=== PATIENT | female | born 1935 | race Caucasian/White ===

== ENCOUNTER 2019-09-06 09:13 | Emergency (ER) | payer MEDICARE, OTHER, SELFPAY ==
[2019-09-06 09:48] VITALS: BP 151/69; PULSE 95; RESP 18; TEMP 36.7; O2SAT 97; BMI 17.3
[2019-09-06 10:37] LABS: Bilirubin Urine Neg (NEGATIVE); Blood Urine 2+ (Negative); Glucose Urine UA Norm (Normal); Ketones Urine Negative (Negative); Leukocyte Esterase Urine 2+ (Negative); Nitrate Urine Negative (Negative); Protein Urine 1+ (Negative); Specific Gravity, Urine 1.005 (1.005-1.030); Urine Appearance Cloudy (CLEAR); Urine Color Yellow (Yellow); Urobilinogen Urine Norm (Negative)
[2019-09-06 10:46] LABS: Basophils % 0.3 %; Eosinophils # 0.1 10^3/uL (0.0-0.8); Eosinophils % 0.9 %; Hematocrit 27.4 % (37.0-47.0); Hemoglobin 8.4 g/dL (11.5-15.3); Lymphocytes % 16.1 %; Mean Corpuscular HGB Conc 30.7 g/dL (30.0-36.0); Mean Corpuscular Hemoglobin 29.7 pg (28.0-34.0); Mean Corpuscular Volume 96.8 fL (81-99); Monocytes # 0.7 10^3/uL (0.2-0.9); Monocytes % 10.2 %; Neutrophils # 4.6 10^3/uL (1.8-7.7); Neutrophils % 71.7 %; Nucleated Red Blood Cells % 0 %; Platelet Count 327 10^3/cmm (130-400); Red Blood Count 2.83 10^6/uL (4.1-5.3); Red Cell Distribution Width 15.9 % (12.1-15.1); White Blood Count 6.4 10^3/uL (4.0-10.0)
--- NOTE | 2019-09-06 10:48 | W.ED.ABDPA2 ---
HPI - Abdominal Pain General: Chief Complaint: Abdominal Pain Stated Complaint: coffee ground vomit Time Seen by Provider: 09/06/19 10:47 PFSH ED PFSH: Statuses (acute, chronic, etc) shown below reflect problem list status as previously entered and may not be historically accurate Social History Smoking and tobacco status: former smoker Course Vital Signs: Vital signs: Vital Signs Temperature 98.0 F 09/06/19 09:48 Pulse Rate 95 09/06/19 09:48 Respiratory Rate 18 09/06/19 09:48 Blood Pressure 151/69 09/06/19 09:48 Pulse Oximetry 97 09/06/19 09:48 MDM - Abdominal Pain Lab Data: Labs: Lab Results 09/06/19 Range/Units 10:19 Urine Color Yellow (Yellow) Urine Appearance Cloudy (CLEAR) Urine pH 5.0 (5-7) Ur Specific Gravit y 1.005 (1.005-1.030) Urine Protein 1+ H (Negative) Urine Glucose (UA) Norm (Normal) Urine Ketones Negative (Negative) Urine Occult Blood 2+ H (Negative) Urine Nitrate Negative (Negative) Urine Bilirubin Neg (NEGATIVE) Urine Urobilinogen Norm (Negative) mg/dL Ur Leukocyte Carmen ase 2+ H (Negative) Discharge Plan Discharge Prescriptions: No Action sertraline 100 mg Tablet 100 mg PO BID RF: 0 amitriptyline 25 mg Tablet 25 mg PO QPM RF: 0 clonazepam 0.5 mg Tablet 0.5 mg PO BID RF: 0 diphenoxylate-atropine 2.5-0.025 mg Tablet 2 tab PO QID RF: 0 levothyroxine 88 mcg Capsule 88 mcg PO DAILY RF: 0 Coding Level of Care Code ED Sports Physiologist for Chg Fwswati
[2019-09-06 10:52] VITALS: BP 154/57; RESP 16; O2SAT 100
[2019-09-06 11:06] LABS: Add Urine Culture? Yes; Bacteria Urine 1+; Squamous Epithelial Cell Urine 0-4 (0-5); WBC Urine >100 /hpf (0-5)
[2019-09-06 11:09] LABS: INR 1.05 (0.8-1.2)
[2019-09-06 11:10] LABS: Alanine Aminotransferase 17 U/L (0-33); Albumin Level 4.5 g/dL (3.5-5.2); Alkaline Phosphatase 124 IU/L (35-105); Anion Gap 19.2 (5-19); Aspartate Amino Transferase 21 U/L (0-32); Blood Urea Nitrogen 33 mg/dL (8-23); Carbon Dioxide 27 mmol/L (22-29); Chloride 91 mmol/L (98-107); Globulin 3.1 g/dL (1.3-4.6); Glucose 97 mg/dL (74-106); Potassium 4.2 mmol/L (3.5-5.1); Sodium 133 mmol/L (136-145); Thyroid Stimulating Hormone 14.07 uIU/mL (0.27-4.20); Total Bilirubin 0.2 mg/dL (0.15-1.2); Total Protein 7.6 g/dL (6.6-8.7)
[2019-09-06 11:11] LABS: Partial Thromboplastin Time 32.2 SECONDS (23.9-36.7)
--- NOTE | 2019-09-06 11:16 | ED_ITS ---
Entered by Lisa Shultz, acting as scribe for Sep 06, 2019 09:13 HPI - Abdominal Pain General: Chief Complaint: Abdominal Pain Stated Complaint: coffee ground vomit Time Seen by Provider: 09/06/19 10:47 Source: patient and family Mode of arrival: ambulatory Limitations: no limitations History of Present Illness: HPI narrative: 83 yo Female presents to ED with c omplaint of abdominal pain and constipation. Pt's family states that they went to the [facility] walk in clinic and patient was sent here to get an enema. Pt started antibiotics on Friday by Dr. Lau for a UTI. The patient has mild dysuria only. She states her abdomen feels bloated and that is how she describes her abdominal pain. MD elicited complaint: abdominal pain Pertinent past history: constipation Quality: aching Associated Symptoms: Reports bloating and constipation; Denies chills, dysuria, fever(s), hematuria and syncope Review of Systems General: Reports: other (negative unless marked) Const: Denies: fever, chills, body aches, fatigue, malaise or diaphoresis Eyes: Denies: change in vision or blurry vision ENMT: Denies: throat pain, painful swallowing, hoarseness, ear pain, ear discharge, Change in hearing or nasal discharge Card: Denies: chest pain, palpitations, irregular heart rhythm, syncope, pre- syncope, shortness of breath on exertion or shortness of breath when lying down Resp: Denies: shortness of breath, productive cough, non-productive cough, wheezing, coughing up blood or chest congestion GI: Reports: abdominal pain, constipation and bloating : Denies: flank pain, painful urination, urinary frequency, urinary urgency, decreased urine ouput, urinary incontinence or blood in urine Musc: Denies: neck pain, back pain, extremity pain, extremity swelling, joint pain, joint swelling, joint warmth or joint stiffness Skin/Breast: Denies: rash, skin tenderness or yellow skin Neuro: Denies: headache, numbness in extremities, weakness in extremities, changes in sensation, lack of coordination, difficulty walking, dizziness, vertigo or confusion Endo: Denies: excessive thirst, tired all the time, cold intolerance, excessive sweating, flushing or hot flashes Jaswinder/Lymph: Denies: easy bruising, easy bleeding, petechiae or enlarged lymph nodes All/Imm: Denies: hives, throat swelling, tongue swelling, facial swelling or acute wheezing PFSH ED PFSH: Statuses (acute, chronic, etc) shown below reflect problem list status as previously entered and may not be historically accurate Medical History (Updated 09/06/19 @ 13:33 by Jessica Jones) Bowel obstruction (Acute) Cancer (Acute) PVD (peripheral vascular disease) (Acute) Surgical History (Updated 09/06/19 @ 11:45 by Lisa Shultz) History of colon resection (Acute) Social History Smoking and tobacco status: former smoker Physical Exam Const: COMMON NORMALS: no apparent distress, oriented x3, no limitations, healthy appearing and well nourished EXAM LIMITATIONS: no altered mental status GENERAL APPEARANCE: cooperative, well kempt and well developed ORIENTATION/CONSCIOUSNESS: Yes awake HENMT: COMMON NORMALS: normocephalic, head/scalp atraumatic, hearing grossly normal bilaterally, external ears normal, EAC's normal, external nose normal and moist oral mucous membranes HEAD & SCALP: normal to inspection, normocephalic and atraumatic FACE & SINUS: normal facial exam and face symmetric NOSE: external nose normal and nares normal EXTERNAL EAR: Yes external ears normal EXTERNAL AUDITORY CANAL: EAC's normal MOUTH: oral and palatal mucosa normal and tongue normal Eye: COMMON NORMALS: PERRL, EOMs intact bilaterally, conjunctivae normal and no scleral icterus GENERAL EYE: normal appearance of both eyes and normal light reflex CONJUNCTIVA: Yes conjunctivae normal SCLERA: sclerae normal CORNEA: Yes corneas normal PUPIL: Yes PERRL DIRECT OPHTHALMOSCOPY: Yes normal light reflex Neck/C-Spine: COMMON NORMALS: full ROM, no lymphadenopathy, supple, no meningeal signs and no JVD GENERAL: Yes normal visual inspection and Yes trachea midline CERVICAL SPINE: Yes cervical ROM normal Chest: COMMONS NORMALS: inspection of chest normal and palpation of chest normal Resp: COMMON NORMALS: normal respiratory effort, no retractions, no use of accessory muscles and clear to auscultation bilaterally EFFORT & INSPECTION: Yes able to speak in complete sentences AUSCULTATION: clear to auscultation bilaterally Cardio: COMMON NORMALS: no JVD, regular rate, regular rhythm, S1 normal heart sound, S2 normal heart sound, no gallops, no clicks, no murmurs and no rub JUGULAR VENOUS DISTENTION: no JVD RATE: regular rate RHYTHM: regular rhythm HEART SOUNDS: S1 normal and S2 normal GI: COMMON NORMALS: soft to palpation, non-tender, no hepatosplenomegaly and no masses INSPECTION: Yes normal to inspection PALPATION: Yes soft, Yes no hepatosplenomegaly and Yes other (Mild distention but no true tenderness to palpation. No signs of peritonit) : COMMON NORMALS: Yes no CVA tenderness BLADDER/KIDNEY EXAM: Yes no CVA tenderness Back/Pelvis: COMMON NORMALS: no CVA tenderness, thoracic and lumbar spine normal to inspection, no thoracic nor lumbar tenderness and thoraco-lumbar ROM normal Extremity: COMMON NORMALS: normal to inspection, full ROM, normal capillary refill, no joint enlargement, no clubbing, cyanosis or edema and no calf tenderness Neuro: COMMON NORMALS: oriented x3, CN's II-XII intact bilaterally, moves all extremities, no focal motor deficits and no sensory deficits noted MENINGEAL SIGNS: Yes no meningeal signs Psych: COMMON NORMALS: mental status grossly normal, thought process normal, cooperative, affect normal, speech normal and activity/motor behavior normal APPEARANCE: Yes well kempt SPEECH: Yes normal speech THOUGHT PROCESS: normal thought process Skin: COMMON NORMALS: no rashes or lesions noted, skin turgor normal, no jaundice, no petechiae and no mottling GENERAL SKIN EXAM: no rashes or lesions noted and turgor normal Procedures Intubation Mg Given: 20 Mg Given: 200 Course Vital Signs: Vital signs: Vital Signs Temperature 98.0 F 09/06/19 09:48 Pulse Rate 64 09/06/19 14:03 Respiratory Rate 18 09/06/19 14:03 Blood Pressure 112/64 09/06/19 14:03 Pulse Oximetry 64 L 09/06/19 14:03 MDM - Abdominal Pain MDM Narrative: Medical decision making narrative: The patient is not vomiting and her abdomen is soft to palpation. She states she feels bloated but otherwise has no true abdominal pain. She is afebrile and does not describe any dysuria. I am going to place her on Omnicef for her UTI and discharge her home with Zofran which she will take prior to her lactulose which she has not been taking because it makes her nauseated. She wants to try this but does agree to return here if her symptoms worsen or change at all. I did discuss with the patient her anemia. She has had higher blood counts in the past but also lower. She denies any blood in her stools. She states this is a chronic ongoing problem but is uncertain of the definite cause. She is not passed any blood in her stools so at this time I do not believe any transfusion or further work-up but this would be necessary. Lab Data: Labs: Lab Results 09/06/19 09/06/19 09/06/19 Range/Units 10:19 10:35 10:35 WBC 6.4 (4.0-10.0) 10^3/ uL RBC 2.83 L (4.1-5.3) 10^6/u L Hgb 8.4 L (11.5-15.3) g/dL Hct 27.4 L (37.0-47.0) % MCV 96.8 (81-99) fL MCH 29.7 (28.0-34.0) pg MCHC 30.7 (30.0-36.0) g/dL RDW 15.9 H (12.1-15.1) % Plt Count 327 (130-400) 10^3/c mm MPV 9.0 (7.4-10.4) fL Neut % (Auto) 71.7 % Lymph % (Auto) 16.1 % [place] % (Auto) 10.2 % Eos % (Auto) 0.9 % Baso % (Auto) 0.3 % Neut # (Auto) 4.6 (1.8-7.7) 10^3/u L Lymph # (Auto) 1.0 (0.8-4.8) 10^3/u L [place] # (Auto) 0.7 (0.2-0.9) 10^3/u L Eos # (Auto) 0.1 (0.0-0.8) 10^3/u L Baso # (Auto) 0.0 (0.0-0.1) 10^3/u L Nucleated RBC % (a uto) 0 % Nucleated RBCs # 0.0 /100WBC PT (10.5-13.3) SECO NDS INR (0.8-1.2) APTT (23.9-36.7) SECO NDS Sodium 133 L (136-145) mmol/L Potassium 4.2 (3.5-5.1) mmol/L Chloride 91 L (98-107) mmol/L Carbon Dioxide 27 (22-29) mmol/L Anion Gap 19.2 H (5-19) BUN 33 H (8-23) mg/dL Creatinine 1.5 H (0.5-0.9) mg/dL Glucose 97 (74-106) mg/dL Lactate (0.5-2.2) mmol/L Calcium 10.0 (8.8-10.2) mg/Dl Total Bilirubin 0.2 (0.15-1.2) mg/dL AST 21 (0-32) U/L ALT 17 (0-33) U/L Alkaline Phosphata se 124 H (35-105) IU/L Total Protein 7.6 (6.6-8.7) g/dL Albumin 4.5 (3.5-5.2) g/dL Globulin 3.1 (1.3-4.6) g/dL Lipase (13-60) U/L TSH 14.07 H (0.27-4.20) uIU/ mL Urine Color Yellow (Yellow) Urine Appearance Cloudy (CLEAR) Urine pH 5.0 (5-7) Ur Specific Gravit y 1.005 (1.005-1.030) Urine Protein 1+ H (Negative) Urine Glucose (UA) Norm (Normal) Urine Ketones Negative (Negative) Urine Occult Blood 2+ H (Negative) Urine Nitrate Negative (Negative) Urine Bilirubin Neg (NEGATIVE) Urine Urobilinogen Norm (Negative) mg/dL Ur Leukocyte Carmen ase 2+ H (Negative) Urine RBC 10-15 H (0-2) /hpf Urine WBC >100 H (0-5) /hpf Ur Squamous Epith Cells 0-4 H (0-5) Urine Bacteria 1+ H (NONE) 09/06/19 09/06/19 09/06/19 Range/Units 10:35 10:35 10:40 WBC (4.0-10.0) 10^3/ uL RBC (4.1-5.3) 10^6/u L Hgb (11.5-15.3) g/dL Hct (37.0-47.0) % MCV (81-99) fL MCH (28.0-34.0) pg MCHC (30.0-36.0) g/dL RDW (12.1-15.1) % Plt Count (130-400) 10^3/c mm MPV (7.4-10.4) fL Neut % (Auto) % Lymph % (Auto) % [place] % (Auto) % Eos % (Auto) % Baso % (Auto) % Neut # (Auto) (1.8-7.7) 10^3/u L Lymph # (Auto) (0.8-4.8) 10^3/u L [place] # (Auto) (0.2-0.9) 10^3/u L Eos # (Auto) (0.0-0.8) 10^3/u L Baso # (Auto) (0.0-0.1) 10^3/u L Nucleated RBC % (a uto) % Nucleated RBCs # /100WBC PT 14.00 H (10.5-13.3) SECO NDS INR 1.05 (0.8-1.2) APTT 32.2 (23.9-36.7) SECO NDS Sodium (136-145) mmol/L Potassium (3.5-5.1) mmol/L Chloride (98-107) mmol/L Carbon Dioxide (22-29) mmol/L Anion Gap (5-19) BUN (8-23) mg/dL Creatinine (0.5-0.9) mg/dL Glucose (74-106) mg/dL Lactate 2.4 H (0.5-2.2) mmol/L Calcium (8.8-10.2) mg/Dl Total Bilirubin (0.15-1.2) mg/dL AST (0-32) U/L ALT (0-33) U/L Alkaline Phosphata se (35-105) IU/L Total Protein (6.6-8.7) g/dL Albumin (3.5-5.2) g/dL Globulin (1.3-4.6) g/dL Lipase 33 (13-60) U/L TSH (0.27-4.20) uIU/ mL Urine Color (Yellow) Urine Appearance (CLEAR) Urine pH (5-7) Ur Specific Gravit y (1.005-1.030) Urine Protein (Negative) Urine Glucose (UA) (Normal) Urine Ketones (Negative) Urine Occult Blood (Negative) Urine Nitrate (Negative) Urine Bilirubin (NEGATIVE) Urine Urobilinogen (Negative) mg/dL Ur Leukocyte Carmen ase (Negative) Urine RBC (0-2) /hpf Urine WBC (0-5) /hpf Ur Squamous Epith Cells (0-5) Urine Bacteria (NONE) Imaging Data ^: CT Abd/Pel: Radiologist's impression: [facility] [address] [place] [address] CT Scan Report Signed Patient: Iraida Bay GMR#: [id number] : 5Acct:[id number] Age/Sex: 83 / FADM Date: 09/06/19 Loc: ER Attending Dr: Ordering Physician: Jessica Jones DO Date of Service: 09/06/19 Procedure(s): CT abdomen pelvis w con* [id number] Accession Number(s): [id number] Report Number: [id number] WS: [id number] CT scan of the abdomen and pelvis without Oral and with IV contrast. Additional two-dimensional coronal and sagittal reconstruction was performed. 09/06/2019 Clinical Data: Abdominal Pain Comparison: CT abdomen and pelvis, 08/09/2019 DLP: 464.[address] scans at [facility] use at least one of these dose optimization techniques: automated exposure control; mA and/or kV adjustment per patient size (includes targeted exams where dose is matched to clinical indication); or iterative reconstruction. Findings: The lower lungs show no nodules, masses or effusions. There is a right augmentation mammoplasty implant in position. The liver, spleen, adrenal glands and pancreas are normal. The gallbladder is distended and the common bile duct is prominent but no intraductal abnormalities are seen. No gallstones are evident. The kidneys show equal bilateral contrast excretion with with right renal pelvic dilatation. No renal masses or obstructing calculi are seen. The right kidney shows small cortical cysts. There is minimal bilateral hydroureter with no intraureteral calculi. The abdominal aorta is normal in size with calcification in the wall. No abscess, adenopathy, ascites, mass, obstruction or free air is seen.. No appendicitis or diverticulitis is seen. There is a huge amount of fecal material throughout the colon. The uterus is absent. The bladder is unremarkable. No inguinal hernia is seen. The fracture of the right sacrum and fracture of the right ischiopubic ramus again are seen. These probably represent pathologic fractures but they are unchanged. CT/CT abdomen pelvis w con* [id number] Impression: 1. Negative for new intra-abdominal or pelvic abnormalities. 2. Distended gallbladder but no calculi or obstructing common duct stones are seen. 3. Dilatation of the right renal pelvis and both ureters unchanged. 4. Large amount of fecal material throughout the colon. 5. Mixed lytic and blastic changes throughout the sacrum and pelvis with probable pathologic fractures of the right sacrum and the right ischio pubic ramus unchanged. Dictated By:Clair Emanuel MD Signed By:Clair Emanuel MDSigned Date/Time:09/06/19 1312 DD/ 1300 Other Xray: Radiologist's impression: [address] [address] XRay Report Signed Patient: Iraida Bay GMR#: [id number] : 5Acct:[id number] Age/Sex: 83 / FADM Date: 09/06/19 Loc: ER Attending Dr: Ordering Physician: Jessica Jones DO Date of Service: 09/06/19 Procedure(s): XR acute abdomen series 38919 Accession Number(s): [id number] cc: Jessica Jones DO~ PROCEDURE INFORMATION: Exam: XR Abdomen, 2 Views Exam date and time: 09/06/2019 11:29 AM Age: 83 years old Clinical indication: Bloating and constipation; Prior surgery; Surgery date: 6+ months; Surgery type: Colon, date not given; Patient HX: HX of cervical and colon cancer; Additional info: Bloating/constipation, no bm for 7 days TECHNIQUE: Imaging protocol: XR of the abdomen. Frontal supine and upright views of the abdomen. Views: 2 Views. COMPARISON: CR XR KUB [id number] 07/06/2019 2:45 PM FINDINGS: Lower thorax: Minimal scarring left retrocardiac region. Lungs are otherwise well aerated. Gastrointestinal tract: bowel gas pattern is nonspecific. Air filled large bowel including distal rectal gas. Large amount of stool throughout the large bowel. Intraperitoneal space: See Bones/joints Finding. Bones/joints: Severe degenerative changes right hip. Prior trauma right hemipelvis. XR/XR acute abdomen series 11959 IMPRESSION: 1. Large amount of stool throughout the large bowel. 2. Minimal scarring left retrocardiac region. Lungs are otherwise well aerated. Dictated By: Ozzie Rogers MD 09/06/19 1304 Signed By: Ozzie Rogers MD 09/06/19 1305 Discharge Plan Discharge Patient Disposition: Home, Self-Care Clinical Impression: Constipation Qualifiers: Constipation type: unspecified constipation type Qualified Code(s): K59.00 - Constipation, unspecified UTI (urinary tract infection) Qualifiers: Urinary tract infection type: acute cystitis Hematuria presence: without hematuria Qualified Code(s): N30.00 - Acute cystitis without hematuria Abdominal pain Qualifiers: Abdominal location: generalized Qualified Code(s): R10.84 - Generalized abdominal pain Condition: Stable Prescriptions: New Zofran 4 mg tablet 4 mg PO DAILY PRN (Reason: nausea and vomiting) 5 Days Qty: 20 RF: 0 cefdinir 300 mg capsule 300 mg PO Q12H 10 Days Qty: 20 RF: 0 No Action sertraline 100 mg Tablet 100 mg PO DAILY RF: 0 amitriptyline 25 mg Tablet 25 mg PO BEDTIME RF: 0 clonazepam 0.5 mg Tablet 0.5 mg PO BID PRN (Reason: Anxiety) RF: 0 diphenoxylate-atropine 2.5-0.025 mg Tablet 2 tab PO QID PRN (Reason: Diarrhea) RF: 0 levothyroxine 88 mcg Capsule 88 mcg PO DAILY RF: 0 latanoprost 0.005 % Drops 1 drp OPHTHALMIC (EYE) BEDTIME RF: 0 primidone 50 mg Tablet 50 mg PO TID PRN (Reason: Tremor(S)) RF: 0 Plavix 75 mg Tablet 75 mg PO DAILY RF: 0 Bactrim DS 800-160 mg Tablet 1 tab PO BID RF: 0 lactulose 10 gram/15 mL (15 mL) Solution 15 ml PO DAILY PRN (Reason: Constipation) RF: 0 Discharge Orders: Discharge Order (Routine); Ordered 09/06/19 Ordered By: Jessica Jones Referrals: Scott Lau MD [Family Provider] - Discharge Diet: Advance as tolerated Discharge Activity: Increase activity as tolerated Patient Instructions: Constipation (ED), Urinary Tract Infection in Men (ED), Abdominal Pain (ED) Activity Restrictions/Additional Instructions: Please return to the ER immediately for any of the signs or symptoms listed on your discharge instruction sheets, worsening/changing of your symptoms, you are not getting better as quickly as expected, or for ANY other cause or concerns. Stop the Bactrim as prescribed by Dr. Lau and take the antibiotic I have given you. Resume your lactulose as previously prescribed and take Zofran 30 minutes prior to taking this. Return to the ER for abdominal pain, fever, vomiting, or for any other cause for concern. Discharge Date/Time: 09/06/19 13:57 Coding Level of Care Code ED Pickle Cutter for Chg Fwd Exam Problem Focused The documentation recorded by the Carrington lopez Carmen, accurately reflects the service I personally performed and the decisions made by Robert garcia Eli N Sep 06, 2019 09:13
[2019-09-06 11:20] LABS: Lipase 33 U/L (13-60)
--- NOTE | 2019-09-06 11:27 | XRR_ITS ---
PROCEDURE INFORMATION: Exam: XR Abdomen, 2 Views Exam date and time: 09/06/2019 11:29 AM Age: 83 years old Clinical indication: Bloating and constipation; Prior surgery; Surgery date: 6+ months; Surgery type: Colon, date not given; Patient HX: HX of cervical and colon cancer; Additional info: Bloating/constipation, no bm for 7 days TECHNIQUE: Imaging protocol: XR of the abdomen. Frontal supine and upright views of the abdomen. Views: 2 Views. COMPARISON: CR XR KUB [id number] 07/06/2019 2:45 PM FINDINGS: Lower thorax: Minimal scarring left retrocardiac region. Lungs are otherwise well aerated. Gastrointestinal tract: bowel gas pattern is nonspecific. Air filled large bowel including distal rectal gas. Large amount of stool throughout the large bowel. Intraperitoneal space: See Bones/joints Finding. Bones/joints: Severe degenerative changes right hip. Prior trauma right hemipelvis. XR/XR acute abdomen series [id number] IMPRESSION: 1. Large amount of stool throughout the large bowel. 2. Minimal scarring left retrocardiac region. Lungs are otherwise well aerated.
[2019-09-06 11:29] LABS: Lactate (Lactic Acid level) 2.4 mmol/L (0.5-2.2)
[2019-09-06] MEDS: cefTRIAXone 1,000 MG in sodium chloride 0.9% (plus) 50 ML 100 MG IV (11:57)
--- NOTE | 2019-09-06 12:01 | CT_ITS ---
WS: [id number] CT scan of the abdomen and pelvis without Oral and with IV contrast. Additional two-dimensional hussain nal and sagittal reconstruction was performed. 09/06/2019 Clinical Data: Abdominal Pain Comparison: CT abdomen and pelvis, 08/09/2019 DLP: 464.[address] scans at [facility] use at least one of these dose optimization techniques: automat ed exposure control; mA and/or kV adjustment per patient size (includes targeted exams where dose is matched to clinical indication); or iterative reconstruction. Findings: The lower lungs show no nodules, masses or effusions. There is a right augmentation mammoplasty impla nt in position. The liver, spleen, adrenal glands and pancreas are normal. The gallbladder is distended and the commo n bile duct is prominent but no intraductal abnormalities are seen. No gallstones are evident. The kidneys show equal bilateral contrast excretion with with right renal pelvic dilatation. No renal masses or obstructing calculi are seen. The right kidney shows small cortical cysts. There is minima l bilateral hydroureter with no intraureteral calculi. The abdominal aorta is normal in size with calcification in the wall. No abscess, adenopathy, ascites , mass, obstruction or free air is seen.. No appendicitis or diverticulitis is seen. There is a huge amount of fecal material throughout the co felix. The uterus is absent. The bladder is unremarkable. No inguinal hernia is seen. The fracture of the right sacrum and fracture of the right ischiopubic ramus again are seen. These pr obably represent pathologic fractures but they are unchanged. CT/CT abdomen pelvis w con* [id number] Impression: 1. Negative for new intra-abdominal or pelvic abnormalities. 2. Distended gallbladder but no calculi or obstructing common duct stones are s een. 3. Dilatation of the right renal pelvis and both ureters unchanged. 4. Large amount of fecal material throughout the colon. 5. Mixed lytic and blastic changes throughout the sacrum and pelvis with probab le pathologic fractures of the right sacrum and the right ischio pubic ramus un changed.
[2019-09-06] MEDS: iodixanol 320 mg/mL 100mL Btl IV (12:17)
[2019-09-06] MEDS: sodium chloride 0.9% 1,000 ML 999 ML IV (12:56)
[2019-09-06 14:03] VITALS: BP 112/64; PULSE 64; RESP 18; O2SAT 64
== END 2019-09-06 13:57 | disposition home or self-care (01) ==
PROVIDERS: Family Medicine; Physician Assistant; Emergency Provider Emergency Medicine; Family Provider Family Medicine
DX: K59.00 Constipation, unspecified (principal); N30.00 Acute cystitis without hematuria; Z87.891 Personal history of nicotine dependence
CPT/HCPCS: 36415; 74022; 74177; 80053; 81001; 83605; 83690; 84443; 85025; 85610; 85730; 87040; 87077; 87086; 87186; 96360; 96365; 99283; 99284; A9270; J0696; J7030; Q9967

== ENCOUNTER 2020-02-06 14:10 | Inpatient (IN) | payer MEDICARE, OTHER, SELFPAY ==
[2020-02-06] VITALS (17 sets, daily range): BP systolic 81–109; BP diastolic 32–87; PULSE 65–179; RESP 13–32; TEMP 36.9–38.3; O2SAT 91–100; BMI 16.8
[2020-02-06] MEDS: sodium chloride 0.9% 500 ML 999 ML IV (14:20)
--- NOTE | 2020-02-06 14:20 | XRR_ITS ---
PROCEDURE INFORMATION: Exam: XR Chest, 1 View Exam date and time: 02/06/2020 2:24 PM Age: 84 years old Clinical indication: Other: A fib; Additional info: New onset a-fib TECHNIQUE: Imaging protocol: XR of the chest Views: 1 view. COMPARISON: CR Chest 1 [place] [id number] 06/25/2019 1:34 PM FINDINGS: Lungs: There is unchanged hyperinflation with probable mild fibrosis. Calcified granulomas are noted. No consolidation. A peripherally calcified right breast implant creates increased density over the right hemithorax. Pleural space: Unremarkable. No pleural effusion. No pneumothorax. Heart/Mediastinum: Unremarkable. No cardiomegaly. Bones/joints: No acute abnormality. XR/XR chest 1V portable [id number] IMPRESSION: No acute findings.
--- NOTE | 2020-02-06 14:20 | ECG_ITS ---
Measurements Intervals Stanley Rate: 159 P: OR: 0 QRS: -25 QRSD: 105 T: 74 QT: 256 QTc: 416 ATRIAL FLUTTER WITH RAPID VENTRICULAR RESPONSE INCOMPLETE RIGHT BUNDLE BRANCH BLOCK [90+ ms QRS DURATION, TERMINAL R IN V1/V2, 40+ ms S IN I/aVL/V4/V5/V6] SEPTAL MYOCARDIAL INFARCTION , OF INDETERMINATE AGE [40+ ms Q WAVE IN V1/V2] CRITICAL TEST RESULT Compared to ECG 06/25/2019 16:30:32 Incomplete right bundle-branch block now present Sinus rhythm no longer present Indeterminate axis no longer present Left anterior fascicular block no longer present Myocardial infarct finding still present Electronically Signed On 02-06-2020 19:06:20 CDT by Grant Lee M.D. [email or web address]
[2020-02-06 14:57] LABS: Basophils % 0.3 %; Eosinophils % 0.2 %; Hematocrit 28.8 % (37.0-47.0); Hemoglobin 9.1 g/dL (11.5-15.3); Lymphocytes # 0.8 10^3/uL (0.8-4.8); Lymphocytes % 8.1 %; Mean Corpuscular HGB Conc 31.6 g/dL (30.0-36.0); Mean Corpuscular Hemoglobin 31.3 pg (28.0-34.0); Mean Platelet Volume 9.5 fL (7.4-10.4); Monocytes % 10.5 %; Neutrophils # 7.7 10^3/uL (1.8-7.7); Neutrophils % 80.1 %; Nucleated Red Blood Cells % 0 %; Platelet Count 208 10^3/cmm (130-400); Red Blood Count 2.91 10^6/uL (4.1-5.3); Red Cell Distribution Width 12.3 % (12.1-15.1); White Blood Count 9.6 10^3/uL (4.0-10.0)
[2020-02-06 15:12] LABS: INR 1.22 (0.8-1.2)
[2020-02-06 15:26] LABS: Albumin Level 3.9 g/dL (3.5-5.2); Chloride 90 mmol/L (98-107); Potassium 3.6 mmol/L (3.5-5.1); Sodium 130 mmol/L (136-145)
[2020-02-06 15:39] LABS: Alanine Aminotransferase 12 U/L (0-33); Alkaline Phosphatase 85 IU/L (35-105); Anion Gap 18.6 (5-19); Aspartate Amino Transferase 19 U/L (0-32); Blood Urea Nitrogen 51 mg/dL (8-23); Calcium 8.5 mg/dL (8.5-10.5); Carbon Dioxide 23 mmol/L (22-29); Globulin 3.6 g/dL (1.3-4.6); Glucose 120 mg/dL (65-115); NT Pro B Type Natriuretic Pept 10455 pg/mL (0-450); Osmolality Calculated 271 mOsm/kg (285-295); Total Bilirubin 0.4 mg/dL (0.15-1.2); Total Protein 6.9 g/dL (6.6-8.7)
--- NOTE | 2020-02-06 15:41 | ED_ITS ---
HPI - Arrhythmia/Palpitations General: Chief Complaint: Arrhythmia/Palpitations Stated Complaint: high hr Time Seen by Provider: 02/06/20 14:18 History of Present Illness: HPI narrative: Patient states that she has not felt well for approximately 1 week. Whe was being seen at her PCPs office who directed her here for suspicion of new onset atrial fibrillation. MD complaint: rapid heart beat, palpitations, irregular heart beat and atrial fibrillation Onset (ago): day(s) Duration: constant Severity: severe Context: occurred during rest Review of Systems General: Reports: 10 or more systems reviewed and unremarkable except in HPI and below Card: Reports: chest pain, palpitations and irregular heart rhythm Resp: Reports: dyspnea PFSH ED PFSH: Medical History Acute non-ST segment elevation myocardial infarction Anemia Atrial fibrillation Bowel obstruction Cancer Chronic constipation Colon cancer Hypertension Irritable bowel syndrome Peripheral arterial disease Status post bilateral iliac stents and angioplasty of the left common femoral artery and superficial femoral artery. PVD (peripheral vascular disease) Septic shock Surgical History History of colon resection History of hemicolectomy S/P angioplasty with stent S/P bladder repair S/P hernia repair S/P tonsillectomy Family History Mother CAD (coronary artery disease) Son CAD (coronary artery disease) Myocardial infarct, old Father CAD (coronary artery disease) Myocardial infarct, old Social History Smoking and tobacco status: never smoked Alcohol intake: never Household members: spouse Marital status: Current occupational status: retired Current gender identity: Female Adele/Gnosticist: Sabianist Physical Exam Const: COMMON NORMALS: patient oriented x3 and alert HENMT: COMMON NORMALS: normocephalic and atraumatic HEAD & SCALP: normocephalic and atraumatic Neck/C-Spine: COMMON NORMALS: no meningeal signs Resp: EFFORT & INSPECTION: Yes respiratory distress Cardio: RATE: tachycardic RHYTHM: abnormal rhythm GI: COMMON NORMALS: Normal to inspection, nondistended, normoactive bowel sounds present Extremity: COMMON NORMALS: normal to inspection and full ROM Neuro: COMMON NORMALS: patient oriented x3 SENSORIUM/ORIENTATION: Yes alert MENINGEAL SIGNS: Yes no meningeal signs Skin: COMMON NORMALS: no rashes or lesions noted, no jaundice and no mottling GENERAL SKIN EXAM: no rashes or lesions noted Course Vital Signs: Vital signs: Vital Signs Temperature 101.0 F H 02/06/20 14:12 Pulse Rate 179 H 02/06/20 14:12 Respiratory Rate 22 H 02/06/20 14:12 Blood Pressure 109/87 02/06/20 14:12 Pulse Oximetry 92 02/06/20 14:12 MDM - Arrhythmia/Palpitations Lab Data: Labs: Lab Results 02/06/20 02/06/20 02/06/20 Range/Units 14:50 14:50 14:50 WBC 9.6 (4.0-10.0) 10^3/ uL RBC 2.91 L (4.1-5.3) 10^6/u L Hgb 9.1 L (11.5-15.3) g/dL Hct 28.8 L (37.0-47.0) % MCV 99.0 (81-99) fL MCH 31.3 (28.0-34.0) pg MCHC 31.6 (30.0-36.0) g/dL RDW 12.3 (12.1-15.1) % Plt Count 208 (130-400) 10^3/c mm MPV 9.5 (7.4-10.4) fL Neut % (Auto) 80.1 % Lymph % (Auto) 8.1 % Beauregard % (Auto) 10.5 % Eos % (Auto) 0.2 % Baso % (Auto) 0.3 % Neut # (Auto) 7.7 (1.8-7.7) 10^3/u L Lymph # (Auto) 0.8 (0.8-4.8) 10^3/u L Beauregard # (Auto) 1.0 H (0.2-0.9) 10^3/u L Eos # (Auto) 0.0 (0.0-0.8) 10^3/u L Baso # (Auto) 0.0 (0.0-0.1) 10^3/u L Nucleated RBC % (a uto) 0 % Nucleated RBCs # 0.0 /100WBC PT 15.90 H (10.5-13.3) SECO NDS INR 1.22 H (0.8-1.2) Sodium 130 L (136-145) mmol/L Potassium 3.6 (3.5-5.1) mmol/L Chloride 90 L (98-107) mmol/L Carbon Dioxide 23 (22-29) mmol/L Anion Gap 18.6 (5-19) BUN 51 H (8-23) mg/dL Creatinine 1.8 H (0.5-0.9) mg/dL Glucose 120 H (65-115) mg/dL Calculated Osmolal ity 271 L (285-295) mOsm/k g Calcium 8.5 (8.5-10.5) mg/dL Total Bilirubin 0.4 (0.15-1.2) mg/dL AST 19 (0-32) U/L ALT 12 (0-33) U/L Alkaline Phosphata se 85 (35-105) IU/L Troponin T Baselin e (0-10) ng/L Troponin T 120 Min tulalip (0-10) ng/L Delta Troponin T (0-10) ABS# NT-Pro-B Natriuret Pep 85174 H (0-450) pg/mL Total Protein 6.9 (6.6-8.7) g/dL Albumin 3.9 (3.5-5.2) g/dL Globulin 3.6 (1.3-4.6) g/dL 02/06/20 02/06/20 Range/Units 14:50 16:43 WBC (4.0-10.0) 10^3/ uL RBC (4.1-5.3) 10^6/u L Hgb (11.5-15.3) g/dL Hct (37.0-47.0) % MCV (81-99) fL MCH (28.0-34.0) pg MCHC (30.0-36.0) g/dL RDW (12.1-15.1) % Plt Count (130-400) 10^3/c mm MPV (7.4-10.4) fL Neut % (Auto) % Lymph % (Auto) % Beauregard % (Auto) % Eos % (Auto) % Baso % (Auto) % Neut # (Auto) (1.8-7.7) 10^3/u L Lymph # (Auto) (0.8-4.8) 10^3/u L Beauregard # (Auto) (0.2-0.9) 10^3/u L Eos # (Auto) (0.0-0.8) 10^3/u L Baso # (Auto) (0.0-0.1) 10^3/u L Nucleated RBC % (a uto) % Nucleated RBCs # /100WBC PT (10.5-13.3) SECO NDS INR (0.8-1.2) Sodium (136-145) mmol/L Potassium (3.5-5.1) mmol/L Chloride (98-107) mmol/L Carbon Dioxide (22-29) mmol/L Anion Gap (5-19) BUN (8-23) mg/dL Creatinine (0.5-0.9) mg/dL Glucose (65-115) mg/dL Calculated Osmolal ity (285-295) mOsm/k g Calcium (8.5-10.5) mg/dL Total Bilirubin (0.15-1.2) mg/dL AST (0-32) U/L ALT (0-33) U/L Alkaline Phosphata se (35-105) IU/L Troponin T Baselin e 42 H (0-10) ng/L Troponin T 120 Min tulalip 41.80 H (0-10) ng/L Delta Troponin T -0.20 L (0-10) ABS# NT-Pro-B Natriuret Pep (0-450) pg/mL Total Protein (6.6-8.7) g/dL Albumin (3.5-5.2) g/dL Globulin (1.3-4.6) g/dL Discharge Plan Discharge Patient Disposition: Admitted As Inpatient Clinical Impression: Atrial fibrillation Qualifiers: Atrial fibrillation type: unspecified Qualified Code(s): I48.91 - Unspecified atrial fibrillation Atrial flutter Qualifiers: Atrial flutter type: unspecified Qualified Code(s): I48.92 - Unspecified atrial flutter Anemia Qualifiers: Anemia type: unspecified type Qualified Code(s): D64.9 - Anemia, unspecified Acute renal failure Qualifiers: Acute renal failure type: unspecified Qualified Code(s): N17.9 - Acute kidney failure, unspecified CHF (congestive heart failure) Qualifiers: Heart failure type: unspecified Heart failure chronicity: unspecified Qualified Code(s): I50.9 - Heart failure, unspecified Condition: Fair Referrals: Scott Lau MD [Primary Care Provider] - Coding Level of Care Code ED Silk Screener for Chg Fwd Exam Comprehensive
[2020-02-06 15:53] LABS: Troponin(5th) Baseline 42 ng/L (0-10)
--- NOTE | 2020-02-06 16:20 | ECG_ITS ---
Measurements Intervals [place] Rate: 106 P: [place]: 0 QRS: -35 QRSD: 123 T: 46 QT: 353 QTc: 471 ATRIAL FIBRILLATION WITH RAPID VENTRICULAR RESPONSE LEFT AXIS DEVIATION [QRS AXIS < -30] SEPTAL MYOCARDIAL INFARCTION , OF INDETERMINATE AGE [40+ ms Q WAVE IN V1/V2] Compared to ECG 06/25/2019 16:30:32 Left-axis deviation now present Sinus rhythm no longer present Indeterminate axis no longer present Left anterior fascicular block no longer present Myocardial infarct finding still present Electronically Signed On 02-06-2020 19:07:48 CDT by Grant Lee M.D. [id number] f
--- NOTE | 2020-02-06 18:52 | PC.NURSE ---
UA ordered by hospitalist. He requests it be collected before patient goes to ICU.
--- NOTE | 2020-02-06 18:56 | CTR_ITS ---
PROCEDURE INFORMATION: Exam: CT Abdomen And Pelvis Without Contrast Exam date and time: 02/06/2020 7:02 PM Age: 84 years old Clinical indication: Prior surgery; Surgery date: 6+ months; Surgery type: Colon, bladder, hernia; Patient HX: Acute renal failure, a-fib, nausea; Additional info: Pain TECHNIQUE: Imaging protocol: Computed tomography of the abdomen and pelvis without contrast. Radiation optimization: All CT scans at this facility use at least one of these dose optimization techniques: automated exposure control; mA and/or kV adjustment per patient size (includes targeted exams where dose is matched to clinical indication); or iterative reconstruction. COMPARISON: CT abdomen pelvis w con* [id number] 09/06/2019 12:23 PM RADIATION DOSE METRICS: Total DLP: 466.67 mGy-cm FINDINGS: Lungs: Mild bibasilar opacity is present, consistent with atelectasis, edema, or pneumonia. Pleural space: There are bilateral small pleural effusions. Liver: Unremarkable.No mass. Gallbladder and bile ducts: Multiple calcified gallstones are present. There is no wall thickening or pericholecystic fluid to suggest cholecystitis. Pancreas: Normal. No ductal dilation. Spleen: Normal. No splenomegaly. Adrenals: Normal. No mass. Kidneys and ureters: There is no evidence of renal calcifications. There is progressive severe bilateral hydronephrosis compared to the prior exam. Stomach and bowel: There is no evidence of intestinal perforation or obstruction. There is severe constipation with a large amount of stool throughout the entire colon and rectum concerning for early impaction. There is unchanged mild circumferential wall thickening of the rectum and greater soft tissue density surrounding the distal sigmoid colon just distal to the anastomotic suture line. No discrete mass or narrowing of the colon. Appendix: No evidence of appendicitis. Intraperitoneal space: Unremarkable. No free air. No significant fluid collection. Vasculature: Unremarkable.No abdominal aortic aneurysm. Lymph nodes: Unremarkable.No enlarged lymph nodes. Bladder: There is nonspecific bladder wall thickening. No bladder calculi. Urinary bladder is very distended concerning the patient may have difficulty voiding. Reproductive: There is also haziness of the presacral fat and fat along the pelvic sidewalls. This may reflect postoperative and post therapeutic changes. Bones/joints: Unchanged chronic pelvic fracture deformities including right pubic bone, right sacrum, right acetabulum and right pubic rami are noted. Bilateral severe degenerative changes in the hips and sacroiliac joints are noted. No acute fracture. Unchanged lucencies and Mach the appearance in the pelvis. This may reflect metastatic disease with superimposed post radiation changes. Soft tissues: Unremarkable. Other findings: There are moderate emphysematous changes. Calcification along the pelvic sidewalls is unchanged compatible with post therapeutic change or myositis ossificans. CT/CT abdomen pelvis wo con [id number] IMPRESSION: 1. Mild bibasilar opacity is present, consistent with atelectasis, edema, or pneumonia. 2. Progressive severe hydronephrosis and marked distention of the urinary bladder concerning for difficulty voiding. No bladder calculus or bladder mass. There is mild bladder wall thickening that may reflect cystitis. 3. There is severe constipation with a large amount of stool throughout the entire colon and rectum concerning for early impaction. There are postoperative changes in the distal colon with soft tissue density in the pelvis suspected to be postoperative or post therapeutic changes. No fluid collection or abscess. 4. Cholelithiasis. No cholecystitis. Radiation Dose CTDIVOL = (mGy): DLP = 466.67 (mGy-cm)
--- NOTE | 2020-02-06 19:47 | P.HP_ITS ---
Providers/Chief Complaint Admitting Physician: Lazaro Gamboa Primary Care Provider: Scott Lau MD Chief Complaint: high hr History of Present Illness Iraida Bay is a 84 year old female with history of recurrent urinary tract infections, previously with colon cancer, status post surgical excision, radiation, with noted bilateral hydroureter, and right-sided hydronephrosis in September, came to the ER due to about a weeks worth of recurrent fevers, today up to 101. She states her and her have been suspecting that this is due to urinary tract infection. They state that back in October her primary care doctor had treated her with nitrofurantoin and everything had gone away. She has been generally weak. With poor appetite, unable to tolerate much food or drink. She has become constipated and has not had a bowel movement in 5 days. She complains of pain in lower back. She states she has been having difficulty urinating. She denies any blood in urine. She does not have headache, sore throat, ear nose, shortness of breath or cough. In ER she was noted with Anjelica lozada with RVR for which she was started on Cardizem drip. Review of Systems Const: Reports: fever(s), change in appetite, fatigue and malaise; Denies: chills or body aches Eyes: Denies: change in vision or eye redness ENMT: Denies: throat pain, oral sores or ear or mastoid pain Card: Denies: chest pain, edema, pre-syncope or dyspnea on exertion Resp: Denies: dyspnea, productive cough, change in phlegm color or hemoptysis GI: Reports: constipation; Denies: abdominal pain, nausea, vomiting, diarrhea, hematochezia or melena : Reports: difficulty voiding; Denies: flank pain, urinary frequency or hematuria Musc: Denies: back pain, joint swelling or joint redness Skin/Breast: Denies: rash, sores or new lesions Neuro: Denies: headache(s), numbness in extremities, weakness in extremities, dizziness, confusion or seizure-like activity Endo: Denies: polyuria or polydipsia Jaswinder/Lymph: Denies: easy bleeding or purpura All/Imm: Denies: urticaria, throat swelling or tongue swelling Medications/Allergies Home Medications Medication Instructions Recorded Confirmed Last Taken Type amitriptyline 25 mg PO BEDTIME 01/06/20 06/07/20 01/05/20 History clonazepam 0.5 mg PO BID PRN 09/06/19 02/06/20 02/05/20 History lactulose 15 ml PO DAILY PRN 09/06/19 02/06/20 09/03/19 History latanoprost 1 drp OPHTHALMIC (EYE) BEDTIME 09/06/19 02/06/20 09/05/19 History primidone 50 mg PO TID PRN 09/06/19 02/06/20 Unknown History aspirin 81 mg tablet,delayed 81 mg PO DAILY tab 09/13/19 02/06/20 02/05/20 History release cyclosporine 0.05 % eye drops 1 drop OPHTHALMIC (EYE) Q12H 09/13/19 02/06/20 Unknown History diphenoxylate-atropine 2.5 2 tab PO QID 09/13/19 02/06/20 02/05/20 History mg-0.025 mg tablet flaxseed oil 1,000 mg capsule 1,000 mg PO DAILY cap 09/13/19 02/06/20 Unknown History hydrochlorothiazide 12.5 mg tablet 12.5 mg PO QAM 09/13/19 02/06/20 Unknown History mirabegron 50 mg tablet,extended 50 mg PO Q24H 09/13/19 02/06/20 Unknown History release 24 hr omega-3 fatty acids 1,000 mg 1,000 mg PO DAILY 09/13/19 02/06/20 Unknown History capsule sertraline 100 mg tablet 100 mg PO Q24H 09/13/19 02/06/20 Unknown History tramadol 50 mg tablet 50 - 100 mg PO QID PRN tab 09/13/19 02/06/20 Unknown History vitamin B complex 1 tab PO QAM 09/13/19 02/06/20 Unknown History Vitamin D3 1 tab PO DAILY 02/06/20 02/06/20 Unknown History hydrocortisone [Proctozone-HC] 1 applic [place] BID PRN 02/06/20 02/06/20 Unknown History levothyroxine 137 mcg PO DAILY 02/06/20 02/06/20 Unknown History multivitamin [Multiple Vitamins] 1 tab PO DAILY 02/06/20 02/06/20 Unknown History phenyleph-min oil-petrolatum 1 applic [place] DAILY PRN 02/06/20 02/06/20 Unknown History [Preparation H] Allergies Allergy/AdvReac Type Severity Reaction Status Date / Time No Known Allergies Allergy Verified 02/06/20 15:15 PFSH Acute PFSH: Medical History (Updated 02/06/20 @ 20:39 by Lazaro Gamboa MD) Acute non-ST segment elevation myocardial infarction Anemia Atrial fibrillation Bowel obstruction Cancer Chronic constipation Colon cancer Hydroureter Hypertension Irritable bowel syndrome Peripheral arterial disease Status post bilateral iliac stents and angioplasty of the left common femoral artery and superficial femoral artery. PVD (peripheral vascular disease) Rectosigmoid cancer Recurrent UTI Septic shock Surgical History History of colon resection History of hemicolectomy S/P angioplasty with stent S/P bladder repair S/P hernia repair S/P tonsillectomy Family History Mother CAD (coronary artery disease) Son CAD (coronary artery disease) Myocardial infarct, old Father CAD (coronary artery disease) Myocardial infarct, old Social History Smoking and tobacco status: never smoked Alcohol intake: never Household members: spouse Marital status: Current occupational status: retired Current gender identity: Female Adele/Pentecostalism: Worship Vitals/I&O/Wt Last Vital Signs Temp 101.0 F H 02/06/20 14:12 Pulse 92 02/06/20 18:02 Resp 16 02/06/20 18:02 BP 87/55 02/06/20 18:02 Pulse Ox 96 02/06/20 18:02 02/06/20 02/06/20 02/06/20 06:59 14:59 22:59 Intake Total 58.367 / 58.367 Balance 58.367 / 58.367 Weight last 48 hrs Weight 43.091 kg Physical Exam Const: COMMON NORMALS: no acute distress and patient oriented x3 GENERAL APPEARANCE: anxious and frail appearing NUTRITIONAL APPEARANCE: cachectic and underweight ORIENTATION/CONSCIOUSNESS: Yes awake HENMT: COMMON NORMALS: oropharynx normal Neck/C-Spine: COMMON NORMALS: no JVD Resp: COMMON NORMALS: normal respiratory effort and clear to auscultation bilaterally AUSCULTATION: clear to auscultation bilaterally Cardio: COMMON NORMALS: no JVD, regular rhythm, S1 normal heart sound present, S2 normal heart sound present and No murmurs present (Cardio) RHYTHM: regular rhythm HEART SOUNDS: S1 normal heart sound present and S2 normal heart sound present GI: COMMON NORMALS: Normal to inspection, nondistended, normoactive bowel sounds present, Soft to palpation and non-tender PALPATION: Yes Soft to palpation Extremity: COMMON NORMALS: no joint enlargement and no pedal edema Neuro: COMMON NORMALS: patient oriented x3 and moves all extremities Skin: COMMON NORMALS: no rashes or lesions noted GENERAL SKIN EXAM: no rashes or lesions noted Data : 02/06/20 14:50 02/06/20 14:50 A&P Assessment and plan (1) Sepsis: Sepsis with recurrent fever 101 Fahrenheit. Tachypnea, 22. Mild lactic acidosis. Severe sepsis due to endorgan injury with JULIA. Unclear source, but suspected urinary. She is being checked for rapid flu, COVID-19 given fever, malaise, fatigue. UA not collected. ER will need to straight cath most likely as she states has b een having difficulty urinating. Subsequently if suggestion of UTI should have renal CT to exclude progressive obstruction/obstructive pyelonephritis. In that case may need urological assessment and intervention. We will start Rocephin as previously appears to have had E. coli resistant to ampicillin and Bactrim, otherwise sensitive. Check blood cultures. LA. CT done - severe bladder distention and severe progressive hydronephrosis. Appreciate urology assessment. Rocephin for cystitis, complicated uti Status: Acute (2) Pneumonia: Bibasilar atelectasis vs pneumonia. With fatigue, fever, pneumonia is possible, alhtough suspect somewhat less likely. Check Covid19, rapid flu. Ceftriaxone, azithromycin. Blood cultures. Status: Acute (3) Constipation: Severe constipation. No BM 5 days. Poor appetite. Denies nausea or vomiting. Start bowel regimen. Gentle IV hydration. Status: Acute (4) Hyponatremia: Hypovolemic. Gentle IV hydration. Reassess. Status: Acute (5) Acute kidney injury: Cr up to 1.8. Suspect may be combination of pre-renal and post-renal with obstruction. Place staton. Appreciate urology recs. Gentle fluid challenge. Monitor cr, I&O Status: Acute (6) Atrial fibrillation with RVR: Reverted to SR with cardizem drip. DC drip. Start metoprolol. Treat sepsis. Check Mg. TSH. Status: Acute (7) Severe protein-calorie malnutrition: Severe protein calorie malnutrition. BMI 16.8. Cachectic. Poor oral intake. Lack of appetite. Severe constipation. Add bowel regimen, work on relieving constipation. Regular diet. Add protein supplementation with shakes. IV fluid rehydration. Check magnesium. Status: Acute (8) Hypothyroidism: Continue levothyroxine. Check TSH. 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 Continue follow-up with oncology, Dr. Hogan. Family states that last time they had seen him there was no suspicion for any recurrence. I do not see any recent visits. Status: Acute Additional A&P Information Troponin abnormality: no chest pain. Mild elevation without rise. Suspected demand ischemia due to sepsis. Treat underlying condition. Complete trop, ekg series. Tremor: continue primidone at reduced dosing Anxiety: clonazepam Chronic anemia HTN PAD Other chronic problems would like to be updated regarding her condition. Attestations Medical Necessity Statement*: Admission of over 2 midnights is going to be needed for assessment management of severe sepsis, complicated UTI, pneumonia, acute kidney injury, other problems as above. Critical Care Time: 120 minutes critical care time spent on assessment and management of severe sepsis, assessment of source, with complicated UTI, urinary retention, severe progressive hydronephrosis, assessment volume status, hemodynamic support, antibiotics, assessment of endorgan injury including kidney injury. Review of images. Discussion with urology specialist, nursing staff, discussion with patient and family. Coding Level of Care Code Acute Gastroenterology Nurse Practitioner for g Fwd Diagnoses Sepsis A41.9 Pneumonia J18.9 Constipation K59.00 Hyponatremia E87.1 Acute kidney injury N17.9 Atrial fibrillation with RVR I48.91 Severe protein-calorie malnutrition E43 Hypothyroidism E03.9 Rectosigmoid cancer C19
--- NOTE | 2020-02-06 20:20 | ECG_ITS ---
Measurements Intervals [place] Rate: 76 P: 26 [place]: 138 QRS: -40 QRSD: 124 T: 46 QT: 416 QTc: 470 SINUS RHYTHM MARKED LEFT AXIS DEVIATION [QRS AXIS < -30] SEPTAL MYOCARDIAL INFARCTION [40+ ms Q WAVE IN V1/V2], OF INDETERMINATE AGE Compared to ECG 02/06/2020 16:45:07 Atrial fibrillation no longer present Myocardial infarct finding still present Electronically Signed On 02-07-2020 19:30:40 CDT by Grant Lee M.D. [id number]
[2020-02-06 20:46] LABS: Urine Appearance Cloudy (CLEAR); Urine Color Yellow (Yellow); pH Urine 5 (5-7)
[2020-02-06 20:47] LABS: Bilirubin Urine Neg (NEGATIVE); Blood Urine 3+ (Negative); Glucose Urine UA Norm (Normal); Ketones Urine Negative (Negative); Leukocyte Esterase Urine 2+ (Negative); Nitrate Urine Positive (Negative); Protein Urine Trace (Negative); Specific Gravity, Urine 1.005 (1.005-1.030); Urobilinogen Urine Norm (Negative)
[2020-02-06 20:49] LABS: Add Urine Culture? Yes; Bacteria Urine 2+; RBC Urine 0-4 /hpf (0-2); Squamous Epithelial Cell Urine 0-4 (0-5); WBC Urine TOO NUMEROUS TO CNT /hpf (0-5)
[2020-02-06 20:54] LABS: Thyroid Stimulating Hormone 0.01 uIU/mL (0.27-4.20)
[2020-02-06] MEDS: sodium chloride 0.9% 1,000 ML 75 ML IV (21:28)
[2020-02-06] MEDS: cefTRIAXone 1,000 MG in sodium chloride 0.9% (plus) 50 ML 100 MG IV (21:29)
[2020-02-06 21:40] LABS: Magnesium 2.1 mg/dL (1.7-2.3)
[2020-02-06 21:41] LABS: Troponin 5 6HR 43.55 ng/L (0-10); Troponin 5 6HR Delta 1.55 ng/L (0-12)
[2020-02-06] MEDS: sertraline 100 mg Tablet PO (21:46)
[2020-02-06] MEDS: enoxaparin 40 mg/0.4 mL Syringe SUBCUT (21:46)
[2020-02-06] MEDS: amitriptyline 25 mg Tablet PO (21:46)
[2020-02-06] MEDS: azithromycin 500 MG in sodium chloride 0.9% 250 ML 250 MG IV (22:03)
--- NOTE | 2020-02-06 23:00 | PC.NURSE ---
Admitted to ICU room 2 from ED via stretcher. Awake, Alert, and Oriented x 3 but appears to be having some slight confusion and forgetfulness. V/S stable at present time. No reports of pain or discomfort. Cardizem infusing at 8 but decreased to 5 and will continue to wean as tolerated. CM = SR with rate 60's to 70's. Patient reports last BM was approx 6 days ago. Complete history and physical done. Patient on droplet isolation for pending covid test.
--- NOTE | 2020-02-06 23:18 | PC.NURSE ---
Patient refusing Milk of Molasses enema at present time and states that she will let me give it to her in the morning. Notified Dr. Duvall and he states that is fine.
[2020-02-07] VITALS (15 sets, daily range): BP systolic 106–162; BP diastolic 43–74; PULSE 64–98; RESP 18–36; TEMP 36.2–37; O2SAT 89–97
[2020-02-07] MEDS: CLONazepam 0.5 mg Tablet PO ×2 (00:26→12:25)
--- NOTE | 2020-02-07 01:45 | PC.NURSE ---
Milk of Mol enema given as ordered. Hard impaction noted. No return noted. Assisted to BSC, lactulose given PO. After 45 minutes, large BM noted with hard stool and liquid stool.
[2020-02-07 05:00] LABS: Basophils % 0.4 %; Eosinophils % 0.3 %; Hematocrit 26.2 % (37.0-47.0); Hemoglobin 8.2 g/dL (11.5-15.3); Lymphocytes # 0.3 10^3/uL (0.8-4.8); Lymphocytes % 3.4 %; Mean Corpuscular HGB Conc 31.3 g/dL (30.0-36.0); Mean Corpuscular Hemoglobin 30.5 pg (28.0-34.0); Mean Corpuscular Volume 97.4 fL (81-99); Mean Platelet Volume 10.1 fL (7.4-10.4); Monocytes # 0.2 10^3/uL (0.2-0.9); Monocytes % 2.4 %; Neutrophils # 7.1 10^3/uL (1.8-7.7); Neutrophils % 92.7 %; Nucleated Red Blood Cells % 0 %; Platelet Count 219 10^3/cmm (130-400); Red Blood Count 2.69 10^6/uL (4.1-5.3); Red Cell Distribution Width 12.4 % (12.1-15.1); White Blood Count 7.6 10^3/uL (4.0-10.0)
[2020-02-07 05:18] LABS: Alanine Aminotransferase 13 U/L (0-33); Alkaline Phosphatase 86 IU/L (35-105); Anion Gap 18.3 (5-19); Aspartate Amino Transferase 21 U/L (0-32); Blood Urea Nitrogen 40 mg/dL (8-23); Calcium 9.3 mg/dL (8.5-10.5); Carbon Dioxide 24 mmol/L (22-29); Chloride 99 mmol/L (98-107); Globulin 3.9 g/dL (1.3-4.6); Glucose 120 mg/dL (65-115); Osmolality Calculated 285 mOsm/kg (285-295); Potassium 3.3 mmol/L (3.5-5.1); Sodium 138 mmol/L (136-145); Total Bilirubin 0.4 mg/dL (0.15-1.2); Total Protein 6.9 g/dL (6.6-8.7)
--- NOTE | 2020-02-07 07:44 | P.CONIM_ITS ---
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 I saw her last in my office in follow-up in May 2019. She had been recently treated for urinary tract infection, culture proven Klebsiella. Complaints at that time included gross hematuria and her symptoms improved after treatment with cefuroxime. 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 (History of colon cancer and cervical cancer). On that same CT scan about that time she had had right hydronephrosis considered moderate and extending distally to the thickened pelvic tissue. There is also a symphyseal pubic bone fracture felt to be likely pathologic. 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 More definitive plans for delayed until further work-up with oncology. She has been followed by Dr. Hogan several times since then and despite equivocal PET CT scan, clinical picture was still suspicious for local recurrence and progression. She has been treated several times since then by Dr. Lau for UTIs. In September she was reevaluated with a CT scan for abdominal bloating with bilateral hydroureter and right hydronephrosis, severe constipation, and persistent evidence of what appeared to be blastic and lytic lesions in the pelvis. This hospital stay was initiated for complaints of fever times approximately 1 week and up to 101 on admission. Initial thought was that this was probably a urinary tract infection. She also had severe constipation. Appetite is been poor and she is also had symptoms of retention. Gross hematuria. No overt flank pain. Was also noted to have atrial fibrillation with rapid ventricular response. CT scan done this time showed all of the above findings with significant progression of LEFT hydronephrosis which was not present as late as September of this year. Her bladder was SEVERELY DISTENDED compared to prior evaluations. Creatinine was elevated at 1.8. White count was normal. She was afebrile. Was also question of possible pneumonia. Other findings included tachypnea mild hypotension but no evidence of severe tachycardia. I spoke with Dr. Gamboa last night and recommended Finch catheter and consideration for more invasive procedures pending how she responds. In the past I spoken to Dr. Hogan about options for her ureters including c hronic indwelling ureteral stents if possible or percutaneous nephrostomies if necessary. To this point her choice has been to be more conservative. Since admission she has been treated aggressively for constipation and has had significant results. This morning when I first evaluated her she was heavily sleeping quite lethargic. More to follow. Review of Systems Narrative: At time of consultation patient was very lethargic and difficult to arouse. Unable to obtain review of systems. Information in the chart regarding this though was reviewed. Meds/Allergies Home Medications and Allergies Home Medications Medication Instructions Recorded Confirmed Last Taken Type amitriptyline 25 mg PO BEDTIME 09/06/19 02/06/20 09/05/19 History clonazepam 0.5 mg PO BID PRN 09/06/19 02/06/20 02/05/20 History lactulose 15 ml PO DAILY PRN 09/06/19 02/06/20 09/03/19 History latanoprost 1 drp OPHTHALMIC (EYE) BEDTIME 09/06/19 02/06/20 09/05/19 History primidone 50 mg PO TID PRN 09/06/19 02/06/20 Unknown History aspirin 81 mg tablet,delayed 81 mg PO DAILY tab 09/13/19 02/06/20 02/05/20 History release cyclosporine 0.05 % eye drops 1 drop OPHTHALMIC (EYE) Q12H 09/13/19 02/06/20 Unknown History flaxseed oil 1,000 mg capsule 1,000 mg PO DAILY cap 09/13/19 02/06/20 Unknown History mirabegron 50 mg tablet,extended 50 mg PO Q24H 09/13/19 02/06/20 Unknown History release 24 hr omega-3 fatty acids 1,000 mg 1,000 mg PO DAILY 09/13/19 02/06/20 Unknown History capsule sertraline 100 mg tablet 100 mg PO Q24H 09/13/19 02/06/20 Unknown History tramadol 50 mg tablet 50 - 100 mg PO QID PRN tab 09/13/19 02/06/20 Unknown History vitamin B complex 1 tab PO QAM 09/13/19 02/06/20 Unknown History Multiple Vitamins 1 tab PO DAILY 02/06/20 02/06/20 Unknown History Preparation H 1 applic [place] DAILY PRN 02/06/20 02/06/20 Unknown History Proctozone-HC 1 applic [place] BID PRN 02/06/20 02/06/20 Unknown History Vitamin D3 1 tab PO DAILY 02/06/20 02/06/20 Unknown History levothyroxine 137 mcg PO DAILY 02/06/20 02/06/20 Unknown History Lactobacillus acidophilus 10,000 mmu cells PO BID #60 cap 02/10/20 Unknown Rx bisacodyl 5 mg PO DAILY #30 tab 02/10/20 Unknown Rx cefuroxime axetil 500 mg PO BID 7 Days #14 tab 02/10/20 Unknown Rx metoprolol tartrate 25 mg PO BID #60 tab 02/10/20 Unknown Rx olanzapine 2.5 mg PO DAILY@20 #15 tab 02/10/20 Unknown Rx polyethylene glycol 3350 17 gm PO BID #60 each 02/10/20 Unknown Rx Allergies Allergy/AdvReac Type Severity Reaction Status Date / Time No Known Allergies Allergy Verified 02/06/20 15:15 Current Medications Current Medications Generic Name Dose Route Start Last Admin Trade Name Freq PRN Reason Stop Dose Admin Amitriptyline HCl 25 mg 02/06/20 21:00 02/06/20 21:46 Elavil PO 25 mg BEDTIME LILIYA Administration Bisacodyl 10 mg 02/07/20 09:00 02/07/20 07:28 Bisac-Evac [place] Not Given DAILY LILIYA Clonazepam 0.5 mg 02/06/20 20:33 02/07/20 00:26 Klonopin PO 0.5 mg BID PRN Administration Anxiety Enoxaparin Sodium 40 mg 02/06/20 21:00 02/06/20 21:46 Lovenox SUBCUT 40 mg Q24H LILIYA Administration Sodium Chloride 1,000 mls @ 75 mls/hr 02/06/20 21:00 02/06/20 21:28 Sodium Chloride 0.9% IV 75 mls/hr .[id number] LILIYA Administration Ceftriaxone Sodium 1,000 mg/ 50 mls @ 100 mls/hr 02/06/20 21:00 02/06/20 22:00 Sodium Chloride IV Infused Q12H LILIYA Infusion Protocol Azithromycin 500 mg/ Sodium 250 mls @ 250 mls/hr 02/06/20 22:00 02/06/20 22:03 Chloride IV 250 mls/hr Q24H LILIYA Administration Protocol Sertraline HCl 100 mg 02/06/20 20:33 02/06/20 21:46 Zoloft PO 100 mg Q24H LILIYA Administration PFSH Acute PFSH: Medical History Anemia Atrial fibrillation Chronic constipation Dementia History of cervical cancer Hydroureter Hypertension Intrinsic sphincter deficiency Irritable bowel syndrome Peripheral arterial disease Status post bilateral iliac stents and angioplasty of the left common femoral artery and superficial femoral artery. PVD (peripheral vascular disease) Rectosigmoid cancer Recurrent UTI Surgical History History of colon resection History of hemicolectomy S/P angioplasty with stent S/P bladder repair S/P hernia repair S/P tonsillectomy Family History Mother CAD (coronary artery disease) Son CAD (coronary artery disease) Myocardial infarct, old Father CAD (coronary artery disease) Myocardial infarct, old Social History Smoking and tobacco status: never smoked Alcohol intake: never Household members: spouse Marital status: Current occupational status: retired Current gender identity: Female Adele/Judaism: Confucianism Vitals/I&O/Wt Last Vital Signs Temp 98.6 F 02/07/20 04:00 Pulse 83 02/07/20 06:00 Resp 34 H 02/07/20 06:00 BP 117/48 02/07/20 06:00 Pulse Ox 90 02/07/20 06:00 02/06/20 02/07/20 02/07/20 22:59 06:59 14:59 Intake Total 192.500 / 192.500 658.083 / 850.583 Output Total 1300 / 1300 Balance 192.500 / 192.500 -641.917 / -449.417 Weight last 48 hrs Weight 97 lb 14.4 oz Weight 95 lb Physical Exam Narrative: EXAM NARRATIVE: Lethargic. Poorly responsive. Could not assess orientation. No labored respirations. No audible wheezing. Somewhat tachypneic. Abdomen was soft without palpable masses. Somewhat distended. No clear tenderness due to her mental status. No severe edema. Urinary Catheter Management^: Finhc: Cath Placed During This Visit: yes Urinary Catheter Date of Insertion: 02/06/20 Urinary Catheter Time of Insertion: 22:00 Data Micro: Micro: Microbiology 02/06/20 21:10 Blood Culture - Pr eliminary Blood SPECIMEN [facility]ONARD[facility] 02/06/20 21:04 Blood Culture - Pr eliminary Blood SPECIMEN [facility] A&P Assessment and plan (1) UTI (urinary tract infection): Status: Acute Qualifiers: Hematuria presence: without hematuria Urinary tract infection type: acute cystitis Qualified Code(s): N30.00 - Acute cystitis without hematuria (2) Intrinsic sphincter deficiency: Status: Acute (3) Urinary retention: New onset of urinary retention of unclear etiology. She appears to have an inflammatory invasive process on the posterior aspect of her bladder suspicious per Dr. Hogan's assessment with local recurrence of her prior disease. Recommend Finch catheter in place and reassess bilateral hydronephrosis and voiding trial later. Status: Resolved (4) Bilateral ureteral obstruction: Status: Acute Coding Level of Care Code Acute Psychological Assistant for [facility] Fwd Diagnoses UTI (urinary tract infection) N30.00 Hematuria presence: without hematuria Urinary tract infection type: acute cystitis Intrinsic sphincter deficiency N36.42 Urinary retention R33.9 Bilateral ureteral obstruction N13.5
[2020-02-07] MEDS: cefTRIAXone 1,000 MG in sodium chloride 0.9% (plus) 50 ML 100 MG IV ×2 (08:23→21:49)
[2020-02-07] MEDS: polyethylene glycol 3350 Pkt 17 gm PO (08:24)
[2020-02-07] MEDS: aspirin 81 mg EC Tablet PO (08:24)
[2020-02-07] MEDS: metoprolol tartrate 25 mg Tablet PO ×2 (08:24→20:51)
[2020-02-07] MEDS: levothyroxine 25 mcg Tablet PO (08:24)
[2020-02-07] MEDS: levothyroxine 112 mcg Tablet PO (08:24)
[2020-02-07] MEDS: primidone 50 mg Tablet 25 MG PO (12:25)
[2020-02-07] MEDS: ondansetron 2 mg/ML SDV 2 mL 4 MG IVP (12:25)
[2020-02-07] MEDS: sodium chloride 0.9% 1,000 ML 75 ML IV (12:28)
--- NOTE | 2020-02-07 18:34 | PM.PN ---
Subjective Subjective: Interval history: Patient a bit confused. She states that she could feel better but she is better than she was when she came in. At some point in the middle of my conversation, I do not think she realized that she was in the hospital. Other times she answers questions appropriately. No new complaints. Finch catheter is still in place. Denies any current pain. No active vomiting. She has had stool output today. Medications: Reviewed: Yes Vitals/I&O/Wt Last Vital Signs Temp 98.2 F 02/07/20 15:43 Pulse 66 02/07/20 14:00 Resp 26 H 02/07/20 14:00 BP 137/68 02/07/20 14:00 Pulse Ox 93 02/07/20 14:00 02/07/20 02/07/20 02/07/20 06:59 14:59 22:59 Intake Total 658.083 / 371.837 7178 / 1600 400 / 2000 Output Total 1300 / 1300 151 / 151 850 / 1001 Balance -641.917 / -586.319 4287 / 1449 -450 / 999 Weight last 48 hrs Weight 44.407 kg Weight 43.091 kg Physical Exam Const: OTHER: Alert, cooperative, to person and place initially but then does not seem to be able to recall that she is in the hospital. HENMT: OTHER: Normocephalic atraumatic, dry mucus membranes Eye: OTHER: Pupils equally reactive to light Neck/C-Spine: OTHER: Supple Resp: OTHER: Clear to auscultation bilaterally, no rhonchi or rales noted. Cardio: OTHER: Regular rate and rhythm, no murmurs, 2 + pulses GI: OTHER: Abdomen soft, nontender, nondistended with positive bowel sounds : OTHER: Finch with cloudy urine Extremity: NARRATIVE EXTREMITY EXAM: No cyanosis, clubbing or edema, no acute synovitis Neuro: OTHER: Face symmetric, speech clear, moves all extremities Psych: OTHER: Normal affect, hides her confusion well Skin: OTHER: Dry, scattered bruises Urinary Catheter Management^: Finch: Cath Placed During This Visit: yes Reason for Continuing Indwelling Catheter: Other Urinary Catheter Date of Insertion: 02/06/20 Urinary Catheter Time of Insertion: 22:00 Data : 02/07/20 04:20 02/07/20 04:20 Other Labs: COVID-19 not detected Micro: Microbiology 02/06/20 21:10 Blood Culture - Preliminary Blood SPECIMEN COLLECTED 02/06/20 21:04 Blood Culture - Preliminary Blood SPECIMEN COLLECTED A&P Assessment and plan (1) Acute encephalopathy: Improving but I doubt she is back to baseline. Status: Acute (2) Sepsis: Also with acute kidney injury. [place] to be urinary source of infection Status: Acute Qualifiers: Sepsis type: sepsis due to unspecified organism Sepsis acute organ dysfunction status: with acute organ dysfunction Severe sepsis acute organ dysfunction type: encephalopathy Severe sepsis shock status: without septic shock Qualified Code(s): A41.9 - Sepsis, unspecified organism; R65.20 - Severe sepsis without septic shock; G93.40 - Encephalopathy, unspecified (3) UTI (urinary tract infection): Present on admission, organism unknown but had E. coli that was sensitive to cephalosporins earlier this year Status: Acute Qualifiers: Hematuria presence: without hematuria Urinary tract infection type: acute cystitis Qualified Code(s): N30.00 - Acute cystitis without hematuria (4) Bilateral ureteral obstruction: Multifactorial secondary to scar tissue from radiation and prior surgeries as well as chronic constipation and Praneeth syndrome, follows with Dr. Hastings Status: Acute (5) Acute kidney injury: Possibly with some degree of chronic kidney disease progressively worsening with chronic hydro-nephrosis Status: Acute (6) Atrial fibrillation with RVR: Currently in sinus rhythm Status: Acute (7) Urinary retention: Currently with Finch catheter Status: Acute (8) Hyponatremia: Improved Status: Acute (9) Constipation: Chronic, some consideration for [place] syndrome in past, good output today Status: Acute Qualifiers: Constipation type: unspecified constipation type Qualified Code(s): K59.00 - Constipation, unspecified (10) Severe protein-calorie malnutrition: Present on admission Status: Acute (11) Hypothyroidism: On levothyroxine chronically; currently with almost undetectable TSH Status: Chronic Qualifiers: Hypothyroidism type: unspecified Qualified Code(s): E03.9 - Hypothyroidism, unspecified (12) Anemia: With slow decline, no gross bleeding. 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 Hastings's input, continue Finch catheter for close monitoring of urine output Chronically on Myrbetriq Continue laxative therapy On beta-blockade Hold levothyroxine and check free T3 and free T4 Monitor response to treatment in terms of the hydronephrosis present Monitor electrolytes Protein supplementation with meals Monitor neuro status Continue IV fluids at current rate For now we will continue home primidone as needed, Klonopin as needed Zoloft and eyedrops Lovenox for DVT prophylaxis, monitoring for any signs of bleeding Discussed with and gave him an opportunity to ask questions Told him that she could not have visitors but he is okay calling her. PT evaluation Supportive care otherwise Updated patient's with plan of care and current condition Full code Attestations Medical Necessity Statement*: Requires ongoing inpatient stay for continued IV antibiotics and follow-up of renal function and other issues as noted above. Still not back at baseline and at risk of significant clinical decline Coding Level of Care Code Acute Tree Specialist for [facility] Fwd Diagnoses Acute encephalopathy G93.40 Sepsis A41.9; R65.20; G93.40 Sepsis type: sepsis due to unspecified organism Sepsis acute organ dysfunction status: with acute organ dysfunction Severe sepsis acute organ dysfunction type: encephalopathy Severe sepsis shock status: without septic shock UTI (urinary tract infection) N30.00 Hematuria presence: without hematuria Urinary tract infection type: acute cystitis Bilateral ureteral obstruction N13.5 Acute kidney injury N17.9 Atrial fibrillation with RVR I48.91 Urinary retention R33.9 Hyponatremia E87.1 Constipation K59.00 Constipation type: unspecified constipation type Severe protein-calorie malnutrition E43 Hypothyroidism E03.9 Hypothyroidism type: unspecified Anemia D64.9 Anemia type: unspecified type Rectosigmoid cancer C19 History of cervical cancer Z85.41 Pneumonia J18.9 Pneumonia type: due to unspecified organism Laterality: bilateral Lung location: lower lobe of lung
[2020-02-07] MEDS: sertraline 100 mg Tablet PO (20:51)
[2020-02-07] MEDS: amitriptyline 25 mg Tablet PO (21:48)
[2020-02-07] MEDS: enoxaparin 40 mg/0.4 mL Syringe SUBCUT (21:49)
[2020-02-07] MEDS: latanoprost 0.005% Op Soln 2.5 mL Btl 1 DROP EYE-BOTH (21:50)
[2020-02-07] MEDS: TRAMadol 50 mg Tablet PO (23:31)
[2020-02-08] VITALS (7 sets, daily range): BP systolic 110–131; BP diastolic 51–65; PULSE 60–87; RESP 18–19; TEMP 36.5–36.8; O2SAT 91–99
[2020-02-08] MEDS: CLONazepam 0.5 mg Tablet PO ×2 (02:42→16:40)
[2020-02-08] MEDS: sodium chloride 0.9% 1,000 ML 75 ML IV (03:15)
[2020-02-08] MEDS: OLANZapine 10 mg VIAL IM (04:48)
[2020-02-08 05:51] LABS: Basophils % 0.3 %; Eosinophils # 0.2 10^3/uL (0.0-0.8); Eosinophils % 2.3 %; Hematocrit 27.6 % (37.0-47.0); Hemoglobin 8.4 g/dL (11.5-15.3); Lymphocytes # 1.1 10^3/uL (0.8-4.8); Lymphocytes % 15.9 %; Mean Corpuscular HGB Conc 30.4 g/dL (30.0-36.0); Mean Corpuscular Hemoglobin 30.3 pg (28.0-34.0); Mean Corpuscular Volume 99.6 fL (81-99); Mean Platelet Volume 9.6 fL (7.4-10.4); Monocytes # 0.7 10^3/uL (0.2-0.9); Monocytes % 9.7 %; Neutrophils # 4.8 10^3/uL (1.8-7.7); Neutrophils % 69.6 %; Nucleated Red Blood Cells % 0 %; Platelet Count 264 10^3/cmm (130-400); Red Blood Count 2.77 10^6/uL (4.1-5.3); Red Cell Distribution Width 12.5 % (12.1-15.1); White Blood Count 6.9 10^3/uL (4.0-10.0)
[2020-02-08 06:18] LABS: Alanine Aminotransferase 29 U/L (0-33); Albumin Level 2.9 g/dL (3.5-5.2); Alkaline Phosphatase 95 IU/L (35-105); Anion Gap 17.4 (5-19); Aspartate Amino Transferase 45 U/L (0-32); Blood Urea Nitrogen 30 mg/dL (8-23); Calcium 9.1 mg/dL (8.5-10.5); Carbon Dioxide 23 mmol/L (22-29); Chloride 99 mmol/L (98-107); Globulin 3.8 g/dL (1.3-4.6); Glucose 111 mg/dL (65-115); Osmolality Calculated 282 mOsm/kg (285-295); Sodium 137 mmol/L (136-145); Total Bilirubin 0.2 mg/dL (0.15-1.2); Total Protein 6.7 g/dL (6.6-8.7)
[2020-02-08 06:19] LABS: Phosphorus 3.1 mg/dL (2.5-4.5)
[2020-02-08 06:45] LABS: Potassium 2.4 mmol/L (3.5-5.1)
[2020-02-08 07:11] LABS: Free T4 Free Thyroxine 1.13 ng/dL (0.82-1.77); T3 Free 1.3 PG/ML (2.0-4.4)
--- NOTE | 2020-02-08 07:39 | PC.NURSE ---
PT RECEIVING IV POTASSIUM, PER DR SUMNER, THIS NURSE ASKED IF 5ML LIDOCAINE COULD BE ORDERED, DR SUMNER VIA TELEPHONE ORDERED 5 ML LIDOCAINE TO BE MIXED IN [place].
[2020-02-08] MEDS: aspirin 81 mg EC Tablet PO (08:47)
[2020-02-08] MEDS: bisacodyl 10 mg Supp PR (08:47)
[2020-02-08] MEDS: metoprolol tartrate 25 mg Tablet PO ×2 (08:48→16:40)
[2020-02-08] MEDS: lidocaine 1% INJ 20 mL 5 ML IV (08:49)
[2020-02-08] MEDS: potassium chloride premix 40 MEQ/100 ML PREMIX 25 MEQ IV (08:50)
--- NOTE | 2020-02-08 08:51 | P.PN_ITS ---
Subjective Subjective: Interval history: Feels better today. Sleepy but making more sense. Has had significant stool output. Potassium is low this morning but is being replaced. No new complaints. Vitals/I&O/Wt Last Vital Signs Temp 97.7 F 02/08/20 08:00 Pulse 60 02/08/20 08:00 Resp 18 02/08/20 08:00 BP 131/56 02/08/20 08:00 Pulse Ox 99 02/08/20 08:00 02/07/20 02/08/20 02/08/20 22:59 06:59 14:59 Intake Total 500 / 2100 1000 / 3100 Output Total 850 / 1001 700 / 1701 Balance -350 / 1099 300 / 1399 Weight last 48 hrs Weight 44.407 kg Weight 43.091 kg Physical Exam Const: OTHER: Sleepy but oriented x3, cooperative HENMT: OTHER: Moist mucus membranes Eye: OTHER: EOMI Neck/C-Spine: OTHER: Supple Resp: OTHER: Clear to auscultation bilaterally, no rales, rhonchi or wheezes noted, no accessory muscle use noted Cardio: OTHER: Regular rate and rhythm, no murmurs gallops or rubs. Pulses equal throughout. GI: OTHER: Abdomen soft, decreased tenderness. No CVA tenderness today, nondistended with positive bowel sounds : OTHER: Finch with clearer urine today Extremity: NARRATIVE EXTREMITY EXAM: No edema, no acute synovitis Neuro: OTHER: Face symmetric, speech clear, moves all extremities Psych: OTHER: Normal affect though sleepy Skin: OTHER: Skin dry, no rashes Urinary Catheter Management^: Finch: Cath Placed During This Visit: yes Reason for Continuing Indwelling Catheter: Other Urinary Catheter Date of Insertion: 02/06/20 Urinary Catheter Time of Insertion: 22:00 Data : 02/08/20 04:59 02/08/20 04:59 Other Labs: Laboratory Tests 02/08/20 04:59 Free T4 1.13 Free T3 1.3 L Micro: Microbiology 02/06/20 21:10 Blood Culture - Preliminary Blood NEGATIVE TO DATE 02/06/20 21:04 Blood Culture - Preliminary Blood NEGATIVE TO DATE A&P Assessment and plan (1) Acute encephalopathy: Improving but I doubt she is back to baseline. Had a chance to talk to Dr. Lau, her PCP, and he does relate that she has had some baseline dementia more notable over the past year.. Was definitely exacerbated at admission. Status: Acute (2) Sepsis: Also with acute kidney injury. [place] to be urinary source of infection. Status: Acute Qualifiers: Sepsis type: sepsis due to unspecified organism Sepsis acute organ dysfunction status: with acute organ dysfunction Severe sepsis acute organ dysfunction type: encephalopathy Severe sepsis shock status: without septic kaela ck Qualified Code(s): A41.9 - Sepsis, unspecified organism; R65.20 - Severe sepsis without septic shock; G93.40 - Encephalopathy, unspecified (3) UTI (urinary tract infection): Present on admission, organism unknown but had E. 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 Hastings who has seen here for consultation. Currently pursuing conservative management. Status: Acute (5) Acute kidney injury: Possibly with some degree of chronic kidney disease progressively worsening with chronic hydro-nephrosis. BUN and creatinine are improved today. Status: Acute (6) Atrial fibrillation with RVR: Currently in sinus rhythm. Does not have a history of this. Suspect related to sepsis and acute issues at presentation to initiate. Reviewed with Dr. Lau and and less clear indication anticoagulation, will hold off for now. Status: Acute (7) Urinary retention: Currently with Finch catheter Status: Acute (8) Hyponatremia: Resolved. 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 Consistent with sick euthyroid in the setting of other acute events. Status: Chronic Qualifiers: Hypothyroidism type: unspecified Qualified Code(s): E03.9 - Hypothyroidism, unspecified (12) Anemia: With slow decline, no gross bleeding. 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 (14) History of cervical cancer: Status: Acute (15) Pneumonia: Presumptive diagnosis at time of admission but suspect atelectasis rather than acute infection Status: Ruled-out Qualifiers: Pneumonia type: due to unspecified organism Laterality: bilateral Lung location: lower lobe of lung Qualified Code(s): J18.9 - Pneumonia, unspecified organism (16) Dementia: Status: Acute Qualifiers: Dementia type: unspecified type Dementia behavioral disturbance: without behavioral disturbance Qualified Code(s): F03.90 - Unspecified dementia without behavioral disturbance Additional A&P Information Keep bed near nurses station with bed alarm Continue Rocephin Greatly appreciate Dr. Hastings's input, continue Finch catheter for close monitoring of urine output Chronically on Myrbetriq Continue laxative therapy scheduled today, then decrease On beta-blockade Resume levothyroxine Monitor response to treatment in terms of the hydronephrosis present Monitor electrolytes Protein supplementation with meals Monitor neuro status q shift Continue IV fluids at current rate for now, but add potassium Continue home primidone as needed, Klonopin as needed Zoloft and eyedrops Lovenox for DVT prophylaxis, monitoring for any signs of bleeding Discussed with nursing We will call later today. He has an android smart phone but is not sure he knows how to do video calls. Nurse will see if she can talk him through it versus simply making sure he is able to talk to her on the phone. PT evaluation Supportive care otherwise Full code Attestations Medical Necessity Statement*: Requires ongoing inpatient stay for continued IV antibiotics, IV fluids and management as noted above. Coding Level of Care Code Acute Commissioning Engineer for [facility] [place] Fwd Diagnoses Acute encephalopathy G93.40 Sepsis A41.9; R65.20; G93.40 Sepsis type: sepsis due to unspecified organism Sepsis acute organ dysfunction status: with acute organ dysfunction Severe sepsis acute organ dysfunction type: encephalopathy Severe sepsis shock status: without septic shock UTI (urinary tract infection) N30.00 Hematuria presence: without hematuria Urinary tract infection type: acute cystitis Bilateral ureteral obstruction N13.5 Acute kidney injury N17.9 Atrial fibrillation with RVR I48.91 Urinary retention R33.9 Hyponatremia E87.1 Constipation K59.00 Constipation type: unspecified constipation type Severe protein-calorie malnutrition E43 Hypothyroidism E03.9 Hypothyroidism type: unspecified Anemia D64.9 Anemia type: unspecified type Rectosigmoid cancer C19 History of cervical cancer Z85.41 Pneumonia J18.9 Pneumonia type: due to unspecified organism Laterality: bilateral Lung location: lower lobe of lung Dementia F03.90 Dementia type: unspecified type Dementia behavioral disturbance: without behavioral disturbance
[2020-02-08] MEDS: polyethylene glycol 3350 Pkt 17 gm PO ×2 (08:53→16:40)
[2020-02-08] MEDS: sodium chlor 0.45% +KCl 20 mEq 20 MEQ/1,000 ML BAG 75 MEQ IV (13:15)
[2020-02-08] MEDS: cefTRIAXone 1,000 MG in sodium chloride 0.9% (plus) 50 ML 100 MG IV (14:47)
--- NOTE | 2020-02-08 17:58 | PC.NURSE ---
PRINCESS Lopez came to this nurse due to pt taking a piece of nicorette gum from [facility], Dr Choi informed, physician ordered PRN nicorette 4mg Q2H.
[2020-02-08] MEDS: sertraline 100 mg Tablet PO (20:17)
[2020-02-08] MEDS: amitriptyline 25 mg Tablet PO (20:17)
[2020-02-08] MEDS: enoxaparin 40 mg/0.4 mL Syringe SUBCUT (20:17)
[2020-02-08] MEDS: latanoprost 0.005% Op Soln 2.5 mL Btl 1 DROP EYE-BOTH (20:17)
[2020-02-08] MEDS: TRAMadol 50 mg Tablet PO (21:37)
--- NOTE | 2020-02-08 21:59 | PC.NURSE ---
Patient is very confused, she believes that the male nurse saw her private areas while being changed. Cnc Mill Set Up Operator was the only one in patient's room while being changed, male nurse was not in the room during changing pt. Pt believes that male nurse is a family member and she doesn't want him to see that kind of thing. Cnc Mill Set Up Operator told patient that I would be the only one in the room for changing her the rest of the night and that the female PSA could get me supplies if needed.
[2020-02-09] VITALS (7 sets, daily range): BP systolic 107–126; BP diastolic 42–63; PULSE 60–74; RESP 16–20; TEMP 36.4–36.9; O2SAT 93–98
[2020-02-09] MEDS: sodium chlor 0.45% +KCl 20 mEq 20 MEQ/1,000 ML BAG 75 MEQ IV ×2 (00:48→14:28)
[2020-02-09] MEDS: cefTRIAXone 1,000 MG in sodium chloride 0.9% (plus) 50 ML 100 MG IV ×2 (01:27→14:28)
[2020-02-09 05:04] LABS: Basophils % 0.3 %; Eosinophils # 0.3 10^3/uL (0.0-0.8); Eosinophils % 3.6 %; Hematocrit 29.2 % (37.0-47.0); Hemoglobin 8.6 g/dL (11.5-15.3); Lymphocytes # 1.3 10^3/uL (0.8-4.8); Lymphocytes % 18.2 %; Mean Corpuscular HGB Conc 29.5 g/dL (30.0-36.0); Mean Corpuscular Hemoglobin 30.3 pg (28.0-34.0); Mean Corpuscular Volume 102.8 fL (81-99); Mean Platelet Volume 9.3 fL (7.4-10.4); Monocytes # 0.7 10^3/uL (0.2-0.9); Monocytes % 9.9 %; Neutrophils # 4.7 10^3/uL (1.8-7.7); Neutrophils % 64.3 %; Nucleated Red Blood Cells % 0 %; Platelet Count 263 10^3/cmm (130-400); Red Blood Count 2.84 10^6/uL (4.1-5.3); Red Cell Distribution Width 12.6 % (12.1-15.1); White Blood Count 7.3 10^3/uL (4.0-10.0)
--- NOTE | 2020-02-09 05:06 | PC.NURSE ---
Patient has been stating that she is seeing things in her room such as dogs, and also her . Maintenance Helper Utility Engineer tried to redirect patient back, but she doesn't believe she's in the hospital. Patient believes she is in her house with her family.
[2020-02-09 05:27] LABS: Anion Gap 15.5 (5-19); Blood Urea Nitrogen 22 mg/dL (8-23); Carbon Dioxide 20 mmol/L (22-29); Chloride 104 mmol/L (98-107); Glucose 85 mg/dL (65-115); Magnesium 1.6 mg/dL (1.7-2.3); Osmolality Calculated 278 mOsm/kg (285-295); Phosphorus 2.5 mg/dL (2.5-4.5); Potassium 3.5 mmol/L (3.5-5.1); Sodium 136 mmol/L (136-145)
--- NOTE | 2020-02-09 08:45 | PC.SOCIAL ---
IMM Page 2 of IMM explained to patient. Initialed, dated, and timed and placed in chart. Copy provided to patient.
[2020-02-09] MEDS: aspirin 81 mg EC Tablet PO (09:10)
[2020-02-09] MEDS: levothyroxine 25 mcg Tablet PO (09:10)
[2020-02-09] MEDS: levothyroxine 112 mcg Tablet PO (09:10)
[2020-02-09] MEDS: polyethylene glycol 3350 Pkt 17 gm PO (09:11)
[2020-02-09] MEDS: metoprolol tartrate 25 mg Tablet PO ×2 (09:11→17:58)
--- NOTE | 2020-02-09 18:21 | PM.PN ---
Subjective Subjective: Interval history: She feels a bit better today. More cooperative. Was given another dose of Zyprexa last evening. Nursing notes describe her being confused but not combative that I have been able to find. Urine cultures have come back with E. coli sensitive to Rocephin. Finch catheter remains in place. I discussed with Dr. Hastings. Has had multiple bowel movements. Vitals/I&O/Wt Last Vital Signs Temp 98.1 F 02/09/20 15:30 Pulse 62 02/09/20 15:30 Resp 20 H 02/09/20 15:30 BP 112/57 02/09/20 15:30 Pulse Ox 98 02/09/20 15:30 02/09/20 02/09/20 02/09/20 06:59 14:59 22:59 Intake Total 916.25 / 1626.25 1360 / 1360 480 / 1840 Output Total 1425 / 1425 1500 / 1500 300 / 1800 Balance -508.75 / 201.25 -140 / -140 180 / 40 Physical Exam Const: OTHER: More awake and appropriate. HENMT: OTHER: Moist mucus membranes Eye: OTHER: EOMI Resp: OTHER: Clear to auscultation bilaterally Cardio: OTHER: Regular rhythm GI: OTHER: Abdomen soft, tenderness today : OTHER: Finch continues with clear urine Extremity: NARRATIVE EXTREMITY EXAM: No edema Neuro: OTHER: Face symmetric, speech clear, moves all extremities Skin: OTHER: Skin dry, no rashes Urinary Catheter Management^: Finch: Cath Placed During This Visit: yes Reason for Continuing Indwelling Catheter: Acute Urinary Retention or Obstruction Urinary Catheter Date of Insertion: 02/06/20 Urinary Catheter Time of Insertion: 22:00 Data : 02/09/20 04:32 02/09/20 04:32 Micro: Microbiology 02/06/20 19:35 Urine Culture - Final Urine Catheterized Escherichia coli A&P Assessment and plan (1) Acute encephalopathy: Improving and likely getting close to baseline for being out of her usual environment. Dr. Lau, her PCP, relate that she has had some baseline dementia more notable over the past year.. Was definitely exacerbated at admission. Status: Acute (2) Sepsis: Also with acute kidney injury. [place] to be urinary source of infection. Status: Resolved Qualifiers: Sepsis type: sepsis due to unspecified organism Sepsis acute organ dysfunction status: with acute organ dysfunction Severe sepsis acute organ dysfunction type: encephalopathy Severe sepsis shock status: without septic shock Qualified Code(s): A41.9 - Sepsis, unspecified organism; R65.20 - Severe sepsis without septic shock; G93.40 - Encephalopathy, unspecified (3) UTI (urinary tract infection): Present on admission, with E. 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 Hastings who has seen here for consultation. Currently pursuing conservative management. There has been some concern that this could be due to infiltration from malignancies causing more frequent problems for her Status: Acute (5) Acute kidney injury: Possibly with some degree of chronic kidney progressively worsening with chronic hydro-nephrosis. Continues to improve Status: Acute (6) Atrial fibrillation with RVR: Currently in sinus rhythm. Does not have a history of this. Suspect related to sepsis and acute issues at presentation to initiate. Reviewed with Dr. Lau and and less clear indication anticoagulation, will hold off for now. No recurrence Status: Acute (7) Urinary retention: Currently with Finch catheter with plan to evaluate for trial of voiding Status: Acute (8) Hyponatremia: Resolved. 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 Discussed with patient that diarrhea does not always indicate that you are not constipated. Status: Acute Qualifiers: Constipation type: unspecified constipation type Qualified Code(s): K59.00 - Constipation, unspecified (10) Severe protein-calorie malnutrition: Present on admission, getting supplements with meals Status: Acute (11) Hypothyroidism: On levothyroxine chronically; with almost undetectable TSH but with normal free T4 and actually low free T3. Consistent with sick euthyroid in the setting of other acute events. Status: Chronic Qualifiers: Hypothyroidism type: unspecified Qualified Code(s): E03.9 - Hypothyroidism, unspecified (12) Anemia: Stable, no gross bleeding. 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 Hastings's input Plan for removal of Finch and a trial of voiding Chronically on Myrbetriq which has been continued Decrease laxative therapy On beta-blockade On levothyroxine Recheck renal function in the morning Remains off of home hydrochlorothiazide Protein supplementation with meals Monitor neuro status q shift Will add low-dose Zyprexa scheduled at 8 PM and see if she does any better Continues to have one-to-one sitter for safety Change IV fluids to KVO Continue home primidone as needed, Klonopin as needed Zoloft and eyedrops Lovenox for DVT prophylaxis, monitoring for any signs of bleeding Discussed with nursing Updated last evening and will call again PT evaluation Supportive care otherwise Full code Attestations Medical Necessity Statement*: Requires ongoing inpatient stay for continued treatment as indicated above. Increasing activity, giving her a trial of voiding and beginning arrangements for possible discharge with home health soon. Will need close follow-up with urology upon discharge. Coding Level of Care Code Acute Steel Rule Die Maker for g Fwd Diagnoses Acute encephalopathy G93.40 Sepsis A41.9; R65.20; G93.40 Sepsis type: sepsis due to unspecified organism Sepsis acute organ dysfunction status: with acute organ dysfunction Severe sepsis acute organ dysfunction type: encephalopathy Severe sepsis shock status: without septic shock UTI (urinary tract infection) N30.00 Hematuria presence: without hematuria Urinary tract infection type: acute cystitis Bilateral ureteral obstruction N13.5 Acute kidney injury N17.9 Atrial fibrillation with RVR I48.91 Urinary retention R33.9 Hyponatremia E87.1 Constipation K59.00 Constipation type: unspecified constipation type Severe protein-calorie malnutrition E43 Hypothyroidism E03.9 Hypothyroidism type: unspecified Anemia D64.9 Anemia type: unspecified type Dementia F03.90 Dementia type: unspecified type Dementia behavioral disturbance: without behavioral disturbance Rectosigmoid cancer C19 History of cervical cancer Z85.41 Pneumonia J18.9 Pneumonia type: due to unspecified organism Laterality: bilateral Lung location: lower lobe of lung
[2020-02-09] MEDS: nicotine 14 mg Patch 1 PATCH TRANSDERMA (19:39)
[2020-02-09] MEDS: sertraline 100 mg Tablet PO (19:39)
[2020-02-09] MEDS: OLANZapine 5 mg TABLET 2.5 MG PO (19:39)
[2020-02-09] MEDS: amitriptyline 25 mg Tablet PO (19:39)
[2020-02-09] MEDS: latanoprost 0.005% Op Soln 2.5 mL Btl 1 DROP EYE-BOTH (20:36)
[2020-02-09] MEDS: enoxaparin 40 mg/0.4 mL Syringe SUBCUT (20:36)
[2020-02-10] MEDS: cefTRIAXone 1,000 MG in sodium chloride 0.9% (plus) 50 ML 100 MG IV ×2 (01:40→13:03)
[2020-02-10 04:07] VITALS: BP 144/61; PULSE 72; RESP 20; TEMP 36.9; O2SAT 96
[2020-02-10 04:11] LABS: Anion Gap 14.6 (5-19); Blood Urea Nitrogen 23 mg/dL (8-23); Calcium 8.7 mg/dL (8.5-10.5); Carbon Dioxide 16 mmol/L (22-29); Chloride 113 mmol/L (98-107); Glucose 93 mg/dL (65-115); Osmolality Calculated 286 mOsm/kg (285-295); Potassium 3.6 mmol/L (3.5-5.1); Sodium 140 mmol/L (136-145)
[2020-02-10] MEDS: sodium chlor 0.45% +KCl 20 mEq 20 MEQ/1,000 ML BAG 75 MEQ IV (05:13)
[2020-02-10 06:58] VITALS: BP 144/61; PULSE 72; RESP 20; TEMP 36.9
[2020-02-10 08:00] VITALS: BP 139/61; PULSE 78; RESP 16; TEMP 36.6; O2SAT 97
[2020-02-10] MEDS: nicotine 14 mg Patch 1 PATCH TRANSDERMA (08:32)
[2020-02-10] MEDS: polyethylene glycol 3350 Pkt 17 gm PO (08:32)
[2020-02-10] MEDS: aspirin 81 mg EC Tablet PO (08:32)
[2020-02-10] MEDS: metoprolol tartrate 25 mg Tablet PO (08:32)
[2020-02-10] MEDS: levothyroxine 112 mcg Tablet PO (08:32)
[2020-02-10] MEDS: levothyroxine 25 mcg Tablet PO (08:32)
[2020-02-10] MEDS: bisacodyl 5 mg Tablet PO (08:32)
--- NOTE | 2020-02-10 10:36 | PC.CHAP ---
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 linux server administrator visit [] Patient/Family/Request visit [] Outpatient visit [] Follow-up visit [] Physician referral [] Code/Alert [x] Routine visit [] Staff referral [] Actively dying [] Patient sleeping [] Family support [] [] Out of room [] Palliative care [] [] Receiving care in room [] Pre-surgical visit [] Trauma [] Long length of stay [] ICU visit [] Other: Relational/Emotional Strength [x] Patient feels connected with others/family/visitors/staff [] Distress [] Loneliness/isolation [] Abandonment Spirituality of Patient [x] Person of Adele [x] Attends Shinto of their Adele [x] Believes in Prayer [x] Reads Bible or Lutheran materials [] There are Spiritual issues to be addressed Electrocardiogram Technician Interventions [x] Prayer [x] Active listening [x] Non-anxious presence [x] Spiritual/emotional support [] Crisis/trauma care [] Spiritual counseling [] Bereavement support [] Provided bereavement packet [] Provided Bible/devotional materials [] Provided toy/stuffed animal, coloring book to patient or family member [] Provided Communion [] Anointing/[place] [] Salvation [x] Completed spiritual assessment [] Other: Impact on Illness or Injury [] Angry [] Fearful [] Anxious [] Often cries [] Exhaustion [] Unable to work [] Unable to attend spiritism [] Unable to walk/stand [] Unable to read [] Unable to drive [] Unable to eat/drink [] Unable to sleep [] Unable to be with family [] Patient intubated [x] Other: n/a Summary Time spent with patient 10 minutes
[2020-02-10 11:31] VITALS: BP 132/56; PULSE 80; RESP 16; TEMP 36.5; O2SAT 100
--- NOTE | 2020-02-10 14:59 | PM.DCS ---
Discharge Providers Date of Admission: 02/06/20 17:35 Date of Discharge: February 10, 2020 Attending Provider at Admission: Lazaro Gamboa Attending Provider at Discharge: Magnolia Choi MD Primary Care Provider: Scott Lau MD Diagnoses at Discharge Discharge Diagnosis (1) Acute encephalopathy: Status: Resolved Problem details: metabolic (2) Sepsis: Status: Resolved Qualifiers: Sepsis acute organ dysfunction status: with acute organ dysfunction Sepsis type: sepsis due to unspecified organism Severe sepsis acute organ dysfunction type: encephalopathy Severe sepsis shock status: without septic shock Qualified Code(s): A41.9 - Sepsis, unspecified organism; R65.20 - Severe sepsis without septic shock; G93.40 - Encephalopathy, unspecified (3) UTI (urinary tract infection): Status: Acute Problem details: E coli (not ESBL) on 02/10/20 Qualifiers: Hematuria presence: without hematuria Urinary tract infection type: acute cystitis Qualified Code(s): N30.00 - Acute cystitis without hematuria (4) Bilateral ureteral obstruction: Status: Acute Problem details: Slowly worsening, follows with Hastings (5) Acute kidney injury: Status: Resolved (6) Atrial fibrillation with RVR: Status: Resolved Problem details: Secondary to sepsis, in sinus rhythm at dc (7) Urinary retention: Status: Resolved (8) Hyponatremia: Status: Resolved (9) Constipation: Status: Resolved Qualifiers: Constipation type: unspecified constipation type Qualified Code(s): K59.00 - Constipation, unspecified (10) Severe protein-calorie malnutrition: Status: Acute (11) Hypothyroidism: Status: Chronic Qualifiers: Hypothyroidism type: unspecified Qualified Code(s): E03.9 - Hypothyroidism, unspecified (12) Anemia: Status: Chronic Qualifiers: Anemia type: unspecified type Qualified Code(s): D64.9 - Anemia, unspecified (13) Dementia: Status: Chronic Qualifiers: Dementia behavioral disturbance: without behavioral disturbance Dementia type: unspecified type Qualified Code(s): F03.90 - Unspecified dementia without behavioral disturbance (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 Soria presented with evidence of sepsis felt secondary to likely urinary source. There was some concern about possibility of pneumonia initially but ultimately findings on imaging studies were felt to be due to atelectasis. She had severe bladder distention and hydronephrosis noted on CT imaging. Finch catheter was placed and she was started on antibiotics. She has had worsening issues over time. She follows with Dr. Hastings on outpatient basis. She has a history of both rectal cancer as well as cervical cancer. For some time Dr. Hastings has thought that there might be some issues related to either scar tissue or infiltration contributing to recurrent problems with constipation and subsequently contributing to progressively worsening hydronephrosis. Patient had not had a bowel movement for multiple days prior to admission. She had acute kidney injury with creatinine up to 1.8 in addition to other findings noted. With antibiotic therapy, IV fluids and laxative therapy, she improved slowly. We ended up doing a trial of voiding after discussion with Dr. Hastings. Patient was able to urinate without the same degree of difficulty after significant stool output during the hospital admission. I reviewed with her yet again the need to maintain regular stool softeners and laxative therapy to help prevent these kinds of issues. I also discussed with her . She reports frequent diarrhea. Reiterated that the watery stools are probably related to overflow incontinence rather than actual diarrhea. Urine culture ultimately ended up growing E. coli that was not ESBL. She was treated with Rocephin here and was transitioned to oral medication at discharge. She had had some transient atrial fibrillation that I feel was likely secondary to sepsis. Was in sinus rhythm at the time of discharge. No further treatment in this regards was initiated. I will note that during the hospital stay, patient had some evidence of sundowning and behavioral changes requiring medication. At time she was quite combative with staff. Prior to discharge she was doing better. I started her on 2.5 mg of Zyprexa at 8 PM. A prescription for this was provided at discharge. I spoke with the about it. I also reviewed the case with Dr. Lau, patient's primary care provider during the hospital stay as well as at the time of discharge. Plans were reviewed with patient although I do not know how much of it she will maintain. Again I reviewed with also. On the day of discharge, patient was awake and alert. She was able to answer more questions appropriately. She was tearful at times because she wanted to go home but otherwise no acute behavioral issues noted. Her lungs are clear, she had a regular rhythm. Abdomen was soft without any significant distention. She had no ongoing tenderness and was felt stable for discharge home with close outpatient follow-up. Plans in regards to Finch catheter removal were discussed with Dr. Hastings prior to discharge. Physical Exam Urinary Catheter Management^: Finch: Cath Placed During This Visit: yes, but has since been removed by the nurse Reason for Continuing Indwelling Catheter: Decision to DC Catheter Urinary Catheter Date of Insertion: 02/06/20 Urinary Catheter Time of Insertion: 22:00 Date Urinary Catheter Removed: 02/09/20 Time Urinary Catheter Discontinued: 18:00 Discharge Data Data Completed and Pending: Completed Studies During Hospitalization Category Date Time Status CT abdomen pelvis wo con 33922 Urge nt Cat Scan 02/06/20 18:56 Completed XR chest 1V aysha ble [id number] Stat Exams 02/06/20 14:20 Completed Pending at discharge Category Date Time Status Blood Culture Sta t Lab 02/06/20 21:10 Results Labs from last 24 hours 02/10/20 03:23 Sodium 140 Potassium 3.6 Chloride 113 H Carbon Dioxide 16 L Anion Gap 14.6 BUN 23 Creatinine 1.1 H Glucose 93 Calculated Osmolal ity 286 Calcium 8.7 Vitals: Last Vital Signs Temp 97.7 F 02/10/20 11:31 Pulse 80 02/10/20 11:31 Resp 16 02/10/20 11:31 BP 132/56 02/10/20 11:31 Pulse Ox 100 02/10/20 11:31 Discharge Plan Discharge Patient Disposition: Home, Self-Care Condition: Stable Prescriptions: New olanzapine 5 mg Tablet 2.5 mg PO DAILY@20 Qty: 15 RF: 0 bisacodyl 5 mg Tablet,Delayed Release (Dr/Ec) 5 mg PO DAILY Qty: 30 RF: 0 metoprolol tartrate 25 mg Tablet 25 mg PO BID Qty: 60 RF: 0 cefuroxime axetil 500 mg tablet 500 mg PO BID 7 Days Qty: 14 RF: 0 polyethylene glycol 3350 17 gram powder in packet 17 gm PO BID Qty: 60 RF: 0 Lactobacillus acidophilus Capsule 10,000 mmu cells PO BID Qty: 60 RF: 0 Continued vitamin B complex [B Complex-Vitamin B12] Tablet 1 tab PO QAM RF: 0 flaxseed oil 1,000 mg capsule 1,000 mg PO DAILY RF: 0 omega-3 fatty acids [Fish Oil Concentrate] 1,000 mg capsule 1,000 mg PO DAILY RF: 0 aspirin [Adult Low Dose Aspirin] 81 mg tablet,delayed release (DR/EC) 81 mg PO DAILY RF: 0 tramadol 50 mg tablet 50 - 100 mg PO QID PRN (Reason: Pain) RF: 0 Restasis MultiDose 0.05 % drops 1 drop ophthalmic (eye) Q12H RF: 0 Myrbetriq 50 mg tablet extended release 24 hr 50 mg PO Q24H RF: 0 sertraline 100 mg tablet 100 mg PO Q24H RF: 0 amitriptyline 25 mg Tablet 25 mg PO BEDTIME RF: 0 clonazepam 0.5 mg Tablet 0.5 mg PO BID PRN (Reason: Anxiety) RF: 0 latanoprost 0.005 % Drops 1 drp OPHTHALMIC (EYE) BEDTIME RF: 0 primidone 50 mg Tablet 50 mg PO TID PRN (Reason: Tremor(S)) RF: 0 lactulose 10 gram/15 mL (15 mL) Solution 15 ml PO DAILY PRN (Reason: Constipation) RF: 0 Multiple Vitamins Tablet 1 tab PO DAILY RF: 0 levothyroxine 137 mcg tablet 137 mcg PO DAILY RF: 0 Proctozone-HC 2.5 % cream with perineal applicator 1 applic [place] BID PRN (Reason: UNKNOWN) RF: 0 Preparation H 0.25-14-74.9 % Ointment 1 applic [place] DAILY PRN (Reason: UNKNOWN) RF: 0 Vitamin D3 1 tab PO DAILY RF: 0 Discontinued hydrochlorothiazide 12.5 mg tablet 12.5 mg PO QAM RF: 0 diphenoxylate-atropine 2.5-0.025 mg tablet 2 tab PO QID RF: 0 Discharge Orders: Discharge Order (Routine); Ordered 02/10/20 Ordered By: Magnolia Choi Other Ambulatory Orders: Basic Metabolic Panel (Routine) Timeframe: 1 Week Location: Determined by Patient Ordered By: Magnolia Choi Complete Blood Count w/Auto (Routine) Timeframe: 1 Week Location: Determined by Patient Ordered By: Magnolia Choi Referrals: Anthony Hastings MD [Physician] - 02/18/20 8:30 am (Dr Hastings said to get her in early next week. You have an appointment on February 17 at 8:30am.) Scott Lau MD [Primary Care Provider] - 4-7 days (You have an appointment with Dr. Lau on February 15 at 2:00pm) Discharge Diet: Usual diet Discharge Activity: Increase activity as tolerated Patient Instructions: Constipation - Adult, Cefuroxime (By mouth), Metoprolol (By mouth), Laxative, Stimulant (By mouth), Olanzapine (By mouth), Polyethylene Glycol 3350 (By mouth), Probiotic (By mouth), Urinary Tract Infection in Women (DC), Dementia (GEN) Activity Restrictions/Additional Instructions: You presented with alteration in mental status and other findings consistent with urinary tract infection, acute renal failure and some associated sepsis. You had multiple electrolyte abnormalities, transient abnormal heart rhythm. Was some concern about the possibility of pneumonia initially but ultimately felt that urine was the source of problems. Constipation is a contributing factor to the urinary symptoms. I suspect that some of the liquid stools you been having lately may be related to the fact that you are so constipated only liquid could get around her stools. You received a lot of laxative therapy here with significant stool output. Amount of laxative therapy has been decreased. For now I have stopped antidiarrheal agents. You required a Finch catheter while here. This was removed on February 08. Post void residuals after removal ranged from around 50 mL's to around 150 mL's max. Case was discussed with Dr. Hastings who saw you during the hospital stay and he was okay with discharge home and follow-up with him next week. You are being prescribed cefuroxime to continue to take for E. coli that was found in your urine. Take antibiotic as prescribed. Diuretic therapy is presently held. You had a fast, abnormal heart rate transiently. You were started on metoprolol for your heart rate. Metoprolol also helps blood pressure. Your blood pressures generally range from around 100 systolic to around 130 systolic. Hydrochlorothiazide may be able to be resumed by her primary care provider but this will be determined on follow-up. I have ordered some repeat blood work for a week from now that you can get done at a location of your choice. Lactobacillus was added to help decrease the risk of getting an infection in your stool. The only other new medication is a medication called Zyprexa which I prescribed at low-dose to help with sleep. Dr. Lau is aware of this medication. Other home medications are continued as previously taken. In addition to follow-up with Dr. Hastings, we will have you follow-up with Dr. Lau. Home health was offered but declined at this point in time. You were doing well with physical therapy prior to discharge. Discharge Date/Time: 02/10/20 16:00 Discharge Attestations Time Spent in Discharge Care*: greater than 30 min Quality Metrics Clinical Quality Measures During this hospital stay, did patient experience: None Coding Level of Care Code Acute Photographer'S Model for Chg Fwd Diagnoses Acute encephalopathy G93.40 Sepsis A41.9; R65.20; G93.40 Sepsis acute organ dysfunction status: with acute organ dysfunction Sepsis type: sepsis due to unspecified organism Severe sepsis acute organ dysfunction type: encephalopathy Severe sepsis shock status: without septic shock UTI (urinary tract infection) N30.00 Hematuria presence: without hematuria Urinary tract infection type: acute cystitis Bilateral ureteral obstruction N13.5 Acute kidney injury N17.9 Atrial fibrillation with RVR I48.91 Urinary retention R33.9 Hyponatremia E87.1 Constipation K59.00 Constipation type: unspecified constipation type Severe protein-calorie malnutrition E43 Hypothyroidism E03.9 Hypothyroidism type: unspecified Anemia D64.9 Anemia type: unspecified type Dementia F03.90 Dementia behavioral disturbance: without behavioral disturbance Dementia type: unspecified type Rectosigmoid cancer C19 History of cervical cancer Z85.41 Pneumonia J18.9 Laterality: bilateral Lung location: lower lobe of lung Pneumonia type: due to unspecified organism
[2020-02-10 15:33] VITALS: BP 171/66; PULSE 84; RESP 18; TEMP 36.8; O2SAT 99
[2020-02-10 16:31] VITALS: BP 171/66; PULSE 84; RESP 18; TEMP 36.8; O2SAT 99
== END 2020-02-10 16:00 | disposition home or self-care (01) | DRG 871 ==
LOC: ER 17:40 → ICU 19:39 → MEDSURG 02-07 21:15
PROVIDERS: Emergency Medicine; Family Medicine; Admitting Provider Internal Medicine; PCP Family Medicine; Visit Provider Hospitalist
DX: A41.9 Sepsis, unspecified organism (principal); E43 Unspecified severe protein-calorie malnutrition; N17.9 Acute kidney failure, unspecified; E87.2 Acidosis; E87.1 Hypo-osmolality and hyponatremia; Z68.1 Body mass index [BMI] 19.9 or less, adult; G93.40 Encephalopathy, unspecified; N13.1 Hydronephrosis with ureteral stricture, not elsewhere classified; N30.00 Acute cystitis without hematuria; R65.20 Severe sepsis without septic shock; Z87.440 Personal history of urinary (tract) infections; Z85.038 Personal history of other malignant neoplasm of large intestine; Z85.41 Personal history of malignant neoplasm of cervix uteri; Z90.49 Acquired absence of other specified parts of digestive tract; Z92.3 Personal history of irradiation; K59.09 Other constipation; M54.5 Low back pain; I48.91 Unspecified atrial fibrillation; I25.2 Old myocardial infarction; I10 Essential (primary) hypertension; I73.9 Peripheral vascular disease, unspecified; Z95.820 Peripheral vascular angioplasty status with implants and grafts; Z79.82 Long term (current) use of aspirin; N36.42 Intrinsic sphincter deficiency (ISD); D64.9 Anemia, unspecified; E03.9 Hypothyroidism, unspecified; B96.20 Unspecified Escherichia coli [E. coli] as the cause of diseases classified elsewhere
CPT/HCPCS: 12345; 36415; 51702; 51798; 71045; 74176; 80048; 80053; 81001; 83605; 83735; 83880; 84100; 84439; 84443; 84481; 84484; 85025; 85610; 87040; 87077; 87086; 87186; 87635; 93005; 96372; 96375; 97116; 97161; 97530; 99283; J0456; J0696; J1650; J2001; J2405; J3480; J3490; J7030; J7040; J7050

== ENCOUNTER → 2020-02-18 08:42 | Outpatient (BNVA) | payer MEDICARE, OTHER, SELFPAY | PROVIDERS: PCP Family Medicine; Visit Provider Urology | DX: N30.00 Acute cystitis without hematuria (principal); R33.9 Retention of urine, unspecified; N13.5 Crossing vessel and stricture of ureter without hydronephrosis | CPT/HCPCS: 81001 ==

== ENCOUNTER 2020-03-02 10:21 | Outpatient (CLI) | payer MEDICARE, OTHER, SELFPAY ==
--- NOTE | 2020-03-04 13:58 | ONC FU_ITS ---
Dr. Hogan Patient Follow-Up Note Patient: Iraida Bay Unit #: [id number]: [id number] Dicatated By: Derek Hogan M.D.Date of Visit:Mar 02, 2020 Onc Med Follow-up/Prog Note Chief Complaint: Anemia and suspected pelvic malignancy. History of Present Illness: This is an 84 year-old woman with moderately severe anemia and suspected malignancy in the pelvic soft tissue. 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 Pathology at that time showed invasive moderately differentiated mucinous adenocarcinoma, stage IIA (T3, N0, M0). She had previously undergone cobalt radiation for cervical cancer in 1962. As such, her adjuvant therapy for the colon cancer was limited to 6 cycles of adjuvant 5-FU/leucovorin chemotherapy, which she completed in January 1997. She had developed chronic problems with both bowel and bladder function following the surgery, but as of her office visit in December 1998 there had been no evidence for recurrence of the colon cancer. Thereafter she had failed to return for further follow-up. Her other medical illnesses include hypertension, peripheral arterial disease, hypothyroidism, and anxiety/depression. She has a 40-year pack history of smoking, but she had quit smoking 25 years ago. On 04/25/2019 she was admitted to the hospital after presenting to the emergency room with increasing weakness and falling. At that point she was mildly anemic with hemoglobin 10.7 g, but with normal WBC at 6200 and normal platelet count at 243,000. Chem profile showed borderline renal function with BUN 26 and creatinine 1.1 mg/dL. Liver enzymes were minimally elevated. Her CT abdomen/pelvis showed severe stomach and colonic distention with marked fecal material throughout the entire colon. In comparison to a prior CT from October 2017 there was increasing soft tissue in the pelvis with presacral soft tissue extending to surround the rectum and more anteriorly in the perirectal fat. The findings were felt to be suspicious for recurrent or progressive tumor. There was evidence of moderate right hydronephrosis, and there was evidence for a new destructive process and probable pathologic fracture involving the right para symphyseal pubic bone. Osseous metastatic disease was suspected. During the hospitalization she did have treatment for Escherichia coli urinary tract infection, which was felt to be a significant contributing factor to her illness. Her obstipation was successfully managed with lactulose and Dulcolax. During the hospitalization there was further decline in her hemoglobin to 8.2 g. Her red cell indices were normal, but her serum iron studies did show low transferrin saturation at 11.3%, consistent with iron deficiency. The ferritin was mildly elevated at 297 ng/mL. B12 level was > 2000 pg/mL. She was seen here on 05/06/2019. Her CBC at that time showed adequate hemoglobin at 9.9 g with white blood cell count 7600 and platelet count 385,000. Sed rate was elevated at 76 mm/hour. CRP was elevated at 19.4 mg/dL. She had borderline renal function with BUN 28 and creatinine one-point her renal function was normal with BUN 15 and creatinine 0.8 mg/dL. Her serum iron studies showed low transferrin saturation at 13.7%. There was no monoclonal protein detected on her serum protein electrophoresis. A restaging PET/CT on 05/08/2019 showed extensive postsurgical and radiation therapy changes at the pelvis without clear evidence for recurrent malignancy. There was significant FDG activity at a nonhealed fracture of the right pubic ramus, but inflammatory activity could not be differentiated from malignant uptake in a pathologic fracture. There was also mild activity in the bilateral sacral ala and the pelvic bones were noted to have coarse trabecula consistent with early sacral insufficiency fracture changes versus early osseous metastatic disease. She was recommended to start oral iron supplementation with ferrous sulfate for the iron deficiency. On 06/17/2019 she was seen in the emergency room with acute mental status changes. Her clinical evaluation by clinical evaluation she appeared to have septic shock. She was admitted to [facility] for 5 days. Shortly after discharge she was seen in the emergency room again with lower extremity edema. She was thought to have mild congestive heart failure. Her B-SYS DIR level was elevated at 9764 pg/mL. She was started on a low dose of furosemide. She was seen in the ER again on 07/06/2019 with abdominal pain and constipation. CT abdomen/pelvis showed severe obstipation throughout the entire colon. There was continued high-grade obstruction involving the right ureter at the pelvic brim. She did require multiple enemas to get the constipation relieved. She had to be taken off the oral iron. Repeat CT abdomen/pelvis on 08/09/2019 showed no obvious progression compared to the July study. Her hemoglobin at that point was still low at 9.2 g. She was given parenteral iron replacement with a single infusion of Injectafer. She otherwise opted to just continue with observation/expectant management. On 02/06/2020 she was admitted to the hospital with acute encephalopathy in association with E. coli urinary tract infection and sepsis. With that illness she had some decline in renal function, but that did not improve with treatment. She remained moderately anemic. Hemoglobin was 8.6 g at discharge. Creatinine was back to baseline at 1.1 mg/dL. Her CT abdomen/pelvis showed progressive hydronephrosis and marked distention of the urinary bladder. There was mild bladder wall thickening. There was severe constipation. There was unchanged mild circumferential wall thickening of the rectum and greater soft tissue density surrounding the distal sigmoid colon just distal to the anastomotic suture line. There was no evidence of discrete mass or narrowing of the colon. She is seen for a followup visit. She says her energy is fair. She is able to do light work. Her appetite is pretty good now. She had lost weight, but she is regaining it now. She has had no fever since she has been home from the hospital. She has not had night sweating. She has a little bit of shortness of breath. She does not complain of cough. She has not been having chest pain. She has not been having nausea. She does have some acid reflux. She has both bowel and bladder incontinence, but she says her bowels have been moving more regularly since she has been out of the hospital. Following discharge from the hospital she had developed some swelling in her legs, but that appears to be resolving. She recently has had pain in her right shoulder and right knee. She has had a few headaches. She has numbness in her left hand. Medications: Amitriptyline HCl 1 Tablet (of 25 mg) Oral at bedtime, cycloSPORINE 1 Drop(s) (of 0.05 %) Emulsion Ophthalmic b.i.d., Diphenoxylate-Atropine 2 Tablet (of 2.5-0.025 mg) Oral four times a day, Fish Oil 1 Capsule Oral daily, Flaxseed Oil 1 Capsule Oral daily, hydroCHLOROthiazide 1 Tablet (of 12.5 mg) Oral daily, KlonoPIN 1 Tablet (of 0.5 mg) Oral daily, Levothyroxine Sodium 1 Tablet (of 137 mcg) Oral daily, Metoprolol Tartrate 1 Tablet (of 25 mg) Oral b.i.d., Sertraline HCl 1 Tablet (of 100 mg) Oral daily, traMADol HCl 1 Tablet (of 50 mg) Oral b.i.d. Allergies: No Known Allergies. Review of Systems: Constitutional - Her energy is fair. She is able to do light to moderate housework. Her appetite is good but her weight is down about 4 pounds from last visit. She states that she had lost 10 pounds during hospitalization, but she has gained most of it back. No fever today. No night sweats or hot flashes. ECOG score is 1, ENMT - No sinus congestion/drainage. No mouth sores. No sore throat or difficulty swallowing, Hematologic/Lymphatic - No abnormal bruising or bleeding, Respiratory - No shortness of breath. No cough. No pleuritic pain or hemoptysis, Cardiovascular - No angina pain. No palpitations, Gastrointestinal - No nausea or vomiting. She has occasional heartburn. She has bowel incontinence. No blood in the stool or black stools, Genitourinary (F) - No dysuria or hematuria. She has bladder incontinence, Musculoskeletal - She has arthritic pain in her right leg, especially in her knee. She also had shoulder pain, Integumentary - No skin complications, Neurologic - No headache or dizziness. She has numbness with tingling in her left hand. No other focal neurologic symptoms, Psychiatric - She has some mild anxiety and depression. It is adequately managed with sertraline. She is also taking amitriptyline for sleep. Vital Signs: Performed on Mar 02, 2020 10:36 Height - 63.00 in Weight - 96.2 lbs (LOW) BSA - 1.42 sq.m BMI - 17.04 (LOW) Temperature - 99.7 F (HIGH) Pulse - 94 /min Respiration - 22 /min BP - 131/65 mm(hg) O2 Sat - 97 % Pain - 0 Physical Examination: Constitutional - She appears generally frail, Eyes - Sclerae nonicteric. Conjunctivae clear, ENMT - No lesions noted in the oral cavity, Hematologic/Lymphatic - No cervical, clavicular, or axillary adenopathy, Respiratory - Lungs are clear with good air movement bilaterally, Cardiovascular - Heart rhythm is regular. There is no murmur, gallop, or rub noted, Abdomen - Mildly distended. Liver and spleen are not enlarged. There is no abdominal mass or ascites noted and there is no inguinal adenopathy, Extremities - Slight edema, Neurologic - No focal neurologic deficits noted. Impression: 1. Patient with moderately severe anemia, most likely due to iron deficiency. The underlying cause has not been determined. 2. She has CT evidence of increasing soft tissue in the pelvic area suspicious for recurrent/progressive malignancy. 3. There was also CT evidence of a new destructive process and suspected pathological fracture of the right parasymphyseal pubic bone. 4. 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 She was given adjuvant chemotherapy with 6 cycles of 5-FU/leucovorin, completed in January 1997. 5. She has additional history of having undergone cobalt radiation and hysterectomy for cervical cancer in 1962. Her other medical illnesses include: 6. Hypertension. 7. Peripheral arterial disease. 8. Hypothyroidism. 9. She had developed chronic diarrhea following her radiation and subsequent colon surgery. 10. She has chronic bladder incontinence. 11. Anxiety/depression. She had hospital admissions for sepsis in association with urinary tract infection in June 2019 and again in January 2020. During that time, there has been worsening of her hydronephrosis by CT scan. There is associated distention of the urinary bladder, which appears to be the most likely underlying cause for it. The soft tissue density surrounding the distal sigmoid colon appeared to have increased somewhat, but with unchanged mild circumferential wall thickening of the rectum. At this point she remains moderately anemic. Her renal function, though, had recovered to baseline following treatment for the sepsis. Plan: I think the best option for her management is for her to have palliative urostomy and colostomy, but she is very reluctant to have anything done, as she still feels comfortable managing her bowel and bladder incontinence. There still seems to be no compelling evidence for an underlying malignant process, and as long as her renal function remains adequate, there appears to be no urgency for any intervention. I will discuss this, though, with Dr. Hastings. Signed By: Dreek Hogan M.D. <<Signature on File>>
== END 2020-03-02 10:22 | disposition home or self-care (01) ==
LOC: ONCMED 10:25
PROVIDERS: PCP Family Medicine; Visit Provider Internal Medicine Medical Oncology
DX: D50.9 Iron deficiency anemia, unspecified (principal); I10 Essential (primary) hypertension; I73.9 Peripheral vascular disease, unspecified; E03.9 Hypothyroidism, unspecified; R19.7 Diarrhea, unspecified; R32 Unspecified urinary incontinence; F41.9 Anxiety disorder, unspecified; F32.9 Major depressive disorder, single episode, unspecified; Z85.038 Personal history of other malignant neoplasm of large intestine
CPT/HCPCS: 99214

== ENCOUNTER 2020-05-09 07:54 | Outpatient (CLI) | payer MEDICARE, OTHER, SELFPAY ==
[2020-05-09 08:32] LABS: Basophils % 0.5 %; Eosinophils # 0.7 10^3/uL (0.0-0.8); Eosinophils % 12.6 %; Hematocrit 34.9 % (37.0-47.0); Hemoglobin 10.9 g/dL (11.5-15.3); Lymphocytes # 1.2 10^3/uL (0.8-4.8); Lymphocytes % 20.7 %; Mean Corpuscular HGB Conc 31.2 g/dL (30.0-36.0); Mean Corpuscular Volume 99.1 fL (81-99); Mean Platelet Volume 9.7 fL (7.4-10.4); Monocytes # 0.6 10^3/uL (0.2-0.9); Monocytes % 10.7 %; Neutrophils # 3.26 10^3/uL (1.8-7.7); Neutrophils % 55.3 %; Nucleated Red Blood Cells % 0 %; Platelet Count 206 10^3/cmm (130-400); Red Blood Count 3.52 10^6/uL (4.1-5.3); Red Cell Distribution Width 12.1 % (12.1-15.1); White Blood Count 5.9 10^3/uL (4.0-10.0)
[2020-05-09 08:48] LABS: Alanine Aminotransferase 8 U/L (0-33); Albumin Level 4.3 g/dL (3.5-5.2); Alkaline Phosphatase 71 IU/L (35-105); Anion Gap 12.9 (5-19); Aspartate Amino Transferase 16 U/L (0-32); Blood Urea Nitrogen 29 mg/dL (8-23); Calcium 9.2 mg/dL (8.5-10.5); Carbon Dioxide 31 mmol/L (22-29); Chloride 100 mmol/L (98-107); Globulin 3.4 g/dL (1.3-4.6); Glucose 105 mg/dL (65-115); Iron 70 ug/dL (37-145); Osmolality Calculated 287 mOsm/kg (285-295); Percent Saturation 40.4 % (20-50); Potassium 3.9 mmol/L (3.5-5.1); Sodium 140 mmol/L (136-145); Total Bilirubin 0.2 mg/dL (0.15-1.2); Total Iron Binding Capacity 173 mcg/dl; Total Protein 7.7 g/dL (6.6-8.7); Unsaturated Iron Binding 103 ug/dL (112-347)
[2020-05-09 08:57] LABS: Add Urine Microscopic? YES; Bilirubin Urine Neg (NEGATIVE); Blood Urine Neg (Negative); Glucose Urine UA Norm (Normal); Ketones Urine Negative (Negative); Leukocyte Esterase Urine 2+ (Negative); Nitrate Urine Negative (Negative); Protein Urine Neg (Negative); Urine Appearance Clear (CLEAR); Urine Color Yellow (Yellow); Urobilinogen Urine Norm (Negative); pH Urine 6 (5-7)
[2020-05-09 09:15] LABS: Add Urine Culture? No; Squamous Epithelial Cell Urine RARE (0-5)
[2020-05-09 09:37] LABS: Erythrocyte Sedimentation Rate 45 mm/hr (0-15)
== END 2020-05-09 07:55 | disposition home or self-care (01) ==
LOC: ONCMED 08:00
PROVIDERS: PCP Family Medicine; Visit Provider Internal Medicine Medical Oncology
DX: D50.8 Other iron deficiency anemias (principal); R93.5 Abnormal findings on diagnostic imaging of other abdominal regions, including retroperitoneum; Z85.41 Personal history of malignant neoplasm of cervix uteri; Z85.038 Personal history of other malignant neoplasm of large intestine
CPT/HCPCS: 80053; 81001; 83540; 83550; 85025; 85651

== ENCOUNTER 2020-05-11 15:40 | Outpatient (CLI) | payer MEDICARE, OTHER, SELFPAY ==
--- NOTE | 2020-05-12 08:09 | ONC FU_ITS ---
Dr. Hogan Patient Follow-Up Note Patient: Iraida Bay Unit #: [id number]: [id number] Dicatated By: Derek Hogan M.D.Date of Visit:May 11, 2020 Onc Med Follow-up/Prog Note Chief Complaint: Anemia and suspected pelvic malignancy. History of Present Illness: This is an 84 year-old woman with moderately severe anemia and suspected malignancy in the pelvic soft tissue. 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 Pathology at that time showed invasive moderately differentiated mucinous adenocarcinoma, stage IIA (T3, N0, M0). She had previously undergone cobalt radiation for cervical cancer in 1962. As such, her adjuvant therapy for the colon cancer was limited to 6 cycles of adjuvant 5-FU/leucovorin chemotherapy, which she completed in January 1997. She had developed chronic problems with both bowel and bladder function following the surgery, but as of her office visit in December 1998 there had been no evidence for recurrence of the colon cancer. Thereafter she had failed to return for further follow-up. Her other medical illnesses include hypertension, peripheral arterial disease, hypothyroidism, and anxiety/depression. She has a 40-year pack history of smoking, but she had quit smoking 25 years ago. On 04/25/2019 she was admitted to the hospital after presenting to the emergency room with increasing weakness and falling. At that point she was mildly anemic with hemoglobin 10.7 g, but with normal WBC at 6200 and normal platelet count at 243,000. Chem profile showed borderline renal function with BUN 26 and creatinine 1.1 mg/dL. Liver enzymes were minimally elevated. Her CT abdomen/pelvis showed severe stomach and colonic distention with marked fecal material throughout the entire colon. In comparison to a prior CT from October 2017 there was increasing soft tissue in the pelvis with presacral soft tissue extending to surround the rectum and more anteriorly in the perirectal fat. The findings were felt to be suspicious for recurrent or progressive tumor. There was evidence of moderate right hydronephrosis, and there was evidence for a new destructive process and probable pathologic fracture involving the right para symphyseal pubic bone. Osseous metastatic disease was suspected. During the hospitalization she did have treatment for Escherichia coli urinary tract infection, which was felt to be a significant contributing factor to her illness. Her obstipation was successfully managed with lactulose and Dulcolax. During the hospitalization there was further decline in her hemoglobin to 8.2 g. Her red cell indices were normal, but her serum iron studies did show low transferrin saturation at 11.3%, consistent with iron deficiency. The ferritin was mildly elevated at 297 ng/mL. B12 level was > 2000 pg/mL. She was seen here on 05/06/2019. Her CBC at that time showed adequate hemoglobin at 9.9 g with white blood cell count 7600 and platelet count 385,000. Sed rate was elevated at 76 mm/hour. CRP was elevated at 19.4 mg/dL. She had borderline renal function with BUN 28 and creatinine one-point her renal function was normal with BUN 15 and creatinine 0.8 mg/dL. Her serum iron studies showed low transferrin saturation at 13.7%. There was no monoclonal protein detected on her serum protein electrophoresis. A restaging PET/CT on 05/08/2019 showed extensive postsurgical and radiation therapy changes at the pelvis without clear evidence for recurrent malignancy. There was significant FDG activity at a nonhealed fracture of the right pubic ramus, but inflammatory activity could not be differentiated from malignant uptake in a pathologic fracture. There was also mild activity in the bilateral sacral ala and the pelvic bones were noted to have coarse trabecula consistent with early sacral insufficiency fracture changes versus early osseous metastatic disease. She was recommended to start oral iron supplementation with ferrous sulfate for the iron deficiency. On 06/17/2019 she was seen in the emergency room with acute mental status changes. Her clinical evaluation by clinical evaluation she appeared to have septic shock. She was admitted to [facility] for 5 days. Shortly after discharge she was seen in the emergency room again with lower extremity edema. She was thought to have mild congestive heart failure. Her [employer] level was elevated at 9764 pg/mL. She was started on a low dose of furosemide. She was seen in the ER again on 07/06/2019 with abdominal pain and constipation. CT abdomen/pelvis showed severe obstipation throughout the entire colon. There was continued high-grade obstruction involving the right ureter at the pelvic brim. She did require multiple enemas to get the constipation relieved. She had to be taken off the oral iron. Repeat CT abdomen/pelvis on 08/09/2019 showed no obvious progression compared to the July study. Her hemoglobin at that point was still low at 9.2 g. She was given parenteral iron replacement with a single infusion of Injectafer. She otherwise opted to just continue with observation/expectant management. On 02/06/2020 she was admitted to the hospital with acute encephalopathy in association with E. coli urinary tract infection and sepsis. With that illness she had some decline in renal function, but that did not improve with treatment. She remained moderately anemic. Hemoglobin was 8.6 g at discharge. Creatinine was back to baseline at 1.1 mg/dL. Her CT abdomen/pelvis showed progressive hydronephrosis and marked distention of the urinary bladder. There was mild bladder wall thickening. There was severe constipation. There was unchanged mild circumferential wall thickening of the rectum and greater soft tissue density surrounding the distal sigmoid colon just distal to the anastomotic suture line. There was no evidence of discrete mass or narrowing of the colon. I had seen her for a follow-up visit on 03/02/2020. At that point she was feeling better. I had discussed the possibility of proceeding with palliative urostomy/colostomy, but with her renal function having improved, she opted to continue with observation/symptomatic management. She has an outpatient visit with Dr. Ford on 04/24/2020. At that time she was having some rectal bleeding and she had a suspected rectal prolapse. She was deemed to be a poor surgical candidate. He recommended that she consider getting a second opinion at a tertiary care center. She is seen for a followup visit. She says she has been feeling a little better, at least to the extent that her rectal bleeding seems to have resolved. She continues to have bowel incontinence, but she does have soft stool and lately her bowel movements have not been as frequent. She also has bladder incontinence, but with no dysuria, hematuria, or other associated bladder symptoms. She says her energy is not the best, but she is active. She says she loves to work. Her ECOG score is 1. Her appetite is pretty good, but she does not eat a whole lot at a time. Her weight has gradually declined. She does not have fever. She recently started having hot flashes and sweating. She has no shortness of breath, cough, or chest pain. She does not have nausea or abdominal pain. She does have some pain in the right shoulder. She has no other joint or bone pain. She does have pretty frequent leg cramps, which she manages with an [id number] preparation. She has no focal neurologic symptoms. Medications: Amitriptyline HCl 1 Tablet (of 25 mg) Oral at bedtime, cycloSPORINE 1 Drop(s) (of 0.05 %) Emulsion Ophthalmic b.i.d., Diphenoxylate-Atropine 2 Tablet (of 2.5-0.025 mg) Oral four times a day, Fish Oil 1 Capsule Oral daily, Flaxseed Oil 1 Capsule Oral daily, hydroCHLOROthiazide 1 Tablet (of 12.5 mg) Oral daily, KlonoPIN 1 Tablet (of 0.5 mg) Oral daily, Levothyroxine Sodium 1 Tablet (of 137 mcg) Oral daily, Metoprolol Tartrate 1 Tablet (of 25 mg) Oral b.i.d., Sertraline HCl 1 Tablet (of 100 mg) Oral daily, traMADol HCl 1 Tablet (of 50 mg) Oral b.i.d. Allergies: No Known Allergies. Review of Systems: Constitutional - She feels pretty good generally, though her energy is not the best. She has active. She says she loves to work. Appetite is pretty good, though she does not eat a whole lot at a time. She has continued to gradually lose weight. She has not had fever. She recently started having hot flashes and sweating. ECOG score is 1, ENMT - No sinus congestion/drainage. No mouth sores. No sore throat or difficulty swallowing, Hematologic/Lymphatic - No abnormal bruising, Respiratory - No shortness of breath. No cough. No pleuritic pain or hemoptysis, Cardiovascular - No angina pain. No palpitations, Gastrointestinal - No nausea or vomiting. No heartburn or acid reflux. She continues to have soft stools which lately have not been as frequent. She has bowel incontinence. She had been having blood in her stool, but that seems to have resolved now, Genitourinary (F) - She has bladder incontinence. She has no dysuria, hematuria, or other bladder symptoms, Musculoskeletal - She has been having some pain in her right shoulder. She currently has no other joint or bone pain. She does get leg cramps frequently, which she manages with an [id number] medication, Integumentary - No skin rash, Neurologic - No headache or dizziness. No focal neurologic symptoms, Psychiatric - She has some anxiety and depression. She has been sleeping OK with medication. Vital Signs: Performed on May 11, 2020 15:48 Height - 63.00 in Weight - 94.2 lbs (LOW) BSA - 1.40 sq.m BMI - 16.69 (LOW) Temperature - 97.1 F (LOW) Pulse - 83 /min Respiration - 16 /min BP - 146/53 mm(hg) (HIGH) O2 Sat - 98 % Pain - 0 Physical Examination: Constitutional - She appears generally frail, but not acutely ill, Eyes - Sclerae nonicteric. Conjunctivae clear, ENMT - No lesions noted in the oral cavity, Hematologic/Lymphatic - No cervical, clavicular, or axillary adenopathy, Respiratory - Lungs are clear with good air movement bilaterally, Cardiovascular - Heart rhythm is regular. There is no murmur, gallop, or rub noted, Abdomen - Somewhat firm and nondistended. Liver and spleen are not enlarged. There is no abdominal mass or ascites noted and there is no inguinal adenopathy, Extremities - No edema, Neurologic - No focal neurologic deficits noted. Lab/Imaging: Test performed on May 09, 2020 08:15 Ua Color Yellow Ua Appearance Clear Ua Glucose Norm Ua Bilirubin Neg Ua Ketones Negative Ua Specific Bitely 1.010 Ua Blood Neg Ua pH 6 Ua Protein Neg Ua Nitrites Negative Ua Leukocyte Esterase 2+ Ua Micro: WBC 5-10 /hpf Ua Micro: RBC NONE /hpf Ua Micro: Squam Epith Cells RARE Ua Micro: Bacteria NONE Test performed on May 09, 2020 08:06 Iron 70 mcg/dL Sodium 140 mmol/L Iron Binding Capacity (TIBC) 173 mcg/dl Potassium 3.9 mmol/L % Iron Saturation 40.4 % Chloride 100 mmol/L CO2 31 mmol/L UIBC 103 mcg/dL Anion Gap 12.9 BUN 29 mg/dL Creatinine 0.9 mg/dL Cr Clearance (Est) 31.4800 mL/min Glucose 105 mg/dL Calcium 9.2 mg/dL Protein, Total 7.7 g/dL Albumin 4.3 g/dL Globulin 3.4 g/dL Bilirubin, Total 0.2 mg/dL ALT (SGPT) 8 U/L AST (SGOT) 16 U/L Alkaline Phosphatase 71 IU/L ESR (Sed Rate) 45 mm/hr WBC 5.9 10 3/uL RBC 3.52 10 6/uL HGB 10.9 g/dL HCT 34.9 % MCV 99.1 fL MCH 31.0 pg MCHC 31.2 g/dL RDW 12.1 % Platelet Count 206 10 3/cmm MPV 9.7 fL Neutrophils 3.26 10 3/uL Lymphocytes 1.2 10 3/uL Monocytes 0.6 10 3/uL Eosinophils 0.7 10 3/uL Basophils 0.0 10 3/uL Neutrophil % 55.3 % Lymphocyte % 20.7 % Monocyte % 10.7 % Eosinophil % 12.6 % Basophils % 0.5 % NRBC % 0 % Impression: 1. Patient with moderately severe anemia, most likely due to iron deficiency. The underlying cause has not been determined. 2. She has CT evidence of increasing soft tissue in the pelvic area suspicious for recurrent/progressive malignancy. 3. There was also CT evidence of a new destructive process and suspected pathological fracture of the right parasymphyseal pubic bone. 4. 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 She was given adjuvant chemotherapy with 6 cycles of 5-FU/leucovorin, completed in January 1997. 5. She has additional history of having undergone cobalt radiation and hysterectomy for cervical cancer in 1962. Her other medical illnesses include: 6. Hypertension. 7. Peripheral arterial disease. 8. Hypothyroidism. 9. She had developed chronic diarrhea following her radiation and subsequent colon surgery. 10. She has chronic bladder incontinence. 11. Anxiety/depression. She had hospital admissions for sepsis in association with urinary tract infection in June 2019 and again in January 2020. During that time, there has been worsening of her hydronephrosis by CT scan. There is associated distention of the urinary bladder, which appears to be the most likely underlying cause for it. The soft tissue density surrounding the distal sigmoid colon appeared to have increased somewhat, but with unchanged mild circumferential wall thickening of the rectum. During follow-up she has remained anemic, but with gradual improvement in the hemoglobin/hematocrit levels. Her renal function remains stable, and her overall clinical status has been fairly stable. It is still uncertain to what extent the ongoing process in the pelvis is due to slowly progressive malignancy versus radiation related fibrosis. Plan: As long as her renal function remains adequate there is no urgent need for intervention, which she wishes to avoid if at all possible. I do not think this is unreasonable, as our treatment options for any malignant process would be very limited, and thus far her CT scans have shown just very gradual progression. At least for now she will continue observation/symptomatic management. She will be scheduled for a follow-up visit with repeat labs and CT scans in 3 months. I can see her again sooner, as needed. Signed By: Derek Hogan M.D. <<Signature on File>>
== END 2020-05-11 15:41 | disposition home or self-care (01) ==
LOC: ONCMED 15:45
PROVIDERS: PCP Family Medicine; Visit Provider Internal Medicine Medical Oncology
DX: D64.9 Anemia, unspecified (principal); M89.8X8 Other specified disorders of bone, other site; R93.5 Abnormal findings on diagnostic imaging of other abdominal regions, including retroperitoneum; N13.30 Unspecified hydronephrosis; I10 Essential (primary) hypertension; Z85.41 Personal history of malignant neoplasm of cervix uteri; I73.9 Peripheral vascular disease, unspecified; E03.9 Hypothyroidism, unspecified; K52.0 Gastroenteritis and colitis due to radiation; R32 Unspecified urinary incontinence; F41.8 Other specified anxiety disorders; Z85.038 Personal history of other malignant neoplasm of large intestine; Z92.3 Personal history of irradiation; Z90.49 Acquired absence of other specified parts of digestive tract; Z90.710 Acquired absence of both cervix and uterus
CPT/HCPCS: 99214

== ENCOUNTER 2020-08-08 09:45 | Outpatient (CLI) | payer MEDICARE, OTHER, SELFPAY ==
--- NOTE | 2020-08-08 10:03 | CT_ITS ---
WS: [id number] CT ABDOMEN AND PELVIS WITH CONTRAST HISTORY: COLON AND CERVICAL CANCER TECHNIQUE: Imaging performed of the abdomen and pelvis with IV contrast. Single phase imaging of the abdomen. Coronal and sagittal reformats are submitted. All CT scans at [facility] use at least one of these dose optimization techniques: automated exposure control; mA and/or kV adjustment per patient size (includes targeted exams where dose is matched to clinical indication); or iterativ e reconstruction. IV CONTRAST: Omnipaque 300; 95 mL IV. Oral contrast: Yes. DLP: 144.04 mGy.cm COMPARISON: 02/06/2020 and 09/06/2019. Lower thorax: Chronic emphysematous changes at the lung bases. No pulmonary nodule. Mildly enlarged c ardiac chambers. No hiatal hernia. Liver/biliary system: Normal size with no intrahepatic dilatation. Gallbladder: Well distended gallbladder with stones. No interval change. Pancreas: Normal. Spleen: Normal. Adrenal glands: Normal. Right kidney: Mild atrophy and cortical thinning. Previously described hydronephrosis has resolved. Left kidney: Mild cortical thinning and atrophy. No hydronephrosis. Aorta: Moderate atherosclerosis with no aneurysm. Ectasia without significant aneurysmal dilatation. Calcification continues into the mesenteric arteries. Lymphadenopathy: None. Free fluid: None. GI tract: Extensive fecal retention and constipation. Surgical anastomotic site near the rectosigmoid junction is identified. No change in position of the sutures. The free rectal soft tissue thickening surrounding the rectum is similar in appearance to the prior examinations. No progression of the sof t tissue thickening or improvement. Abdominal wall: Unremarkable abdominal wall. No hernia. Pelvis: Extensive presacral soft tissue thickening is probably related to prior treatment and radiati on and surgery related to the rectosigmoid neoplasm. Urinary bladder is minimally distended. No free fluid or adenopathy. Extensive calcifications in the femoral and iliac arteries. Bones: Degenerative scoliosis in the lumbar spine. L4 anterolisthesis by 4 mm. Again noted is the castillo tructive process and deformity involving the RIGHT parasymphysis which may be from old healed fractur e. Advanced degenerative changes at the hip joints bilaterally. Greater degenerative changes involvin g the RIGHT hip. No definite osteoblastic or osteolytic disease. There is variable lytic and scleroti c change within the sacrum which is probably related to prior radiation. CT/CT abdomen pelvis w con* [id number] IMPRESSION: 1. The presacral soft tissue thickening encasing the rectosigmoid junction and the anastomotic sutures are stable over several prior exams. No recurrent tumo r adenopathy is identified. 2. Continued significant constipation and fecal retention. 3. No metastatic disease to the liver or adrenal glands. 4. Extensive atherosclerosis aorta, femoral and iliac arteries. 5. Healed deformity RIGHT parasymphyseal pubis may be from old healed fracture .
[2020-08-08 11:02] LABS: Add Urine Microscopic? NO
[2020-08-08 11:03] LABS: Basophils % 0.7 %; Eosinophils # 0.3 10^3/uL (0.0-0.8); Eosinophils % 4.1 %; Hematocrit 35.3 % (37.0-47.0); Hemoglobin 11.1 g/dL (11.5-15.3); Lymphocytes # 1.7 10^3/uL (0.8-4.8); Mean Corpuscular HGB Conc 31.4 g/dL (30.0-36.0); Mean Corpuscular Hemoglobin 30.9 pg (28.0-34.0); Mean Corpuscular Volume 98.3 fL (81-99); Mean Platelet Volume 9.2 fL (7.4-10.4); Monocytes # 0.7 10^3/uL (0.2-0.9); Monocytes % 11.4 %; Neutrophils # 3.49 10^3/uL (1.8-7.7); Neutrophils % 56.6 %; Nucleated Red Blood Cells % 0 %; Platelet Count 217 10^3/cmm (130-400); Red Blood Count 3.59 10^6/uL (4.1-5.3); White Blood Count 6.2 10^3/uL (4.0-10.0)
[2020-08-08 11:22] LABS: Alanine Aminotransferase 19 U/L (0-33); Albumin Level 3.9 g/dL (3.5-5.2); Alkaline Phosphatase 79 IU/L (35-105); Anion Gap 14.7 (5-19); Aspartate Amino Transferase 26 U/L (0-32); Blood Urea Nitrogen 25 mg/dL (8-23); Calcium 9.3 mg/dL (8.5-10.5); Carbon Dioxide 28 mmol/L (22-29); Chloride 97 mmol/L (98-107); Globulin 4.2 g/dL (1.3-4.6); Glucose 84 mg/dL (65-115); Osmolality Calculated 286 mOsm/kg (285-295); Potassium 3.7 mmol/L (3.5-5.1); Sodium 136 mmol/L (136-145); Total Bilirubin 0.2 mg/dL (0.15-1.2); Total Protein 8.1 g/dL (6.6-8.7)
[2020-08-08 11:40] LABS: Bilirubin Urine Neg (Negative); Blood Urine Neg (Negative); Glucose Urine UA Norm (Normal); Ketones Urine Negative (Negative); Leukocyte Esterase Urine Negative (Negative); Nitrate Urine Negative (Negative); Protein Urine Neg (Negative); Specific Gravity, Urine 1.015 (1.005-1.030); Urine Appearance Clear (CLEAR); Urine Color Straw (Yellow); Urobilinogen Urine Norm (Negative)
[2020-08-08] MEDS: iohexol 300 mg/mL 50 mL Btl IV (11:49)
[2020-08-08] MEDS: iodixanol 320 mg/mL 100mL Btl IV (11:55)
== END 2020-08-08 09:46 | disposition home or self-care (01) ==
LOC: RAD 09:49
PROVIDERS: PCP Family Medicine; Visit Provider Internal Medicine Medical Oncology
DX: C53.9 Malignant neoplasm of cervix uteri, unspecified (principal); C18.9 Malignant neoplasm of colon, unspecified; I70.0 Atherosclerosis of aorta; I70.8 Atherosclerosis of other arteries
CPT/HCPCS: 36415; 74177; 80053; 81003; 85025

== ENCOUNTER 2020-08-14 15:01 | Outpatient (CLI) | payer MEDICARE, OTHER, SELFPAY ==
--- NOTE | 2020-08-15 07:21 | ONC FU_ITS ---
Dr. Hogan Patient Follow-Up Note Patient: Iraida Bay Unit #: [id number]: 1935 Dicatated By: Derek Hogan M.D.Date of Visit:Aug 14, 2020 Onc Med Follow-up/Prog Note Chief Complaint: Anemia and suspected pelvic malignancy. History of Present Illness: This is an 84 year-old woman with moderately severe anemia and suspected malignancy in the pelvic soft tissue. 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 Pathology at that time showed invasive moderately differentiated mucinous adenocarcinoma, stage IIA (T3, N0, M0). She had previously undergone cobalt radiation for cervical cancer in 1962. As such, her adjuvant therapy for the colon cancer was limited to 6 cycles of adjuvant 5-FU/leucovorin chemotherapy, which she completed in January 1997. She had developed chronic problems with both bowel and bladder function following the surgery, but as of her office visit in December 1998 there had been no evidence for recurrence of the colon cancer. Thereafter she had failed to return for further follow-up. Her other medical illnesses include hypertension, peripheral arterial disease, hypothyroidism, and anxiety/depression. She has a 40-year pack history of smoking, but she had quit smoking 25 years ago. On 04/25/2019 she was admitted to the hospital after presenting to the emergency room with increasing weakness and falling. At that point she was mildly anemic with hemoglobin 10.7 g, but with normal WBC at 6200 and normal platelet count at 243,000. Chem profile showed borderline renal function with BUN 26 and creatinine 1.1 mg/dL. Liver enzymes were minimally elevated. Her CT abdomen/pelvis showed severe stomach and colonic distention with marked fecal material throughout the entire colon. In comparison to a prior CT from October 2017 there was increasing soft tissue in the pelvis with presacral soft tissue extending to surround the rectum and more anteriorly in the perirectal fat. The findings were felt to be suspicious for recurrent or progressive tumor. There was evidence of moderate right hydronephrosis, and there was evidence for a new destructive process and probable pathologic fracture involving the right para symphyseal pubic bone. Osseous metastatic disease was suspected. During the hospitalization she did have treatment for Escherichia coli urinary tract infection, which was felt to be a significant contributing factor to her illness. Her obstipation was successfully managed with lactulose and Dulcolax. During the hospitalization there was further decline in her hemoglobin to 8.2 g. Her red cell indices were normal, but her serum iron studies did show low transferrin saturation at 11.3%, consistent with iron deficiency. The ferritin was mildly elevated at 297 ng/mL. B12 level was > 2000 pg/mL. She was seen here on 05/06/2019. Her CBC at that time showed adequate hemoglobin at 9.9 g with white blood cell count 7600 and platelet count 385,000. Sed rate was elevated at 76 mm/hour. CRP was elevated at 19.4 mg/dL. She had borderline renal function with BUN 28 and creatinine one-point her renal function was normal with BUN 15 and creatinine 0.8 mg/dL. Her serum iron studies showed low transferrin saturation at 13.7%. There was no monoclonal protein detected on her serum protein electrophoresis. A restaging PET/CT on 05/08/2019 showed extensive postsurgical and radiation therapy changes at the pelvis without clear evidence for recurrent malignancy. There was significant FDG activity at a nonhealed fracture of the right pubic ramus, but inflammatory activity could not be differentiated from malignant uptake in a pathologic fracture. There was also mild activity in the bilateral sacral ala and the pelvic bones were noted to have coarse trabecula consistent with early sacral insufficiency fracture changes versus early osseous metastatic disease. She was recommended to start oral iron supplementation with ferrous sulfate for the iron deficiency. On 06/17/2019 she was seen in the emergency room with acute mental status changes. Her clinical evaluation by clinical evaluation she appeared to have septic shock. She was admitted to [facility] for 5 days. Shortly after discharge she was seen in the emergency room again with lower extremity edema. She was thought to have mild congestive heart failure. Her [employer] level was elevated at 9764 pg/mL. She was started on a low dose of furosemide. She was seen in the ER again on 07/06/2019 with abdominal pain and constipation. CT abdomen/pelvis showed severe obstipation throughout the entire colon. There was continued high-grade obstruction involving the right ureter at the pelvic brim. She did require multiple enemas to get the constipation relieved. She had to be taken off the oral iron. Repeat CT abdomen/pelvis on 08/09/2019 showed no obvious progression compared to the July study. Her hemoglobin at that point was still low at 9.2 g. She was given parenteral iron replacement with a single infusion of Injectafer. She otherwise opted to just continue with observation/expectant management. On 02/06/2020 she was admitted to the hospital with acute encephalopathy in association with E. coli urinary tract infection and sepsis. With that illness she had some decline in renal function, but that did not improve with treatment. She remained moderately anemic. Hemoglobin was 8.6 g at discharge. Creatinine was back to baseline at 1.1 mg/dL. Her CT abdomen/pelvis showed progressive hydronephrosis and marked distention of the urinary bladder. There was mild bladder wall thickening. There was severe constipation. There was unchanged mild circumferential wall thickening of the rectum and greater soft tissue density surrounding the distal sigmoid colon just distal to the anastomotic suture line. There was no evidence of discrete mass or narrowing of the colon. I had seen her for a follow-up visit on 03/02/2020. At that point she was feeling better. I had discussed the possibility of proceeding with palliative urostomy/colostomy, but with her renal function having improved, she opted to continue with observation/symptomatic management. She has an outpatient visit with Dr. Ford on 04/24/2020. At that time she was having some rectal bleeding and she had a suspected rectal prolapse. She was deemed to be a poor surgical candidate. He recommended that she consider getting a second opinion at a tertiary care center. I had seen there for a follow-up visit on May 11, 2020. Her clinical status appeared stable and her renal function was still normal. She opted to just continue observation/symptomatic management. Her repeat CT abdomen/pelvis on August 08, 2020 showed resolution of previously described hydronephrosis of the right kidney. There was some mild cortical thinning of the left kidney with no hydronephrosis. There was evidence for extensive fecal retention and constipation. Extensive presacral soft tissue thickening appear to be most likely related to her prior surgery and radiation, and those findings appeared stable. There was evidence for healed deformity of the right parasymphyseal pubis, possibly from old healed fracture. There were advanced degenerative changes of the hip joints, worse on the right. There did not appear to be evidence of metastatic disease. She is seen for a followup visit. She has been feeling about the same. She does have fatigue, but she remains very active. ECOG score is 1. Appetite is fair. Her weight is stable. She does not have fever or night sweats. She has no shortness of breath, cough, or chest pain. Her bowel function is the same. Her stools tend to be loose and she has both bowel and bladder incontinence. She has pain in her right shoulder, which is new. She does not have any other pain at this time. She does not complain of headache. She does have difficulty with balance. She has numbness in her right foot. Medications: Amitriptyline HCl 1 Tablet (of 25 mg) Oral at bedtime, cycloSPORINE 1 Drop(s) (of 0.05 %) Emulsion Ophthalmic b.i.d., Diphenoxylate-Atropine 2 Tablet (of 2.5-0.025 mg) Oral four times a day, Fish Oil 1 Capsule Oral daily, Flaxseed Oil 1 Capsule Oral daily, hydroCHLOROthiazide 1 Tablet (of 12.5 mg) Oral daily, KlonoPIN 1 Tablet (of 0.5 mg) Oral daily, Levothyroxine Sodium 1 Tablet (of 137 mcg) Oral daily, Metoprolol Tartrate 1 Tablet (of 25 mg) Oral b.i.d., Sertraline HCl 1 Tablet (of 100 mg) Oral daily, traMADol HCl 1 Tablet (of 50 mg) Oral b.i.d. Allergies: No Known Allergies. Review of Systems: Constitutional - She has fatigue, but she remains active. Appetite is fair. Her weight is stable. She has no fever or night sweats. ECOG score is 1, ENMT - No sinus congestion/drainage. No mouth sores. No sore throat or difficulty swallowing, Hematologic/Lymphatic - No abnormal bruising or bleeding, Respiratory - No shortness of breath. No cough. No pleuritic pain or hemoptysis, Cardiovascular - No angina pain. No palpitations, Gastrointestinal - No nausea or vomiting. No heartburn or acid reflux. She continues to have loose stools and bowel incontinence. No blood in the stool or black stools, Genitourinary (F) - She has bladder incontinence, Musculoskeletal - She has having pain in her right shoulder, which is new, Integumentary - No skin rash, Neurologic - No headache or dizziness. She does have problems with balance. She has numbness in her right foot. No other focal neurologic symptoms, Psychiatric - No anxiety or depression. No insomnia. Vital Signs: Performed on Aug 14, 2020 15:11 Height - 63.00 in Weight - 94.6 lbs (HIGH) BSA - 1.41 sq.m BMI - 16.76 (LOW) Temperature - 98.8 F Pulse - 84 /min Respiration - 16 /min BP - 141/59 mm(hg) (HIGH) O2 Sat - 94 % (LOW) Pain - 0 Physical Examination: Constitutional - She appears somewhat frail generally, Eyes - Sclerae nonicteric. Conjunctivae clear, ENMT - No lesions noted in the oral cavity, Hematologic/Lymphatic - No cervical, clavicular, or axillary adenopathy, Respiratory - Lungs are clear with good air movement bilaterally, Cardiovascular - Heart rhythm is regular. There is no murmur, gallop, or rub noted, Abdomen - Soft. Liver and spleen are not enlarged. There is no abdominal mass or ascites noted and there is no inguinal adenopathy, Extremities - No edema, Neurologic - No focal neurologic deficits noted. Lab/Imaging: Test performed on Aug 08, 2020 10:58 Sodium 136 mmol/L Potassium 3.7 mmol/L Chloride 97 mmol/L CO2 28 mmol/L Anion Gap 14.7 BUN 25 mg/dL Creatinine 1.1 mg/dL Cr Clearance (Est) 25.2200 mL/min Glucose 84 mg/dL Osmolality - Calculated 286 mOsm/kg Calcium 9.3 mg/dL Protein, Total 8.1 g/dL Albumin 3.9 g/dL Globulin 4.2 g/dL Bilirubin, Total 0.2 mg/dL ALT (SGPT) 19 U/L AST (SGOT) 26 U/L Alkaline Phosphatase 79 IU/L WBC 6.2 10 3/uL RBC 3.59 10 6/uL HGB 11.1 g/dL HCT 35.3 % MCV 98.3 fL MCH 30.9 pg MCHC 31.4 g/dL RDW 12.0 % Platelet Count 217 10 3/cmm MPV 9.2 fL Neutrophils 3.49 10 3/uL Lymphocytes 1.7 10 3/uL Monocytes 0.7 10 3/uL Eosinophils 0.3 10 3/uL Basophils 0.0 10 3/uL Neutrophil % 56.6 % Lymphocyte % 27.0 % Monocyte % 11.4 % Eosinophil % 4.1 % Basophils % 0.7 % NRBC % 0 % Impression: 1. Patient with moderately severe anemia, most likely due to iron deficiency. The underlying cause has not been determined. 2. She has CT evidence of increasing soft tissue in the pelvic area suspicious for recurrent/progressive malignancy. 3. There was also CT evidence of a new destructive process and suspected pathological fracture of the right parasymphyseal pubic bone. 4. 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 She was given adjuvant chemotherapy with 6 cycles of 5-FU/leucovorin, completed in January 1997. 5. She has additional history of having undergone cobalt radiation and hysterectomy for cervical cancer in 1962. Her other medical illnesses include: 6. Hypertension. 7. Peripheral arterial disease. 8. Hypothyroidism. 9. She had developed chronic diarrhea following her radiation and subsequent colon surgery. 10. She has chronic bladder incontinence. 11. Anxiety/depression. She had hospital admissions for sepsis in association with urinary tract infection in June 2019 and again in January 2020. During that time, there has been worsening of her hydronephrosis by CT scan. There is associated distention of the urinary bladder, which appears to be the most likely underlying cause for it. The soft tissue density surrounding the distal sigmoid colon appeared to have increased somewhat, but with unchanged mild circumferential wall thickening of the rectum. During follow-up she remained anemic, but with gradual improvement in the hemoglobin/hematocrit levels. Her renal function has remained adequate and her overall clinical status has been stable. Her current CT scan shows no progression of soft tissue abnormality in the pelvic area and there actually has been improvement in the right hydronephrosis. 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 Plan: She is going to continue observation/symptomatic management. We discussed the fact that the only effective treatment option for the incontinence would be an ostomy placement, at least for now she remains opposed to doing that. I did recommend that she try using Voltaren gel for the shoulder pain. I will see her again in 3 months, or sooner as needed. Signed By: Derek Hogan M.D. <<Signature on File>>
== END 2020-08-14 15:02 | disposition home or self-care (01) ==
LOC: ONCMED 15:05
PROVIDERS: PCP Family Medicine; Visit Provider Internal Medicine Medical Oncology
DX: D64.9 Anemia, unspecified (principal); R93.5 Abnormal findings on diagnostic imaging of other abdominal regions, including retroperitoneum; R93.7 Abnormal findings on diagnostic imaging of other parts of musculoskeletal system; R32 Unspecified urinary incontinence; M25.511 Pain in right shoulder; N13.30 Unspecified hydronephrosis; Z85.038 Personal history of other malignant neoplasm of large intestine; Z92.21 Personal history of antineoplastic chemotherapy; Z90.49 Acquired absence of other specified parts of digestive tract; Z85.41 Personal history of malignant neoplasm of cervix uteri; Z92.3 Personal history of irradiation; Z90.710 Acquired absence of both cervix and uterus; I10 Essential (primary) hypertension; I73.9 Peripheral vascular disease, unspecified; E03.9 Hypothyroidism, unspecified; K52.0 Gastroenteritis and colitis due to radiation; Y84.2 Radiological procedure and radiotherapy as the cause of abnormal reaction of the patient, or of later complication, without mention of misadventure at the time of the procedure; F41.8 Other specified anxiety disorders
CPT/HCPCS: 99214

== ENCOUNTER 2020-11-16 12:45 | Outpatient (CLI) | payer MEDICARE, OTHER, SELFPAY ==
[2020-11-16 14:11] LABS: Alanine Aminotransferase 13 U/L (0-33); Albumin Level 3.8 g/dL (3.5-5.2); Alkaline Phosphatase 66 IU/L (35-105); Anion Gap 12.8 (5-19); Aspartate Amino Transferase 22 U/L (0-32); Blood Urea Nitrogen 31 mg/dL (8-23); Calcium 9.8 mg/dL (8.5-10.5); Carbon Dioxide 32 mmol/L (22-29); Chloride 97 mmol/L (98-107); Globulin 4.9 g/dL (1.3-4.6); Glucose 103 mg/dL (65-115); Osmolality Calculated 293 mOsm/kg (285-295); Potassium 3.8 mmol/L (3.5-5.1); Sodium 138 mmol/L (136-145); Total Bilirubin 0.2 mg/dL (0.15-1.2); Total Protein 8.7 g/dL (6.6-8.7)
--- NOTE | 2020-11-20 09:44 | ONC FU_ITS ---
Dr. Hogan Patient Follow-Up Note Patient: Iraida Bay Unit #: [id number]: [id number] Dicatated By: Derek Hogan M.D.Date of Visit:Nov 16, 2020 Onc Med Follow-up/Prog Note Chief Complaint: Colon cancer/suspected pelvic malignancy. 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 She also has been anemic. 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 Pathology at that time showed invasive moderately differentiated mucinous adenocarcinoma, stage IIA (T3, N0, M0). She had previously undergone cobalt radiation for cervical cancer in 1962. As such, her adjuvant therapy for the colon cancer was limited to 6 cycles of adjuvant 5-FU/leucovorin chemotherapy, which she completed in January 1997. She had developed chronic problems with both bowel and bladder function following the surgery, but as of her office visit in December 1998 there had been no evidence for recurrence of the colon cancer. Thereafter she had failed to return for further follow-up. Her other medical illnesses include hypertension, peripheral arterial disease, hypothyroidism, and anxiety/depression. She has a 40-year pack history of smoking, but she had quit smoking more than 25 years ago. On 04/25/2019 she was admitted to the hospital after presenting to the emergency room with increasing weakness and falling. At that point she was mildly anemic with hemoglobin 10.7 g, but with normal WBC at 6200 and normal platelet count at 243,000. Chem profile showed borderline renal function with BUN 26 and creatinine 1.1 mg/dL. Liver enzymes were minimally elevated. Her CT abdomen/pelvis showed severe stomach and colonic distention with marked fecal material throughout the entire colon. In comparison to a prior CT from October 2017 there was increasing soft tissue in the pelvis with presacral soft tissue extending to surround the rectum and more anteriorly in the perirectal fat. The findings were felt to be suspicious for recurrent or progressive tumor. There was evidence of moderate right hydronephrosis, and there was evidence for a new destructive process and probable pathologic fracture involving the right para symphyseal pubic bone. Osseous metastatic disease was suspected. During the hospitalization she did have treatment for Escherichia coli urinary tract infection, which was felt to be a significant contributing factor to her illness. Her obstipation was successfully managed with lactulose and Dulcolax. During the hospitalization there was further decline in her hemoglobin to 8.2 g. Her red cell indices were normal, but her serum iron studies did show low transferrin saturation at 11.3%, consistent with iron deficiency. The ferritin was mildly elevated at 297 ng/mL. B12 level was > 2000 pg/mL. She was seen here on 05/06/2019. Her CBC at that time showed adequate hemoglobin at 9.9 g with white blood cell count 7600 and platelet count 385,000. Sed rate was elevated at 76 mm/hour. CRP was elevated at 19.4 mg/dL. She had borderline renal function with BUN 28 and creatinine one-point her renal function was normal with BUN 15 and creatinine 0.8 mg/dL. Her serum iron studies showed low transferrin saturation at 13.7%. There was no monoclonal protein detected on her serum protein electrophoresis. A restaging PET/CT on 05/08/2019 showed extensive postsurgical and radiation therapy changes at the pelvis without clear evidence for recurrent malignancy. There was significant FDG activity at a nonhealed fracture of the right pubic ramus, but inflammatory activity could not be differentiated from malignant uptake in a pathologic fracture. There was also mild activity in the bilateral sacral ala and the pelvic bones were noted to have coarse trabecula consistent with early sacral insufficiency fracture changes versus early osseous metastatic disease. She was recommended to start oral iron supplementation with ferrous sulfate for the iron deficiency. On 06/17/2019 she was seen in the emergency room with acute mental status changes. Her clinical evaluation by clinical evaluation she appeared to have septic shock. She was admitted to [facility] for 5 days. Shortly after discharge she was seen in the emergency room again with lower extremity edema. She was thought to have mild congestive heart failure. Her [employer] level was elevated at 9764 pg/mL. She was started on a low dose of furosemide. She was seen in the ER again on 07/06/2019 with abdominal pain and constipation. CT abdomen/pelvis showed severe obstipation throughout the entire colon. There was continued high-grade obstruction involving the right ureter at the pelvic brim. She did require multiple enemas to get the constipation relieved. She had to be taken off the oral iron. Repeat CT abdomen/pelvis on 08/09/2019 showed no obvious progression compared to the July study. Her hemoglobin at that point was still low at 9.2 g. She was given parenteral iron replacement with a single infusion of Injectafer. She otherwise opted to just continue with observation/expectant management. On 02/06/2020 she was admitted to the hospital with acute encephalopathy in association with E. coli urinary tract infection and sepsis. With that illness she had some decline in renal function, but that did not improve with treatment. She remained moderately anemic. Hemoglobin was 8.6 g at discharge. Creatinine was back to baseline at 1.1 mg/dL. Her CT abdomen/pelvis showed progressive hydronephrosis and marked distention of the urinary bladder. There was mild bladder wall thickening. There was severe constipation. There was unchanged mild circumferential wall thickening of the rectum and greater soft tissue density surrounding the distal sigmoid colon just distal to the anastomotic suture line. There was no evidence of discrete mass or narrowing of the colon. I had seen her for a follow-up visit on 03/02/2020. At that point she was feeling better. I had discussed the possibility of proceeding with palliative urostomy/colostomy, but with her renal function having improved, she opted to continue with observation/symptomatic management. She has an outpatient visit with Dr. Ford on 04/24/2020. At that time she was having some rectal bleeding and she had a suspected rectal prolapse. She was deemed to be a poor surgical candidate. He recommended that she consider getting a second opinion at a tertiary care center. I had seen there for a follow-up visit on May 11, 2020. Her clinical status appeared stable and her renal function was still normal. She opted to just continue observation/symptomatic management. Her repeat CT abdomen/pelvis on August 08, 2020 showed resolution of previously described hydronephrosis of the right kidney. There was some mild cortical thinning of the left kidney with no hydronephrosis. There was evidence for extensive fecal retention and constipation. Extensive presacral soft tissue thickening appear to be most likely related to her prior surgery and radiation, and those findings appeared stable. There was evidence for healed deformity of the right parasymphyseal pubis, possibly from old healed fracture. There were advanced degenerative changes of the hip joints, worse on the right. There did not appear to be evidence of metastatic disease. With those findings, she opted to continue observation/symptomatic management. She is seen for a followup visit. She has been feeling pretty good. She has ongoing issues with her bowel and bladder function. She is a little distraught because she had a very bad day yesterday due to an unexpected incontinent bowel movement. For obvious reasons it is, at times, very disturbing to her, but for the most part it is a tolerable situation for her, and she is able to deal with it reasonably well. She has pretty good energy. She says she does most everything that she wants to. Her appetite is not too good, but her weight has been stable. She does not have fever or night sweats. She has no shortness of breath, cough, or chest pain. She has no other GI complaints. She has no bladder symptoms other than the incontinence. She has no significant joint or bone pain. She does not complain of headache or dizziness. She does have numbness/tingling in her feet. Medications: Amitriptyline HCl 1 Tablet (of 25 mg) Oral at bedtime, cycloSPORINE 1 Drop(s) (of 0.05 %) Emulsion Ophthalmic b.i.d., Diphenoxylate-Atropine 2 Tablet (of 2.5-0.025 mg) Oral four times a day, Fish Oil 1 Capsule Oral daily, Flaxseed Oil 1 Capsule Oral daily, hydroCHLOROthiazide 1 Tablet (of 12.5 mg) Oral daily, KlonoPIN 1 Tablet (of 0.5 mg) Oral daily, Levothyroxine Sodium 1 Tablet (of 137 mcg) Oral daily, Metoprolol Tartrate 1 Tablet (of 25 mg) Oral b.i.d., Sertraline HCl 1 Tablet (of 100 mg) Oral daily, traMADol HCl 1 Tablet (of 50 mg) Oral b.i.d. Allergies: No Known Allergies. Vital Signs: Performed on Nov 16, 2020 14:30 Height - 63.00 in Weight - 95.4 lbs (HIGH) BSA - 1.41 sq.m BMI - 16.90 (LOW) Temperature - 97.6 F (LOW) Pulse - 80 /min Respiration - 18 /min BP - 124/68 mm(hg) O2 Sat - 94 % (LOW) Pain - 0 Fatigue - 5 Physical Examination: Constitutional - She appears somewhat frail generally, Eyes - Sclerae nonicteric. Conjunctivae clear, ENMT - No lesions noted in the oral cavity, Hematologic/Lymphatic - No cervical, clavicular, or axillary adenopathy, Respiratory - Lungs are clear with good air movement bilaterally, Cardiovascular - Heart rhythm is regular. There is no murmur, gallop, or rub noted, Abdomen - Mildly distended and tympanic. Liver and spleen are not enlarged. There is no abdominal mass or ascites noted and there is no inguinal adenopathy, Extremities - No edema, Neurologic - No focal neurologic deficits noted. Lab/Imaging: Test performed on Nov 16, 2020 13:15 Sodium 138 mmol/L Potassium 3.8 mmol/L Chloride 97 mmol/L CO2 32 mmol/L Anion Gap 12.8 BUN 31 mg/dL Creatinine 1.0 mg/dL Cr Clearance (Est) 28.10 mL/min Glucose 103 mg/dL Osmolality - Calculated 293 mOsm/kg Calcium 9.8 mg/dL Protein, Total 8.7 g/dL Albumin 3.8 g/dL Globulin 4.9 g/dL Bilirubin, Total 0.2 mg/dL ALT (SGPT) 13 U/L AST (SGOT) 22 U/L Alkaline Phosphatase 66 IU/L Manual Diff No [facility] NOTIF[facility] Problem List: 1. Patient with CT evidence of increasing soft tissue in the pelvic area suspicious for recurrent/progressive malignancy. 2. She had moderately severe anemia, most likely due to iron deficiency. 3. There was also CT evidence of a new destructive process and suspected pathological fracture of the right parasymphyseal pubic bone. 4. 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 She was given adjuvant chemotherapy with 6 cycles of 5-FU/leucovorin, completed in January 1997. 5. She has additional history of having undergone cobalt radiation and hysterectomy for cervical cancer in 1962. 6. Hypertension. 7. Peripheral arterial disease. 8. Hypothyroidism. 9. She had developed chronic diarrhea following her radiation and subsequent colon surgery. 10. She has chronic bladder incontinence. 11. Anxiety/depression. Problems Addressed with this Encounter and Plan: 1. Patient with history of rectosigmoid colon cancer in 1996 and prior history of cervical cancer for which she had undergone hysterectomy and cobalt radiation in 1962. In April 2019 she was found to have CT evidence of increasing soft tissue in the pelvic area. The findings were felt to be suspicious for recurrent/progressive malignancy. She had associated bowel and bladder incontinence. I had seen her for follow-up in May 2019, and at that point she opted for conservative management and continued observation/expectant management. She then had hospital admissions for sepsis in association with urinary tract infection in June 2019 and again in January 2020. During that time, there had been worsening of her hydronephrosis by CT scan. There was associated distention of the urinary bladder, which appeared to be the most likely underlying cause for it. The soft tissue density surrounding the distal sigmoid colon appeared to have increased somewhat, but with unchanged mild circumferential wall thickening of the rectum. During further follow-up her CT scans showed no progression of soft tissue abnormality in the pelvic area, and there was improvement in the right hydronephrosis and in her renal function. Her clinical status also remained stable. 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 At this point she has ongoing problems associated with her bowel and bladder incontinence, but her clinical status appears stable. Thus far she still prefers to just deal with the incontinence, which is acceptable as long as her renal function remains adequate. The ultimate solution would be placement of palliative colostomy and urostomy, which she still declines. As such, she continues on observation/symptomatic management. I will see her again in 3 months. 2. She had moderately severe anemia, at least some component of which appeared to be due to iron deficiency. It did show some improved with parenteral iron replacement. She now remains just mildly anemic, which I assume is just due to chronic disease. 3. There was also CT evidence of a destructive process and suspected pathological fracture of the right parasymphyseal pubic bone. To my knowledge she has not had an updated DEXA scan and that will need to be scheduled. Signed By: Derek Hogan M.D. <<Signature on File>>
== END 2020-11-16 12:46 | disposition home or self-care (01) ==
LOC: ONCMED 12:49
PROVIDERS: PCP Family Medicine; Visit Provider Internal Medicine Medical Oncology
DX: Z08 Encounter for follow-up examination after completed treatment for malignant neoplasm (principal); Z85.038 Personal history of other malignant neoplasm of large intestine; Z85.41 Personal history of malignant neoplasm of cervix uteri; R15.9 Full incontinence of feces; R32 Unspecified urinary incontinence; R93.7 Abnormal findings on diagnostic imaging of other parts of musculoskeletal system; D64.9 Anemia, unspecified; Z90.710 Acquired absence of both cervix and uterus; Z92.3 Personal history of irradiation
CPT/HCPCS: 36415; 80053; 85025; 99214

== ENCOUNTER 2020-12-04 14:19 | Outpatient (CLI) | payer MEDICARE, OTHER, SELFPAY ==
--- NOTE | 2020-12-04 14:29 | XR_ITS ---
WS: [id number] DEXA (DUAL ENERGY X-RAY ABSORPTIOMETRY) Bone mineral density was performed using a [employer] machine. HISTORY: POSTMENOPAUSAL, SUSPECTED PATHOLOGICAL FRACTURE OF THE RIGHT COMPARISON: None available. Lumbar spine BMD (L1-L4): 1.117 g/cm2 T score: -0.5 Z score: 2.1 Total hip BMD: Left: 0.880 g/cm2. T score: -1.0 Z score: 1.8 Right: 0.902 g/cm2. T score: -0.8 Z score: 2.0 10 year probability of a major osteoporotic fracture is 8%. XR/XR DEXA axial skeleton* 50800 IMPRESSION: OSTEOPENIA based upon the WHO classification for females.
== END 2020-12-04 14:20 | disposition home or self-care (01) ==
LOC: RADWPI 14:28
PROVIDERS: PCP Family Medicine; Visit Provider Internal Medicine Medical Oncology
DX: Z78.0 Asymptomatic menopausal state (principal); M85.89 Other specified disorders of bone density and structure, multiple sites
CPT/HCPCS: 77080

== ENCOUNTER 2020-12-31 08:39 | Inpatient (IN) | payer MEDICARE, OTHER, SELFPAY ==
[2020-12-31] VITALS (100 sets, daily range): BP systolic 69–146; BP diastolic 30–70; PULSE 59–201; RESP 14–26; TEMP 36.6–37.2; O2SAT 68–100; BMI 16.9
--- NOTE | 2020-12-31 08:49 | ED_ITS ---
Documented by User: LAURA Burris 12/31/20 13:22 HPI - Female Genitourinary General: Chief complaint: General Medical Stated complaint: possible uti, unable to controll urine Time Seen by Provider: 12/31/20 08:49 Source: patient Mode of arrival: ambulatory Limitations: no limitations Review of Systems General: Reports: 10 or more systems reviewed and unremarkable except in HPI and below PFSH ED PFSH: Medical History Anemia Atrial fibrillation Chronic constipation Dementia History of cervical cancer Hydroureter Hypertension Intrinsic sphincter deficiency Irritable bowel syndrome Peripheral arterial disease Status post bilateral iliac stents and angioplasty of the left common femoral artery and superficial femoral artery. PVD (peripheral vascular disease) Rectosigmoid cancer Recurrent UTI Surgical History History of colon resection History of hemicolectomy S/P angioplasty with stent S/P bladder repair S/P hernia repair S/P tonsillectomy Family History Mother CAD (coronary artery disease) Son CAD (coronary artery disease) Myocardial infarct, old Father CAD (coronary artery disease) Myocardial infarct, old Denies family history of Anesthesia complication Bleeding disorder Social History Smoking and tobacco status: never smoked Alcohol intake: never Household members: spouse Marital status: Current occupational status: retired History of recent travel: No Current gender identity: Female Adele/Anglican: Yarsanism Physical Exam Const: COMMON NORMALS: no acute distress and patient oriented x3 GENERAL APPEARANCE: cooperative HENMT: COMMON NORMALS: normocephalic, TM's normal bilaterally and Normal external nose present HEAD & SCALP: normal to inspection and normocephalic NOSE: Normal external nose present TYMPANIC MEMBRANE: TM's normal bilaterally MOUTH: Normal oral and palatal mucosa present THROAT: posterior oropharynx normal Eye: GENERAL EYE: appearance normal, both eyes and all related structures Neck/C-Spine: COMMON NORMALS: full ROM Lymph: LYMPHATIC: no lymphadenopathy noted Chest: COMMONS NORMALS: normal inspection of the chest Resp: COMMON NORMALS: normal respiratory effort EFFORT & INSPECTION: Yes able to speak in complete sentences Cardio: COMMON NORMALS: regular rate and regular rhythm RATE: regular rate RHYTHM: regular rhythm GI: COMMON NORMALS: non-tender : COMMON NORMALS: Yes no CVA tenderness BLADDER/KIDNEY EXAM: Yes no CVA tenderness Back/Pelvis: COMMON NORMALS: no CVA tenderness and thoracic and lumbar spine normal to inspection Extremity: COMMON NORMALS: normal to inspection Neuro: COMMON NORMALS: patient oriented x3 and moves all extremities Psych: COMMON NORMALS: mental status grossly normal and cooperative Skin: COMMON NORMALS: no rashes or lesions noted GENERAL SKIN EXAM: no rashes or lesions noted Course Vital Signs: Vital signs: Vital Signs Temperature 98.9 F 12/31/20 08:49 Pulse Rate 70 12/31/20 14:38 Respiratory Rate 22 H 12/31/20 14:38 Blood Pressure 102/49 12/31/20 14:38 Pulse Oximetry 94 12/31/20 14:38 MDM - Female Lab Data: Labs: Lab Results 12/31/20 12/31/20 12/31/20 Range/Units 09:23 09:23 09:23 WBC 21.8 H (4.0-10.0) 10^3/ uL RBC 3.16 L (4.1-5.3) 10^6/u L Hgb 9.5 L (11.5-15.3) g/dL Hct 30.8 L (37.0-47.0) % MCV 97.5 (81-99) fL MCH 30.1 (28.0-34.0) pg MCHC 30.8 (30.0-36.0) g/dL RDW 13.2 (12.1-15.1) % Plt Count 296 (130-400) 10^3/c mm MPV 9.3 (7.4-10.4) fL Neut % (Auto) 92.6 % Lymph % (Auto) 3.3 % Elliott % (Auto) 3.0 % Eos % (Auto) 0.0 % Baso % (Auto) 0.3 % Neut # (Auto) 20.22 H (1.8-7.7) 10^3/u L Lymph # (Auto) 0.7 L (0.8-4.8) 10^3/u L Elliott # (Auto) 0.7 (0.2-0.9) 10^3/u L Eos # (Auto) 0.0 (0.0-0.8) 10^3/u L Baso # (Auto) 0.1 (0.0-0.1) 10^3/u L Nucleated RBC % (a uto) 0 % Nucleated RBCs # 0.0 /100WBC PT (12.1-14.9) SECO NDS INR (0.8-1.2) APTT (23.9-36.7) SECO NDS Sodium 135 L (136-145) mmol/L Potassium 3.4 L (3.5-5.1) mmol/L Chloride 96 L (98-107) mmol/L Carbon Dioxide 26 (22-29) mmol/L Anion Gap 16.4 (5-19) BUN 55 H (8-23) mg/dL Creatinine 1.8 H (0.5-0.9) mg/dL GFR Calculation Not Reportable Glucose 119 H (65-115) mg/dL Calculated Osmolal ity 296 H (285-295) mOsm/k g Lactic Acid 2.9 H (0.5-2.2) mmol/L Lactic Acid (Sepsi s) (0.5-2.2) mmol/L Calcium 8.8 (8.5-10.5) mg/dL Total Bilirubin 0.5 (0.15-1.2) mg/dL AST 22 (0-32) U/L ALT 11 (0-33) U/L Alkaline Phosphata se 67 (35-105) IU/L Troponin T Baselin e (0-10) ng/L Troponin T 120 Min [place] (0-10) ng/L Delta Troponin T (0-10) ABS# NT-Pro-B Natriuret Pep 39754 H (0-450) pg/mL Total Protein 8.1 (6.6-8.7) g/dL Albumin 3.6 (3.5-5.2) g/dL Globulin 4.5 (1.3-4.6) g/dL TSH (0.27-4.20) uIU/ mL Urine Color (Yellow) Urine Appearance (CLEAR) Urine pH (5-7) Ur Specific Gravit y (1.005-1.030) Urine Protein (Negative) Urine Glucose (UA) (Normal) Urine Ketones (Negative) Urine Blood (Negative) Urine Nitrate (Negative) Urine Bilirubin (Negative) Urine Urobilinogen (Negative) mg/dL Ur Leukocyte Carmen ase (Negative) Urine RBC (0-2) /hpf Urine WBC (0-5) /hpf Ur Squamous Epith Cells (0-5) /hpf Amorphous Sediment Urine Bacteria (NONE) /hpf 12/31/20 12/31/20 12/31/20 Range/Units 09:23 09:23 09:23 WBC (4.0-10.0) 10^3/ uL RBC (4.1-5.3) 10^6/u L Hgb (11.5-15.3) g/dL Hct (37.0-47.0) % MCV (81-99) fL MCH (28.0-34.0) pg MCHC (30.0-36.0) g/dL RDW (12.1-15.1) % Plt Count (130-400) 10^3/c mm MPV (7.4-10.4) fL Neut % (Auto) % Lymph % (Auto) % Elliott % (Auto) % Eos % (Auto) % Baso % (Auto) % Neut # (Auto) (1.8-7.7) 10^3/u L Lymph # (Auto) (0.8-4.8) 10^3/u L Elliott # (Auto) (0.2-0.9) 10^3/u L Eos # (Auto) (0.0-0.8) 10^3/u L Baso # (Auto) (0.0-0.1) 10^3/u L Nucleated RBC % (a uto) % Nucleated RBCs # /100WBC PT 16.70 H (12.1-14.9) SECO NDS INR 1.31 H (0.8-1.2) APTT 32.3 (23.9-36.7) SECO NDS Sodium (136-145) mmol/L Potassium (3.5-5.1) mmol/L Chloride (98-107) mmol/L Carbon Dioxide (22-29) mmol/L Anion Gap (5-19) BUN (8-23) mg/dL Creatinine (0.5-0.9) mg/dL GFR Calculation Glucose (65-115) mg/dL Calculated Osmolal ity (285-295) mOsm/k g Lactic Acid (0.5-2.2) mmol/L Lactic Acid (Sepsi s) (0.5-2.2) mmol/L Calcium (8.5-10.5) mg/dL Total Bilirubin (0.15-1.2) mg/dL AST (0-32) U/L ALT (0-33) U/L Alkaline Phosphata se (35-105) IU/L Troponin T Baselin e 61 H (0-10) ng/L Troponin T 120 Min [place] (0-10) ng/L Delta Troponin T (0-10) ABS# NT-Pro-B Natriuret Pep (0-450) pg/mL Total Protein (6.6-8.7) g/dL Albumin (3.5-5.2) g/dL Globulin (1.3-4.6) g/dL TSH 0.06 L (0.27-4.20) uIU/ mL Urine Color (Yellow) Urine Appearance (CLEAR) Urine pH (5-7) Ur Specific Gravit y (1.005-1.030) Urine Protein (Negative) Urine Glucose (UA) (Normal) Urine Ketones (Negative) Urine Blood (Negative) Urine Nitrate (Negative) Urine Bilirubin (Negative) Urine Urobilinogen (Negative) mg/dL Ur Leukocyte Carmen ase (Negative) Urine RBC (0-2) /hpf Urine WBC (0-5) /hpf Ur Squamous Epith Cells (0-5) /hpf Amorphous Sediment Urine Bacteria (NONE) /hpf 12/31/20 12/31/20 12/31/20 Range/Units 11:18 11:18 12:45 WBC (4.0-10.0) 10^3/ uL RBC (4.1-5.3) 10^6/u L Hgb (11.5-15.3) g/dL Hct (37.0-47.0) % MCV (81-99) fL MCH (28.0-34.0) pg MCHC (30.0-36.0) g/dL RDW (12.1-15.1) % Plt Count (130-400) 10^3/c mm MPV (7.4-10.4) fL Neut % (Auto) % Lymph % (Auto) % Elliott % (Auto) % Eos % (Auto) % Baso % (Auto) % Neut # (Auto) (1.8-7.7) 10^3/u L Lymph # (Auto) (0.8-4.8) 10^3/u L Elliott # (Auto) (0.2-0.9) 10^3/u L Eos # (Auto) (0.0-0.8) 10^3/u L Baso # (Auto) (0.0-0.1) 10^3/u L Nucleated RBC % (a uto) % Nucleated RBCs # /100WBC PT (12.1-14.9) SECO NDS INR (0.8-1.2) APTT (23.9-36.7) SECO NDS Sodium (136-145) mmol/L Potassium (3.5-5.1) mmol/L Chloride (98-107) mmol/L Carbon Dioxide (22-29) mmol/L Anion Gap (5-19) BUN (8-23) mg/dL Creatinine (0.5-0.9) mg/dL GFR Calculation Glucose (65-115) mg/dL Calculated Osmolal ity (285-295) mOsm/k g Lactic Acid (0.5-2.2) mmol/L Lactic Acid (Sepsi s) 1.3 (0.5-2.2) mmol/L Calcium (8.5-10.5) mg/dL Total Bilirubin (0.15-1.2) mg/dL AST (0-32) U/L ALT (0-33) U/L Alkaline Phosphata se (35-105) IU/L Troponin T Baselin e (0-10) ng/L Troponin T 120 Min [place] 62.88 H (0-10) ng/L Delta Troponin T 1.88 (0-10) ABS# NT-Pro-B Natriuret Pep (0-450) pg/mL Total Protein (6.6-8.7) g/dL Albumin (3.5-5.2) g/dL Globulin (1.3-4.6) g/dL TSH (0.27-4.20) uIU/ mL Urine Color Yellow (Yellow) Urine Appearance Cloudy (CLEAR) Urine pH 5 (5-7) Ur Specific Gravit y 1.010 (1.005-1.030) Urine Protein Trace (Negative) Urine Glucose (UA) Norm (Normal) Urine Ketones Negative (Negative) Urine Blood 2+ H (Negative) Urine Nitrate Negative (Negative) Urine Bilirubin Neg (Negative) Urine Urobilinogen Norm (Negative) mg/dL Ur Leukocyte Carmen ase 2+ H (Negative) Urine RBC 5-10 H (0-2) /hpf Urine WBC Too numerous to c nt H (0-5) /hpf Ur Squamous Epith Cells None (0-5) /hpf Amorphous Sediment Not Reportable Urine Bacteria 4+ H (NONE) /hpf Discharge Plan Discharge Admit Provider: Elsa Montana Coding Level of Care Code ED Continuous Mining Machine Coal Miner for Chg Fwd Exam Comprehensive Documented by User: Ray Lee 12/31/20 15:20 HPI - Female Genitourinary General: Chief complaint: General Medical Stated complaint: possible uti, unable to controll urine Time Seen by Provider: 12/31/20 08:49 History of Present Illness: HPI Narrative: 85-year-old female initially seen for possible UTI and unable to control urine. However patient was noted to be in A. fib with RVR and runs of V. tach. Patient was subsequently moved to room 11. states that she started feeling bad night. It got progressively worse. She has been unable to control urine. She states she has felt feverish. She denies any chest pain. She states that it does hurt to take a deep breath. She has felt nauseous but no vomiting. She denies any abdominal pain. She has felt weak all over. Review previous records does show a history of atrial fibrillation. Review of her medications shows metoprolol at 25 mg twice a day however the patient does not recall taking that medication. Associated symptoms: Deny abdominal pain, headache(s) or nausea Review of Systems Narrative: 85-year-old female comes in with possible UTI and then noted to be in atrial fibrillation with RVR and runs of V. tach. Const: Reports: fatigue and diaphoresis; Denies: fever(s), chills, body aches or change in appetite Eyes: Denies: change in vision or blurry vision ENMT: Denies: throat pain, ear or mastoid pain or nasal congestion Card: Reports: dyspnea on exertion; Denies: chest pain, palpitations, irregular heart rhythm (Records indicate a history of atrial fibrillation), edema, swelling of feet/ankles or lightheadedness Resp: Reports: dyspnea; Denies: productive cough, non-productive cough, wheezing, stridor or pain on inspiration GI: Denies: abdominal pain, nausea, vomiting, dysphagia, heartburn, diarrhea, constipation or bloating : Reports: flank pain, urinary frequency and urinary incontinence; Denies: difficulty voiding, dysuria or hematuria Musc: Denies: neck pain, back pain or extremity pain Skin/Breast: Reports: surgical incision (Previous left mastectomy, breast implant on the right.) and breast skin changes (Previous left mastectomy) Neuro: Reports: difficulty walking (Secondary to weakness); Denies: headache(s), numbness in extremities or weakness in extremities Psych: Denies: anxiety or depression PFSH ED PFSH: Medical History Anemia Atrial fibrillation Chronic constipation Dementia History of cervical cancer Hydroureter Hypertension Intrinsic sphincter deficiency Irritable bowel syndrome Peripheral arterial disease Status post bilateral iliac stents and angioplasty of the left common femoral artery and superficial femoral artery. PVD (peripheral vascular disease) Rectosigmoid cancer Recurrent UTI Surgical History History of colon resection History of hemicolectomy S/P angioplasty with stent S/P bladder repair S/P hernia repair S/P tonsillectomy Family History Mother CAD (coronary artery disease) Son CAD (coronary artery disease) Myocardial infarct, old Father CAD (coronary artery disease) Myocardial infarct, old Denies family history of Anesthesia complication Bleeding disorder Social History Smoking and tobacco status: never smoked Alcohol intake: never Household members: spouse Marital status: Current occupational status: retired History of recent travel: No Current gender identity: Female Adele/Anglican: Yarsanism Physical Exam Const: COMMON NORMALS: patient oriented x3 and alert EXAM LIMITATIONS: no altered mental status GENERAL APPEARANCE: cooperative, well kempt, well developed, lethargic, ill appearing and frail appearing NUTRITIONAL APPEARANCE: thin ORIENTATION/CONSCIOUSNESS: Yes awake, Yes oriented to person, Yes oriented to place, Yes oriented to time and Yes lethargic HENMT: COMMON NORMALS: normocephalic and atraumatic HEAD & SCALP: normocephalic and atraumatic MOUTH: moist mucous membranes abnormal Eye: COMMON NORMALS: Equal, round and reactive pupils present, EOMs intact bilaterally, conjunctivae normal, no scleral icterus and no papilledema GENERAL EYE: appearance normal, both eyes and all related structures and normal light reflex CONJUNCTIVA: Yes conjunctivae normal PUPIL: Yes Equal, round and reactive pupils present DIRECT OPHTHALMOSCOPY: Yes normal light reflex and Yes no papilledema Neck/C-Spine: COMMON NORMALS: full ROM, no lymphadenopathy, supple, no meningeal signs and no JVD GENERAL: Yes normal visual inspection, Yes trachea midline, Yes anterior neck swelling and No tender CERVICAL SPINE: Yes cervical ROM normal Chest: CHEST: Yes abnormal inspection of the chest (Previous left mastectomy noted, right breast implant noted) Resp: COMMON NORMALS: normal respiratory effort, No retractions, No use of accessory muscles and clear to auscultation bilaterally EFFORT & INSPECTION: Yes able to speak in complete sentences, Yes symmetric chest movement, No respiratory distress, No decreased respiratory effort, No labored, No grunting, No stridor, No Actively coughing, No retractions and No uses accessory muscles AUSCULTATION: clear to auscultation bilaterally, no crackles, no rales, no rhonchi and no wheezes Cardio: COMMON NORMALS: no JVD; negative for regular rate RATE: abnormal rate and tachycardic RHYTHM: abnormal rhythm HEART SOUNDS: no murmurs GI: COMMON NORMALS: Soft to palpation, non-tender, No hepatosplenomegaly present, no masses and no bruits INSPECTION: Yes normal to inspection and No abdominal distension PALPATION: Yes Soft to palpation and Yes No hepatosplenomegaly present : COMMON NORMALS: Yes no CVA tenderness BLADDER/KIDNEY EXAM: Yes no CVA tenderness Back/Pelvis: COMMON NORMALS: no CVA tenderness Neuro: COMMON NORMALS: patient oriented x3 SENSORIUM/ORIENTATION: Yes alert, Yes oriented to person, Yes oriented to place, Yes oriented to time and Yes lethargic MENINGEAL SIGNS: Yes no meningeal signs Psych: APPEARANCE: Yes well kempt Course Consultations: Consultation #1: Discussed with Dr. Felix Lee, computer equipment repairer, recommended increasing her metoprolol. Dr. Lee stated he is available for consult. This was discussed with Dr. Montana, hospitalist, who is also notified that the patient may not have been taking this medication as prescribed. She states she will start the patient on a low-dose of the metoprolol. Vital Signs: Vital signs: Vital Signs Temperature 98.9 F 12/31/20 08:49 Pulse Rate 70 12/31/20 14:38 Respiratory Rate 22 H 12/31/20 14:38 Blood Pressure 102/49 12/31/20 14:38 Pulse Oximetry 94 12/31/20 14:38 MDM - Female Lab Data: Labs: Lab Results 12/31/20 12/31/20 12/31/20 Range/Units 09:23 09:23 09:23 WBC 21.8 H (4.0-10.0) 10^3/ uL RBC 3.16 L (4.1-5.3) 10^6/u L Hgb 9.5 L (11.5-15.3) g/dL Hct 30.8 L (37.0-47.0) % MCV 97.5 (81-99) fL MCH 30.1 (28.0-34.0) pg MCHC 30.8 (30.0-36.0) g/dL RDW 13.2 (12.1-15.1) % Plt Count 296 (130-400) 10^3/c mm MPV 9.3 (7.4-10.4) fL Neut % (Auto) 92.6 % Lymph % (Auto) 3.3 % Elliott % (Auto) 3.0 % Eos % (Auto) 0.0 % Baso % (Auto) 0.3 % Neut # (Auto) 20.22 H (1.8-7.7) 10^3/u L Lymph # (Auto) 0.7 L (0.8-4.8) 10^3/u L Elliott # (Auto) 0.7 (0.2-0.9) 10^3/u L Eos # (Auto) 0.0 (0.0-0.8) 10^3/u L Baso # (Auto) 0.1 (0.0-0.1) 10^3/u L Nucleated RBC % (a uto) 0 % Nucleated RBCs # 0.0 /100WBC PT (12.1-14.9) SECO NDS INR (0.8-1.2) APTT (23.9-36.7) SECO NDS Sodium 135 L (136-145) mmol/L Potassium 3.4 L (3.5-5.1) mmol/L Chloride 96 L (98-107) mmol/L Carbon Dioxide 26 (22-29) mmol/L Anion Gap 16.4 (5-19) BUN 55 H (8-23) mg/dL Creatinine 1.8 H (0.5-0.9) mg/dL GFR Calculation Not Reportable Glucose 119 H (65-115) mg/dL Calculated Osmolal ity 296 H (285-295) mOsm/k g Lactic Acid 2.9 H (0.5-2.2) mmol/L Lactic Acid (Sepsi s) (0.5-2.2) mmol/L Calcium 8.8 (8.5-10.5) mg/dL Total Bilirubin 0.5 (0.15-1.2) mg/dL AST 22 (0-32) U/L ALT 11 (0-33) U/L Alkaline Phosphata se 67 (35-105) IU/L Troponin T Baselin e (0-10) ng/L Troponin T 120 Min [place] (0-10) ng/L Delta Troponin T (0-10) ABS# NT-Pro-B Natriuret Pep [id number] H (0-450) pg/mL Total Protein 8.1 (6.6-8.7) g/dL Albumin 3.6 (3.5-5.2) g/dL Globulin 4.5 (1.3-4.6) g/dL TSH (0.27-4.20) uIU/ mL Urine Color (Yellow) Urine Appearance (CLEAR) Urine pH (5-7) Ur Specific Gravit y (1.005-1.030) Urine Protein (Negative) Urine Glucose (UA) (Normal) Urine Ketones (Negative) Urine Blood (Negative) Urine Nitrate (Negative) Urine Bilirubin (Negative) Urine Urobilinogen (Negative) mg/dL Ur Leukocyte Carmen ase (Negative) Urine RBC (0-2) /hpf Urine WBC (0-5) /hpf Ur Squamous Epith Cells (0-5) /hpf Amorphous Sediment Urine Bacteria (NONE) /hpf 12/31/20 12/31/20 12/31/20 Range/Units 09:23 09:23 09:23 WBC (4.0-10.0) 10^3/ uL RBC (4.1-5.3) 10^6/u L Hgb (11.5-15.3) g/dL Hct (37.0-47.0) % MCV (81-99) fL MCH (28.0-34.0) pg MCHC (30.0-36.0) g/dL RDW (12.1-15.1) % Plt Count (130-400) 10^3/c mm MPV (7.4-10.4) fL Neut % (Auto) % Lymph % (Auto) % Elliott % (Auto) % Eos % (Auto) % Baso % (Auto) % Neut # (Auto) (1.8-7.7) 10^3/u L Lymph # (Auto) (0.8-4.8) 10^3/u L Elliott # (Auto) (0.2-0.9) 10^3/u L Eos # (Auto) (0.0-0.8) 10^3/u L Baso # (Auto) (0.0-0.1) 10^3/u L Nucleated RBC % (a uto) % Nucleated RBCs # /100WBC PT 16.70 H (12.1-14.9) SECO NDS INR 1.31 H (0.8-1.2) APTT 32.3 (23.9-36.7) SECO NDS Sodium (136-145) mmol/L Potassium (3.5-5.1) mmol/L Chloride (98-107) mmol/L Carbon Dioxide (22-29) mmol/L Anion Gap (5-19) BUN (8-23) mg/dL Creatinine (0.5-0.9) mg/dL GFR Calculation Glucose (65-115) mg/dL Calculated Osmolal ity (285-295) mOsm/k g Lactic Acid (0.5-2.2) mmol/L Lactic Acid (Sepsi s) (0.5-2.2) mmol/L Calcium (8.5-10.5) mg/dL Total Bilirubin (0.15-1.2) mg/dL AST (0-32) U/L ALT (0-33) U/L Alkaline Phosphata se (35-105) IU/L Troponin T Baselin e 61 H (0-10) ng/L Troponin T 120 Min [place] (0-10) ng/L Delta Troponin T (0-10) ABS# NT-Pro-B Natriuret Pep (0-450) pg/mL Total Protein (6.6-8.7) g/dL Albumin (3.5-5.2) g/dL Globulin (1.3-4.6) g/dL TSH 0.06 L (0.27-4.20) uIU/ mL Urine Color (Yellow) Urine Appearance (CLEAR) Urine pH (5-7) Ur Specific Gravit y (1.005-1.030) Urine Protein (Negative) Urine Glucose (UA) (Normal) Urine Ketones (Negative) Urine Blood (Negative) Urine Nitrate (Negative) Urine Bilirubin (Negative) Urine Urobilinogen (Negative) mg/dL Ur Leukocyte Carmen ase (Negative) Urine RBC (0-2) /hpf Urine WBC (0-5) /hpf Ur Squamous Epith Cells (0-5) /hpf Amorphous Sediment Urine Bacteria (NONE) /hpf 12/31/20 12/31/20 12/31/20 Range/Units 11:18 11:18 12:45 WBC (4.0-10.0) 10^3/ uL RBC (4.1-5.3) 10^6/u L Hgb (11.5-15.3) g/dL Hct (37.0-47.0) % MCV (81-99) fL MCH (28.0-34.0) pg MCHC (30.0-36.0) g/dL RDW (12.1-15.1) % Plt Count (130-400) 10^3/c mm MPV (7.4-10.4) fL Neut % (Auto) % Lymph % (Auto) % Elliott % (Auto) % Eos % (Auto) % Baso % (Auto) % Neut # (Auto) (1.8-7.7) 10^3/u L Lymph # (Auto) (0.8-4.8) 10^3/u L Elliott # (Auto) (0.2-0.9) 10^3/u L Eos # (Auto) (0.0-0.8) 10^3/u L Baso # (Auto) (0.0-0.1) 10^3/u L Nucleated RBC % (a uto) % Nucleated RBCs # /100WBC PT (12.1-14.9) SECO NDS INR (0.8-1.2) APTT (23.9-36.7) SECO NDS Sodium (136-145) mmol/L Potassium (3.5-5.1) mmol/L Chloride (98-107) mmol/L Carbon Dioxide (22-29) mmol/L Anion Gap (5-19) BUN (8-23) mg/dL Creatinine (0.5-0.9) mg/dL GFR Calculation Glucose (65-115) mg/dL Calculated Osmolal ity (285-295) mOsm/k g Lactic Acid (0.5-2.2) mmol/L Lactic Acid (Sepsi s) 1.3 (0.5-2.2) mmol/L Calcium (8.5-10.5) mg/dL Total Bilirubin (0.15-1.2) mg/dL AST (0-32) U/L ALT (0-33) U/L Alkaline Phosphata se (35-105) IU/L Troponin T Baselin e (0-10) ng/L Troponin T 120 Min [place] 62.88 H (0-10) ng/L Delta Troponin T 1.88 (0-10) ABS# NT-Pro-B Natriuret Pep (0-450) pg/mL Total Protein (6.6-8.7) g/dL Albumin (3.5-5.2) g/dL Globulin (1.3-4.6) g/dL TSH (0.27-4.20) uIU/ mL Urine Color Yellow (Yellow) Urine Appearance Cloudy (CLEAR) Urine pH 5 (5-7) Ur Specific Gravit y 1.010 (1.005-1.030) Urine Protein Trace (Negative) Urine Glucose (UA) Norm (Normal) Urine Ketones Negative (Negative) Urine Blood 2+ H (Negative) Urine Nitrate Negative (Negative) Urine Bilirubin Neg (Negative) Urine Urobilinogen Norm (Negative) mg/dL Ur Leukocyte Carmen ase 2+ H (Negative) Urine RBC 5-10 H (0-2) /hpf Urine WBC Too numerous to c nt H (0-5) /hpf Ur Squamous Epith Cells None (0-5) /hpf Amorphous Sediment Not Reportable Urine Bacteria 4+ H (NONE) /hpf Discharge Plan Discharge Admit Provider: Elsa Montana Coding Level of Care Code ED Continuous Mining Machine Coal Miner for Chg Fwd Exam Comprehensive
--- NOTE | 2020-12-31 08:54 | XRR_ITS ---
PROCEDURE INFORMATION: Exam: XR Chest Exam date and time: 12/31/2020 9:17 AM Age: 85 years old Clinical indication: Other: Tachycardia TECHNIQUE: Imaging protocol: XR of the chest. Views: 1 view. COMPARISON: CR XR chest 1V portable [id number] 02/06/2020 2:32 PM FINDINGS: Lungs: Unremarkable. No consolidation. Pleural spaces: Unremarkable. No pleural effusion. No pneumothorax. Heart/Mediastinum: Unremarkable. No cardiomegaly. Bones/joints: Unremarkable. Soft tissues: A right breast implant is present. XR/XR chest 1V portable [id number] IMPRESSION: No acute findings.
--- NOTE | 2020-12-31 08:54 | ECG_ITS ---
[facility] Test Date: 2020-12-31 Pat Name: Iraida Bay Department: Room: Gender: Female Combination Presser: : 1935 Requested By: Jadon Angela Order Number: [id number] Reading MD: MATT RAMACHANDRAN Measurements Intervals [place] Rate: 204 P: [place]: QRS: -22 QRSD: 103 T: 92 QT: 201 QTc: 370 Interpretive Statements ATRIAL FIBRILLATION WITH RAPID VENTRICULAR RESPONSE WITH ABERRANT CONDUCTION OR VENTRICULAR PREMATURE COMPLEXES SEPTAL MYOCARDIAL INFARCTION , PROBABLY OLD [40+ ms Q WAVE IN V1/V2] CRITICAL TEST RESULT Compared to ECG 02/07/2020 00:44:09 Aberrant conduction of supraventricular beat(s) now present Ventricular premature complex(es) now present Sinus rhythm no longer present Left-axis deviation no longer present Myocardial infarct finding still present Electronically Signed On 12-31-2020 22:23:34 CDT by MATT RAMACHANDRAN [id number]
[2020-12-31] MEDS: sodium chloride 0.9% 500 ML 999 ML IV ×2 (09:11→09:46)
[2020-12-31 09:36] LABS: Basophils # 0.1 10^3/uL (0.0-0.1); Basophils % 0.3 %; Hematocrit 30.8 % (37.0-47.0); Hemoglobin 9.5 g/dL (11.5-15.3); Lymphocytes # 0.7 10^3/uL (0.8-4.8); Lymphocytes % 3.3 %; Mean Corpuscular HGB Conc 30.8 g/dL (30.0-36.0); Mean Corpuscular Hemoglobin 30.1 pg (28.0-34.0); Mean Corpuscular Volume 97.5 fL (81-99); Mean Platelet Volume 9.3 fL (7.4-10.4); Monocytes # 0.7 10^3/uL (0.2-0.9); Neutrophils # 20.22 10^3/uL (1.8-7.7); Neutrophils % 92.6 %; Nucleated Red Blood Cells % 0 %; Platelet Count 296 10^3/cmm (130-400); Red Blood Count 3.16 10^6/uL (4.1-5.3); Red Cell Distribution Width 13.2 % (12.1-15.1); White Blood Count 21.8 10^3/uL (4.0-10.0)
[2020-12-31 10:01] LABS: INR 1.31 (0.8-1.2)
[2020-12-31 10:02] LABS: Lactic Sepsis W/Reflex 2.9 mmol/L (0.5-2.2); Partial Thromboplastin Time 32.3 SECONDS (23.9-36.7)
[2020-12-31 10:04] LABS: Troponin(5th) Baseline 61 ng/L (0-10)
[2020-12-31 10:14] LABS: Alanine Aminotransferase 11 U/L (0-33); Albumin Level 3.6 g/dL (3.5-5.2); Alkaline Phosphatase 67 IU/L (35-105); Anion Gap 16.4 (5-19); Aspartate Amino Transferase 22 U/L (0-32); Blood Urea Nitrogen 55 mg/dL (8-23); Calcium 8.8 mg/dL (8.5-10.5); Carbon Dioxide 26 mmol/L (22-29); Chloride 96 mmol/L (98-107); Globulin 4.5 g/dL (1.3-4.6); Glucose 119 mg/dL (65-115); NT Pro B Type Natriuretic Pept 10578 pg/mL (0-450); Osmolality Calculated 296 mOsm/kg (285-295); Potassium 3.4 mmol/L (3.5-5.1); Sodium 135 mmol/L (136-145); Total Bilirubin 0.5 mg/dL (0.15-1.2); Total Protein 8.1 g/dL (6.6-8.7)
--- NOTE | 2020-12-31 10:54 | ECG_ITS ---
[facility] Test Date: 2020-12-31 Pat Name: Iraida Bay Department: Room: Gender: Female Informatics Coordinator: : 1935 Requested By: Jadon Angela Order Number: [id number] Reading MD: MATT RAMACHANDRAN Measurements Intervals [place] Rate: 123 P: [place]: QRS: -18 QRSD: 112 T: 74 QT: 352 QTc: 504 Interpretive Statements ATRIAL FIBRILLATION WITH RAPID VENTRICULAR RESPONSE MODERATE INTRAVENTRICULAR CONDUCTION DELAY [110+ ms QRS DURATION] NONSPECIFIC T-WAVE ABNORMALITY ABNORMAL RHYTHM ECG Compared to ECG 12/31/2020 08:58:45 Intraventricular conduction delay now present T-wave abnormality now present Aberrant conduction of supraventricular beat(s) no longer present Ventricular premature complex(es) no longer present Myocardial infarct finding no longer present Electronically Signed On 12-31-2020 22:26:42 CDT by MATT RAMACHANDRAN [id number]
[2020-12-31 11:05] LABS: Reflex Lactate Order REFLEX LACTIC ORDERD
[2020-12-31 11:44] LABS: Lactic Acid level (Lactate) 1.3 mmol/L (0.5-2.2)
[2020-12-31 11:47] LABS: Troponin 5 2HR 62.88 ng/L (0-10); Troponin 5 2HR Delta 1.88 ABS# (0-10)
--- NOTE | 2020-12-31 13:09 | PC.NURSE ---
Pt appears much more comfortable. Cardizem titrated to 10mg/hr, warm blanket provided, pt updated on plan of care, no additional needs identified at this time, will continue to monitor.
[2020-12-31 13:33] LABS: Bilirubin Urine Neg (Negative); Blood Urine 2+ (Negative); Glucose Urine UA Norm (Normal); Ketones Urine Negative (Negative); Leukocyte Esterase Urine 2+ (Negative); Nitrate Urine Negative (Negative); Protein Urine Trace (Negative); Urine Appearance Cloudy (CLEAR); Urine Color Yellow (Yellow); Urobilinogen Urine Norm (Negative); pH Urine 5 (5-7)
[2020-12-31 13:34] LABS: Add Urine Culture? Yes; Add Urine Microscopic? YES; Bacteria Urine 4+ /hpf; WBC Urine TOO NUMEROUS TO CNT /hpf (0-5)
--- NOTE | 2020-12-31 13:45 | PC.NURSE ---
This RN responds to patients room after aystole noted on monitor, followed by rate in the 30's. Upon entering the room, patient opens eyes spontaneously, heart rate in the 70's, now with P waves. Pt sts she had no shortness of breath or chest pain during the even, she denies having any symptoms and sts she feels fine. Cardizem immediately discontinued. Dr. De Santiago at bedside for re-evaluation, repeat EKG will be obtained.
[2020-12-31] MEDS: sodium chloride 0.9% 500 ML IV ×2 (14:35→20:39)
[2020-12-31] MEDS: cefTRIAXone 1,000 MG in sodium chloride 0.9% (plus) 50 ML 100 MG IV (14:36)
--- NOTE | 2020-12-31 14:39 | PC.NURSE ---
Fluids and abx infusing, pt and spouse updated on plan of care, vss, pt appears comfortable and in no distress, no immediate needs identified, will continue to monitor.
--- NOTE | 2020-12-31 14:48 | CTR_ITS ---
PROCEDURE INFORMATION: Exam: CT Abdomen And Pelvis Without Contrast Exam date and time: 12/31/2020 2:59 PM Age: 85 years old Clinical indication: Abdominal pain; Additional info: Jerome, pyelonephritis, evaluate for obstrcution TECHNIQUE: Imaging protocol: Computed tomography of the abdomen and pelvis without contrast. Total images: 210 Radiation optimization: All CT scans at this facility use at least one of these dose optimization techniques: automated exposure control; mA and/or kV adjustment per patient size (includes targeted exams where dose is matched to clinical indication); or iterative reconstruction. COMPARISON: CT abdomen pelvis w con* [id number] 08/08/2020 11:39 AM RADIATION DOSE METRICS: Total DLP (mGy-cm): 688.69 FINDINGS: Lungs: Dependent atelectasis lung bases. Bullous emphysema. Senile fibrosis. Pleural spaces: Bilateral scant pleural effusions. Liver: No visible hepatic mass or cystic structure. Gallbladder and bile ducts: Cholelithiasis. Small 6 mm gallstone within the gallbladder neck. No visible intra or extrahepatic biliary ectasia or visible evidence of choledocholithiasis, however. Pancreas: Pancreas unremarkable for age. No visible pancreatic ductal ectasia. Spleen: Unremarkable. No splenomegaly. Adrenal glands: Adrenal glands unremarkable. Kidneys and ureters: Marked right hydronephrosis and hydroureter but without visible ureterolithiasis. No visible right-sided nephrolithiasis. Mild perinephric stranding. Evidence of moderate right renal parenchyma edema with enlargement of the kidney volume since last evaluation of 08/08/2020. Left kidney without hydronephrosis or perinephric fluid. No visible left-sided nephrolithiasis or visible ureterolithiasis. Stomach and bowel: Fecal impaction with constipation/obstipation. Moderate associated colonic ileus. Cecal anastomotic clips. Currently no visible evidence of bowel obstruction. Stable rectal anastomotic clips. Appendix: No evidence of appendicitis. Intraperitoneal space: No visible pneumoperitoneum or intraperitoneal ascites. Vasculature: Cardiomegaly with advanced 3 vessel coronary artery disease. The abdominal aorta is nonaneurysmal. Extensive arterial sclerotic disease. Extensive pelvic arterial calcification. Lymph nodes: Unremarkable. No enlarged lymph nodes. Urinary bladder: Urinary bladder distended but without filling defect. Reproductive: Rectal and vaginal prolapse. Bones/joints: No visible acute osseous abnormality. Old right obturator ring fracture. Osteopenia/osteoporosis. Primary osteoarthritis most advanced right hip. Degenerative disc disease most advanced L1/L2. Facet arthrosis. Soft tissues: Right breast implant. Other findings: Cachexia. CT/CT abdomen pelvis wo con [id number] IMPRESSION: 1. Marked right hydronephrosis and hydroureter but without visible ureterolithiasis. No visible right-sided nephrolithiasis. Mild perinephric stranding. Evidence of moderate right renal parenchyma edema with enlargement of the kidney volume since last evaluation of 08/08/2020. 2. Fecal impaction with marked constipation/obstipation. 3. Moderate colonic ileus. 4. Bilateral scant pleural effusions. 5. Cholelithiasis. 6. Cardiomegaly with advanced 3 vessel coronary artery disease. 7. Extensive arterial sclerotic disease. 8. Rectal and vaginal prolapse. 9. Other nonurgent, nonemergent, chronic, and age related findings as detailed in text above. Radiation Dose CTDIVOL = (mGy): DLP = 688.69 (mGy-cm)
--- NOTE | 2020-12-31 14:54 | ECG_ITS ---
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[facility] [facility] : 1935 Requested By: Jadon Angela Order Number: [id number] Reading MD: MATT RAMACHANDRAN Measurements Intervals [place] Rate: 68 P: 21 WI: 144 QRS: -11 QRSD: 118 T: 45 QT: 422 QTc: 451 Interpretive Statements SINUS RHYTHM INCOMPLETE RIGHT BUNDLE BRANCH BLOCK [90+ ms QRS DURATION, TERMINAL R IN V1/V2, 40+ ms S IN I/aVL/V4/V5/V6] SEPTAL MYOCARDIAL INFARCTION [40+ ms Q WAVE IN V1/V2], OF INDETERMINATE AGE Compared to ECG 12/31/2020 09:34:34 Incomplete right bundle-branch block now present Myocardial infarct finding now present Atrial fibrillation no longer present Intraventricular conduction delay no longer present T-wave abnormality no longer present Electronically Signed On 12-31-2020 22:26:35 CDT by MATT RAMACHANDRAN [id number]
[2020-12-31 14:55] LABS: Thyroid Stimulating Hormone 0.06 uIU/mL (0.27-4.20)
--- NOTE | 2020-12-31 16:18 | PC.NURSE ---
Report called to MIKE in ICU.
[2020-12-31 16:43] LABS: Troponin 5 6HR 59.59 ng/L (0-10)
[2020-12-31 16:46] LABS: Troponin 5 6HR Delta -1.41 ng/L (0-12)
--- NOTE | 2020-12-31 17:17 | P.HP_ITS ---
Providers/Chief Complaint Admitting Physician: Elsa Montana MD Primary Care Provider: Scott Lau MD Chief Complaint: possible uti, unable to controll urine History of Present Illness Iraida Bay is a 85 year old female with h/o colorectal ca currently on expectant management for a recurrent pelvic mass around the sigmoid colon with on and off hydronephrosis over past several years, presented with feeling of being unwell over the last 4-5 days, abdominal pain described as pressure, 8/10 intensity, feeling of rectal prolapsing (known h/o vaginal and rectal prolap se). Found to have A fib with RVR in the er for which she received several pushes of iv cardizem and then converted into sinus rhythm at 60-70 bpm, unclear if she was taking her home dose of metoprolol. Initial BP 90/54, now improving with fluids at 103/60 at time of evelaution. Denies chest pain, dyspnea. Troponin series without significant delta. No acute St-T wave changes on EKG. Review of Systems General: Reports: 10 or more systems reviewed and unremarkable except in HPI and below Const: Denies: fever(s), chills or body aches Eyes: Denies: change in vision, blurry vision or photophobia ENMT: Reports: hoarseness; Denies: throat pain, enlarged tonsils, odynophagia or nasal congestion Card: Denies: chest pain, palpitations, irregular heart rhythm, edema, swelling of feet/ankles, lightheadedness, pre-syncope, dyspnea on exertion or orthopnea Resp: Denies: dyspnea, productive cough, non-productive cough, wheezing, stridor, pain on inspiration, change in phlegm color, hemoptysis or chest congestion GI: Denies: abdominal pain, nausea, vomiting, hematemesis, coffee ground emesis, dysphagia, heartburn, diarrhea, constipation, GI cramping, change in stool character, hematochezia or melena : Denies: flank pain, difficulty voiding, dysuria, urinary frequency, urinary urgency, urinary hesitancy or hematuria Musc: Denies: neck pain, back pain, extremity pain, joint swelling, joint warmth or deformity Neuro: Denies: headache(s), numbness in extremities, weakness in extremities, sensory changes, difficulty walking, frequent falls, dizziness, vertigo, behavio ral changes, Slurred speech present or seizure-like activity Psych: Denies: anxiety, depression, suicidal ideation or homicidal ideation Endo: Denies: polyuria, polydipsia, tired all the time, cold intolerance or hot flashes Jaswinder/Lymph: Denies: easy bruising or easy bleeding Medications/Allergies Home Medications Medication Instructions Recorded Confirmed Last Taken Type amitriptyline 25 mg PO BEDTIME@2100 09/06/19 12/31/20 12/30/20 History clonazepam 0.5 mg PO BID PRN 09/06/19 12/31/20 02/05/20 History lactulose 15 ml PO DAILY PRN 09/06/19 12/31/20 09/03/19 History latanoprost 1 drp OPHTHALMIC (EYE) BEDTIME@209909/06/19 12/31/20 12/30/20 History primidone 50 mg PO TID PRN 09/06/19 12/31/20 Unknown History cyclosporine 0.05 % eye drops 1 drop OPHTHALMIC (EYE) Q12H 09/13/19 12/31/20 Unknown History flaxseed oil 1,000 mg capsule 1,000 mg PO DAILY cap 09/13/19 12/31/20 12/30/20 History omega-3 fatty acids 1,000 mg 1,000 mg PO DAILY 09/13/19 12/31/20 12/30/20 History capsule sertraline 100 mg tablet 100 mg PO Q24H 09/13/19 12/31/20 12/30/20 History tramadol 50 mg tablet 50 - 100 mg PO QID PRN tab 09/13/19 12/31/20 Unknown His tory vitamin B complex 1 tab PO DAILY 09/13/19 12/31/20 12/30/20 History Preparation H 1 applic [place] DAILY PRN 02/06/20 12/31/20 12/30/20 History Vitamin D3 1 tab PO DAILY 02/06/20 12/31/20 12/30/20 History hydrocortisone [Proctozone-HC] 1 applic [place] BID PRN 02/06/20 12/31/20 Unknown History levothyroxine 137 mcg PO DAILY 02/06/20 12/31/20 12/30/20 History multivitamin [Multiple Vitamins] 1 tab PO DAILY 02/06/20 12/31/20 12/30/20 History Lactobacillus acidophilus 10,000 mmu cells PO BID #60 cap 02/10/20 12/31/20 12/30/20 Rx bisacodyl 5 mg PO DAILY #30 tab 02/10/20 12/31/20 Unknown Rx metoprolol tartrate 25 mg PO BID #60 tab 02/10/20 12/31/20 12/30/20 Rx olanzapine 2.5 mg PO DAILY@20 #15 tab 02/10/20 12/31/20 12/30/20 Rx polyethylene glycol 3350 17 gm PO BID #60 each 02/10/20 12/31/20 Unknown Rx hydrochlorothiazide 12.5 mg PO DAILY 12/31/20 12/31/20 12/30/20 History nitrofurantoin 100 mg PO DAILY 12/31/20 12/31/20 12/30/20 History Allergies Allergy/AdvReac Type Severity Reaction Status Date / Time No Known Allergies Allergy Verified 12/31/20 09:01 PFSH Acute PFSH: Medical History (Updated 12/31/20 @ 19:37 by Elsa Montana MD) Anemia Atrial fibrillation Chronic constipation Dementia History of cervical cancer Hydroureter Hypertension Intrinsic sphincter deficiency Irritable bowel syndrome Peripheral arterial disease Status post bilateral iliac stents and angioplasty of the left common femoral artery and superficial femoral artery. PVD (peripheral vascular disease) Rectosigmoid cancer Recurrent UTI Surgical History History of colon resection History of hemicolectomy S/P angioplasty with stent S/P bladder repair S/P hernia repair S/P tonsillectomy Family History Mother CAD (coronary artery disease) Son CAD (coronary artery disease) Myocardial infarct, old Father CAD (coronary artery disease) Myocardial infarct, old Denies family history of Anesthesia complication Bleeding disorder Social History Smoking and tobacco status: never smoked Alcohol intake: never Household members: spouse Marital status: Current occupational status: retired History of recent travel: No Current gender identity: Female Adele/Yazdanism: [employer]ism Vitals/I&O/Wt Last Vital Signs Temp 98.9 F 12/31/20 08:49 Pulse 63 12/31/20 17:05 Resp 17 12/31/20 17:05 BP 98/51 12/31/20 17:05 Pulse Ox 100 12/31/20 17:05 12/31/20 12/31/20 12/31/20 06:59 14:59 22:59 Intake Total 1013.5 / 1013.5 550 / 1563.5 Balance 1013.5 / 1013.5 550 / 1563.5 Weight last 48 hrs Weight 42.184 kg Physical Exam Narrative: EXAM NARRATIVE: General: Awake, alert, cool clammy to touch, diaphoresis+ , ill appearing HEENT: PERRLA, pupils bilaterally equal and reactive, pallor + Chest: Normal vesicular breath sounds, no added sounds, equal good air entry b ilaterally CVS: S1-S2 regular, no murmurs, no tachycardia, no gallops, no rubs Abdomen: Soft, nontender, no organomegaly, bowel sounds present Neuro: No focal deficits, no facial deformity, AO x3, power 5/5 in all limbs Extremities: dehydarted ,no edema, clubbing Data : 12/31/20 09:23 12/31/20 09:23 Micro: Microbiology 12/31/20 09:40 Blood Culture - Preliminary Blood SPECIMEN COLLECTED 12/31/20 09:23 Blood Culture - Preliminary Blood SPECIMEN COLLECTED Attestation for Other Data: I personally reviewed and interpreted the following: Other data: Laboratory Results WBC 21.8 10^3/uL (4.0-10.0) H 12/31/20 09:23 RBC 3.16 10^6/uL (4.1-5.3) L 12/31/20 09:23 Hgb 9.5 g/dL (11.5-15.3) L 12/31/20 09:23 Hct 30.8 % (37.0-47.0) L 12/31/20 09:23 MCV 97.5 fL (81-99) 12/31/20 09:23 MCH 30.1 pg (28.0-34.0) 12/31/20 09: MCHC 30.8 g/dL (30.0-36.0) 12/31/20 09:23 RDW 13.2 % (12.1-15.1) 12/31/20 09:23 Plt Count 296 10^3/cmm (130-400) 12/31/20 09:23 MPV 9.3 fL (7.4-10.4) 12/31/20 09:23 Neut % (Auto) 92.6 % 12/31/20 09:23 Lymph % (Auto) 3.3 % 12/31/20 09:23 [place] % (Auto) 3.0 % 12/31/20 09: Eos % (Auto) 0.0 % 12/31/20 09: Baso % (Auto) 0.3 % 12/31/20 09:23 Neut # (Auto) 20.22 10^3/uL (1.8-7.7) H 12/31/20 09:23 Lymph # (Auto) 0.7 10^3/uL (0.8-4.8) L 12/31/20 09: [place] # (Auto) 0.7 10^3/uL (0.2-0.9) 12/31/20 09: Eos # (Auto) 0.0 10^3/uL (0.0-0.8) 12/31/20 09: Baso # (Auto) 0.1 10^3/uL (0.0-0.1) 12/31/20 09: Nucleated RBC % (auto) 0 % 12/31/20: Nucleated RBCs # 0.0 /100WBC 12/31/20 09: PT 16.70 SECONDS (12.1-14.9) H 12/31/20 09: INR 1.31 (0.8-1.2) H 12/31/20 09:23 APTT 32.3 SECONDS (23.9-36.7) 12/31/20 09:23 Sodium 135 mmol/L (136-145) L 12/31/20 09:23 Potassium 3.4 mmol/L (3.5-5.1) L 12/31/20 09: Chloride 96 mmol/L (98-107) L 12/31/20 09:23 Carbon Dioxide 26 mmol/L (22-29) 12/31/20 09:23 Anion Gap 16.4 (5-19) 12/31/20 09:23 BUN 55 mg/dL (8-23) H 12/31/20 09:23 Creatinine 1.8 mg/dL (0.5-0.9) H 12/31/20 09:23 GFR Calculation Not Reportable 12/31/20 09:23 Glucose 119 mg/dL (65-115) H 12/31/20 09:23 Calculated Osmolality 296 mOsm/kg (285-295) H 12/31/20 09:23 Lactic Acid 2.9 mmol/L (0.5-2.2) H 12/31/20 09:23 Lactic Acid (Sepsis) 1.3 mmol/L (0.5-2.2) 12/31/20 11:18 Calcium 8.8 mg/dL (8.5-10.5) 12/31/20 09: Total Bilirubin 0.5 mg/dL (0.15-1.2) 12/31/20 09:23 AST 22 U/L (0-32) 12/31/20 09:23 ALT 11 U/L (0-33) 12/31/20 09:23 Alkaline Phosphatase 67 IU/L (35-105) 12/31/20 09:23 Troponin T Baseline 61 ng/L (0-10) H 12/31/20 09:23 Troponin T 120 Minute 62.88 ng/L (0-10) H 12/31/20 11:18 Delta Troponin T 1.88 ABS# (0-10) 12/31/20 11:18 Troponin T Hi Sens 6Hr 59.59 ng/L (0-10) H 12/31/20 15:36 Troponin T Hi Sens 6Hr Delta -1.41 ng/L (0-12) L 12/31/20 15:36 NT-Pro-B Natriuret Pep 77588 pg/mL (0-450) H 12/31/20 09:23 Total Protein 8.1 g/dL (6.6-8.7) 12/31/20 09:23 Albumin 3.6 g/dL (3.5-5.2) 12/31/20 09:23 Globulin 4.5 g/dL (1.3-4.6) 12/31/20 09:23 TSH 0.06 uIU/mL (0.27-4.20) L 12/31/20 09:23 Urine Color Yellow (Yellow) 12/31/20 12:45 Urine Appearance Cloudy (CLEAR) 12/31/20 12:45 Urine pH 5 (5-7) 12/31/20 12:45 Ur Specific [place] 1.010 (1.005-1.030) 12/31/20 12:45 Urine Protein Trace (Negative) 12/31/20 12:45 Urine Glucose (UA) Norm (Normal) 12/31/20 12:45 Urine Ketones Negative (Negative) 12/31/20 12:45 Urine Blood 2+ (Negative) H 12/31/20 12:45 Urine Nitrate Negative (Negative) 12/31/20 12:45 Urine Bilirubin Neg (Negative) 12/31/20 12:45 Urine Urobilinogen Norm mg/dL (Negative) 12/31/20 12:45 Ur Leukocyte Esterase 2+ (Negative) H 12/31/20 12:45 Urine RBC 5-10 /hpf (0-2) H 12/31/20 12:45 Urine WBC Too numerous to cnt /hpf (0-5) H 12/31/20 12:45 Ur Squamous Epith Cells None /hpf (0-5) 12/31/20 12:45 Amorphous Sediment Not Reportable 12/31/20 12:45 Urine Bacteria 4+ /hpf (NONE) H 12/31/20 12:45 Impressions Chest X-Ray 12/31/20 08:54 IMPRESSION: No acute findings. Abdomen/Pelvis CT 12/31/20 14:48 IMPRESSION: 1. Marked right hydronephrosis and hydroureter but without visible ureterolithiasis. No visible right-sided nephrolithiasis. Mild perinephric stranding. Evidence of moderate right renal parenchyma edema with enlargement of the kidney volume since last evaluation of 08/08/2020. 2. Fecal impaction with marked constipation/obstipation. 3. Moderate colonic ileus. 4. Bilateral scant pleural effusions. 5. Cholelithiasis. 6. Cardiomegaly with advanced 3 vessel coronary artery disease. 7. Extensive arterial sclerotic disease. 8. Rectal and vaginal prolapse. 9. Other nonurgent, nonemergent, chronic, and age related findings as detailed in text above. Radiation Dose CTDIVOL = (mGy): DLP = 688.69 (mGy-cm) A&P Assessment and plan (1) Sepsis: meets criteria by way of tachycardia, leukocytosis, elevated lactate likely related to pyelonephritis, given + UA, anatomic risk factors, pain reported in left flank Hydronephrosis noted, has been on and off since last few years, attempt decompression with [place] first, currently improving with hydration , previosuly has been recommended colonoscopy and urostomy No signs of colitis on current CT Empiric Cefepime 2g iv q12h blood cx, urine cx previous cx with rodriguez-S E.coli Status: Acute (2) Atrial fibrillation with rapid ventricular response: improved after cardizem pushes, now in sinus rhythm at 60-70 bpm metoprolol 12.5mg BID Status: Acute (3) Pyelonephritis: Status: Acute (4) Pelvic mass: on outpatient follow up with oncology Status: Acute Attestations Medical Necessity Statement*: > 2midnight admission anticipated for managemnet of pyelonephritis, iv abx, A fib RVR needs cardiac monitoring Coding Level of Care Code Acute Customer Advocate for [facility] Fwd Diagnoses Sepsis A41.9 Atrial fibrillation with rapid ventricular response I48.91 Pyelonephritis N12 Pelvic mass R19.00
[2020-12-31] MEDS: sodium chlor 0.9% + KCl 20 mEq 20 MEQ/1,000 ML BAG 75 MEQ IV (17:22)
[2020-12-31] MEDS: enoxaparin 40 mg/0.4 mL Syringe SUBCUT (17:24)
[2020-12-31] MEDS: sertraline 100 mg Tablet PO (17:51)
[2020-12-31] MEDS: metoprolol tartrate 25 mg Tablet 12.5 MG PO (17:51)
[2020-12-31] MEDS: polyethylene glycol 3350 Pkt 17 gm PO (17:55)
--- NOTE | 2020-12-31 19:05 | PC.NURSE ---
Received pt form ER staff at 1630. Vitals within normal limits and charted. Pt is resting comfortably in bed. Awaiting further orders from Dr bustillo.
--- NOTE | 2020-12-31 19:19 | P.CONIM_ITS ---
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 She was also noted to be in A. fib with RVR. Cardizem drip was started she dropped her blood pressure given IV bolus of saline and then initiated metoprolol after that patient converted into sinus rhythm. Patient was transferred to the ICU. We have been asked to assist in her care. Review of Systems General: Reports: 10 or more systems reviewed and unremarkable except in HPI and below Narrative: 85-year-old female comes in with possible UTI and then noted to be in atrial fibrillation with RVR and runs of V. tach. Const: Reports: fatigue and diaphoresis; Denies: fever(s), chills, body aches or change in appetite Eyes: Denies: change in vision or blurry vision ENMT: Denies: throat pain, ear or mastoid pain or nasal congestion Card: Reports: dyspnea on exertion; Denies: chest pain, palpitations, irregular heart rhythm (Records indicate a history of atrial fibrillation), edema, swelling of feet/ankles or lightheadedness Resp: Reports: dyspnea; Denies: productive cough, non-productive cough, wheezing, stridor or pain on inspiration GI: Denies: abdominal pain, nausea, vomiting, dysphagia, heartburn, diarrhea, constipation or bloating : Reports: flank pain, urinary frequency and urinary incontinence; Denies: difficulty voiding, dysuria or hematuria Musc: Denies: neck pain, back pain, extremity pain or joint warmth Skin/Breast: Reports: surgical incision (Previous left mastectomy, breast implant on the right.) and breast skin changes (Previous left mastectomy) Neuro: Reports: difficulty walking (Secondary to weakness); Denies: headache(s), numbness in extremities or weakness in extremities Psych: Denies: anxiety or depression All/Imm: Denies: acute wheezing Meds/Allergies Home Medications and Allergies Home Medications Medication Instructions Recorded Confirmed Last Taken Type amitriptyline 25 mg PO BEDTIME@2100 01/02/1812/31/20 12/30/20 History clonazepam 0.5 mg PO BID PRN 09/06/19 12/31/20 02/05/20 History lactulose 15 ml PO DAILY PRN 09/06/19 12/31/20 09/03/19 History latanoprost 1 drp OPHTHALMIC (EYE) BEDTIME@2100 09/06/19 12/31/20 12/30/20 History primidone 50 mg PO TID PRN 09/06/19 12/31/20 Unknown History cyclosporine 0.05 % eye drops 1 drop OPHTHALMIC (EYE) Q12H 09/13/19 12/31/20 Unknown History flaxseed oil 1,000 mg capsule 1,000 mg PO DAILY cap 09/13/19 12/31/20 12/30/20 History omega-3 fatty acids 1,000 mg 1,000 mg PO DAILY 09/13/19 12/31/20 12/30/20 History capsule sertraline 100 mg tablet 100 mg PO Q24H 09/13/19 12/31/20 12/30/20 History tramadol 50 mg tablet 50 - 100 mg PO QID PRN tab 09/13/19 12/31/20 Unknown History vitamin B complex 1 tab PO DAILY 09/13/19 12/31/20 12/30/20 History Preparation H 1 applic NM DAILY PRN 02/06/20 12/31/20 12/30/20 History Vitamin D3 1 tab PO DAILY 02/06/20 12/31/20 12/30/20 History hydrocortisone [Proctozone-HC] 1 applic NM BID PRN 02/06/20 12/31/20 Unknown History levothyroxine 137 mcg PO DAILY 02/06/20 12/31/20 12/30/20 History multivitamin [Multiple Vitamins] 1 tab PO DAILY 02/06/20 12/31/20 12/30/20 History Lactobacillus acidophilus 10,000 mmu cells PO BID #60 cap 02/10/20 12/31/20 12/30/20 Rx bisacodyl 5 mg PO DAILY #30 tab 02/10/20 12/31/20 Unknown Rx metoprolol tartrate 25 mg PO BID #60 tab 02/10/20 12/31/20 12/30/20 Rx olanzapine 2.5 mg PO DAILY@20 #15 tab 02/10/20 12/31/20 12/30/20 Rx polyethylene glycol 3350 17 gm PO BID #60 each 02/10/20 12/31/20 Unknown Rx hydrochlorothiazide 12.5 mg PO DAILY 12/31/20 12/31/20 12/30/20 History nitrofurantoin 100 mg PO DAILY 12/31/20 12/31/20 12/30/20 History Allergies Allergy/AdvReac Type Severity Reaction Status Date / Time No Known Allergies Allergy Verified 12/31/20 09:01 Current Medications Current Medications Generic Name Dose Route Start Last Admin Trade Name Freq PRN Reason Stop Dose Admin Enoxaparin Sodium 40 mg 12/31/20 17:15 12/31/20 17:24 Enoxaparin 40 Mg/0.4 Ml Syringe SUBCUT 40 mg Q24H LILIYA Administration Diltiazem HCl 125 mg/ Sodium 125 mls @ 0 mls/hr 12/31/20 11:45 12/31/20 14:00 Chloride IV 0 mg/hr .Q0M LILIYA 0 mls/hr Titration Protocol Per Protocol Potassium Chloride/Sodium Chloride 20 meq in 1,000 mls @ 75 mls/hr 12/31/20 17:15 12/31/20 17:22 Sodium Chlor 0.9% + Kcl 20 Meq IV 75 mls/hr .[id number] LILIYA Administration Metoprolol Tartrate 12.5 mg 12/31/20 18:00 12/31/20 17:51 Metoprolol Tartrate 25 Mg Tablet PO 12.5 mg BID LILIYA Administration Non-Formulary Medication 1 drop 12/31/20 16:30 12/31/20 17:06 Cyclosporine [Restasis Multidose] EYEAFF Not Given Q12H LILIYA Polyethylene Glycol 17 gm 12/31/20 18:00 12/31/20 17:55 Polyethylene Glycol 3350 Pkt 17 Gm PO 17 gm BID LILIYA Administration Sertraline HCl 100 mg 12/31/20 17:15 12/31/20 17:51 Sertraline 100 Mg Tablet PO 100 mg Q24H LILIYA Administration PFSH Acute PFSH: Medical History (Updated 01/01/21 @ 19:16 by Grant Lee MD) Anemia Atrial fibrillation Chronic constipation Dementia History of cervical cancer Hydroureter Hypertension Intrinsic sphincter deficiency Irritable bowel syndrome Peripheral arterial disease Status post bilateral iliac stents and angioplasty of the left common femoral artery and superficial femoral artery. PVD (peripheral vascular disease) Rectosigmoid cancer Recurrent UTI Surgical History History of colon resection History of hemicolectomy S/P angioplasty with stent S/P bladder repair S/P hernia repair S/P tonsillectomy Family History Mother CAD (coronary artery disease) Son CAD (coronary artery disease) Myocardial infarct, old Father CAD (coronary artery disease) Myocardial infarct, old Denies family history of Anesthesia complication Bleeding disorder Social History Smoking and tobacco status: never smoked Alcohol intake: never Household members: spouse Marital status: Current occupational status: retired History of recent travel: No Current gender identity: Female Adele/Nondenominational: Faith Dietary Habits: Current diet type/program: regular Caffeine: Yes Exercise: What type of physical activity do you participate in?: none Safety: Seatbelt use: always Home Safety: Working smoke detector in home: Yes Fire extinguisher in home: Yes Carbon monoxide detector in home: No Vitals/I&O/Wt Last Vital Signs Temp 98.9 F 12/31/20 08:49 Pulse 64 12/31/20 17:45 Resp 14 12/31/20 17:45 BP 96/48 12/31/20 17:45 Pulse Ox 97 12/31/20 17:45 12/31/20 12/31/20 12/31/20 06:59 14:59 22:59 Intake Total 1013.5 / 1013.5 770 / 1783.5 Balance 1013.5 / 1013.5 770 / 1783.5 Weight last 48 hrs Weight 93 lb Physical Exam Narrative: EXAM NARRATIVE: GENERAL: Patient is lethargic and sleep NECK: No jugular vein distension. HEENT: No cyanosis. No icterus. No pallor. HEART: Regular S1 and S2. 2/6 sys murmur, rub or gallop. LUNGS: Clear to auscultate bilaterally. CENTRAL NERVOUS SYSTEM: Grossly nonfocal. EXTREMITIES: Lower extremities without edema bilaterally. Pulses palpable in the lower extremities, both dorsalis pedis and posterior tibial. Urinary Catheter Management^: Finch: Cath Placed During This Visit: yes Reason for Continuing Indwelling Catheter: Accurate Measurement of Urinary Output in Critically Ill Patients Urinary Catheter Date of Insertion: 12/31/20 Urinary Catheter Time of Insertion: 17:46 Data Micro: Micro: Microbiology 12/31/20 09:40 Blood Culture - Pr eliminary Blood SPECIMEN JOSEPH PATTERSON 12/31/20 09:23 Blood Culture - Pr eliminary Blood SPECIMEN [facility] LEONARD[facility] A&P Assessment and plan (1) Atrial fibrillation with rapid ventricular response: Continue beta-forrest. Metoprolol will be increased to 50 twice daily. Status: Acute (2) Hypertension: Blood pressure was soft she was started on IV fluid and Levophed. Currently appear to be stable. Continue IV fluid Status: Acute Qualifiers: Hypertension type: essential hypertension Qualified Code(s): I10 - Essential (primary) hypertension (3) Sepsis: As per medicine continue antibiotics Status: Acute Qualifiers: Sepsis acute organ dysfunction status: unspecified (4) Pelvic mass: History of colorectal carcinoma with possible recurrence, manage as per oncology Status: Acute Consult Attestations Medical Necessity Statement: Patient will be continuing hospitalization for above defined problem. Coding Level of Care Code Established Pt Acute Behavioral Therapy Coordinator for [facility] Patient Type Established Medical Decision Making Moderate Complexity Diagnoses Atrial fibrillation with rapid ventricular response I48.91 Hypertension I10 Hypertension type: essential hypertension Sepsis A41.9 Sepsis acute organ dysfunction status: unspecified Pelvic mass R19.00
[2020-12-31] MEDS: cefepime 2,000 MG in sodium chloride 0.9% (plus) 50 ML 100 MG IV (19:37)
--- NOTE | 2020-12-31 19:37 | PC.NURSE ---
MAR Documentation; Cefepime IV infusion running at change of shift. Dayshift RN reports that he has had troubles in mar correctly saving documentation. Nightshift RN documented med as being given, but cannot scan accordingly in Mar flowsheet.
[2020-12-31] MEDS: heparin 5,000 unit/mL INJ 1 mL IV (20:39)
[2020-12-31] MEDS: ondansetron 2 mg/ML SDV 2 mL 4 MG IVP (20:39)
[2020-12-31] MEDS: TRAMadol 50 mg Tablet PO (20:40)
[2020-12-31] MEDS: OLANZapine 5 mg TABLET 2.5 MG PO (20:40)
[2020-12-31] MEDS: heparin drip 25,000 UNIT/500 ML PREMIX 11.8 UNIT IV (20:42)
[2021-01-01] VITALS (209 sets, daily range): BP systolic 70–135; BP diastolic 30–84; PULSE 61–161; RESP 13–44; TEMP 36.4–36.8; O2SAT 64–100
[2021-01-01] MEDS: HYDROmorphone 1 mg/mL INJ 1 mL 0.5 MG IVP (00:23)
--- NOTE | 2021-01-01 02:45 | PC.NURSE ---
RN notified Jadiel GUERRERO, of observed IV infiltration of Levophed. Right lower extremity swollen, and somewhat cool to touch. MD came to bedside to observe site. No pharmacological orders given at this time. RN wrapped site with coban, and applied a warm compress to site to aid in drainage.
--- NOTE | 2021-01-01 03:15 | PC.NURSE ---
New Orders; MD Jadiel came to patient bedside for rounding. Pt bp-maps have been fluctuating between 55-60. Levo per protocol initiated after 500mL NS bolus failed in sustaining and raising bp. MD came and had conversation with patient about placing central line at this time. Patient agreed based on need for vascular access and lab observation. New orders to pause heparin gtt, give 1L NS bolus as indicated for hypotension, and to apply warm compress to right upper extremity for infiltration. Placement of central line paused at this time in order to see if bolus can help self correct dehydration and decreased map values. Possible line placement if new order set does not work in correcting hypotension/map values. RN also verbalized to MD concerning enema administration being held based on current hypotension. Will admin when vss.
[2021-01-01 04:09] LABS: Basophils % 0.2 %; Eosinophils % 0.1 %; Hematocrit 25.9 % (37.0-47.0); Hemoglobin 7.9 g/dL (11.5-15.3); Lymphocytes # 1.5 10^3/uL (0.8-4.8); Lymphocytes % 8.3 %; Mean Corpuscular HGB Conc 30.5 g/dL (30.0-36.0); Mean Corpuscular Hemoglobin 30.2 pg (28.0-34.0); Mean Corpuscular Volume 98.9 fL (81-99); Monocytes % 5.5 %; Neutrophils % 85.3 %; Nucleated Red Blood Cells % 0 %; Platelet Count 217 10^3/cmm (130-400); Red Blood Count 2.62 10^6/uL (4.1-5.3); Red Cell Distribution Width 13.5 % (12.1-15.1); White Blood Count 17.8 10^3/uL (4.0-10.0)
[2021-01-01 04:20] LABS: Partial Thromboplastin Time 49.5 SECONDS (23.9-36.7)
[2021-01-01] MEDS: heparin 5,000 unit/mL INJ 1 mL 5000 UNIT SUBCUT ×2 (04:57→13:08)
[2021-01-01] MEDS: cefepime 2,000 MG in sodium chloride 0.9% (plus) 50 ML 100 MG IV (05:38)
[2021-01-01 06:06] LABS: Alanine Aminotransferase 11 U/L (0-33); Albumin Level 2.9 g/dL (3.5-5.2); Alkaline Phosphatase 62 IU/L (35-105); Aspartate Amino Transferase 21 U/L (0-32); Blood Urea Nitrogen 50 mg/dL (8-23); Calcium 7.5 mg/dL (8.5-10.5); Carbon Dioxide 23 mmol/L (22-29); Chloride 101 mmol/L (98-107); Glucose 135 mg/dL (65-115); Osmolality Calculated 293 mOsm/kg (285-295); Sodium 134 mmol/L (136-145); Total Bilirubin 0.3 mg/dL (0.15-1.2); Total Protein 6.9 g/dL (6.6-8.7)
[2021-01-01] MEDS: sodium chlor 0.9% + KCl 20 mEq 20 MEQ/1,000 ML BAG 75 MEQ IV ×2 (08:05→19:18)
[2021-01-01] MEDS: lactulose oral liq 20 gm/30 mL UDC 10 GM PO (08:08)
[2021-01-01] MEDS: bisacodyl 5 mg Tablet PO (08:08)
[2021-01-01] MEDS: polyethylene glycol 3350 Pkt 17 gm PO (08:10)
[2021-01-01] MEDS: levothyroxine 137 mcg Tablet PO (09:17)
[2021-01-01] MEDS: metoprolol tartrate 25 mg Tablet 12.5 MG PO (09:17)
--- NOTE | 2021-01-01 11:40 | PC.NURSE ---
Nurse Administered Milk and molasses enema. WIthin 5 minutes pt had to get up for a bowel movement and had one large bowel movement. Stomach is now soft and non tender.
--- NOTE | 2021-01-01 11:42 | PC.NURSE ---
While on the bedside commode after the enema, patient went into AFIB with RVR. rate in the 180's, Feeling lightheaded. Nurse and Dr bustillo asissted patient back to bed. Nurse administered 10 mg Cardizem and is waiting on a cardizem drpip from pharmacy. Pt heart rate has reduced to 120 after the cardizem push. Patient reports that she thinks she passed out and has no memory of moving from the bedside commode to the bed.
[2021-01-01] MEDS: sertraline 100 mg Tablet PO (17:01)
--- NOTE | 2021-01-01 17:28 | PM.PN ---
Subjective Subjective: Interval history: leukocytosis improving, afberile, had an episode of A fib with RVR this morning while using bedside commode to have BM, HR upto 180, given 10mg IVP cardizem after which HR at 110/min. Overnight was briefly on levophed, titrated off at 5 Am today. Urine cx preliminary with GNR pending identification. Ct abdomen yesterday with R side hydronephrosis. Hb drifted down. blood streaks noted in BM. Medications: Reviewed: Yes Vitals/I&O/Wt Last Vital Signs Temp 98.3 F 01/01/21 12:15 Pulse 112 H 01/01/21 14:00 Resp 20 H 01/01/21 12:15 BP 72/47 01/01/21 12:15 Pulse Ox 95 01/01/21 12:15 01/01/21 01/01/21 01/01/21 06:59 14:59 22:59 Intake Total 512.312 / 3542.062 1133.75 / 1133.75 Output Total 650 / 650 400 / 400 Balance -137.688 / 2892.062 733.75 / 733.75 Weight last 48 hrs Weight 42.184 kg Physical Exam Narrative: EXAM NARRATIVE: General: Awake, alert, cool clammy to touch, diaphoresis+ , ill appearing HEENT: PERRLA, pupils bilaterally equal and reactive, pallor + Chest: Normal vesicular breath sounds, no added sounds, equal good air entry bilaterally CVS: S1-S2 regular, no murmurs, no tachycardia, no gallops, no rubs Abdomen: Soft, nontender, no organomegaly, bowel sounds present Neuro: No focal deficits, no facial deformity, AO x3, power 5/5 in all limbs Extremities: dehydarted ,no edema, clubbing Urinary Catheter Management^: Finch: Cath Placed During This Visit: yes Reason for Continuing Indwelling Catheter: Accurate Measurement of Urinary Output in Critically Ill Patients Urinary Catheter Date of Insertion: 12/31/20 Urinary Catheter Time of Insertion: 17:46 Data : 01/01/21 03:40 01/01/21 05:32 Micro: Microbiology 12/31/20 09:40 Blood Culture - Preliminary Blood NEGATIVE TO DATE 12/31/20 09:23 Blood Culture - Preliminary Blood 12/31/20 12:45 Urine Culture - Preliminary Urine,Clean Catch Gram Negative Rods A&P Assessment and plan (1) Sepsis: meets criteria by way of tachycardia, leukocytosis, elevated lactate likely related to pyelonephritis, given + UA, anatomic risk factors, pain reported in left flank Hydronephrosis noted, has been on and off since last few years, leukocytosis currently improving, has previously been evaluated for possibility of ureteric stent vs urostomy. urology consult if no significant improvement over the next 48 hrs No signs of colitis on current CT Empiric Cefepime 2g iv q12h blood cx, urine cx Status: Acute Qualifiers: Sepsis type: sepsis due to unspecified organism Sepsis acute organ dysfunction status: with acute organ dysfunction Severe sepsis acute organ dysfunction type: acute renal failure Acute renal failure type: unspecified Severe sepsis shock status: without septic shock Qualified Code(s): A41.9 - Sepsis, unspecified organism; R65.20 - Severe sepsis without septic shock; N17.9 - Acute kidney failure, unspecified (2) Atrial fibrillation with rapid ventricular response: likely related to sepsis started on cardizem infusion today after developing A fib with RVR again this mornin g Overnight was on levophed for a few hrs. MAP currently ranging between 63-67. D/c metoprolol for now in case needs pressor support again , start po cardizem 30mg q6h indigo Status: Acute (3) Pyelonephritis: As above Status: Acute (4) Pelvic mass: on outpatient follow up with oncology Status: Acute Additional A&P Information DVT ppx: SCDs only as noted to have blood streaking stools, Hb dropped to 7.9 Full code Attestations Medical Necessity Statement*: sepsis, a fib RVR on cardizem infusion, iv abx, intermittent need for pressor support Critical Care Time: Critical Care Time (min): 45 Coding Level of Care Code Acute Poultryman for [facility] Fwd Diagnoses Sepsis A41.9; R65.20; N17.9 Sepsis type: sepsis due to unspecified organism Sepsis acute organ dysfunction status: with acute organ dysfunction Severe sepsis acute organ dysfunction type: acute renal failure Acute renal failure type: unspecified Severe sepsis shock status: without septic shock Atrial fibrillation with rapid ventricular response I48.91 Pyelonephritis N12 Pelvic mass R19.00
[2021-01-01 17:43] LABS: Glucose Point of Care 112 mg/dL (70-110)
[2021-01-01] MEDS: dilTIAZem 30 mg Tablet PO ×2 (17:50→23:39)
--- NOTE | 2021-01-01 18:25 | PC.NURSE ---
Shift summary: Patient was able to have a bowel movement after and enema. Went into afib with RVR. Pt is now on a cardizem drip. Rate is better controlled, but still in Afib and ranging between 90-120. Soft pressure have prevent titrating the cardizem up, but near end of day shift the pressures became more stable and nurse has started increasing cardizem per protocol, as pressure allows. Patient has become increasingly confused throughout the day. Is confused to situation and place.
--- NOTE | 2021-01-01 19:24 | PM.PN ---
Subjective Subjective: Interval history: Patient is in atrial fibrillation Medications: Reviewed: Yes Vitals/I&O/Wt Last Vital Signs Temp 97.9 F 01/01/21 17:00 Pulse 119 H 01/01/21 17:40 Resp 23 H 01/01/21 17:40 BP 97/53 01/01/21 17:40 Pulse Ox 92 01/01/21 17:20 01/01/21 01/01/21 01/01/21 06:59 14:59 22:59 Intake Total 512.312 / 3542.062 1133.75 / 1133.75 874.167 / 2007.917 Output Total 650 / 650 400 / 400 350 / 750 Balance -137.688 / 2892.062 733.75 / 733.75 524.167 / 1257.917 Weight last 48 hrs Weight 93 lb Physical Exam Narrative: EXAM NARRATIVE: GENERAL: Patient is lethargic and sleep NECK: No jugular vein distension. HEENT: No cyanosis. No icterus. No pallor. HEART: Regular S1 and S2. 2/6 sys murmur, rub or gallop. LUNGS: Clear to auscultate bilaterally. CENTRAL NERVOUS SYSTEM: Grossly nonfocal. EXTREMITIES: Lower extremities without edema bilaterally. Pulses palpable in the lower extremities, both dorsalis pedis and posterior tibial. Urinary Catheter Management^: Finch: Cath Placed During This Visit: yes Reason for Continuing Indwelling Catheter: Accurate Measurement of Urinary Output in Critically Ill Patients Urinary Catheter Date of Insertion: 12/31/20 Urinary Catheter Time of Insertion: 17:46 Data : 01/01/21 03:40 01/01/21 05:32 Micro: Microbiology 12/31/20 09:40 Blood Culture - Preliminary Blood NEGATIVE TO DATE 12/31/20 09:23 Blood Culture - Preliminary Blood 12/31/20 12:45 Urine Culture - Preliminary Urine,Clean Catch Gram Negative Rods A&P Assessment and plan (1) Atrial fibrillation with rapid ventricular response: Continue titrating medicine especially beta-forrest continue IV fluid keep rehydration intact Status: Acute (2) Hypertension: Status: Acute Qualifiers: Hypertension type: essential hypertension Qualified Code(s): I10 - Essential (primary) hypertension (3) Sepsis: As per medicine continue antibiotics Status: Acute Qualifiers: Sepsis acute organ dysfunction status: unspecified (4) Pelvic mass: History of colorectal carcinoma with possible recurrence, manage as per oncology Status: Acute Attestations Medical Necessity Statement*: Patient require continuation hospitalization for above defined care. Coding Level of Care Code Established Pt Acute Stripe Marker for [facility] Patient Type Established History Detailed Exam Detailed Medical Decision Making Moderate Complexity Diagnoses Atrial fibrillation with rapid ventricular response I48.91 Hypertension I10 Hypertension type: essential hypertension Sepsis A41.9 Sepsis acute organ dysfunction status: unspecified Pelvic mass R19.00
[2021-01-01] MEDS: latanoprost 0.005% Op Soln 2.5 mL Btl 1 DROP OPHTHALMIC (20:05)
[2021-01-01] MEDS: OLANZapine 5 mg TABLET 2.5 MG PO (20:05)
--- NOTE | 2021-01-01 20:47 | PC.NURSE ---
Patient confused and not aware of where she is or what is going on. Attempting to get out of bed. Moved from room 3 to room 5 for closer observation and placed bed alarm on.
[2021-01-01] MEDS: CLONazepam 0.5 mg Tablet PO (22:32)
[2021-01-02] VITALS (48 sets, daily range): BP systolic 72–134; BP diastolic 35–86; PULSE 60–122; RESP 16–55; TEMP 36.6–37.5; O2SAT 89–100
[2021-01-02 03:19] LABS: Basophils % 0.2 %; Eosinophils # 0.1 10^3/uL (0.0-0.8); Eosinophils % 0.9 %; Hematocrit 25.2 % (37.0-47.0); Hemoglobin 7.7 g/dL (11.5-15.3); Lymphocytes # 1.3 10^3/uL (0.8-4.8); Lymphocytes % 8.3 %; Mean Corpuscular HGB Conc 30.6 g/dL (30.0-36.0); Mean Corpuscular Hemoglobin 30.3 pg (28.0-34.0); Mean Corpuscular Volume 99.2 fL (81-99); Mean Platelet Volume 10.1 fL (7.4-10.4); Monocytes # 0.7 10^3/uL (0.2-0.9); Monocytes % 4.8 %; Neutrophils % 85.1 %; Nucleated Red Blood Cells % 0 %; Platelet Count 238 10^3/cmm (130-400); Red Blood Count 2.54 10^6/uL (4.1-5.3); Red Cell Distribution Width 13.6 % (12.1-15.1); White Blood Count 15.2 10^3/uL (4.0-10.0)
[2021-01-02 03:47] LABS: Alanine Aminotransferase 10 U/L (0-33); Albumin Level 2.5 g/dL (3.5-5.2); Alkaline Phosphatase 59 IU/L (35-105); Anion Gap 8.9 (5-19); Aspartate Amino Transferase 15 U/L (0-32); Blood Urea Nitrogen 30 mg/dL (8-23); Calcium 7.3 mg/dL (8.5-10.5); Carbon Dioxide 24 mmol/L (22-29); Chloride 105 mmol/L (98-107); Globulin 3.7 g/dL (1.3-4.6); Glucose 135 mg/dL (65-115); Osmolality Calculated 286 mOsm/kg (285-295); Potassium 3.9 mmol/L (3.5-5.1); Sodium 134 mmol/L (136-145); Total Bilirubin 0.2 mg/dL (0.15-1.2); Total Protein 6.2 g/dL (6.6-8.7)
[2021-01-02] MEDS: dilTIAZem 30 mg Tablet PO ×3 (05:44→23:57)
[2021-01-02] MEDS: cefepime 1,000 MG in sodium chloride 0.9% (plus) 50 ML 100 MG IV (05:44)
[2021-01-02] MEDS: levothyroxine 137 mcg Tablet PO (08:02)
[2021-01-02] MEDS: metoprolol tartrate 25 mg Tablet PO (08:02)
[2021-01-02] MEDS: bisacodyl 5 mg Tablet PO (08:02)
[2021-01-02] MEDS: polyethylene glycol 3350 Pkt 17 gm PO ×2 (08:02→17:37)
[2021-01-02] MEDS: lactulose oral liq 20 gm/30 mL UDC 10 GM PO (08:03)
[2021-01-02] MEDS: sodium chlor 0.9% + KCl 20 mEq 20 MEQ/1,000 ML BAG 100 MEQ IV ×2 (08:03→17:38)
--- NOTE | 2021-01-02 10:44 | PC.NURSE ---
Bradycardic Pt heart montior reading bradycardia with pauses at this time. Lowest HR noted to be to be 47. Pt asymptomatic at this time BP: 106/53 with levophed drip at 8mcg/min. Dr. Lee notified and reported at bedside. Medication adjustments were made- orders to hold 1200 PO cardizem as well as to change Lopressor dose from 25mg BID to 12.5mg BID.
--- NOTE | 2021-01-02 11:08 | US_ITS ---
WS: [id number] ULTRASOUND RENAL TECHNIQUE: Ultrasound examination of both kidneys. CLINICAL INFORMATION: f/up hydronephrosis COMPARISON: CT December 31, 2020 FINDINGS: RIGHT: Mild right hydronephrosis. Mild cortical atrophy. Echogenicity: Normal. Cortical thickness: 0.9 cm; Hydronephrosis: None. Perinephric fluid: None. Right kidney measures: 10.5 cm x 5.3 cm x 4.9 cm. LEFT: Left kidney is normal in size and appearance. Echogenicity: Normal. Cortical thickness: 1.2 cm; Normal. Hydronephrosis: None. Perinephric fluid: None. Left kidney measures: 9.8 cm x 4.3 cm x 4.3 cm. Normal visualized aorta. US/US renal BI* [id number] IMPRESSION: 1. Mild right renal cortical atrophy. 2. Mild right hydronephrosis appears improved from the CT December 31, 2020 3. Normal left kidney.
--- NOTE | 2021-01-02 11:08 | XRR_ITS ---
PROCEDURE INFORMATION: Exam: XR Chest Exam date and time: 01/02/2021 11:10 AM Age: 85 years old Clinical indication: Other: Tachypnea, pulmonary edema TECHNIQUE: Imaging protocol: XR of the chest. Views: 1 view. COMPARISON: CR (CHEST, ) 12/31/2020 9:20 AM FINDINGS: Lungs: There is bilateral pulmonary vascular congestion with hazy interstitial infiltrates. The medial left base is opacified consistent with left lower lobe atelectasis or consolidation. Pleural spaces: The costophrenic angles are blunted consistent with small effusions. Heart/Mediastinum: The cardiac silhouette is enlarged. There is calcification of the aortic arch. Bones/joints: Unremarkable. XR/XR chest 1V portable [id number] IMPRESSION: 1. Cardiomegaly. 2. Congestive heart failure with interstitial pulmonary edema small effusions and left basilar atelectasis.
--- NOTE | 2021-01-02 11:09 | PC.NURSE ---
Pt having frequent pauses, noted to be asymptomatic. Dr. Lee and Dr. Montana notified, see physician's orders.
[2021-01-02] MEDS: ALPRAZolam 0.25 mg Tablet PO ×3 (12:29→23:44)
[2021-01-02] MEDS: cefTRIAXone 1,000 MG in sodium chloride 0.9% (plus) 50 ML 100 MG IV (12:30)
--- NOTE | 2021-01-02 14:54 | P.PN_ITS ---
Subjective Subjective: Interval history: Continues to be in A. fib Medications: Reviewed: Yes Vitals/I&O/Wt Last Vital Signs Temp 97.9 F 01/02/21 07:00 Pulse 95 01/02/21 14:00 Resp 43 H 01/02/21 14:00 BP 123/62 01/02/21 14:00 Pulse Ox 96 01/02/21 14:00 01/01/21 01/02/21 01/02/21 22:59 06:59 14:59 Intake Total 974.167 / 2107.917 411.585 / 2519.502 997.166 / 997.166 Output Total 350 / 750 1050 / 1800 Balance 624.167 / 1357.917 -638.415 / 719.502 997.166 / 997.166 Weight last 48 hrs Weight 104 lb Physical Exam Narrative: EXAM NARRATIVE: GENERAL: Patient is awake but sleepy NECK: No jugular vein distension. HEENT: No cyanosis. No icterus. No pallor. HEART: Regular S1 and S2. 2/6 sys murmur, rub or gallop. LUNGS: Clear to auscultate bilaterally. CENTRAL NERVOUS SYSTEM: Grossly nonfocal. EXTREMITIES: Lower extremities without edema bilaterally. Urinary Catheter Management^: Finch: Cath Placed During This Visit: yes Reason for Continuing Indwelling Catheter: Accurate Measurement of Urinary Outp ut in Critically Ill Patients Urinary Catheter Date of Insertion: 12/31/20 Urinary Catheter Time of Insertion: 17:46 Data : 01/02/21 02:40 01/02/21 02:40 Micro: Microbiology 12/31/20 12:45 Urine Culture - Final Urine,Clean Catch Escherichia coli 12/31/20 09:40 Blood Culture - Preliminary Blood NEGATIVE TO DATE A&P Assessment and plan (1) Atrial fibrillation with rapid ventricular response: Switch to Cardizem due to pressors, continue IV fluid Status: Acute (2) Hypertension: Status: Acute Qualifiers: Hypertension type: essential hypertension Qualified Code(s): I10 - Essential (primary) hypertension (3) Sepsis: As per medicine continue antibiotics Status: Acute Qualifiers: Sepsis acute organ dysfunction status: unspecified (4) Pelvic mass: History of colorectal carcinoma with possible recurrence, manage as per oncology Status: Acute Attestations Medical Necessity Statement*: Patient require continuation hospitalization for above defined care. Coding Level of Care Code Established Pt Acute Transition Program Manager for [facility] Patient Type Established History Expanded Problem Focused Exam Expanded Problem Focused Medical Decision Making Moderate Complexity Diagnoses Atrial fibrillation with rapid ventricular response I48.91 Hypertension I10 Hypertension type: essential hypertension Sepsis A41.9 Sepsis acute organ dysfunction status: unspecified Pelvic mass R19.00
--- NOTE | 2021-01-02 17:33 | USCV_ITS ---
[facility] Age: 85 Gender: F : 1935 Exam Date: 01/02/2021 06:36 Ordering Phys: Elsa Montana MD Technologist: [place] [facility] [place] NEW O[place] CP BP: 109 / 47 HR: 73 Rhythm: Sinus Technical Quality: Fair MEASUREMENTS (Male / Female) Normal Values 2D ECHO LV Diastolic Diameter PLAX 3.5 cm 4.2 - 5.9 / 3.9 - 5.3 cm LV Systolic Diameter PLAX 2.7 cm IVS Diastolic Thickness 0.9 cm 0.6 - 1.0 / 0.6 - 0.9 cm IVS Systolic Thickness 1.2 cm LVPW Diastolic Thickness 0.9 cm 0.6 - 1.0 / 0.6 - 0.9 cm LVPW Systolic Thickness 1.2 cm LVOT Diameter 2.0 cm LV Ejection Fraction 2D Teich 36.1 % LV Ejection Fraction MOD 2C 51.6 % LV Ejection Fraction 2C AL 48.3 % LA Diameter 3.5 cm LA Width 3.9 cm LA Height 4.5 cm RA Width 3.0 cm RA Height 4.3 cm Aorta at Sinotubular Diameter 2.4 cm M-MODE LV Diastolic Diameter MM 5.0 cm 4.2 - 5.9 / 3.9 - 5.3 cm LV Systolic Diameter MM 3.2 cm LV Ejection Fraction MM Teich 66.2 % IVS Diastolic Thickness MM 0.9 cm 0.6 - 1.0 / 0.6 - 0.9 cm IVS Systolic Thickness MM 1.3 cm LVPW Diastolic Thickness MM 1.2 cm 0.6 - 1.0 / 0.6 - 0.9 cm LVPW Systolic Thickness MM 1.5 cm RV Diastolic Diameter MM 1.1 cm Aortic Annulus Diameter 3.4 cm LA Ao Ratio MM 1.0 MV E Point Septal Separation 1.8 cm DOPPLER AV Peak Velocity 111.0 cm/s LVOT Peak Velocity 99.0 cm/s AV Area Cont Eq vti 4.3 cm squared AV Area Cont Eq pk 2.9 cm squared MV Area PHT 5.0 cm squared Mitral E to A Ratio 2.2 MV E' Velocity 65.0 cm/s Mitral E to MV E' Ratio 11.4 Mitral E to LV E' Lateral Ratio 10.8 Mitral E to LV E' Septal Ratio 12.3 TR Peak Velocity 270.7 cm/s TR Peak Gradient 29.3 mmHg TV Peak E Velocity 124.0 cm/s Right Atrial Pressure 3.0 mmHg Pulmonary Artery Systolic Pressu 32.3 mmHg PV Peak Velocity 80.0 cm/s FINDINGS Left Ventricle Normal left ventricular size.LV systolic function is normal with EF of 55-60%. No regional wall motion abnormalities. Diastolic function is indeterminate because of atrial fibrillation. Right Ventricle The right ventricle is normal in size and function. Right Atrium The right atrium is normal in size. Left Atrium The left atrium is enlarged Mitral Valve Mild Mitral annular calcification is noted without significant stenosis or prolapse. There is moderate mitral regurgitation. Aortic Valve Aortic valve is thickened without significant sclerosis. There is mild to moderate aortic regurgitation. Tricuspid Valve Structurally normal tricuspid valve without significant stenosis. Mild to moderate tricuspid regurgitation is noted. RVSP is 30-35mmHg Pulmonic Valve Structurally normal pulmonic valve without significant stenosis. There is no pulmonic regurgitation. Pericardium Normal pericardium without effusion. Aorta Normal ascending aorta dimension. CONCLUSIONS LV systolic function is normal with EF of 55-60% Diastolic function is indeterminate because of atrial fibrillation Left atrium is enlarged Mild mitral annular calcification. Moderate mitral regurgitation Mild to moderate aortic regurgitation. RVSP is 30-35mmHg No comparison studies are available Charlie Guardado MD (Electronically Signed) Final Date: 02 Jan 2021 12:14 S
[2021-01-02] MEDS: sertraline 100 mg Tablet PO (17:37)
--- NOTE | 2021-01-02 17:49 | PC.NURSE ---
Pt HR: 118, BP: 104/69 on 2mcg/min of Levophed, Dr. Montana notified. Orders to give 1800 dose of 30mg Cardizem.
--- NOTE | 2021-01-02 18:05 | P.PN_ITS ---
Subjective Subjective: Interval history: needed to be placed on levophed overnight , currently at 8 mcg, metoprolol was increased to 25 PO bid yesterday however patient on levophed now and having intermittent pauses. Extremely anxious today, overwhelmed by recent ill health Medications: Reviewed: Yes Vitals/I&O/Wt Last Vital Signs Temp 97.9 F 01/02/21 07:00 Pulse 115 H 01/02/21 16:30 Resp 41 H 01/02/21 16:30 BP 133/86 01/02/21 16:30 Pulse Ox 96 01/02/21 16:30 01/02/21 01/02/21 01/02/21 06:59 14:59 22:59 Intake Total 411.585 / 2519.502 1047.166 / 5079.098 0411.011 / 2534.177 Output Total 1050 / 1800 1250 / 1250 Balance -638.415 / 439.346 6117.166 / 1047.166 237.011 / 1284.177 Weight last 48 hrs Weight 47.174 kg Physical Exam Narrative: EXAM NARRATIVE: General: Awake, alert, cool clammy to touch, ill appearing HEENT: PERRLA, pupils bilaterally equal and reactive, pallor + Chest: Normal vesicular breath sounds, no added sounds, equal good air entry bilaterally CVS: S1-S2 regular, no murmurs, no tachycardia, no gallops, no rubs Abdomen: Soft, nontender, no organomegaly, bowel sounds present Neuro: No focal deficits, no facial deformity, AO x3, power 5/5 in all limbs Extremities: dehydarted ,no edema, clubbing Urinary Catheter Management^: Finch: Cath Placed During This Visit: yes Reason for Continuing Indwelling Catheter: Accurate Measurement of Urinary Output in Critically Ill Patients Urinary Catheter Date of Insertion: 12/31/20 Urinary Catheter Time of Insertion: 17:46 Data : 01/02/21 02:40 01/02/21 02:40 Micro: Microbiology 12/31/20 12:45 Urine Culture - Final Urine,Clean Catch Escherichia coli A&P Assessment and plan (1) Sepsis: meets criteria by way of tachycardia, leukocytosis, elevated lactate likely related to pyelonephritis, given + UA, anatomic risk factors, pain reported in left flank Hydronephrosis noted, has been on and off since last few years, leukocytosis currently improving. Repeat US abdomen today to evalaute for worsening hydronephrosis Patient afberile , howvere now with pressor requirement and increasing oxygen requirements urology consult if no significant improvement over the next 48 hrs No signs of colitis on current CT Empiric Cefepime 2g iv q12h ----> change to 1g iv CTX given rodriguez-s E.coli on urine cx blood cx negative thus far Status: Acute Qualifiers: Sepsis type: sepsis due to unspecified organism Sepsis acute organ dysfunction status: with acute organ dysfunction Severe sepsis acute organ dysfunction type: acute renal failure Acute renal failure type: unspecified Severe sepsis shock status: without septic shock Qualified Code(s): A41.9 - Sepsis, unspecified organism; R65.20 - Severe sepsis without septic shock; N17.9 - Acute kidney failure, unspecified (2) Atrial fibrillation with rapid ventricular response: likely related to sepsis D/c metoprolol , start po cardizem 30mg q6h indigo Status: Acute (3) Pyelonephritis: As above Status: Acute (4) Pelvic mass: on outpatient follow up with oncology Status: Acute Additional A&P Information DVT ppx: SCDs only as noted to have blood streaking stools, Hb dropped to 7.9 Full code Attestations Medical Necessity Statement*: ongoing need for pressor support, iv abx , close CV monitoring Coding Level of Care Code Acute Director Of Instructional Technology for Chg Fwd Diagnoses Sepsis A41.9; R65.20; N17.9 Sepsis type: sepsis due to unspecified organism Sepsis acute organ dysfunction status: with acute organ dysfunction Severe sepsis acute organ dysfunction type: acute renal failure Acute renal failure type: unspecified Severe sepsis shock status: without septic shock Atrial fibrillation with rapid ventricular response I48.91 Pyelonephritis N12 Pelvic mass R19.00
[2021-01-02] MEDS: OLANZapine 5 mg TABLET 2.5 MG PO (20:01)
[2021-01-02] MEDS: latanoprost 0.005% Op Soln 2.5 mL Btl 1 DROP OPHTHALMIC (20:11)
--- NOTE | 2021-01-02 21:29 | PM.EVENT ---
Event Note Event Note: Abhay ICU nurse, called when he noticed pauses on telemetry Family meeting was arranged Patient is confused, she is awake and oriented to herself, heart rate fluctuated between 70-80 with PVCs and pauses, blood pressure 102/70 mmHg, patient looks very lethargic and tired is stating that he would like us to start CPR if lose pulse, however he does not want us to intubate or prolong CPR for more than 10 minutes, in his words he is stating do not want any life support
[2021-01-03] VITALS (49 sets, daily range): BP systolic 91–166; BP diastolic 48–107; PULSE 62–140; RESP 17–37; TEMP 36.4–37; O2SAT 92–100
[2021-01-03] MEDS: sodium chlor 0.9% + KCl 20 mEq 20 MEQ/1,000 ML BAG 100 MEQ IV (03:59)
[2021-01-03 04:30] LABS: Basophils % 0.2 %; Eosinophils # 0.1 10^3/uL (0.0-0.8); Eosinophils % 1.2 %; Hemoglobin 7.5 g/dL (11.5-15.3); Lymphocytes # 0.7 10^3/uL (0.8-4.8); Lymphocytes % 6.4 %; Mean Corpuscular Hemoglobin 29.8 pg (28.0-34.0); Mean Corpuscular Volume 99.2 fL (81-99); Mean Platelet Volume 9.2 fL (7.4-10.4); Monocytes # 0.5 10^3/uL (0.2-0.9); Monocytes % 4.4 %; Neutrophils # 9.32 10^3/uL (1.8-7.7); Neutrophils % 86.7 %; Nucleated Red Blood Cells % 0 %; Platelet Count 233 10^3/cmm (130-400); Red Blood Count 2.52 10^6/uL (4.1-5.3); Red Cell Distribution Width 13.8 % (12.1-15.1); White Blood Count 10.8 10^3/uL (4.0-10.0)
[2021-01-03 04:56] LABS: Alanine Aminotransferase 11 U/L (0-33); Albumin Level 2.5 g/dL (3.5-5.2); Alkaline Phosphatase 66 IU/L (35-105); Anion Gap 8.8 (5-19); Aspartate Amino Transferase 16 U/L (0-32); Blood Urea Nitrogen 21 mg/dL (8-23); Calcium 7.4 mg/dL (8.5-10.5); Carbon Dioxide 24 mmol/L (22-29); Chloride 113 mmol/L (98-107); Globulin 3.7 g/dL (1.3-4.6); Glucose 106 mg/dL (65-115); Osmolality Calculated 297 mOsm/kg (285-295); Potassium 3.8 mmol/L (3.5-5.1); Sodium 142 mmol/L (136-145); Total Bilirubin 0.2 mg/dL (0.15-1.2); Total Protein 6.2 g/dL (6.6-8.7)
[2021-01-03] MEDS: dilTIAZem 30 mg Tablet PO ×3 (06:05→13:36)
[2021-01-03] MEDS: polyethylene glycol 3350 Pkt 17 gm PO ×2 (08:21→17:08)
[2021-01-03] MEDS: FUROsemide 10 mg/mL SDV 2mL 20 MG IVP (08:21)
[2021-01-03] MEDS: levothyroxine 137 mcg Tablet PO (08:21)
[2021-01-03] MEDS: bisacodyl 5 mg Tablet PO (08:21)
[2021-01-03] MEDS: lactulose oral liq 20 gm/30 mL UDC 10 GM PO (08:21)
[2021-01-03] MEDS: TRAMadol 50 mg Tablet PO (08:48)
--- NOTE | 2021-01-03 09:19 | PC.NURSE ---
[address] Montana. Discussed respiratory status. Orders to DC IVF, check O2 Sat, and give IV Lasix. 0740 Reported O2 Sat of 100% on 2L NC to Dr. Montana.
--- NOTE | 2021-01-03 10:47 | PM.PN ---
Subjective Subjective: Interval history: improving today, leukocytosis trending down to 10.8, hemodynamically stable off levophed, intermittent confusion however overall much more alert , less anxious , hydonephrosis impriving on serial USG. Overnight 02 sat charted as being between 74-86% intermittently, CXR with pulmonary vascular congestions, fluids d/c this am, lasix 20mg iv x 1 Medications: Reviewed: Yes Vitals/I&O/Wt Last Vital Signs Temp 97.8 F 01/03/21 07:00 Pulse 76 01/03/21 10:00 Resp 23 H 01/03/21 10:00 BP 111/83 01/03/21 10:00 Pulse Ox 100 01/03/21 10:00 01/02/21 01/03/21 01/03/21 22:59 06:59 14:59 Intake Total 1496.131 / 2543.297 1000 / 3543.297 300 / 300 Output Total 1250 / 1250 1550 / 2800 950 / 950 Balance 246.131 / 1293.297 -550 / 743.297 -650 / -650 Weight last 48 hrs Weight 49.396 kg Weight 47.174 kg Physical Exam Narrative: EXAM NARRATIVE: GEN: Awake, alert and oriented, no acute distress CVS: S1S2 N RS: CTA B/L Abd: Soft, nt/nd , bs+ 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 HAND: no focal neuro deficits Urinary Catheter Management^: Finch: Cath Placed During This Visit: yes Reason for Continuing Indwelling Catheter: Accurate Measurement of Urinary Output in Critically Ill Patients Urinary Catheter Date of Insertion: 12/31/20 Urinary Catheter Time of Insertion: 17:46 Data : 01/03/21 04:16 01/03/21 04:16 Micro: Microbiology 12/31/20 09:23 Blood Culture - Preliminary Blood Staphylococcus sp coag neg 12/31/20 12:45 Urine Culture - Final Urine,Clean Catch Escherichia coli A&P Assessment and plan (1) Sepsis: meets criteria by way of tachycardia, leukocytosis, elevated lactate likely related to pyelonephritis, given + UA, anatomic risk factors, pain reported in left flank Hydronephrosis noted, has been on and off since last few years, leukocytosis currently improving. Repeat US with improving hydronephrosis Clinically improving, off pressors Continue iv CTX given rodriguez-s E.coli on urine cx blood cx negative thus far Status: Acute Qualifiers: Sepsis type: sepsis due to unspecified organism Sepsis acute organ dysfunction status: with acute organ dysfunction Severe sepsis acute organ dysfunction type: acute renal failure Acute renal failure type: unspecified Severe sepsis shock status: without septic shock Qualified Code(s): A41.9 - Sepsis, unspecified organism; R65.20 - Severe sepsis without septic shock; N17.9 - Acute kidney failure, unspecified (2) Atrial fibrillation with rapid ventricular response: likely related to sepsis Currently rate controlled with po cardizem 30mg q6h indigo , continue same for now d/c IVF , patient tolerated 50% of her po intake CXR from 01/02 with signs of fluid overload and 02 sat 74%,lasix trial 20mg today no a/c due to dropping Hb and blood in stools echo Status: Acute (3) Pyelonephritis: As above Status: Acute (4) Pelvic mass: on outpatient follow up with oncology Status: Acute (5) Anemia: Blood noted in stools, patient has h/ohemorrhoids and pelvis mass of uncertain etiology,malignancy cannot be excluded. Blood transfuison today, continued drop to 7.5, will aim for Hb level of 8 given fluctuating heart rate, rapid A fib, symptoamtic anemia with patient reportng increased fatigue. Status: Acute Additional A&P Information DVT ppx: SCDs only as noted to have blood streaking stools, Hb dropped to 7.5, transfuse today, continue to monitor BM for Blood code status changed to limited resucitation overnight, no intubation, short trial of chest compressions only Transfer to med/surg with tele Attestations Medical Necessity Statement*: needs ongoing admisison for iv abx, blood transfusion today, closely monitor tenous respiratory status and heart rate control Critical Care Time: The high probability of a clinically significant, sudden or life threatening deterioration of the patient's [cardiac, respiratory ] system(s) required my full and direct attention, intervention and personal management. The critical care time is as shown. This time is in addition to time spent performing any reported procedures but includes the following: [x] Data and vital sign review and interpretation [x] Patient assessment, examination and intervention [x] Documentation [x] Medication orders and management Critical Care Time (min): 35 Coding Level of Care Code Acute [employer] for [facility] Fwd Diagnoses Sepsis A41.9; R65.20; N17.9 Sepsis type: sepsis due to unspecified organism Sepsis acute organ dysfunction status: with acute organ dysfunction Severe sepsis acute organ dysfunction type: acute renal failure Acute renal failure type: unspecified Severe sepsis shock status: without septic shock Atrial fibrillation with rapid ventricular response I48.91 Pyelonephritis N12 Pelvic mass R19.00 Anemia D64.9
[2021-01-03] MEDS: phenyleph-mineral oil-petrolat Oint 28 gm 1 APPLIC PR (11:49)
[2021-01-03] MEDS: cefTRIAXone 1,000 MG in sodium chloride 0.9% (plus) 50 ML 100 MG IV (11:49)
--- NOTE | 2021-01-03 13:26 | P.PN_ITS ---
Subjective Subjective: Interval history: Feeling better denies any complaint off pressors. Medications: Reviewed: Yes Vitals/I&O/Wt Last Vital Signs Temp 97.8 F 01/03/21 07:00 Pulse 124 H 01/03/21 12:00 Resp 20 H 01/03/21 12:00 BP 166/88 01/03/21 12:00 Pulse Ox 100 01/03/21 12:00 01/02/21 01/03/21 01/03/21 22:59 06:59 14:59 Intake Total 1496.131 / 2543.297 1000 / 3543.297 350 / 350 Output Total 1250 / 1250 1550 / 2800 950 / 950 Balance 246.131 / 1293.297 -550 / 743.297 -600 / -600 Weight last 48 hrs Weight 108 lb 14.4 oz Weight 104 lb Physical Exam Narrative: EXAM NARRATIVE: GENERAL: Patient is awake but sleepy NECK: No jugular vein distension. HEENT: No cyanosis. No icterus. No pallor. HEART: Regular S1 and S2. 2/6 sys murmur, rub or gallop. LUNGS: Clear to auscultate bilaterally. CENTRAL NERVOUS SYSTEM: Grossly nonfocal. EXTREMITIES: Lower extremities without edema bilaterally. Urinary Catheter Management^: Finch: Cath Placed During This Visit: yes Reason for Continuing Indwelling Catheter: Accurate Measurement of Urinary Output in Critically Ill Patients Urinary Catheter Date of Insertion: 12/31/20 Urinary Catheter Time of Insertion: 17:46 Data : 01/03/21 04:16 01/03/21 04:16 Micro: Microbiology 12/31/20 09:23 Blood Culture - Preliminary Blood Staphylococcus sp coag neg A&P Assessment and plan (1) Atrial fibrillation with rapid ventricular response: Heart rate is climbing up increase Cardizem to 60 4 times daily Status: Acute (2) Hypertension: Well-controlled. 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 Coding Level of Care Code Established Pt Acute Glue Mounter Operator for Chg Fwd Patient Type Established History Expanded Problem Focused Exam Expanded Problem Focused Medical Decision Making Moderate Complexity Diagnoses Atrial fibrillation with rapid ventricular response I48.91 Hypertension I10 Hypertension type: essential hypertension Sepsis A41.9 Sepsis acute organ dysfunction status: unspecified Pelvic mass R19.00
--- NOTE | 2021-01-03 13:42 | PC.SOCIAL ---
Pg 2 IMM Explained to pt & her Pg 2 IMM. No questions voiced. Provided pt a copy. Signed, dated, & timed a copy & placed in chart.
--- NOTE | 2021-01-03 16:11 | PC.PT ---
Nursing requests hold PT evaluation today, patient still having A. fib and RVR, heart rates to 150 at rest. Will follow
[2021-01-03] MEDS: dilTIAZem 30 mg Tablet 60 MG PO (17:08)
[2021-01-03] MEDS: sertraline 100 mg Tablet PO (17:08)
--- NOTE | 2021-01-03 18:10 | PC.NURSE ---
[address] Montana. Discussed medications and labs. Orders for 1 unit of PRBCs and transfer to CSU. 1205 Patient converted to A Fib with RVR. Reported to Dr. Montana. PO Cardizem given per order. [address] Montana to reported elevated HR. Orders for IV Cardizem. 1320 Clarified PO Cardizem order. Orders to give an additional 30 mg PO now to equal the new order of 60mg.
[2021-01-03] MEDS: OLANZapine 5 mg TABLET 2.5 MG PO (19:36)
[2021-01-03] MEDS: latanoprost 0.005% Op Soln 2.5 mL Btl 1 DROP OPHTHALMIC (20:28)
--- NOTE | 2021-01-03 21:19 | PC.NURSE ---
Report to RN-Damaris in CSU. Pt transferred to CSU via ICU Bed. Handoff at bedside. Questions answered.
[2021-01-03] MEDS: ALPRAZolam 0.25 mg Tablet PO (23:59)
--- NOTE | 2021-01-04 01:15 | PC.NURSE ---
Late entry Conversion to NSR. At ~0102 patient had 3 second pause converting from atrial filbrilation to a normal sinus rhythm with a heart rate at 68 to mid 70s. Patient resting with eyes closed. No distress observed. Initialized on 01/04/21 01:11 - END OF NOTE
[2021-01-04 04:00] VITALS: BP 115/48; PULSE 65; RESP 21; TEMP 36.6; O2SAT 90
[2021-01-04] MEDS: dilTIAZem 30 mg Tablet 60 MG PO ×3 (05:46→12:41)
[2021-01-04 06:29] VITALS: PULSE 106
--- NOTE | 2021-01-04 07:19 | ECG_ITS ---
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 Measurements Intervals [place] Rate: 65 P: 61 AK: 172 QRS: -39 QRSD: 108 T: 58 QT: 420 QTc: 440 Interpretive Statements SINUS RHYTHM MARKED LEFT AXIS DEVIATION [QRS AXIS < -30] Compared to ECG 12/31/2020 13:58:05 Left-axis deviation now present Incomplete right bundle-branch block no longer present Myocardial infarct finding no longer present Electronically Signed On 01-04-2021 20:51:57 CDT by Cheikh Holden M.D. [email or web address]
[2021-01-04 09:00] VITALS: BP 109/75; PULSE 117; RESP 18; TEMP 36.4; O2SAT 92
[2021-01-04] MEDS: levothyroxine 137 mcg Tablet PO (09:47)
[2021-01-04] MEDS: bisacodyl 5 mg Tablet PO (09:47)
[2021-01-04] MEDS: lactulose oral liq 20 gm/30 mL UDC 10 GM PO (09:47)
[2021-01-04] MEDS: polyethylene glycol 3350 Pkt 17 gm PO (09:47)
--- NOTE | 2021-01-04 11:10 | US_ITS ---
WS: [id number] ULTRASOUND BREAST RIGHT TECHNIQUE: Ultrasound right breast focused area of concern. CLINICAL INFORMATION: hard right breast, h/o malignancy COMPARISON: None. FINDINGS: Right breast implant. 4 quadrant ultrasound. Small amount of breast tissue with right breast implant. No evidence of cystic or solid lesion. No suspicious lesions. US/US breast RT complete [id number] IMPRESSION: BI-RADS 2 benign Consider breast surgery consultation for implant evaluation
[2021-01-04 11:55] LABS: Hematocrit 35.5 % (37.0-47.0); Hemoglobin 10.9 g/dL (11.5-15.3)
[2021-01-04] MEDS: cefTRIAXone 1,000 MG in sodium chloride 0.9% (plus) 50 ML 100 MG IV (12:41)
[2021-01-04 12:49] VITALS: BP 131/87; PULSE 85; RESP 18; TEMP 36.6; O2SAT 99
--- NOTE | 2021-01-04 13:26 | PC.NURSE ---
spoke with Dr bustillo of hr rate change to 126 instructions to speak with Dr Rosario concerning heart medications spoke with Dr rosario telephone instructions given to give and additional 60mg po cardizem and stop q6 hour order for cardizem and call marlene in 2 hours
[2021-01-04] MEDS: dilTIAZem 60 mg Tablet PO (13:35)
--- NOTE | 2021-01-04 13:50 | PM.DCS ---
Discharge Providers Date of Admission: 12/31/20 14:46 Date of Discharge: January 04, 2021 Attending Provider at Admission: Elsa Montana MD Attending Provider at Discharge: Elsa Montana MD Primary Care Provider: Scott Lau MD Diagnoses at Discharge Discharge Diagnosis (1) Atrial fibrillation with rapid ventricular response: Status: Acute (2) Hypertension: Status: Acute Qualifiers: Hypertension type: essential hypertension Qualified Code(s): I10 - Essential (primary) hypertension (3) Sepsis: Status: Acute Qualifiers: Sepsis acute organ dysfunction status: unspecified (4) Pelvic mass: Status: Acute (5) Pyelonephritis: Status: Acute Reason for Visit Reason for Visit: possible uti, unable to controll urine Hospital Course Hospital Course Iraida Bay is a 85 year old female with h/o colorectal ca currently on expectant management for a 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 Found to have A fib with RVR in the ER. Hospital course as below: (1) Sepsis: meets criteria by way of tachycardia, leukocytosis, elevated lactate likely related to pyelonephritis, given + UA, anatomic risk factors, pain reported in left flank Hydronephrosis noted on initial CT, has been on and off since last few years, Repeat US with improving hydronephrosis, has been recommended palliative urostomy and colostomy in the past. Not a good candidate for stents. Treated with Cefepime, narrowed to ceftriaxone between 12/31-01/04. Complete treatment with additional 7 days of ciprofloxacin at discharge Clinically improved, leukocytosis down to 10 at discharge rodriguez-s E.coli on urine cx blood cx negative (2) Atrial fibrillation with rapid ventricular response: likely related to sepsis Currently rate controlled with po cardizem 60mg q6h , change to 240mg 24hr at discharge no a/c due to dropping Hb and blood in stools Echo with EF 55-60% , indeterminate diastolic function (3) Pyelonephritis: As above (4) Pelvic mass: on outpatient follow up with oncology F/up with Dr. Hogan in one month Incidentally noted Right breat to be firm grossly, obtained US which may be followed as outpatient (5) Anemia: Blood noted in stools, patient has h/ohemorrhoids and pelvis mass of uncertain etiology,malignancy cannot be excluded. Blood transfuison 1 PRBC on 01/03 due to continued drop to 7.5, fluctuating heart rate, rapid A fib, symptoamtic anemia. Hb at discharge 10.9 (6) JULIA: Resolved Physical Exam Narrative: EXAM NARRATIVE: GEN: Awake, alert and oriented, no acute distress CVS: S1S2 N RS: CTA B/L Abd: Soft, nt/nd , bs+ CUSTOMER COUNTER ASSOCIATE: no focal neuro deficits Urinary Catheter Management^: Finch: Cath Placed During This Visit: yes Reason for Continuing Indwelling Catheter: Acute Urinary Retention or Obstruction Urinary Catheter Date of Insertion: 12/31/20 Urinary Catheter Time of Insertion: 17:46 Discharge Data Data Completed and Pending: Completed Studies During Hospitalization Category Date Time Status CT abdomen pelvis wo con [id number] Urge nt Cat Scan 12/31/20 14:48 Completed XR chest 1V aysha ble [id number] Routine Exams 01/02/21 11:08 Completed XR chest 1V aysha ble [id number] Stat Exams 12/31/20 08:54 Completed CV echo complete* [id number] Routine Ultrasound 01/02/21 17:33 Completed US renal BI* [id number] Routine Ultrasound 01/02/21 11:08 Completed Pending at discharge Category Date Time Status Blood Culture Sta t Lab 12/31/20 09:40 Results US breast RT comp lete [id number] Routine Ultrasound 01/04/21 11:10 Ordered Labs from last 24 hours 01/04/21 01/03/21 11:43 12:40 Hgb 10.9 L Hct 35.5 L Blood Type A Positive Rho(D) Type Positive / 4+ Antibody Screen Negative Crossmatch See Detail Vitals: Last Vital Signs Temp 97.5 F L 01/04/21 09:00 Pulse 117 H 01/04/21 09:00 Resp 18 01/04/21 09:00 BP 109/75 01/04/21 09:00 Pulse Ox 92 01/04/21 09:00 Discharge Plan Discharge Patient Disposition: Home Condition: Stable Prescriptions: New Cipro 500 mg tablet 500 mg PO BID 7 Days Qty: 14 RF: 0 Cardizem CD 240 mg capsule,extended release 24hr 240 mg PO Q24H 30 Days Qty: 30 RF: 0 Continued vitamin B complex [B Complex-Vitamin B12] Tablet 1 tab PO DAILY RF: 0 flaxseed oil 1,000 mg capsule 1,000 mg PO DAILY RF: 0 omega-3 fatty acids [Fish Oil Concentrate] 1,000 mg capsule 1,000 mg PO DAILY RF: 0 tramadol 50 mg tablet 50 - 100 mg PO QID PRN (Reason: Pain) RF: 0 Restasis MultiDose 0.05 % drops 1 drop ophthalmic (eye) Q12H RF: 0 sertraline 100 mg tablet 100 mg PO Q24H RF: 0 amitriptyline 25 mg Tablet 25 mg PO BEDTIME@2100 RF: 0 clonazepam 0.5 mg Tablet 0.5 mg PO BID PRN (Reason: Anxiety) RF: 0 latanoprost 0.005 % Drops 1 drp OPHTHALMIC (EYE) BEDTIME@2100 RF: 0 primidone 50 mg Tablet 50 mg PO TID PRN (Reason: Tremor(S)) RF: 0 lactulose 10 gram/15 mL (15 mL) Solution 15 ml PO DAILY PRN (Reason: Constipation) RF: 0 multivitamin [Multiple Vitamins] Tablet 1 tab PO DAILY RF: 0 levothyroxine 137 mcg tablet 137 mcg PO DAILY RF: 0 hydrocortisone [Proctozone-HC] 2.5 % cream with perineal applicator 1 applic MO BID PRN (Reason: UNKNOWN) RF: 0 Preparation H 0.25-14-74.9 % Ointment 1 applic MO DAILY PRN (Reason: UNKNOWN) RF: 0 Vitamin D3 1 tab PO DAILY RF: 0 olanzapine 5 mg Tablet 2.5 mg PO DAILY@20 Qty: 15 RF: 0 bisacodyl 5 mg Tablet,Delayed Release (Dr/Ec) 5 mg PO DAILY Qty: 30 RF: 0 polyethylene glycol 3350 17 gram powder in packet 17 gm PO BID Qty: 60 RF: 0 Lactobacillus acidophilus Capsule 10,000 mmu cells PO BID Qty: 60 RF: 0 Discontinued metoprolol tartrate 25 mg Tablet 25 mg PO BID Qty: 60 RF: 0 hydrochlorothiazide 12.5 mg tablet 12.5 mg PO DAILY RF: 0 nitrofurantoin 100 mg PO DAILY RF: 0 Discharge Orders: Discharge Order (Routine); Ordered 01/04/21 Ordered By: Elsa Montana Referrals: [facility] [Outside] Scott Lau MD [Primary Care Provider] - 01/17/21 1:15 pm (Your Appointment with Dr. Lau at [facility] has been Moved up to now January 17, 1:15pm ) Derek Hogan MD [Hospitalist] - 02/14/21 9:00 am (Please keep your appointment with Dr. Hogan on at 9:00am. Thank you ) Discharge Diet: Usual diet Discharge Activity: Resume usual activity Patient Instructions: Atrial Fibrillation, Ciprofloxacin (By mouth), Diltiazem (By mouth), Hypertension, Sepsis (DC), Opioid Safety Discharge Attestations Time Spent in Discharge Care*: greater than 30 min Quality Metrics Clinical Quality Measures During this hospital stay, did patient experience: None Coding Level of Care Code Acute Chg FW DC note Diagnoses Atrial fibrillation with rapid ventricular response I48.91 Hypertension I10 Hypertension type: essential hypertension Sepsis A41.9 Sepsis acute organ dysfunction status: unspecified Pelvic mass R19.00 Pyelonephritis N12
[2021-01-04 14:00] VITALS: PULSE 64
--- NOTE | 2021-01-04 15:05 | PC.NURSE ---
verbal instructions from Dr bustillo while on unit to remove staton cath
--- NOTE | 2021-01-04 15:33 | PM.PN ---
Subjective Subjective: Interval history: Patient today feeling better heart rate is under control we will switch her to Cardizem. Medications: Reviewed: Yes Vitals/I&O/Wt Last Vital Signs Temp 97.9 F 01/04/21 12:49 Pulse 85 01/04/21 12:49 Resp 18 01/04/21 12:49 BP 131/87 01/04/21 12:49 Pulse Ox 99 01/04/21 12:49 01/04/21 01/04/21 01/04/21 06:59 14:59 22:59 Intake Total 100 / 2400 770 / 770 Output Total 1000 / 4300 450 / 450 200 / 650 Balance -900 / -1900 320 / 320 -200 / 120 Weight last 48 hrs Weight 102 lb 11.2 oz Weight 108 lb 14.4 oz Physical Exam Narrative: EXAM NARRATIVE: GENERAL: Patient is awake and oriented NECK: No jugular vein distension. HEENT: No cyanosis. No icterus. No pallor. HEART: Regular S1 and S2. 2/6 sys murmur, rub or gallop. LUNGS: Clear to auscultate bilaterally. CENTRAL NERVOUS SYSTEM: Grossly nonfocal. EXTREMITIES: Lower extremities without edema bilaterally. Urinary Catheter Management^: Finch: Cath Placed During This Visit: yes, but has since been removed by the nurse Reason for Continuing Indwelling Catheter: Acute Urinary Retention or Obstruction Urinary Catheter Date of Insertion: 12/31/20 Urinary Catheter Time of Insertion: 17:46 Date Urinary Catheter Removed: 01/04/21 Time Urinary Catheter Discontinued: 15:06 Data : 01/04/21 11:43 01/03/21 04:16 A&P Assessment and plan (1) Atrial fibrillation with rapid ventricular response: Heart rate is under control she is in sinus rhythm we will switch her to Cardizem p.o. long-acting 1. Status: Resolved (2) Hypertension: Good control. Continue current regimen Status: Resolved Qualifiers: Hypertension type: essential hypertension Qualified Code(s): I10 - Essential (primary) hypertension (3) Sepsis: Resolved Status: Resolved Qualifiers: Sepsis acute organ dysfunction status: unspecified (4) Pelvic mass: History of colorectal carcinoma with possible recurrence, manage as per oncology Status: Resolved Attestations Medical Necessity Statement*: From a cardiovascular perspective patient can be discharged home Coding Level of Care Code Established Pt Acute Instructor Business Education for Chg Fwd Patient Type Established History Expanded Problem Focused Exam Expanded Problem Focused Medical Decision Making Moderate Complexity Diagnoses Atrial fibrillation with rapid ventricular response I48.91 Hypertension I10 Hypertension type: essential hypertension Sepsis A41.9 Sepsis acute organ dysfunction status: unspecified Pelvic mass R19.00
[2021-01-04 15:37] VITALS: BP 131/87; PULSE 85; RESP 18; TEMP 36.6; O2SAT 99
--- NOTE | 2021-01-04 16:45 | PC.NURSE ---
patient discharged home in care of self and care of spouse home health will contact patient to aide in cares Educated strongly on new medications and discontinued medications patient and spouse verbalized understanding although asked many questions about medication regimen spouse educated to call aide at home for help with medication patient and spouse verbalized understanding
== END 2021-01-04 16:30 | disposition home health service (06) | DRG 872 ==
LOC: ER 09:26 → ICU 15:12 → CSU 01-03 21:11
PROVIDERS: Internal Medicine; Nurse Practitioner Family; Admitting Provider Student in an Organized Health Care Education/Training Program; Emergency Provider Emergency Medicine; PCP Family Medicine; Visit Provider Student in an Organized Health Care Education/Training Program
DX: A41.9 Sepsis, unspecified organism (principal); N10 Acute pyelonephritis; N13.30 Unspecified hydronephrosis; N17.9 Acute kidney failure, unspecified; R65.20 Severe sepsis without septic shock; I48.91 Unspecified atrial fibrillation; D64.9 Anemia, unspecified; K59.09 Other constipation; F03.90 Unspecified dementia, unspecified severity, without behavioral disturbance, psychotic disturbance, mood disturbance, and anxiety; Z85.41 Personal history of malignant neoplasm of cervix uteri; Z85.038 Personal history of other malignant neoplasm of large intestine; I10 Essential (primary) hypertension; K58.9 Irritable bowel syndrome, unspecified; I73.9 Peripheral vascular disease, unspecified; Z95.820 Peripheral vascular angioplasty status with implants and grafts; Z87.440 Personal history of urinary (tract) infections; Z90.49 Acquired absence of other specified parts of digestive tract; R19.00 Intra-abdominal and pelvic swelling, mass and lump, unspecified site
CPT/HCPCS: 36415; 36416; 36430; 51702; 71045; 74176; 76641; 76770; 80053; 81001; 82962; 83605; 83880; 84443; 84484; 85014; 85018; 85025; 85610; 85730; 86850; 86900; 86920; 87040; 87077; 87086; 87186; 87205; 93005; 93306; 96365; 96372; 96375; 97161; 97167; 97535; 99291; 99292; J0692; J0696; J1170; J1644; J1650; J1940; J2405; J3490; J7040; P9016

== ENCOUNTER 2021-02-14 08:47 | Outpatient (CLI) | payer MEDICARE, OTHER, SELFPAY ==
[2021-02-14 09:31] LABS: Basophils % 0.6 %; Eosinophils # 0.2 10^3/uL (0.0-0.8); Eosinophils % 4.6 %; Hematocrit 31.1 % (37.0-47.0); Hemoglobin 9.3 g/dL (11.5-15.3); Lymphocytes # 1.1 10^3/uL (0.8-4.8); Lymphocytes % 23.4 %; Mean Corpuscular HGB Conc 29.9 g/dL (30.0-36.0); Mean Corpuscular Hemoglobin 29.2 pg (28.0-34.0); Mean Corpuscular Volume 97.8 fL (81-99); Mean Platelet Volume 9.4 fL (7.4-10.4); Monocytes # 0.5 10^3/uL (0.2-0.9); Monocytes % 9.6 %; Neutrophils # 2.94 10^3/uL (1.8-7.7); Neutrophils % 61.6 %; Nucleated Red Blood Cells % 0 %; Platelet Count 256 10^3/cmm (130-400); Red Blood Count 3.18 10^6/uL (4.1-5.3); Red Cell Distribution Width 14.3 % (12.1-15.1); White Blood Count 4.8 10^3/uL (4.0-10.0)
[2021-02-14 09:59] LABS: Alanine Aminotransferase 11 U/L (0-33); Albumin Level 3.4 g/dL (3.5-5.2); Alkaline Phosphatase 78 IU/L (35-105); Aspartate Amino Transferase 17 U/L (0-32); Blood Urea Nitrogen 31 mg/dL (8-23); Calcium 8.5 mg/dL (8.5-10.5); Carbon Dioxide 27 mmol/L (22-29); Chloride 107 mmol/L (98-107); Globulin 3.9 g/dL (1.3-4.6); Glucose 86 mg/dL (65-115); Osmolality Calculated 298 mOsm/kg (285-295); Sodium 141 mmol/L (136-145); Total Bilirubin 0.2 mg/dL (0.15-1.2); Total Protein 7.3 g/dL (6.6-8.7)
[2021-02-14 10:13] LABS: 25 Hydroxy Vitamin D 40 ng/mL (30-100)
[2021-02-14 11:22] LABS: Iron 46 ug/dL (37-145); Percent Saturation 24.5 % (20-50); Total Iron Binding Capacity 187 mcg/dl; Unsaturated Iron Binding 141 ug/dL (112-347)
[2021-02-14 11:39] LABS: Vitamin B12 1592 pg/mL (232-1245)
--- NOTE | 2021-02-17 16:57 | ONC FU_ITS ---
Dr. Hogan Patient Follow-Up Note Patient: Iraida Bay Unit #: [id number]: [id number] Dicatated By: Derek Hogan M.D.Date of Visit:Feb 14, 2021 Onc Med Follow-up/Prog Note Chief Complaint: Colon cancer/suspected pelvic malignancy. 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 She also has been anemic. 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 Pathology at that time showed invasive moderately differentiated mucinous adenocarcinoma, stage IIA (T3, N0, M0). She had previously undergone cobalt radiation for cervical cancer in 1962. As such, her adjuvant therapy for the colon cancer was limited to 6 cycles of adjuvant 5-FU/leucovorin chemotherapy, which she completed in January 1997. She had developed chronic problems with both bowel and bladder function following the surgery, but as of her office visit in December 1998 there had been no evidence for recurrence of the colon cancer. Thereafter she had failed to return for further follow-up. Her other medical illnesses include hypertension, peripheral arterial disease, hypothyroidism, and anxiety/depression. She has a 40-year pack history of smoking, but she had quit smoking more than 25 years ago. On 04/25/2019 she was admitted to the hospital after presenting to the emergency room with increasing weakness and falling. At that point she was mildly anemic with hemoglobin 10.7 g, but with normal WBC at 6200 and normal platelet count at 243,000. Chem profile showed borderline renal function with BUN 26 and creatinine 1.1 mg/dL. Liver enzymes were minimally elevated. Her CT abdomen/pelvis showed severe stomach and colonic distention with marked fecal material throughout the entire colon. In comparison to a prior CT from October 2017 there was increasing soft tissue in the pelvis with presacral soft tissue extending to surround the rectum and more anteriorly in the perirectal fat. The findings were felt to be suspicious for recurrent or progressive tumor. There was evidence of moderate right hydronephrosis, and there was evidence for a new destructive process and probable pathologic fracture involving the right para symphyseal pubic bone. Osseous metastatic disease was suspected. During the hospitalization she did have treatment for Escherichia coli urinary tract infection, which was felt to be a significant contributing factor to her illness. Her obstipation was successfully managed with lactulose and Dulcolax. During the hospitalization there was further decline in her hemoglobin to 8.2 g. Her red cell indices were normal, but her serum iron studies did show low transferrin saturation at 11.3%, consistent with iron deficiency. The ferritin was mildly elevated at 297 ng/mL. B12 level was > 2000 pg/mL. She was seen here on 05/06/2019. Her CBC at that time showed adequate hemoglobin at 9.9 g with white blood cell count 7600 and platelet count 385,000. Sed rate was elevated at 76 mm/hour. CRP was elevated at 19.4 mg/dL. She had borderline renal function with BUN 28 and creatinine one-point her renal function was normal with BUN 15 and creatinine 0.8 mg/dL. Her serum iron studies showed low transferrin saturation at 13.7%. There was no monoclonal protein detected on her serum protein electrophoresis. A restaging PET/CT on 05/08/2019 showed extensive postsurgical and radiation therapy changes at the pelvis without clear evidence for recurrent malignancy. There was significant FDG activity at a nonhealed fracture of the right pubic ramus, but inflammatory activity could not be differentiated from malignant uptake in a pathologic fracture. There was also mild activity in the bilateral sacral ala and the pelvic bones were noted to have coarse trabecula consistent with early sacral insufficiency fracture changes versus early osseous metastatic disease. She was recommended to start oral iron supplementation with ferrous sulfate for the iron deficiency. On 06/17/2019 she was seen in the emergency room with acute mental status changes. Her clinical evaluation by clinical evaluation she appeared to have septic shock. She was admitted to [facility] for 5 days. Shortly after discharge she was seen in the emergency room again with lower extremity edema. She was thought to have mild congestive heart failure. Her B-[employer] level was elevated at 9764 pg/mL. She was started on a low dose of furosemide. She was seen in the ER again on 07/06/2019 with abdominal pain and constipation. CT abdomen/pelvis showed severe obstipation throughout the entire colon. There was continued high-grade obstruction involving the right ureter at the pelvic brim. She did require multiple enemas to get the constipation relieved. She had to be taken off the oral iron. Repeat CT abdomen/pelvis on 08/09/2019 showed no obvious progression compared to the July study. Her hemoglobin at that point was still low at 9.2 g. She was given parenteral iron replacement with a single infusion of Injectafer. She otherwise opted to just continue with observation/expectant management. On 02/06/2020 she was admitted to the hospital with acute encephalopathy in association with E. coli urinary tract infection and sepsis. With that illness she had some decline in renal function, but that did not improve with treatment. She remained moderately anemic. Hemoglobin was 8.6 g at discharge. Creatinine was back to baseline at 1.1 mg/dL. Her CT abdomen/pelvis showed progressive hydronephrosis and marked distention of the urinary bladder. There was mild bladder wall thickening. There was severe constipation. There was unchanged mild circumferential wall thickening of the rectum and greater soft tissue density surrounding the distal sigmoid colon just distal to the anastomotic suture line. There was no evidence of discrete mass or narrowing of the colon. I had seen her for a follow-up visit on 03/02/2020. At that point she was feeling better. I had discussed the possibility of proceeding with palliative urostomy/colostomy, but with her renal function having improved, she opted to continue with observation/symptomatic management. She has an outpatient visit with Dr. Ford on 04/24/2020. At that time she was having some rectal bleeding and she had a suspected rectal prolapse. She was deemed to be a poor surgical candidate. He recommended that she consider getting a second opinion at a tertiary care center. I had seen there for a follow-up visit on May 11, 2020. Her clinical status appeared stable and her renal function was still normal. She opted to just continue observation/symptomatic management. Her repeat CT abdomen/pelvis on August 08, 2020 showed resolution of previously described hydronephrosis of the right kidney. There was some mild cortical thinning of the left kidney with no hydronephrosis. There was evidence for extensive fecal retention and constipation. Extensive presacral soft tissue thickening appear to be most likely related to her prior surgery and radiation, and those findings appeared stable. There was evidence for healed deformity of the right parasymphyseal pubis, possibly from old healed fracture. There were advanced degenerative changes of the hip joints, worse on the right. There did not appear to be evidence of metastatic disease. With those findings, she opted to continue observation/symptomatic management. On 12/31/2020 she was admitted to the hospital after presenting to the emergency room with multiple complaints, most significantly abdominal pain and feeling of rectal prolapse seen. She was found to have atrial fibrillation with rapid ventricular response. She had converted to sinus rhythm with IV Cardizem, but then she had relatively low blood pressure. On further evaluation she was found to have urinary tract infection with associated sepsis. There was again evidence of hydronephrosis by CT scan, but with subsequent improvement noted by ultrasound. At that time she had become significantly anemic with her hemoglobin decreasing to 7.5 g. She was ttransfused PRBC. Her creatinine had increased to 1.8 mg/dL, but it was back down to 0.9 mg/dL at discharge. She is seen for a follow-up visit. She says she is feeling pretty good, and she has been back to doing light work at home. Her ECOG score is 1. Appetite is pretty good. She has no fever or night sweats. She does not complain of shortness of breath or cough, and she has not been having chest pain. She has not been having nausea or acid reflux symptoms. She has ongoing issues with her bowel function. She has not been aware of any blood in the stool. She has bladder incontinence, that is unchanged. She has no significant joint or bone pain. She does not complain of headache. She is having difficulty with balance. She has numbness in her feet. Medications: Amitriptyline HCl 1 Tablet (of 25 mg) Oral at bedtime, cycloSPORINE 1 Drop(s) (of 0.05 %) Emulsion Ophthalmic b.i.d., Diphenoxylate-Atropine 2 Tablet (of 2.5-0.025 mg) Oral four times a day, Fish Oil 1 Capsule Oral daily, Flaxseed Oil 1 Capsule Oral daily, hydroCHLOROthiazide 1 Tablet (of 12.5 mg) Oral daily, KlonoPIN 1 Tablet (of 0.5 mg) Oral daily, Levothyroxine Sodium 1 Tablet (of 137 mcg) Oral daily, Metoprolol Tartrate 1 Tablet (of 25 mg) Oral b.i.d., Sertraline HCl 1 Tablet (of 100 mg) Oral daily, traMADol HCl 1 Tablet (of 50 mg) Oral b.i.d. Allergies: No Known Allergies. Vital Signs: Performed on Feb 14, 2021 11:16 Height - 63.00 in Weight - 93.4 lbs (LOW) BSA - 1.40 sq.m BMI - 16.55 (LOW) Temperature - 97.1 F (LOW) Pulse - 76 /min Respiration - 18 /min BP - 110/57 mm(hg) O2 Sat - 97 % Pain - 0 Fatigue - 5 Physical Examination: Constitutional - She appears somewhat weak generally, Eyes - Sclerae nonicteric. Conjunctivae clear, ENMT - No lesions noted in the oral cavity, Hematologic/Lymphatic - No cervical, clavicular, or axillary adenopathy, Respiratory - Lungs are clear with good air movement bilaterally, Cardiovascular - Heart rhythm is regular. There is no murmur, gallop, or rub noted, Abdomen - Mildly distended but soft. Liver and spleen are not enlarged. There is no abdominal mass or ascites noted and there is no inguinal adenopathy, Extremities - No edema, Neurologic - No focal neurologic deficits noted. Lab/Imaging: Test performed on Feb 14, 2021 08:59 Iron 46 mcg/dL Sodium 141 mmol/L Vitamin B12 1592 pg/mL Vitamin D (25-Hydroxy), Total 40 ng/mL Iron Binding Capacity (TIBC) 187 mcg/dl Potassium 4.0 mmol/L % Iron Saturation 24.5 % Chloride 107 mmol/L CO2 27 mmol/L UIBC 141 mcg/dL Anion Gap 11.0 BUN 31 mg/dL Creatinine 1.0 mg/dL Cr Clearance (Est) 27.01 mL/min Glucose 86 mg/dL Osmolality - Calculated 298 mOsm/kg Calcium 8.5 mg/dL Protein, Total 7.3 g/dL Albumin 3.4 g/dL Globulin 3.9 g/dL Bilirubin, Total 0.2 mg/dL ALT (SGPT) 11 U/L AST (SGOT) 17 U/L Alkaline Phosphatase 78 IU/L WBC 4.8 10 3/uL RBC 3.18 10 6/uL HGB 9.3 g/dL HCT 31.1 % MCV 97.8 fL MCH 29.2 pg MCHC 29.9 g/dL RDW 14.3 % Platelet Count 256 10 3/cmm MPV 9.4 fL Neutrophils 2.94 10 3/uL Lymphocytes 1.1 10 3/uL Monocytes 0.5 10 3/uL Eosinophils 0.2 10 3/uL Basophils 0.0 10 3/uL Neutrophil % 61.6 % Lymphocyte % 23.4 % Monocyte % 9.6 % Eosinophil % 4.6 % Basophils % 0.6 % NRBC % 0 % Problem List: 1. Patient with CT evidence of increasing soft tissue in the pelvic area suspicious for recurrent/progressive malignancy. 2. She had moderately severe anemia, most likely due to iron deficiency. 3. There was also CT evidence of a new destructive process and suspected pathological fracture of the right parasymphyseal pubic bone. 4. 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 She was given adjuvant chemotherapy with 6 cycles of 5-FU/leucovorin, completed in January 1997. 5. She has additional history of having undergone cobalt radiation and hysterectomy for cervical cancer in 1962. 6. Hypertension. 7. Peripheral arterial disease. 8. Hypothyroidism. 9. She had developed chronic diarrhea following her radiation and subsequent colon surgery. 10. She has chronic bladder incontinence. 11. Anxiety/depression. Problems Addressed with this Encounter and Plan: 1. Patient with history of rectosigmoid colon cancer in 1996 and prior history of cervical cancer for which she had undergone hysterectomy and cobalt radiation in 1962. In April 2019 she was found to have CT evidence of increasing soft tissue in the pelvic area. The findings were felt to be suspicious for recurrent/progressive malignancy. She had associated bowel and bladder incontinence. I had seen her for follow-up in May 2019, and at that point she opted for conservative management and continued observation/expectant management. She then had hospital admissions for sepsis in association with urinary tract infection in June 2019 and again in January 2020. During that time, there had been worsening of her hydronephrosis by CT scan. There was associated distention of the urinary bladder, which appeared to be the most likely underlying cause for it. The soft tissue density surrounding the distal sigmoid colon appeared to have increased somewhat, but with unchanged mild circumferential wall thickening of the rectum. During further follow-up her CT scans showed no progression of soft tissue abnormality in the pelvic area, and there was improvement in the right hydronephrosis and in her renal function. Her clinical status also remained stable. 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 At this point she has ongoing problems associated with her bowel and bladder incontinence, but her clinical status appears stable. Thus far she still prefers to just deal with the incontinence, which is acceptable as long as her renal function remains adequate. The ultimate solution would be placement of palliative colostomy and urostomy, which she has consistently declined. As such, she has continued on observation/symptomatic management. I will see her again in 6 months. 2. She has had moderately severe anemia. At least some component appeared to be due to iron deficiency, and it did show some improved with parenteral iron replacement. She the remained just mildly anemic. However, with her recent hospitalization her hemoglobin had declined again to 7.5 g, and she was transfused PRBC. She remains mildly anemic with hemoglobin 9.3 g. Her transferrin saturation is in normal range at 24.5%. As such, it will just be followed expectantly. 3. There was CT evidence of a destructive process and suspected pathological fracture of the right parasymphyseal pubic bone. Her DEXA scan on 12/04/2020 showed only mild osteopenia, T score -0.5 in the lumbar spine, -0.1 in the left hip, and -0.8 in the right hip. Signed By: Derek Hogan M.D. <<Signature on File>>
== END 2021-02-14 08:48 | disposition home or self-care (01) ==
LOC: ONCMED 08:50
PROVIDERS: PCP Family Medicine; Visit Provider Internal Medicine Medical Oncology
DX: Z08 Encounter for follow-up examination after completed treatment for malignant neoplasm (principal); Z85.038 Personal history of other malignant neoplasm of large intestine; D50.0 Iron deficiency anemia secondary to blood loss (chronic); I10 Essential (primary) hypertension; I73.9 Peripheral vascular disease, unspecified; E03.9 Hypothyroidism, unspecified; R19.7 Diarrhea, unspecified; R32 Unspecified urinary incontinence; F41.9 Anxiety disorder, unspecified; F32.9 Major depressive disorder, single episode, unspecified; Z79.899 Other long term (current) drug therapy
CPT/HCPCS: 80053; 82306; 82607; 83540; 83550; 85025; 99214

== ENCOUNTER 2021-05-03 12:44 | Outpatient (CLI) | payer MEDICARE, OTHER, SELFPAY ==
[2021-05-03 14:00] LABS: Basophils % 0.4 %; Eosinophils # 0.2 10^3/uL (0.0-0.8); Eosinophils % 3.4 %; Hematocrit 33.3 % (37.0-47.0); Hemoglobin 10.2 g/dL (11.5-15.3); Lymphocytes # 1.5 10^3/uL (0.8-4.8); Lymphocytes % 27.7 %; Mean Corpuscular HGB Conc 30.6 g/dL (30.0-36.0); Mean Corpuscular Hemoglobin 29.7 pg (28.0-34.0); Mean Corpuscular Volume 97.1 fl (81-99); Mean Platelet Volume 9.7 fL (7.4-10.4); Monocytes # 0.7 10^3/uL (0.2-0.9); Monocytes % 13.7 %; Neutrophils # 2.89 10^3/uL (1.8-7.7); Neutrophils % 54.8 %; Nucleated Red Blood Cells % 0 %; Platelet Count 198 10^3/cmm (130-400); Red Blood Count 3.43 10^6/uL (4.1-5.3); White Blood Count 5.3 10^3/uL (4.0-10.0)
[2021-05-03 14:43] LABS: Alanine Aminotransferase 15 U/L (0-33); Albumin Level 3.8 g/dL (3.5-5.2); Alkaline Phosphatase 109 IU/L (35-105); Anion Gap 12.1 (5-19); Aspartate Amino Transferase 23 U/L (0-32); Blood Urea Nitrogen 26 mg/dL (8-23); Calcium 9.1 mg/dL (8.5-10.5); Carbon Dioxide 28 mmol/L (22-29); Chloride 103 mmol/L (98-107); Globulin 3.8 g/dL (1.3-4.6); Glucose 89 mg/dL (65-115); Iron 27 ug/dL (37-145); Osmolality Calculated 292 mOsm/kg (285-295); Percent Saturation 13.9 % (20-50); Potassium 4.1 mmol/L (3.5-5.1); Sodium 139 mmol/L (136-145); Total Bilirubin 0.3 mg/dL (0.15-1.2); Total Iron Binding Capacity 193 mcg/dl; Total Protein 7.6 g/dL (6.6-8.7); Unsaturated Iron Binding 166 ug/dL (112-347)
== END 2021-05-03 12:45 | disposition home or self-care (01) ==
PROVIDERS: PCP Family Medicine; Visit Provider Internal Medicine Medical Oncology
DX: D64.9 Anemia, unspecified (principal); I73.9 Peripheral vascular disease, unspecified; E03.9 Hypothyroidism, unspecified; Z79.899 Other long term (current) drug therapy
CPT/HCPCS: 36415; 80053; 83540; 83550; 85025

== ENCOUNTER 2021-09-12 13:54 | Outpatient (CLI) | payer MEDICARE, OTHER, SELFPAY ==
[2021-09-12 14:45] LABS: Basophils % 0.5 %; Eosinophils # 0.3 10^3/uL (0.0-0.8); Eosinophils % 4.1 %; Hematocrit 33.1 % (37.0-47.0); Hemoglobin 10.3 g/dL (11.5-15.3); Lymphocytes # 1.4 10^3/uL (0.8-4.8); Lymphocytes % 20.7 %; Mean Corpuscular HGB Conc 31.1 g/dL (30.0-36.0); Mean Corpuscular Hemoglobin 30.7 pg (28.0-34.0); Mean Corpuscular Volume 98.5 fl (81-99); Mean Platelet Volume 9.8 fL (7.4-10.4); Monocytes # 0.7 10^3/uL (0.2-0.9); Monocytes % 10.9 %; Neutrophils # 4.15 10^3/uL (1.8-7.7); Neutrophils % 63.5 %; Nucleated Red Blood Cells % 0 %; Platelet Count 216 10^3/cmm (130-400); Red Blood Count 3.36 10^6/uL (4.1-5.3); Red Cell Distribution Width 12.9 % (12.1-15.1); White Blood Count 6.5 10^3/uL (4.0-10.0)
[2021-09-12 15:07] LABS: Alanine Aminotransferase 16 U/L (0-33); Albumin Level 3.9 g/dL (3.5-5.2); Alkaline Phosphatase 91 IU/L (35-105); Anion Gap 15.1 (5-19); Aspartate Amino Transferase 18 U/L (0-32); Blood Urea Nitrogen 35 mg/dL (8-23); Calcium 8.7 mg/dL (8.5-10.5); Carbon Dioxide 25 mmol/L (22-29); Chloride 103 mmol/L (98-107); Globulin 3.5 g/dL (1.3-4.6); Glucose 103 mg/dL (65-115); Osmolality Calculated 296 mOsm/kg (285-295); Potassium 4.1 mmol/L (3.5-5.1); Sodium 139 mmol/L (136-145); Total Bilirubin 0.3 mg/dL (0.15-1.2); Total Protein 7.4 g/dL (6.6-8.7)
== END 2021-09-12 13:55 | disposition home or self-care (01) ==
LOC: ONCMED 14:00
PROVIDERS: PCP Family Medicine; Visit Provider Internal Medicine Medical Oncology
DX: D64.9 Anemia, unspecified (principal)
CPT/HCPCS: 36415; 80053; 85025

== ENCOUNTER 2021-09-17 06:40 | Outpatient (CLI) | payer MEDICARE, OTHER, SELFPAY ==
--- NOTE | 2021-09-17 19:48 | ONC FU_ITS ---
Dr. Hogan Patient Follow-Up Note Patient: Iraida Bay Unit #: [id number]: 1935 Dicatated By: Derek Hogan M.D.Date of Visit:Sep 17, 2021 Onc Med Follow-up/Prog Note Chief Complaint: Colon cancer/suspected pelvic malignancy. 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 She also has been anemic. 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 Pathology at that time showed invasive moderately differentiated mucinous adenocarcinoma, stage IIA (T3, N0, M0). She had previously undergone cobalt radiation for cervical cancer in 1962. As such, her adjuvant therapy for the colon cancer was limited to 6 cycles of adjuvant 5-FU/leucovorin chemotherapy, which she completed in January 1997. She had developed chronic problems with both bowel and bladder function following the surgery, but as of her office visit in December 1998 there had been no evidence for recurrence of the colon cancer. Thereafter she had failed to return for further follow-up. On 04/25/2019 she was admitted to the hospital after presenting to the emergency room with increasing weakness and falling. At that point she was mildly anemic with hemoglobin 10.7 g, but with normal WBC at 6200 and normal platelet count at 243,000. Chem profile showed borderline renal function with BUN 26 and creatinine 1.1 mg/dL. Liver enzymes were minimally elevated. Her CT abdomen/pelvis showed severe stomach and colonic distention with marked fecal material throughout the entire colon. In comparison to a prior CT from October 2017 there was increasing soft tissue in the pelvis with presacral soft tissue extending to surround the rectum and more anteriorly in the perirectal fat. The findings were felt to be suspicious for recurrent or progressive tumor. There was evidence of moderate right hydronephrosis, and there was evidence for a new destructive process and probable pathologic fracture involving the right para symphyseal pubic bone. Osseous metastatic disease was suspected. During the hospitalization she did have treatment for Escherichia coli urinary tract infection, which was felt to be a significant contributing factor to her illness. Her obstipation was successfully managed with lactulose and Dulcolax. During the hospitalization there was further decline in her hemoglobin to 8.2 g. Her red cell indices were normal, but her serum iron studies did show low transferrin saturation at 11.3%, consistent with iron deficiency. The ferritin was mildly elevated at 297 ng/mL. B12 level was > 2000 pg/mL. She was seen here on 05/06/2019. Her CBC at that time showed adequate hemoglobin at 9.9 g with white blood cell count 7600 and platelet count 385,000. Sed rate was elevated at 76 mm/hour. CRP was elevated at 19.4 mg/dL. She had borderline renal function with BUN 28 and creatinine one-point her renal function was normal with BUN 15 and creatinine 0.8 mg/dL. Her serum iron studies showed low transferrin saturation at 13.7%. There was no monoclonal protein detected on her serum protein electrophoresis. A restaging PET/CT on 05/08/2019 showed extensive postsurgical and radiation therapy changes at the pelvis without clear evidence for recurrent malignancy. There was significant FDG activity at a nonhealed fracture of the right pubic ramus, but inflammatory activity could not be differentiated from malignant uptake in a pathologic fracture. There was also mild activity in the bilateral sacral ala and the pelvic bones were noted to have coarse trabecula consistent with early sacral insufficiency fracture changes versus early osseous metastatic disease. She was recommended to start oral iron supplementation with ferrous sulfate for the iron deficiency. On 06/17/2019 she was seen in the emergency room with acute mental status changes. Her clinical evaluation by clinical evaluation she appeared to have septic shock. She was admitted to [facility] for 5 days. Shortly after discharge she was seen in the emergency room again with lower extremity edema. She was thought to have mild congestive heart failure. Her B-CASH SURRENDER CALCULATOR level was elevated at 9764 pg/mL. She was started on a low dose of furosemide. She was seen in the ER again on 07/06/2019 with abdominal pain and constipation. CT abdomen/pelvis showed severe obstipation throughout the entire colon. There was continued high-grade obstruction involving the right ureter at the pelvic brim. She did require multiple enemas to get the constipation relieved. She had to be taken off the oral iron. Repeat CT abdomen/pelvis on 08/09/2019 showed no obvious progression compared to the July study. Her hemoglobin at that point was still low at 9.2 g. She was given parenteral iron replacement with a single infusion of Injectafer. She otherwise opted to just continue with observation/expectant management. On 02/06/2020 she was admitted to the hospital with acute encephalopathy in association with E. coli urinary tract infection and sepsis. With that illness she had some decline in renal function, but that did not improve with treatment. She remained moderately anemic. Hemoglobin was 8.6 g at discharge. Creatinine was back to baseline at 1.1 mg/dL. Her CT abdomen/pelvis showed progressive hydronephrosis and marked distention of the urinary bladder. There was mild bladder wall thickening. There was severe constipation. There was unchanged mild circumferential wall thickening of the rectum and greater soft tissue density surrounding the distal sigmoid colon just distal to the anastomotic suture line. There was no evidence of discrete mass or narrowing of the colon. I had seen her for a follow-up visit on 03/02/2020. At that point she was feeling better. I had discussed the possibility of proceeding with palliative urostomy/colostomy, but with her renal function having improved, she opted to continue with observation/symptomatic management. She had an outpatient visit with Dr. Ford on 04/24/2020. At that time she was having some rectal bleeding and she had a suspected rectal prolapse. She was deemed to be a poor surgical candidate. He recommended that she consider getting a second opinion at a tertiary care center. I had seen there for a follow-up visit on May 11, 2020. Her clinical status appeared stable and her renal function was still normal. She opted to just continue observation/symptomatic management. Her repeat CT abdomen/pelvis on August 08, 2020 showed resolution of previously described hydronephrosis of the right kidney. There was some mild cortical thinning of the left kidney with no hydronephrosis. There was evidence for extensive fecal retention and constipation. Extensive presacral soft tissue thickening appear to be most likely related to her prior surgery and radiation, and those findings appeared stable. There was evidence for healed deformity of the right parasymphyseal pubis, possibly from old healed fracture. There were advanced degenerative changes of the hip joints, worse on the right. There did not appear to be evidence of metastatic disease. With those findings, she opted to continue observation/symptomatic management. Her other medical illnesses include hypertension, peripheral arterial disease, hypothyroidism, and anxiety/depression. She has a 40-year pack history of smoking, but she had quit smoking more than 25 years ago. On 12/31/2020 she was admitted to the hospital after presenting to the emergency room with multiple complaints, most significantly abdominal pain and feeling of rectal prolapse seen. She was found to have atrial fibrillation with rapid ventricular response. She had converted to sinus rhythm with IV Cardizem, but then she had relatively low blood pressure. On further evaluation she was found to have urinary tract infection with associated sepsis. There was again evidence of hydronephrosis by CT scan, but with subsequent improvement noted by ultrasound. At that time she had become significantly anemic with her hemoglobin decreasing to 7.5 g. She was ttransfused PRBC. Her creatinine had increased to 1.8 mg/dL, but it was back down to 0.9 mg/dL at discharge. As of her follow-up visit in January 2021 she remained mildly anemic at 9.3 g, but with serum iron studies showing normal transferrin saturation at 24.5%. She continued observation/symptomatic management. She is seen for a follow-up visit. She says she has been feeling pretty good. Her energy is okay most of the time, and she stays pretty active. ECOG score is 1. She says her appetite is better than it was. Her weight, though, has gradually declined over the past year. She does not have fever or night sweats. She has not had sore mouth or throat. She does not complain of cough, and she has not been having shortness of breath or chest pain. She does not have nausea or abdominal pain. She occasionally has a little acid reflux. She has ongoing problems with bowel and bladder incontinence. She has no significant joint or bone pain. She does not complain of headache or dizziness. She does complain that her right leg tends to go numb after she has been sitting for any length of time. Medications: Amitriptyline HCl 1 Tablet (of 25 mg) Oral at bedtime, cycloSPORINE 1 Drop(s) (of 0.05 %) Emulsion Ophthalmic b.i.d., Diphenoxylate-Atropine 2 Tablet (of 2.5-0.025 mg) Oral four times a day, Fish Oil 1 Capsule Oral daily, Flaxseed Oil 1 Capsule Oral daily, hydroCHLOROthiazide 1 Tablet (of 12.5 mg) Oral daily, KlonoPIN 1 Tablet (of 0.5 mg) Oral daily, Levothyroxine Sodium 1 Tablet (of 137 mcg) Oral daily, Metoprolol Tartrate 1 Tablet (of 25 mg) Oral b.i.d., Sertraline HCl 1 Tablet (of 100 mg) Oral daily, traMADol HCl 1 Tablet (of 50 mg) Oral b.i.d. Allergies: No Known Allergies. Vital Signs: Performed on Sep 17, 2021 15:48 Height - 63.00 in Weight - 89.6 lbs (LOW) BSA - 1.37 sq.m BMI - 15.87 (LOW) Temperature - 97.4 F (LOW) Pulse - 50 /min (LOW) Respiration - 16 /min BP - 125/68 mm(hg) O2 Sat - 92 % (LOW) Pain - 0 Fatigue - 0 Physical Examination: Constitutional - She looks pretty good generally, Eyes - Sclerae nonicteric. Conjunctivae clear, ENMT - No lesions noted in the oral cavity, Hematologic/Lymphatic - No cervical, clavicular, or axillary adenopathy, Respiratory - Lungs are clear with good air movement bilaterally, Cardiovascular - Heart rhythm is regular. There is no murmur, gallop, or rub noted, Abdomen - Mildly distended but soft. Liver and spleen are not enlarged. There is no abdominal mass or ascites noted and there is no inguinal adenopathy, Extremities - No edema, Neurologic - No focal neurologic deficits noted. Lab/Imaging: Test performed on Sep 12, 2021 14:24 Sodium 139 mmol/L Potassium 4.1 mmol/L Chloride 103 mmol/L CO2 25 mmol/L Anion Gap 15.1 BUN 35 mg/dL Creatinine 1.1 mg/dL Cr Clearance (Est) 24.5500 mL/min Glucose 103 mg/dL Osmolality - Calculated 296 mOsm/kg Calcium 8.7 mg/dL Protein, Total 7.4 g/dL Albumin 3.9 g/dL Globulin 3.5 g/dL Bilirubin, Total 0.3 mg/dL ALT (SGPT) 16 U/L AST (SGOT) 18 U/L Alkaline Phosphatase 91 IU/L WBC 6.5 10 3/uL RBC 3.36 10 6/uL HGB 10.3 g/dL HCT 33.1 % MCV 98.5 fl MCH 30.7 pg MCHC 31.1 g/dL RDW 12.9 % Platelet Count 216 10 3/cmm MPV 9.8 fL Neutrophils 4.15 10 3/uL Lymphocytes 1.4 10 3/uL Monocytes 0.7 10 3/uL Eosinophils 0.3 10 3/uL Basophils 0.0 10 3/uL Neutrophil % 63.5 % Lymphocyte % 20.7 % Monocyte % 10.9 % Eosinophil % 4.1 % Basophils % 0.5 % NRBC % 0 % Problem List: 1. Patient with CT evidence of increasing soft tissue in the pelvic area suspicious for recurrent/progressive malignancy. There was also CT evidence of a new destructive process and suspected pathological fracture of the right parasymphyseal pubic bone. 2. 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 She was given adjuvant chemotherapy with 6 cycles of 5-FU/leucovorin, completed in January 1997. 3. She has additional history of having undergone cobalt radiation and hysterectomy for cervical cancer in 1962. 4. She has had recurrent episodes of urinary tract infection/sepsis with associated hydronephrosis and renal failure. 5. She has mild to moderately severe anemia, most likely due to iron deficiency. 6. Hypertension. 7. Peripheral arterial disease. 8. Hypothyroidism. 9. She had developed chronic diarrhea following her radiation and subsequent colon surgery, and she has chronic bowel and bladder incontinence. 10. Anxiety/depression. Problems Addressed with this Encounter and Plan: 1. Patient with history of rectosigmoid colon cancer in 1996 and prior history of cervical cancer for which she had undergone hysterectomy and cobalt radiation in 1962. In April 2019 she was found to have CT evidence of increasing soft tissue in the pelvic area. The findings were felt to be suspicious for recurrent/progressive malignancy. She had associated bowel and bladder incontinence. I had seen her for follow-up in May 2019, and at that point she opted for conservative management and continued observation/symptomatic management. She then had hospital admissions for sepsis in association with urinary tract infection in June 2019, in January 2020, and in December 2020. During that time, there had been worsening of her hydronephrosis by CT scan. There was associated distention of the urinary bladder, which appeared to be the most likely underlying cause for it. The soft tissue density surrounding the distal sigmoid colon appeared to have increased somewhat, but with unchanged mild circumferential wall thickening of the rectum. During further follow-up her CT scans showed no progression of soft tissue abnormality in the pelvic area, and there was improvement in the right hydronephrosis and in her renal function. Her clinical status also remained stable. 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 If there is further decline in her renal function with recurrence of hydronephrosis, she would require some form of urinary diversion procedure. However, as long as her renal function remains adequate, the decision to proceed with a urinary diversion and/or colostomy placement would be more of a [id number] issue. At least for now she prefers to continue with observation/symptomatic management. I will see her again in 6 months, or sooner as needed. 2. She has had moderately severe anemia. At least some component appeared to be due to iron deficiency, and it did show some improved with parenteral iron replacement. She the remained just mildly anemic. However, with her recent hospitalization her hemoglobin had declined again to 7.5 g, and she was transfused PRBC. During follow-up she has remained mildly anemic, and I have continue to follow it expectantly. 3. There was CT evidence of a destructive process and suspected pathological fracture of the right parasymphyseal pubic bone. Her DEXA scan on 12/04/2020 showed only mild osteopenia, T score -0.5 in the lumbar spine, -0.1 in the left hip, and -0.8 in the right hip. Signed By: Derek Hogan M.D. <<Signature on File>>
== END 2021-09-17 06:41 | disposition home or self-care (01) ==
LOC: ONCMED 06:42
PROVIDERS: PCP Family Medicine; Visit Provider Internal Medicine Medical Oncology
DX: D64.9 Anemia, unspecified (principal); M84.454A Pathological fracture, pelvis, initial encounter for fracture; I10 Essential (primary) hypertension; I73.9 Peripheral vascular disease, unspecified; E03.9 Hypothyroidism, unspecified; K52.9 Noninfective gastroenteritis and colitis, unspecified; Z85.41 Personal history of malignant neoplasm of cervix uteri; Z85.030 Personal history of malignant carcinoid tumor of large intestine
CPT/HCPCS: 99214

== ENCOUNTER 2022-04-10 13:05 | Oncology outpatient (recurring) (ONCR) | payer MEDICARE, OTHER, SELFPAY ==
[2022-04-08 12:58] LABS: Basophils % 0.4 %; Eosinophils # 0.2 10^3/uL (0.0-0.8); Eosinophils % 2.5 %; Hematocrit 31.5 % (37.0-47.0); Lymphocytes # 1.4 10^3/uL (0.8-4.8); Lymphocytes % 18.7 %; Mean Corpuscular HGB Conc 31.7 g/dL (30.0-36.0); Mean Corpuscular Hemoglobin 30.8 pg (28.0-34.0); Mean Corpuscular Volume 96.9 fl (81-99); Mean Platelet Volume 9.2 fL (7.4-10.4); Monocytes # 0.7 10^3/uL (0.2-0.9); Monocytes % 9.7 %; Neutrophils # 4.98 10^3/uL (1.8-7.7); Neutrophils % 68.2 %; Nucleated Red Blood Cells % 0 %; Platelet Count 201 10^3/cmm (130-400); Red Blood Count 3.25 10^6/uL (4.1-5.3); Red Cell Distribution Width 12.8 % (12.1-15.1); White Blood Count 7.3 10^3/uL (4.0-10.0)
[2022-04-08 13:34] LABS: Carcinoembryonic Antigen 4.4 ng/mL (0.0-4.7)
[2022-04-08 13:45] LABS: Alanine Aminotransferase 19 U/L (0-33); Albumin Level 3.7 g/dL (3.5-5.2); Alkaline Phosphatase 86 IU/L (35-105); Anion Gap 16.1 (5-19); Aspartate Amino Transferase 24 U/L (0-32); Blood Urea Nitrogen 37 mg/dL (8-23); Calcium 9.1 mg/dL (8.5-10.5); Carbon Dioxide 22 mmol/L (22-29); Chloride 107 mmol/L (98-107); Glucose 98 mg/dL (65-115); Osmolality Calculated 301 mOsm/kg (285-295); Potassium 4.1 mmol/L (3.5-5.1); Sodium 141 mmol/L (136-145); Total Bilirubin 0.2 mg/dL (0.15-1.2); Total Protein 7.7 g/dL (6.6-8.7)
[2022-04-08 14:15] LABS: Iron 45 ug/dL (37-145); Percent Saturation 20.9 % (20-50); Total Iron Binding Capacity 215 mcg/dl; Unsaturated Iron Binding 170 ug/dL (112-347)
== END 2022-05-01 23:59 | disposition home or self-care (01) ==
PROVIDERS: Nurse Practitioner; PCP Family Medicine; Visit Provider Internal Medicine Medical Oncology
DX: Z08 Encounter for follow-up examination after completed treatment for malignant neoplasm (principal); D64.9 Anemia, unspecified; Z85.41 Personal history of malignant neoplasm of cervix uteri; Z92.3 Personal history of irradiation; Z90.710 Acquired absence of both cervix and uterus; N31.9 Neuromuscular dysfunction of bladder, unspecified; N39.498 Other specified urinary incontinence; K59.09 Other constipation; Z85.048 Personal history of other malignant neoplasm of rectum, rectosigmoid junction, and anus
CPT/HCPCS: 36415; 80053; 82378; 83540; 83550; 85025; 99214

== ENCOUNTER 2022-09-02 12:52 | Inpatient (IN) | payer MEDICARE, OTHER, SELFPAY ==
[2022-09-02] VITALS (12 sets, daily range): BP systolic 115–138; BP diastolic 61–85; PULSE 86–152; RESP 16–30; TEMP 36.4–36.7; O2SAT 90–98
--- NOTE | 2022-09-02 13:34 | ECG_ITS ---
[facility] Test Date: 2022-09-02 Pat Name: Iraida Bay Department: Room: Gender: Female Cook Mess: : 1935 Requested By: Joaquin Squires Order Number: [id number] Jeancarlos MD: Cheikh Holden M.D. Measurements Intervals [place] Rate: 156 P: 0 OH: 0 QRS: -1 QRSD: 122 T: 88 QT: 288 QTc: 464 Interpretive Statements ATRIAL FIBRILLATION WITH RAPID VENTRICULAR RESPONSE ANTEROSEPTAL MYOCARDIAL INFARCTION , OF INDETERMINATE AGE [40+ ms Q WAVE IN V1-V4] CRITICAL TEST RESULT INTERPRETATION BASED ON A DEFAULT AGE OF 40 YEARS Compared to ECG 01/04/2021 07:25:54 Myocardial infarct finding now present Sinus rhythm no longer present Left-axis deviation no longer present Electronically Signed On 09-03-2022 9:26:21 PROFESSIONAL APPLICATION DESIGNER by Cheikh Holden M.D. [id number]
--- NOTE | 2022-09-02 13:39 | XRR_ITS ---
PROCEDURE INFORMATION: Exam: XR Chest Exam date and time: 09/02/2022 1:51 PM Age: 86 years old Clinical indication: Shortness of breath; Additional info: SOB TECHNIQUE: Imaging protocol: Radiologic exam of the chest. Views: 1 view. COMPARISON: CR XR chest 1V portable [id number] 01/02/2021 12:13 PM FINDINGS: Lungs: Left perihilar parenchymal density is seen likely representing pneumonia. This finding was not seen on prior examination. The lungs are otherwise clear Pleural spaces: Unremarkable. No pleural effusion. No pneumothorax. Heart/Mediastinum: Unremarkable. No cardiomegaly. Bones/joints: Unremarkable. There is a breast prosthesis present on the right side XR/XR chest 1V portable [id number] IMPRESSION: 1. Left upper lobe pneumonia 2. Otherwise negative chest examination
--- NOTE | 2022-09-02 13:42 | ED_ITS ---
HPI - SOB/Dyspnea General: Chief Complaint: Shortness of Breath/Dyspnea Stated Complaint: Sob, Leg weakness Time Seen by Provider: 09/02/22 13:36 History of Present Illness: HPI Narrative: 86-year-old female presents with some shortness of breath and weakness was gone for couple days. She feels like her heart pain beating fast and she is can have some palpations. Patient reports she not ever had a thing like this before. She has no history of atrial fib or arrhythmias. Patient denies any alcohol use recently. She is on levothyroxine for thyroid medication. No reports of fever, chills, nausea vomiting or other systemic complaints. Associated symptoms: Reports palpitations; Deny abdominal pain, chest pain, fever(s), nausea or vomiting Review of Systems Const: Reports: fatigue and malaise; Denies: fever(s), chills or body aches Eyes: Denies: change in vision or eye discomfort ENMT: Denies: throat pain or ear or mastoid pain Card: Reports: palpitations and irregular heart rhythm; Denies: chest pain Resp: Reports: dyspnea; Denies: productive cough or wheezing GI: Denies: abdominal pain, nausea or vomiting : Denies: flank pain or difficulty voiding Musc: Denies: neck pain or back pain Skin/Breast: Denies: rash Neuro: Denies: headache(s) or numbness in extremities PFS ED PFSH: Medical History (Updated 09/02/22 @ 15:32 by Boogie Mckenzie DO) Anemia Anxiety and depression Atrial fibrillation Chronic constipation History of cervical cancer Treated with cobalt radiation Hydronephrosis Bilateral hydronephrosis associated with neurogenic bladder Hypertension Hypothyroidism Intrinsic sphincter deficiency Peripheral arterial disease Rectosigmoid cancer Recurrent UTI Surgical History (Updated 04/12/22 @ 17:08 by Derek Hogan MD) H/O: hysterectomy (1962) History of colon resection (1995) Low anterior resection History of hemicolectomy S/P angioplasty with stent Status post bilateral iliac stents and angioplasty of the left common femoral artery and superficial femoral artery. 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: [employer] Physical Exam Const: COMMON NORMALS: patient oriented x3, healthy appearing, alert and well nourished HENMT: COMMON NORMALS: hearing grossly normal bilaterally and moist oral mucous membranes Eye: COMMON NORMALS: Equal, round and reactive pupils present and EOMs intact bilaterally PUPIL: Yes Equal, round and reactive pupils present Resp: COMMON NORMALS: normal respiratory effort and No retractions Cardio: COMMON NORMALS: Peripheral pulses 2+ throughout RATE: tachycardic RHYTHM: abnormal rhythm irregularly irregular PERIPHERAL PULSES: Peripheral pulses 2+ throughout GI: COMMON NORMALS: Soft to palpation and non-tender PALPATION: Yes Soft to palpation Extremity: COMMON NORMALS: normal to inspection and full ROM Neuro: COMMON NORMALS: patient oriented x3, moves all extremities, no focal motor deficits and no sensory deficits noted SENSORIUM/ORIENTATION: Yes alert Psych: COMMON NORMALS: mental status grossly normal, cooperative and speech normal SPEECH: Yes normal speech Skin: COMMON NORMALS: no rashes or lesions noted GENERAL SKIN EXAM: no rashes or lesions noted Course Vital Signs: Vital signs: Vital Signs Temperature 98.0 F 09/02/22 13:27 Pulse Rate 119 H 09/02/22 15:30 Respiratory Rate 23 H 09/02/22 15:30 Blood Pressure 138/61 09/02/22 15:30 Pulse Oximetry 94 09/02/22 15:30 Oxygen Delivery Me thod 09/02/22 15:30 Oxygen Flow Rate 1 09/02/22 15:30 MDM - SOB/Dyspnea Medical Decision Making Patient with potential new onset atrial fib. She denies any history of it however chart review shows up possible history of atrial fib. Patient is currently on diltiazem 240 mg per Lab Data 09/02/22 14:33 09/02/22 14:33 Labs/Radiology: Radiology Impressions Chest X-Ray 09/02/22 13:39 IMPRESSION: 1. Left upper lobe pneumonia 2. Otherwise negative chest examination Laboratory Results WBC 9.9 10^3/uL (4.0-10.0) 09/02/22 14:33 RBC 3.34 10^6/uL (4.1-5.3) L 09/02/22 14:33 Hgb 10.1 g/dL (11.5-15.3) L 09/02/22 14:33 Hct 34.3 % (37.0-47.0) L 09/02/22 14:33 MCV 102.7 fl (81-99) H 09/02/22 14:33 MCH 30.2 pg (28.0-34.0) 09/02/22 14:33 MCHC 29.4 g/dL (30.0-36.0) L 09/02/22 14:33 RDW 16.4 % (12.1-15.1) H 09/02/22 14:33 Plt Count 243 10^3/cmm (130-400) 09/02/22 14:33 MPV 9.7 fL (7.4-10.4) 09/02/22 14:33 Neut % (Auto) 79.4 % 09/02/22 14:33 Lymph % (Auto) 10.1 % 09/02/22 14:33 Bay % (Auto) 8.2 % 09/02/22 14:33 Eos % (Auto) 0.3 % 09/02/22 14:33 Baso % (Auto) 0.4 % 09/02/22 14:33 Neut # (Auto) 7.82 10^3/uL (1.8-7.7) H 09/02/22 14:33 Lymph # (Auto) 1.0 10^3/uL (0.8-4.8) 09/02/22 14:33 Bay # (Auto) 0.8 10^3/uL (0.2-0.9) 09/02/22 14:33 Eos # (Auto) 0.0 10^3/uL (0.0-0.8) 09/02/22 14:33 Baso # (Auto) 0.0 10^3/uL (0.0-0.1) 09/02/22 14:33 Nucleated RBC % (auto) 1.6 % 09/02/22 14:33 Nucleated RBCs # 0.2 /100WBC 09/02/22 14:33 D-Dimer 1.55 ug/mIFEU (0-0.59) H 09/02/22 14:33 Sodium 134 mmol/L (136-145) L 09/02/22 14:33 Potassium 4.4 mmol/L (3.5-5.1) 09/02/22 14:33 Chloride 102 mmol/L (98-107) 09/02/22 14:33 Carbon Dioxide 18 mmol/L (22-29) L 09/02/22 14:33 Anion Gap 18.4 (5-19) 09/02/22 14:33 BUN 48 mg/dL (8-23) H 09/02/22 14:33 Creatinine 1.5 mg/dL (0.5-0.9) H 09/02/22 14:33 GFR Calculation Not Reportable 09/02/22 14:33 Glucose 124 mg/dL (65-115) H 09/02/22 14:33 Calculated Osmolality 292 mOsm/kg (285-295) 09/02/22 14:33 Calcium 8.4 mg/dL (8.5-10.5) L 09/02/22 14:33 Magnesium 1.9 mg/dL (1.7-2.3) 09/02/22 14:33 Total Bilirubin 0.6 mg/dL (0.15-1.2) 09/02/22 14:33 AST 25 U/L (0-32) 09/02/22 14:33 ALT 15 U/L (0-33) 09/02/22 14:33 Alkaline Phosphatase 99 U/L (35-105) 09/02/22 14:33 NT-Pro-B Natriuret Pep 60694 pg/mL (0-450) H 09/02/22 14:33 Total Protein 7.2 g/dL (6.6-8.7) 09/02/22 14:33 Albumin 3.2 g/dL (3.5-5.2) L 09/02/22 14:33 Globulin 4.0 g/dL (1.3-4.6) 09/02/22 14:33 TSH 0.32 uIU/mL (0.27-4.20) 09/02/22 14:33 Discharge Plan Discharge Patient Disposition: Admitted As Inpatient Clinical Impression: Atrial fibrillation Qualifiers: Atrial fibrillation type: unspecified Qualified Code(s): I48.91 - Unspecified atrial fibrillation Community acquired pneumonia Qualifiers: Laterality: left Lung location: upper lobe of lung Qualified Code(s): J18.9 - Pneumonia, unspecified organism Condition: Stable Coding Level of Care Code ED Volcanologist for [facility] Fwd Exam Comprehensive
[2022-09-02] MEDS: dilTIAZem 5 mg/mL SDV 5 mL 10 MG IVP (13:54)
[2022-09-02] MEDS: sodium chloride 0.9% 500 ML IV (13:55)
[2022-09-02 14:42] LABS: Basophils % 0.4 %; Eosinophils % 0.3 %; Hematocrit 34.3 % (37.0-47.0); Hemoglobin 10.1 g/dL (11.5-15.3); Lymphocytes % 10.1 %; Mean Corpuscular HGB Conc 29.4 g/dL (30.0-36.0); Mean Corpuscular Hemoglobin 30.2 pg (28.0-34.0); Mean Corpuscular Volume 102.7 fl (81-99); Mean Platelet Volume 9.7 fL (7.4-10.4); Monocytes # 0.8 10^3/uL (0.2-0.9); Monocytes % 8.2 %; Neutrophils # 7.82 10^3/uL (1.8-7.7); Neutrophils % 79.4 %; Nucleated Red Blood Cells # 0.2 /100WBC; Nucleated Red Blood Cells % 1.6 %; Platelet Count 243 10^3/cmm (130-400); Red Blood Count 3.34 10^6/uL (4.1-5.3); Red Cell Distribution Width 16.4 % (12.1-15.1); White Blood Count 9.9 10^3/uL (4.0-10.0)
[2022-09-02] MEDS: dilTIAZem 5 mg/mL SDV 5 mL 20 MG IVP (14:44)
--- NOTE | 2022-09-02 15:01 | ECG_ITS ---
[facility] Test Date: 2022-09-02 Pat Name: Iraida Bay Department: Room: Gender: Female Funds Transfer Clerk: : 1935 Requested By: Boogie Mckenzie Order Number: [id number] Jeancarlos MD: Cheikh Holden M.D. Measurements Intervals Hustle Rate: 113 P: 0 MO: 0 QRS: -16 QRSD: 117 T: 57 QT: 342 QTc: 469 Interpretive Statements ATRIAL FIBRILLATION WITH RAPID VENTRICULAR RESPONSE ANTEROSEPTAL MYOCARDIAL INFARCTION , OF INDETERMINATE AGE [40+ ms Q WAVE IN V1-V4] Compared to ECG 09/02/2022 13:34:25 No significant changes Electronically Signed On 09-03-2022 9:26:25 SENIOR HEALTH CONSULTANT by Cheikh Holden M.D. [id number]
[2022-09-02] MEDS: dilTIAZem 60 mg Tablet PO (15:16)
[2022-09-02 15:18] LABS: Alanine Aminotransferase 15 U/L (0-33); Albumin Level 3.2 g/dL (3.5-5.2); Alkaline Phosphatase 99 U/L (35-105); Anion Gap 18.4 (5-19); Aspartate Amino Transferase 25 U/L (0-32); Blood Urea Nitrogen 48 mg/dL (8-23); Calcium 8.4 mg/dL (8.5-10.5); Carbon Dioxide 18 mmol/L (22-29); Chloride 102 mmol/L (98-107); Glucose 124 mg/dL (65-115); Magnesium 1.9 mg/dL (1.7-2.3); Osmolality Calculated 292 mOsm/kg (285-295); Potassium 4.4 mmol/L (3.5-5.1); Sodium 134 mmol/L (136-145); Thyroid Stimulating Hormone 0.32 uIU/mL (0.27-4.20); Total Bilirubin 0.6 mg/dL (0.15-1.2); Total Protein 7.2 g/dL (6.6-8.7)
--- NOTE | 2022-09-02 15:31 | PC.PHAR ---
pt sts she takes all meds on updated med list- unable to call and verify last filled on pts eye drops do to pts pharmacy being closed for the holiday
[2022-09-02 15:39] LABS: D Dimer 1.55 ug/mIFEU (0-0.59)
[2022-09-02] MEDS: sodium chloride 0.9% 1,000 ML 75 ML IV (15:54)
[2022-09-02 16:13] LABS: NT Pro B Type Natriuretic Pept 33193 pg/mL (0-450)
--- NOTE | 2022-09-02 17:39 | P.HP_ITS ---
Providers/Chief Complaint Admitting Physician: Grant Duvall MD Primary Care Provider: Scott Lau MD Chief Complaint: Sob, Leg weakness History of Present Illness Iraida Bay is a 86 year old female with history of rectosigmoid cancer s/p surgery, neurogenic bladder, hydronephrosis, A. fib not a candidate anticoagulation, presented today with chief complaint of concerns related to her urinary incontinence. In the ER she was diagnosed with A. fib RVR required Cardizem IV push, patient is not able to recall if she has ever been diagnosed with A. fib however review of records revealed concern for A. fib with sinus pauses in the past not a candidate of anticoagulation, she received iron transfusion for iron deficiency anemia,. Patient has been noticing some pal pitations, shortness of breath. She has not noticed any fever, vomiting. is at the bedside. I requested D-dimer and BNP. Clinically patient is little fluid overloaded. We will discontinue IV fluids. Currently patient is requiring 1 to 2 L of oxygen. Does not use oxygen at home. Review of Systems Const: Reports: chills and body aches Eyes: Denies: change in vision ENMT: Denies: throat pain Card: Reports: palpitations; Denies: chest pain Resp: Reports: dyspnea GI: Denies: abdominal pain : Reports: difficulty voiding; Denies: flank pain Musc: Denies: neck pain Skin/Breast: Denies: rash Neuro: Denies: headache(s) Psych: Reports: depression Endo: Reports: polyuria Jaswinder/Lymph: Denies: easy bruising All/Imm: Denies: urticaria Medications/Allergies Home Medications Medication Instructions Recorded Confirmed Last Taken Type amitriptyline 25 mg tablet 25 mg PO BEDTIME@2100 09/06/19 09/02/22 09/01/22 History clonazepam 0.5 mg tablet 0.5 mg PO BID PRN Anxiety 09/06/19 09/02/22 02/05/20 History primidone 50 mg tablet 50 mg PO TID PRN Tremor(S) 09/06/19 09/02/22 Unknown History cyclosporine 0.05 % eye drops 1 drop ophthalmic (eye) Q12H 09/13/19 09/02/22 09/02/22 History (Restasis MultiDose) flaxseed oil 1,000 mg capsule 1,000 mg PO DAILY 09/13/19 09/02/22 09/02/22 History sertraline 100 mg tablet 100 mg PO Q24H 09/13/19 09/02/22 09/02/22 History vitamin B complex (B 1 tab PO DAILY 09/13/19 09/02/22 09/02/22 History Complex-Vitamin B12 tablet) levothyroxine 137 mcg tablet 137 mcg PO DAILY 02/06/20 09/02/22 09/02/22 History multivitamin (Multiple Vitamins 1 tab PO DAILY 02/06/20 09/02/22 09/02/22 Histor y tablet) Lactobacillus acidophilus 10,000 mmu cells PO BID #60 caps 02/10/20 09/02/22 09/02/22 Rx bisacodyl 5 mg tablet,delayed 5 mg PO DAILY #30 tabs 02/10/20 09/02/22 09/02/22 Rx release cholecalciferol (vitamin D3) 25 25 mcg PO DAILY 09/02/22 09/02/22 09/02/22 History mcg (1,000 unit) tablet (Vitamin D3) diltiazem HCl 240 mg 240 mg PO DAILY 09/02/22 09/02/22 09/02/22 History capsule,extended release 24 hr diphenoxylate-atropine 2.5 1 tab PO DAILY 09/02/22 09/02/22 09/02/22 History mg-0.025 mg tablet nitrofurantoin macrocrystal 100 mg 100 mg PO DAILY 09/02/22 09/02/22 09/02/22 History capsule omega 3-bpn-vse-fish oil 1,000 mg 1 cap PO DAILY 09/02/22 09/02/22 09/02/22 History (120 mg-180 mg) capsule (Fish Oil) Allergies Allergy/AdvReac Type Severity Reaction Status Date / Time Penicillins Allergy ALGY-Hives Verified 09/02/22 15:23 PFSH Acute PFSH: Medical History Anemia Anxiety and depression Atrial fibrillation Chronic constipation History of cervical cancer Treated with cobalt radiation Hydronephrosis Bilateral hydronephrosis associated with neurogenic bladder Hypertension Hypothyroidism Intrinsic sphincter deficiency Peripheral arterial disease Rectosigmoid cancer Recurrent UTI Surgical History H/O: hysterectomy (1962) History of colon resection (1995) Low anterior resection History of hemicolectomy S/P angioplasty with stent Status post bilateral iliac stents and angioplasty of the left common femoral artery and superficial femoral artery. S/P bladder repair S/P hernia repair S/P tonsillectomy Family History Mother CAD (coronary artery disease) Son CAD (coronary artery disease) Myocardial infarct, old Father CAD (coronary artery disease) Myocardial infarct, old Denies family history of Anesthesia complication Bleeding disorder Social History Smoking and tobacco status: former smoker Alcohol intake: never Household members: spouse Marital status: Current occupational status: retired History of recent travel: No Current gender identity: Female Adele/Adventist: Hinduism Vitals/I&O/Wt Last Vital Signs Temp 98.0 F 09/02/22 13:27 Pulse 117 H 09/02/22 16:30 Resp 27 H 09/02/22 16:30 BP 128/79 09/02/22 16:30 Pulse Ox 93 09/02/22 16:30 O2 Del Method 09/02/22 16:30 O2 Flow Rate 1 09/02/22 15:30 09/02/22 09/02/22 09/02/22 06:59 14:59 22:59 Intake Total 500 / 500 Balance 500 / 500 Weight last 48 hrs Weight 43.091 kg Physical Exam Narrative: Clinical signs of fluid overload Currently on 2 L Abdomen soft 3+ edema of legs Abdomen soft Enema PERRLA Nonfocal neuro exam is at the bedside Appropriate mood and affect Short attention span Data 09/02/22 14:33 09/02/22 14:33 A&P Assessment and plan (1) Community acquired pneumonia: Qualifiers: Laterality: left Lung location: upper lobe of lung Qualified Code(s): J18.9 - Pneumonia, unspecified organism (2) Hypothyroidism: Qualifiers: Hypothyroidism type: unspecified Qualified Code(s): E03.9 - Hypothyroidism, unspecified (3) Atrial fibrillation: Qualifiers: Atrial fibrillation type: unspecified Qualified Code(s): I48.91 - Unspecified atrial fibrillation (4) Dementia: Qualifiers: Dementia type: unspecified type Dementia behavioral disturbance: without behavioral disturbance Qualified Code(s): F03.90 - Unspecified dementia without behavioral disturbance (5) Severe protein-calorie malnutrition: (6) CHF (congestive heart failure): Qualifiers: Heart failure chronicity: unspecified Heart failure type: unspecified Qualified Code(s): I50.9 - Heart failure, unspecified (7) Neurogenic bladder: Plan Acute worsening of congestive heart failure Preserved ejection fraction heart failure exacerbation Start IV Lasix Community-acquired pneumonia Continue ceftriaxone and azithromycin Patient also has history of radiation-induced pulmonary interstitial changes Acute hypoxia secondary to pneumonia wean off to room air Chronic kidney disease creatinine seems to run baseline A. fib RVR Optimize AV vidhi blocking agents, not a candidate for anticoagulation due to history of GI bleed and iron deficiency anemia for now I will keep her on once a day therapeutic Lovenox regimen History of cancer, follows up with Dr. Hogan, poor functional status, history of dementia as well, not an ideal candidate for long-term anticoagulation Patient wants initial attempt for resuscitation however does not want prolonged days on a ventilator Rediscuss goals of care with the family in the morning Patient has been evaluated by cardiology in the past for sinus pauses possible sick sinus syndrome Cardiac diet High D-dimer, check venous Doppler, not a candidate for CTA chest rule out PE because of high creatinine Attestations Medical Necessity Statement*: Anticipating more than 2 midnights for management of pneumonia and A. fib RVR Time Spent in Patient Care: 40 Coding Level of Care Code Acute [employer] W[employer] Officer for Chg Fwd Diagnoses Community acquired pneumonia J18.9 Laterality: left Lung location: upper lobe of lung Hypothyroidism E03.9 Hypothyroidism type: unspecified Atrial fibrillation I48.91 Atrial fibrillation type: unspecified Dementia F03.90 Dementia type: unspecified type Dementia behavioral disturbance: without behavioral disturbance Severe protein-calorie malnutrition E43 CHF (congestive heart failure) I50.9 Heart failure chronicity: unspecified Heart failure type: unspecified Neurogenic bladder N31.9
--- NOTE | 2022-09-02 17:50 | USCV_ITS ---
Sobiawidakotah Gravette Age: 86 Gender: F : 1935 Exam Date: 09/02/2022 18:53 Ordering Phys: Grant Duvall MD Technologist: ABRAM [place] [facility] [place]: bilateral feet and ankle edema x 2-3 days. Afib with RVR HISTORY: bilateral feet and ankle edema x 2-3 days. Afib with RVR PROCEDURES: Venous duplex imaging was performed in bilateral lower extremities. The following venous structures were evaluated: common femoral vein, profunda vein, proximal portion of the greater saphenous vein, superficial femoral vein, and the popliteal vein. In addition, the posterior tibial veins were evaluated. Serial compression, augmentation maneuvers, and spectral Doppler flow evaluation were performed, which were normal. Bilaterally, the common femoral, superficial femoral, profunda femoral, popliteal, posterior tibial, and greater saphenous veins were identified and interrogated in the standard fashion. These veins were found to be easily compressible with spontaneous blood flow. No evidence of thrombus noted. Highly pulsatile bilateral venous compartments. Bilateral mixed echopenic non- vascular lesions noted. In the RIGHT popliteal fossa, this measures 3.3 x 1.2 x 1.9cm. In the LEFT popliteal fossa, this measures 3.l0 x 0.9 x 1.5cm. Probable bilateral Raymundo's cysts. CONCLUSIONS No evidence of right lower extremity DVT. No evidence of left lower extremity DVT. Bilateral popliteal cysts Burke Lama MD (Electronically Signed) Final Date: 03 September 2022 11:01 S
[2022-09-02] MEDS: sertraline 100 mg Tablet PO (18:26)
[2022-09-02] MEDS: FUROsemide 10 mg/mL SDV 10mL 40 MG IVP (18:26)
--- NOTE | 2022-09-02 18:54 | PC.NURSE ---
Patient arrived to unit via stretcher from ER. Patient resting in bed with no current needs at this time. VSS with the exception of heart rate. Tele was put on during shift. Patient on 3 liters of oxygen. Finch placed. Bed in lowest position, table close, and call light within reach.
[2022-09-02 19:10] LABS: Add Urine Microscopic? YES; Bilirubin Urine Neg (Negative); Blood Urine 3+ (Negative); Glucose Urine UA Norm (Normal); Ketones Urine Negative (Negative); Leukocyte Esterase Urine 2+ (Negative); Nitrate Urine Negative (Negative); Protein Urine 2+ (Negative); Urine Appearance Cloudy (CLEAR); Urine Color Yellow (Yellow); Urobilinogen Urine Neg (Negative); pH Urine 5 (5-7)
[2022-09-02 19:11] LABS: Add Urine Culture? Yes; Bacteria Urine 3+ /hpf; Mucus Urine 1+ /hpf; RBC Urine >100 /hpf (0-2); Squamous Epithelial Cell Urine RARE /hpf (0-5); WBC Urine >100 /hpf (0-5)
[2022-09-02 19:13] LABS: Vitamin B12 > 2000 pg/mL (232-1245)
[2022-09-02] MEDS: metoprolol tartrate 1 mg/1 mL SDV 5 mL 5 MG IVP (19:51)
[2022-09-02] MEDS: metoprolol tartrate 25 mg Tablet PO (19:52)
--- NOTE | 2022-09-02 20:22 | PC.NURSE ---
DR. Beltran on the floor making rounds at this time. Pt referred for review of con't A-fib w/RVR w/HR 130-140's. Pt c/o con't SOB and increased anxiety. NO recevied and noted for 1) Metoprolol IVP 5mg x 1 2) Metoprolol 25mg po x 1 dose. Pt to go to [facility] per orders.
--- NOTE | 2022-09-02 20:23 | PC.NURSE ---
Pt report given to Sindi in [facility] regarding pt transfer. Nurse updated on pt current status, labs, and medications administered thus far. Will transport patient to [facility].
--- NOTE | 2022-09-02 20:29 | PC.NURSE ---
Pt transported to [facility] at this time.
--- NOTE | 2022-09-02 20:45 | PC.NURSE ---
Received patient from 2nd floor, transported on bed. Patient with atrial fib on monitor rate 120's. Patient's skin is cold, clammy and she reports her gown fees damp. Patient says she is nervous and she does appear anxious. IV catheter out. site looks fine.
[2022-09-02] MEDS: digoxin 250 mcg/ml INJ 2 mL IVP (21:04)
[2022-09-02] MEDS: CLONazepam 0.5 mg Tablet PO (21:08)
[2022-09-02 21:35] LABS: Glucose Point of Care 156 mg/dL (70-110)
[2022-09-03] VITALS (110 sets, daily range): BP systolic 112–143; BP diastolic 55–74; PULSE 75–120; RESP 16–33; TEMP 36.4–37.1; O2SAT 90–98
--- NOTE | 2022-09-03 03:00 | PC.NURSE ---
Dr. Beltran notified that patient's HR is 90-96. 2nd dose of digoxin not given per physician.
[2022-09-03 03:43] LABS: Basophils % 0.3 %; Eosinophils % 0.2 %; Hematocrit 34.3 % (37.0-47.0); Hemoglobin 9.9 g/dL (11.5-15.3); Lymphocytes # 1.1 10^3/uL (0.8-4.8); Lymphocytes % 10.3 %; Mean Corpuscular HGB Conc 28.9 g/dL (30.0-36.0); Mean Corpuscular Hemoglobin 30.7 pg (28.0-34.0); Mean Corpuscular Volume 106.2 fl (81-99); Mean Platelet Volume 9.9 fL (7.4-10.4); Monocytes # 0.8 10^3/uL (0.2-0.9); Monocytes % 7.7 %; Neutrophils # 8.68 10^3/uL (1.8-7.7); Neutrophils % 79.8 %; Nucleated Red Blood Cells # 0.2 /100WBC; Nucleated Red Blood Cells % 1.5 %; Platelet Count 232 10^3/cmm (130-400); Red Blood Count 3.23 10^6/uL (4.1-5.3); Red Cell Distribution Width 17.1 % (12.1-15.1); White Blood Count 10.9 10^3/uL (4.0-10.0)
[2022-09-03 04:06] LABS: Blood Urea Nitrogen 53 mg/dL (8-23); C Reactive Protein 25.6 mg/L (0.0-4.9); Calcium 8.2 mg/dL (8.5-10.5); Carbon Dioxide 20 mmol/L (22-29); Chloride 104 mmol/L (98-107); Glucose 115 mg/dL (65-115); Magnesium 1.9 mg/dL (1.7-2.3); Osmolality Calculated 295 mOsm/kg (285-295); Phosphorus 4.6 mg/dL (2.5-4.5); Sodium 135 mmol/L (136-145)
[2022-09-03 04:16] LABS: Anion Gap 14.9 (5-19); Potassium 3.9 mmol/L (3.5-5.1)
[2022-09-03] MEDS: nitrofurantoin SR (BID) 100 mg Capsule PO (07:48)
[2022-09-03] MEDS: azithromycin 250 mg Tablet PO (07:48)
[2022-09-03] MEDS: levothyroxine 137 mcg Tablet PO (07:48)
[2022-09-03] MEDS: cholecalciferol (vitamin D3) 1,000 unit Tablet 1000 UNIT PO (07:48)
[2022-09-03] MEDS: dilTIAZem ER (24HR) 240 mg Capsule PO (07:48)
[2022-09-03] MEDS: CLONazepam 0.5 mg Tablet PO ×2 (07:48→22:01)
[2022-09-03] MEDS: enoxaparin 30 mg/0.3 mL Syringe SUBCUT (09:32)
[2022-09-03] MEDS: cefTRIAXone 1,000 MG in sodium chloride 0.9% (plus) 50 ML 100 MG IV (09:32)
--- NOTE | 2022-09-03 11:50 | PM.PN ---
Subjective Subjective: Patient has reduced EF, spoke with Dr. Phillips She has chronic kidney disease, spoke with the daughter, she does not need urgent coronary angiogram, Patient is demented, is also not sure why she is taking all the medications, spoke with her daughter who is stating that her father would not allow anyone else to take care of her she is not sure whether she has been taking all of her medications appropriately Patient has history of A. fib, not sure whether she has been taking her medications Review of records reveal she was not a candidate for anticoagulation due to history of anemia Vitals/I&O/Wt Last Vital Signs Temp 98.5 F 09/03/22 11:32 Pulse 75 09/03/22 11:32 Resp 24 H 09/03/22 11:32 BP 112/55 09/03/22 11:32 Pulse Ox 93 09/03/22 11:32 O2 Del Method 09/03/22 11:32 O2 Flow Rate 3 09/03/22 08:00 09/02/22 09/03/22 09/03/22 22:59 06:59 14:59 Intake Total 680 / 680 530 / 530 Output Total 1800 / 1800 Balance 680 / 680 -1800 / -1120 530 / 530 Weight last 48 hrs Weight 43.091 kg Physical Exam Narrative: Clinical signs of fluid overload Currently on 2 L nasal cannula Awake and alert Oriented to herself Short memory span S1, S2 variable heart rate in 70s Blood pressure is stable and daughter at the bedside Nonfocal neuro exam Data 09/03/22 02:55 09/03/22 02:55 Micro: Microbiology 09/02/22 18:49 Urine Culture - Preliminary Urine,Clean Catch Gram Negative Rods A&P Assessment and plan (1) Neurogenic bladder: (2) Community acquired pneumonia: Qualifiers: Laterality: left Lung location: upper lobe of lung Qualified Code(s): J18.9 - Pneumonia, unspecified organism (3) Hypothyroidism: Qualifiers: Hypothyroidism type: unspecified Qualified Code(s): E03.9 - Hypothyroidism, unspecified (4) Onychodystrophy: (5) Acute exacerbation of congestive heart failure: (6) UTI (urinary tract infection): Qualifiers: Hematuria presence: without hematuria Urinary tract infection type: acute cystitis Qualified Code(s): N30.00 - Acute cystitis without hematuria (7) Dementia: Qualifiers: Dementia type: unspecified type Dementia behavioral disturbance: without behavioral disturbance Qualified Code(s): F03.90 - Unspecified dementia without behavioral disturbance (8) Atrial fibrillation: Qualifiers: Atrial fibrillation type: unspecified Qualified Code(s): I48.91 - Unspecified atrial fibrillation (9) Intrinsic sphincter deficiency: Plan Acute CHF systolic/reduced EF Active signs of fluid overload Continue diuresis EF has reduced as per recent echo No active chest pain Have requested Dr. Phillips to see her today Patient has dementia, also has questionable dementia, no other family member has been about to take care of her, she also has chronic kidney disease, I did speak with her daughter that angiogram would not be an ideal at this point we can watch her for a few days to see if her creatinine would improve Chronic kidney disease creatinine at 1.5 could be related to cardiorenal syndrome anticipating provement with diuresis Monitor urine output Not an ideal candidate for an angiogram A. fib without RVR Her compliance with medication is questionable Continue Cardizem long-acting Metoprolol discontinued last night however she has required 1 dose of IV when she was in RVR heart rate 130s UTI: Recurrent UTI history, currently on ceftriaxone, continue Macrobid Left-sided pneumonia Currently requiring 2 L, continue ceftriaxone Full code, we discussed goals of care with the family Cardiac diet DVT prophylaxis I am doing therapeutic Lovenox with 30 mg every 24 hours because of her kidney function Guarded prognosis Attestations Medical Necessity Statement*: Continue hospitalization Time Spent in Patient Care: 40 Coding Level of Care Code Acute Dehydrogenation Operator for Chg Fwd Diagnoses Neurogenic bladder N31.9 Community acquired pneumonia J18.9 Laterality: left Lung location: upper lobe of lung Hypothyroidism E03.9 Hypothyroidism type: unspecified Onychodystrophy L60.3 Acute exacerbation of congestive heart failure I50.9 UTI (urinary tract infection) N30.00 Hematuria presence: without hematuria Urinary tract infection type: acute cystitis Dementia F03.90 Dementia type: unspecified type Dementia behavioral disturbance: without behavioral disturbance Atrial fibrillation I48.91 Atrial fibrillation type: unspecified Intrinsic sphincter deficiency N36.42
--- NOTE | 2022-09-03 12:51 | PM.CONSULT ---
Providers/Reason For Consult Consulting Physician/Specialty*: Charlie Guardado MD/ Cardiology Reason for Consult*: LV dysfunction/ atrial fibrillation Requesting Physician: Dr Duvall Attending Physician: Grant Duvall MD Primary Care Provider: Scott Lau MD History of Present Illness History of Present Illness Iraida Bay is a 86 year old female with past medical history of dementia, atrial fibrillation, rectal cancer who presented to the hospital with urinary incontinence, shortness of breath and lower extremity edema. She was found to be in A. fib with RVR. Echocardiogram demonstrates severely reduced LV systolic function of 30% with severe mitral regurgitation. Her heart rate is well controlled now. She is diuresing well. Review of Systems Const: Reports: chills and body aches Eyes: Denies: change in vision ENMT: Denies: throat pain Card: Reports: palpitations; Denies: chest pain Resp: Reports: dyspnea GI: Denies: abdominal pain : Reports: difficulty voiding; Denies: flank pain Musc: Denies: neck pain Skin/Breast: Denies: rash Neuro: Denies: headache(s) Psych: Reports: depression Endo: Reports: polyuria Jaswinder/Lymph: Denies: easy bruising All/Imm: Denies: urticaria Medications/Allergies Home Medications Medication Instructions Recorded Confirmed Last Taken Type amitriptyline 25 mg tablet 25 mg PO BEDTIME@2100 09/06/19 09/02/22 09/01/22 History clonazepam 0.5 mg tablet 0.5 mg PO BID PRN Anxiety 09/06/19 09/02/22 02/05/20 History primidone 50 mg tablet 50 mg PO TID PRN Tremor(S) 09/06/19 09/02/22 Unknown History cyclosporine 0.05 % eye drops 1 drop ophthalmic (eye) Q12H 09/13/19 09/02/22 09/02/22 History (Restasis MultiDose) flaxseed oil 1,000 mg capsule 1,000 mg PO DAILY 09/13/19 09/02/22 09/02/22 History sertraline 100 mg tablet 100 mg PO Q24H 09/13/19 09/02/22 09/02/22 History vitamin B complex (B 1 tab PO DAILY 09/13/19 09/02/22 09/02/22 History Complex-Vitamin B12 tablet) levothyroxine 137 mcg tablet 137 mcg PO DAILY 02/06/20 09/02/22 09/02/22 History multivitamin (Multiple Vitamins 1 tab PO DAILY 02/06/20 09/02/22 09/02/22 History tablet) Lactobacillus acidophilus 10,000 mmu cells PO BID #60 caps 02/10/20 09/02/22 09/02/22 Rx bisacodyl 5 mg tablet,delayed 5 mg PO DAILY #30 tabs 02/10/20 09/02/22 09/02/22 Rx release cholecalciferol (vitamin D3) 25 25 mcg PO DAILY 09/02/22 09/02/22 09/02/22 History mcg (1,000 unit) tablet (Vitamin D3) diltiazem HCl 240 mg 240 mg PO DAILY 09/02/22 09/02/22 09/02/22 History capsule,extended release 24 hr diphenoxylate-atropine 2.5 1 tab PO DAILY 09/02/22 09/02/22 09/02/22 History mg-0.025 mg tablet nitrofurantoin macrocrystal 100 mg 100 mg PO DAILY 09/02/22 09/02/22 09/02/22 History capsule omega 1-ppv-qrd-fish oil 1,000 mg 1 cap PO DAILY 09/02/22 09/02/22 09/02/22 History (120 mg-180 mg) capsule (Fish Oil) Allergies Allergy/AdvReac Type Severity Reaction Status Date / Time Penicillins Allergy ALGY-Hives Verified 09/02/22 15:23 Current Medications Generic Name Dose Route Start Last Admin Trade Name Nancie PRN Reason Stop Dose Admin Azithromycin 250 mg 09/03/22 09:00 09/03/22 07:48 Azithromycin 250 Mg Tablet PO 250 mg DAILY LILIYA Administration Protocol Bisacodyl 5 mg 09/03/22 09:00 09/03/22 09:32 Bisacodyl 5 Mg Tablet PO Not Given DAILY LILIYA Clonazepam 0.5 mg 09/02/22 17:50 09/03/22 07:48 Clonazepam 0.5 Mg Tablet PO 0.5 mg BID PRN Administration Anxiety Diltiazem HCl 240 mg 09/03/22 09:00 09/03/22 07:48 Diltiazem Er (24hr) 240 Mg Capsule PO 240 mg DAILY LILIYA Administration Diphenoxylate HCl/Atropine 1 tab 09/03/22 09:00 09/03/22 07:58 Diphenoxylate/Atropine Tablet PO Not Given DAILY LILIYA Enoxaparin Sodium 30 mg 09/03/22 09:00 09/03/22 09:32 Enoxaparin 30 Mg/0.3 Ml Syringe SUBCUT 30 mg Q24H LILIYA Administration Furosemide 40 mg 09/02/22 17:50 09/02/22 18:26 Furosemide 10 Mg/Ml Sdv 10ml IVP 40 mg Q24H LILIYA Administration Ceftriaxone Sodium 1,000 mg/ 50 mls @ 100 mls/hr 09/03/22 09:00 09/03/22 10:09 Sodium Chloride IV Infused DAILY LILIYA Infusion Protocol Levothyroxine Sodium 137 mcg 09/03/22 09:00 09/03/22 07:48 Levothyroxine 137 Mcg Tablet PO 137 mcg DAILY LILIYA Administration Nitrofurantoin Macrocrystals 100 mg 09/03/22 09:00 09/03/22 07:48 Nitrofurantoin Sr (Bid) 100 Mg Capsule PO 100 mg DAILY LILIYA Administration Senna/Docusate Sodium 1 tab 09/03/22 09:00 09/03/22 09:32 Sennosides-Docusate Tablet PO Not Given DAILY LILIYA Sertraline HCl 100 mg 09/02/22 17:50 09/02/22 18:26 Sertraline 100 Mg Tablet PO 100 mg Q24H LILIYA Administration Vitamin D 1,000 unit 09/03/22 09:00 09/03/22 07:48 Cholecalciferol (Vitamin D3) 1,000 Unit Tablet PO 1,000 unit DAILY LILIYA Administration PFSH Acute PFSH: Medical History Anemia Anxiety and depression Atrial fibrillation Chronic constipation History of cervical cancer Treated with cobalt radiation Hydronephrosis Bilateral hydronephrosis associated with neurogenic bladder Hypertension Hypothyroidism Intrinsic sphincter deficiency Peripheral arterial disease Rectosigmoid cancer Recurrent UTI Surgical History H/O: hysterectomy (1962) History of colon resection (1995) Low anterior resection History of hemicolectomy S/P angioplasty with stent Status post bilateral iliac stents and angioplasty of the left common femoral artery and superficial femoral artery. S/P bladder repair S/P hernia repair S/P tonsillectomy Family History Mother CAD (coronary artery disease) Son CAD (coronary artery disease) Myocardial infarct, old Father CAD (coronary artery disease) Myocardial infarct, old Denies family history of Anesthesia complication Bleeding disorder Social History Smoking and tobacco status: former smoker Alcohol intake: never Household members: spouse Marital status: Current occupational status: retired History of recent travel: No Current gender identity: Female Adele/Christian: Ep[employer]opalian Vitals/I&O/Wt Last Vital Signs Temp 98.5 F 09/03/22 11:32 Pulse 75 09/03/22 11:32 Resp 24 H 09/03/22 11:32 BP 112/55 09/03/22 11:32 Pulse Ox 93 09/03/22 11:32 O2 Del Method 09/03/22 11:32 O2 Flow Rate 3 09/03/22 08:00 09/02/22 09/03/22 09/03/22 22:59 06:59 14:59 Intake Total 680 / 680 1010 / 1010 Output Total 1800 / 1800 Balance 680 / 680 -1800 / -1120 1010 / 1010 Weight last 48 hrs Weight 95 lb Physical Exam Narrative: GENERAL: Patient is alert and awake NECK: No jugular vein distension. [] HEENT: No cyanosis. No icterus. No pallor. [] HEART: Regular S1 and S2. Irregularly irregular. Has grade 3/6 systolic murmur LUNGS: Clear to auscultate bilaterally. [] CENTRAL NERVOUS SYSTEM: Grossly nonfocal. [] EXTREMITIES: Lower extremities with 1-2+ edema bilaterally. Pulses palpable in the lower extremities, both dorsalis pedis and posterior tibial. [] Data 09/03/22 02:55 09/03/22 02:55 Micro: Microbiology 09/02/22 18:49 Urine Culture - Preliminary Urine,Clean Catch Gram Negative Rods A&P Assessment and plan (1) Acute exacerbation of congestive heart failure: (2) Atrial fibrillation: Qualifiers: Atrial fibrillation type: unspecified Qualified Code(s): I48.91 - Unspecified atrial fibrillation (3) Dementia: Qualifiers: Dementia behavioral disturbance: without behavioral disturbance Dementia type: unspecified type Qualified Code(s): F03.90 - Unspecified dementia without behavioral disturbance (4) Mitral regurgitation: Plan There is a complex patient with severe mitral regurgitation, severely reduced LV systolic dysfunction with EF of 30%(dropped from 50% in 2020), atrial fibrillation with RVR and dementia. I have discussed potential invasive procedures versus medical therapy. Family and patient like to proceed with medical therapy and based on her progress will decide if they want to have any invasive procedures done. She is at high risk of complications and has issues with medication compliance as well. Continue diuretics. She has been considered not a candidate for anticoagulation secondary to bleeding history. Closely monitor I&O's and renal function. Thank you for involving us with care of this patient. We will continue to follow. Please call with questions. Consult Attestations Medical Necessity Statement: Care expected to cross 2 midnights. Coding Level of Care Code Acute Double End Sewer for Juve Goodman Diagnoses Acute exacerbation of congestive heart failure I50.9 Atrial fibrillation I48.91 Atrial fibrillation type: unspecified Dementia F03.90 Dementia behavioral disturbance: without behavioral disturbance Dementia type: unspecified type Mitral regurgitation I34.0
--- NOTE | 2022-09-03 17:50 | USCV_ITS ---
[facility] Age: 86 Gender: F : 1935 Exam Date: 09/02/2022 19:19 Ordering Phys: Grant Duvall MD Technologist: ABRAM Exam Location: [facility] [place] Indication: atrial fibrillation. BP: 128 / 78 HR: 97 Rhythm: Atrial fibrillation Technical Quality: Good MEASUREMENTS (Male / Female) Normal Values 2D ECHO LV Diastolic Diameter PLAX 4.0 cm 4.2 - 5.9 / 3.9 - 5.3 cm LV Systolic Diameter PLAX 3.1 cm IVS Diastolic Thickness 1.2 cm 0.6 - 1.0 / 0.6 - 0.9 cm IVS Systolic Thickness 1.4 cm LVPW Diastolic Thickness 1.2 cm 0.6 - 1.0 / 0.6 - 0.9 cm LVPW Systolic Thickness 1.5 cm LVOT Diameter 1.7 cm LV Ejection Fraction 2D Teich 45.6 % LV Ejection Fraction MOD 2C 49.0 % LV Ejection Fraction 2C AL 47.9 % LA Diameter 4.7 cm LA Width 4.2 cm LA Height 5.7 cm RA Width 3.8 cm RA Height 4.7 cm Aorta at Sinotubular Diameter 2.6 cm IVC Diameter 1.6 cm M-MODE Aortic Annulus Diameter 2.6 cm LA Ao Ratio MM 1.9 DOPPLER AV Peak Velocity 128.0 cm/s LVOT Peak Velocity 89.0 cm/s AV Area Cont Eq vti 1.4 cm squared AV Area Cont Eq pk 1.5 cm squared MV Peak Velocity 197.0 cm/s MV Area PHT 3.9 cm squared MV E' Velocity 91.0 cm/s Mitral E to MV E' Ratio 16.2 Mitral E to LV E' Lateral Ratio 11.4 Mitral E to LV E' Septal Ratio 28.8 TR Peak Velocity 300.5 cm/s TR Peak Gradient 36.1 mmHg TV Peak E Velocity 70.0 cm/s Right Atrial Pressure 10.0 mmHg Pulmonary Artery Systolic Pressu 46.1 mmHg PV Peak Velocity 103.0 cm/s RV Acceleration Time 0.0 s RV Ejection Time 0.3 s RV AcT/ET 0.1 FINDINGS Left Ventricle Mild left ventricular hypertrophy. Diffuse hypokinesia of the left to endocrine. Ejection fraction around 30%(visual). Patient was in atrial fibrillation with rapid ventricular rate, during the study. Segmental wall motion analysis and ejection fraction estimation could be misleading Right Ventricle Normal RV size with a mildly diminished ejection fraction Right Atrium Mildly increased right atrial size. Left Atrium Moderately increased left atrial size. Mitral Valve Thickened mitral valve. Possible severe mitral regurgitation Aortic Valve Thickened aortic valve. Mild to moderate aortic regurgitation Tricuspid Valve [id number] tricuspid valve regurgitation. Estimated pulmonary artery peak systolic pressure of 46 mmHg Pulmonic Valve Mild pulmonary valve regurgitation. Pericardium Trivial pericardial effusion. Aorta Large left-sided pleural effusion was noted IVC Normal IVC dimension with <50% respiratory change of the inferior vena cava. CONCLUSIONS Diffuse hypokinesia of the left ventricle with diminished ejection fraction of around 30%( visual). Mild concentric left-ventricular hypertrophy (Patient was in atrial fibrillation with rapid ventricular rate, during the study. Segmental wall motion analysis and ejection fraction estimation could be misleading. ) Appears to have severe mitral regurgitation, based on color-flow Doppler examination Again aortic and mitral valves Mild to moderate aortic regurgitation [id number] tricuspid valve regurgitation. Mild pulmonary hypertension. Estimated pulmonary artery peak systolic pressure of 46 mmHg Mild pulmonary valve regurgitation. Trivial pericardial effusion. Possibly large left-sided pleural effusion Compared to the study from 01/02/2021, there is worsening of the LV systolic function and mitral regurgitation Dr Cheikh Holden MD [facility] (Electronically Signed) Final Date: 03 September 2022 09:04 S
[2022-09-03] MEDS: sertraline 100 mg Tablet PO (17:52)
[2022-09-03] MEDS: FUROsemide 10 mg/mL SDV 10mL 40 MG IVP (17:52)
[2022-09-03] MEDS: acetaminophen 500 mg Tablet PO (22:01)
[2022-09-04] VITALS (75 sets, daily range): BP systolic 109–131; BP diastolic 57–76; PULSE 79–131; RESP 16–44; TEMP 35.8–36.6; O2SAT 88–97
[2022-09-04 03:10] LABS: Basophils % 0.3 %; Eosinophils # 0.3 10^3/uL (0.0-0.8); Eosinophils % 2.7 %; Hematocrit 34.9 % (37.0-47.0); Hemoglobin 10.5 g/dL (11.5-15.3); Lymphocytes # 1.3 10^3/uL (0.8-4.8); Lymphocytes % 10.4 %; Mean Corpuscular HGB Conc 30.1 g/dL (30.0-36.0); Mean Corpuscular Hemoglobin 30.6 pg (28.0-34.0); Mean Corpuscular Volume 101.7 fl (81-99); Mean Platelet Volume 9.7 fL (7.4-10.4); Monocytes % 8.4 %; Neutrophils # 9.28 10^3/uL (1.8-7.7); Neutrophils % 76.9 %; Nucleated Red Blood Cells % 0.3 %; Platelet Count 238 10^3/cmm (130-400); Red Blood Count 3.43 10^6/uL (4.1-5.3); Red Cell Distribution Width 17.8 % (12.1-15.1); White Blood Count 12.1 10^3/uL (4.0-10.0)
[2022-09-04 03:45] LABS: Blood Urea Nitrogen 44 mg/dL (8-23); Carbon Dioxide 26 mmol/L (22-29); Chloride 102 mmol/L (98-107); Glucose 99 mg/dL (65-115); Osmolality Calculated 303 mOsm/kg (285-295); Sodium 141 mmol/L (136-145)
[2022-09-04] MEDS: enoxaparin 30 mg/0.3 mL Syringe SUBCUT (08:18)
[2022-09-04] MEDS: cefTRIAXone 1,000 MG in sodium chloride 0.9% (plus) 50 ML 100 MG IV (08:19)
[2022-09-04] MEDS: azithromycin 250 mg Tablet PO (08:21)
[2022-09-04] MEDS: bisacodyl 5 mg Tablet PO (08:21)
[2022-09-04] MEDS: sennosides-docusate Tablet 1 TAB PO (08:21)
[2022-09-04] MEDS: nitrofurantoin SR (BID) 100 mg Capsule PO (08:22)
[2022-09-04] MEDS: levothyroxine 137 mcg Tablet PO (08:22)
[2022-09-04] MEDS: cholecalciferol (vitamin D3) 1,000 unit Tablet 1000 UNIT PO (08:22)
[2022-09-04] MEDS: diphenoxylate/atropine Tablet 1 TAB PO (08:22)
[2022-09-04] MEDS: dilTIAZem ER (24HR) 240 mg Capsule PO (08:23)
--- NOTE | 2022-09-04 08:48 | PM.PN ---
Subjective Subjective: Patient is diuresing well. Says feels better. Her renal function has improved with diuresis Vitals/I&O/Wt Last Vital Signs Temp 96.5 F L 09/04/22 07:43 Pulse 97 09/04/22 08:23 Resp 16 09/04/22 08:23 BP 125/57 09/04/22 08:23 Pulse Ox 96 09/04/22 08:23 O2 Del Method 09/04/22 08:00 O2 Flow Rate 2 09/04/22 08:00 09/03/22 09/04/22 09/04/22 22:59 06:59 14:59 Intake Total 360 / 1370 0 / 1370 Output Total 2925 / 2925 750 / 3675 Balance -2565 / -1555 -750 / -2305 Weight last 48 hrs Weight 95 lb Physical Exam Narrative: GENERAL: Patient is alert and awake NECK: No jugular vein distension. [] HEENT: No cyanosis. No icterus. No pallor. [] HEART: Regular S1 and S2. Irregularly irregular. Has grade 3/6 systolic murmur LUNGS: Clear to auscultate bilaterally. [] CENTRAL NERVOUS SYSTEM: Grossly nonfocal. [] EXTREMITIES: Lower extremities with 1-2+ edema bilaterally. Pulses palpable in the lower extremities, both dorsalis pedis and posterior tibial. [] Data 09/04/22 02:24 09/04/22 02:24 Micro: Microbiology 09/02/22 18:49 Urine Culture - Preliminary Urine,Clean Catch Gram Negative Rods A&P Assessment and plan (1) Acute exacerbation of congestive heart failure: (2) Atrial fibrillation: Qualifiers: Atrial fibrillation type: unspecified Qualified Code(s): I48.91 - Unspecified atrial fibrillation (3) Dementia: Qualifiers: Dementia type: unspecified type Dementia behavioral disturbance: without behavioral disturbance Qualified Code(s): F03.90 - Unspecified dementia without behavioral disturbance (4) Mitral regurgitation: Plan Medical management at this time. Continue diuretics. Monitor and replace electrolytes. Monitor renal function and I and Os. Renal function is improving. She has been considered not a candidate for anticoagulation secondary to bleeding history. Thank you for involving us with care of this patient. We will continue to follow. Please call with questions. Attestations Medical Necessity Statement*: Care expected to cross 2 midnights. Coding Level of Care Code Acute Tester Vibrator Equipment for g Fwd Diagnoses Acute exacerbation of congestive heart failure I50.9 Atrial fibrillation I48.91 Atrial fibrillation type: unspecified Dementia F03.90 Dementia type: unspecified type Dementia behavioral disturbance: without behavioral disturbance Mitral regurgitation I34.0
--- NOTE | 2022-09-04 09:07 | PM.PN ---
Subjective Subjective: good urine output with IV diuretics Plan to continue diuresis for 1 more day before deciding on angiogram Creatinine 1.4 Patient is not endorsing any new events Vitals/I&O/Wt Last Vital Signs Temp 96.5 F L 09/04/22 07:43 Pulse 97 09/04/22 08:23 Resp 16 09/04/22 08:23 BP 125/57 09/04/22 08:23 Pulse Ox 96 09/04/22 08:23 O2 Del Method 09/04/22 08:00 O2 Flow Rate 2 09/04/22 08:00 09/03/22 09/04/22 09/04/22 22:59 06:59 14:59 Intake Total 360 / 1370 0 / 1370 Output Total 2925 / 2925 750 / 3675 Balance -2565 / -1555 -750 / -2305 Weight last 48 hrs Weight 43.091 kg Physical Exam Narrative: Clinical centerfold load improved Bilateral lower extremity edema S1, S2 variables Doing well on 2L Abdomen soft Oriented to herself No delirium Baseline confusion, patient seems to be on baseline Pleasant and cooperative Data 09/04/22 02:24 09/04/22 02:24 Micro: Microbiology 09/02/22 18:49 Urine Culture - Preliminary Urine,Clean Catch Gram Negative Rods A&P Assessment and plan (1) Mitral regurgitation: (2) Acute exacerbation of congestive heart failure: (3) Neurogenic bladder: (4) History of cervical cancer: (5) UTI (urinary tract infection): Qualifiers: Hematuria presence: without hematuria Urinary tract infection type: acute cystitis Qualified Code(s): N30.00 - Acute cystitis without hematuria (6) Intrinsic sphincter deficiency: (7) Severe protein-calorie malnutrition: (8) Hypothyroidism: Qualifiers: Hypothyroidism type: unspecified Qualified Code(s): E03.9 - Hypothyroidism, unspecified Plan Acute systolic CHF exacerbation No active chest pain Shortness of breath has improved Will need angiogram once kidney function is better I will increase her diuretic regimen to 60 mg IV every 12 hours UTI continuum ceftriaxone and nitrofurantoin Afebrile Chronic kidney disease creatinine improved with diuresis today it is 1.4 A. fib without RVR Heart rate is better Continue venal blocking agent Continue Cardizem Left-sided pneumonia requiring 2 L, being oxygen to room air Continue antibiotics Full code Cardiac diet Will keep n.p.o. tomorrow if she would require angiogram Dementia without acute worsening Attestations Medical Necessity Statement*: Continue medical management Time Spent in Patient Care: 25 Coding Level of Care Code Acute Asset Protection Greeter for Chg Fwd Diagnoses Mitral regurgitation I34.0 Acute exacerbation of congestive heart failure I50.9 Neurogenic bladder N31.9 History of cervical cancer Z85.41 UTI (urinary tract infection) N30.00 Hematuria presence: without hematuria Urinary tract infection type: acute cystitis Intrinsic sphincter deficiency N36.42 Severe protein-calorie malnutrition E43 Hypothyroidism E03.9 Hypothyroidism type: unspecified
[2022-09-04] MEDS: CLONazepam 0.5 mg Tablet PO ×2 (10:10→23:59)
[2022-09-04] MEDS: acetaminophen 500 mg Tablet PO (10:10)
[2022-09-04] MEDS: FUROsemide 10 mg/mL SDV 10mL 60 MG IVP ×2 (10:10→21:31)
[2022-09-04] MEDS: sertraline 100 mg Tablet PO (16:24)
[2022-09-05] VITALS (42 sets, daily range): BP systolic 74–131; BP diastolic 51–83; PULSE 106–162; RESP 8–36; TEMP 36.1–36.6; O2SAT 88–99
[2022-09-05 04:58] LABS: Anion Gap 17.6 (5-19); Blood Urea Nitrogen 42 mg/dL (8-23); Calcium 8.3 mg/dL (8.5-10.5); Carbon Dioxide 35 mmol/L (22-29); Chloride 94 mmol/L (98-107); Glucose 107 mg/dL (65-115); Osmolality Calculated 309 mOsm/kg (285-295); Sodium 144 mmol/L (136-145)
[2022-09-05 05:19] LABS: Potassium 2.6 mmol/L (3.5-5.1)
[2022-09-05] MEDS: lidocaine 1% 5 ML in potassium chloride premix 100 ML 25 ML IV (05:38)
[2022-09-05] MEDS: dilTIAZem ER (24HR) 240 mg Capsule PO (07:41)
[2022-09-05] MEDS: diphenoxylate/atropine Tablet 1 TAB PO (07:41)
[2022-09-05] MEDS: sodium chloride 0.9% (100 ml) 100 ML 25 ML (07:42)
[2022-09-05] MEDS: CLONazepam 0.5 mg Tablet PO ×2 (08:20→21:46)
[2022-09-05] MEDS: potassium chloride ER 20 mEq Tablet 40 MEQ PO (08:20)
--- NOTE | 2022-09-05 08:58 | PM.PN ---
Subjective Subjective: Patient is doing well. No shortness of breath. Has diuresed well. However this AM went into afib with RVR Vitals/I&O/Wt Last Vital Signs Temp 97.2 F L 09/05/22 07:52 Pulse 140 H 09/05/22 07:52 Resp 18 09/05/22 07:52 BP 114/68 09/05/22 07:52 Pulse Ox 96 09/05/22 07:52 O2 Del Method 09/05/22 04:00 O2 Flow Rate 2 09/04/22 12:00 09/04/22 09/05/22 09/05/22 22:59 06:59 14:59 Intake Total 0 / 170 50 / 220 Output Total 1550 / 2450 3000 / 5450 Balance -1550 / -2280 -2950 / -5230 Physical Exam Narrative: GENERAL: Patient is alert and awake NECK: No jugular vein distension. [] HEENT: No cyanosis. No icterus. No pallor. [] HEART: Irregularly irregular, tachycardic. Has grade 3/6 systolic murmur LUNGS: Clear to auscultate bilaterally. [] CENTRAL NERVOUS SYSTEM: Grossly nonfocal. [] EXTREMITIES: Lower extremities with no edema bilaterally. Pulses palpable in the lower extremities, both dorsalis pedis and posterior tibial. [] Data 09/04/22 02:24 09/05/22 03:41 Micro: Microbiology 09/02/22 18:49 Urine Culture - Final Urine,Clean Catch Escherichia coli A&P Assessment and plan (1) Acute exacerbation of congestive heart failure: (2) Atrial fibrillation: Qualifiers: Atrial fibrillation type: unspecified Qualified Code(s): I48.91 - Unspecified atrial fibrillation (3) Dementia: Qualifiers: Dementia type: unspecified type Dementia behavioral disturbance: without behavioral disturbance Qualified Code(s): F03.90 - Unspecified dementia without behavioral disturbance (4) Mitral regurgitation: Plan Patient went into A. fib with RVR. Started on amiodarone drip. Monitor on telemetry. Can proceed with lexiscan tomorrow for ischemic work up She has diuresed very well. Switch to low-dose oral Lasix. Monitor renal function and I and Os. Renal function is improving. She has been considered not a candidate for anticoagulation secondary to bleeding history. Thank you for involving us with care of this patient. We will continue to follow. Please call with questions. Attestations Medical Necessity Statement*: Care expected to cross 2 midnights. Coding Level of Care Code Acute Mental Retardation Aide for Juve Goodman Diagnoses Acute exacerbation of congestive heart failure I50.9 Atrial fibrillation I48.91 Atrial fibrillation type: unspecified Dementia F03.90 Dementia type: unspecified type Dementia behavioral disturbance: without behavioral disturbance Mitral regurgitation I34.0
[2022-09-05] MEDS: azithromycin 250 mg Tablet PO (09:09)
[2022-09-05] MEDS: levothyroxine 137 mcg Tablet PO (09:09)
[2022-09-05] MEDS: enoxaparin 30 mg/0.3 mL Syringe SUBCUT (09:10)
[2022-09-05] MEDS: cholecalciferol (vitamin D3) 1,000 unit Tablet 1000 UNIT PO (09:12)
[2022-09-05] MEDS: nitrofurantoin SR (BID) 100 mg Capsule PO (09:13)
--- NOTE | 2022-09-05 09:49 | PC.SOCIAL ---
IMM Update pg 2 of IMM updated and reviewed w/ patient. Copy provided and Copy dated, initialed and placed in chart.
--- NOTE | 2022-09-05 09:51 | P.PN_ITS ---
Subjective Subjective: This morning the patient is slightly soft, no fluid overload improving significantly, leg swelling improved, currently on 1.5 L, A. fib RVR I have given her amiodarone bolus of 150 mg and started amiodarone drip Dr. Phillips recommended stress test tomorrow, creatinine slightly improved, more than 5 L urine output Vitals/I&O/Wt Last Vital Signs Temp 97.2 F L 09/05/22 07:52 Pulse 122 H 09/05/22 09:27 Resp 16 09/05/22 09:27 BP 109/75 09/05/22 09:15 Pulse Ox 98 09/05/22 09:27 O2 Del Method 09/05/22 09:27 O2 Flow Rate 1.5 09/05/22 09:27 09/04/22 09/05/22 09/05/22 22:59 06:59 14:59 Intake Total 0 / 170 50 / 220 103 / 103 Output Total 1550 / 2450 3000 / 5450 Balance -1550 / -2280 -2950 / -5230 103 / 103 Physical Exam Narrative: Tingling supine Lower extremity swelling improved Currently 1.5 L nasal cannula A. fib RVR Blood pressure slightly on the lower side MAP 65 Abdomen soft Awake and alert Variable S1-S2 EOMI, PERRLA Data 09/04/22 02:24 09/05/22 03:41 Micro: Microbiology 09/02/22 18:49 Urine Culture - Final Urine,Clean Catch Escherichia coli A&P Assessment and plan (1) Mitral regurgitation: (2) Acute exacerbation of congestive heart failure: (3) Neurogenic bladder: (4) Community acquired pneumonia: Qualifiers: Laterality: left Lung location: upper lobe of lung Qualified Code(s): J18.9 - Pneumonia, unspecified organism (5) Hypothyroidism: Qualifiers: Hypothyroidism type: unspecified Qualified Code(s): E03.9 - Hypothyroidism, unspecified (6) Dementia: Qualifiers: Dementia type: unspecified type Dementia behavioral disturbance: without behavioral disturbance Qualified Code(s): F03.90 - Unspecified dementia without behavioral disturbance (7) Atrial fibrillation: Qualifiers: Atrial fibrillation type: unspecified Qualified Code(s): I48.91 - Unspecified atrial fibrillation Plan Acute systolic CHF exacerbation Drop in EF noted Could be related to valvular abnormality and tachyarrhythmia Plan for cardiac stress test tomorrow morning Patient not an ideal candidate for an angiogram considering age and dementia Adequate urine output, cut back on IV diuresis to p.o. regimen Hypokalemia: Repleted Check magnesium level N.p.o. after midnight and stress test tomorrow morning A. fib RVR started amiodarone drip after IV bolus, continue Cardizem p.o. Left-sided pneumonia continue ceftriaxone, we are able to wean her off oxygen to 1.5 L Dementia without acute exacerbation Chronic UTI, continue ceftriaxone at different times she has been afebrile Full code Cardiac diet n.p.o. after midnight Attestations Medical Necessity Statement*: Stress test tomorrow Time Spent in Patient Care: 40 Coding Level of Care Code Acute Multimedia Authoring Specialist for [facility] Fwd Diagnoses Mitral regurgitation I34.0 Acute exacerbation of congestive heart failure I50.9 Neurogenic bladder N31.9 Community acquired pneumonia J18.9 Laterality: left Lung location: upper lobe of lung Hypothyroidism E03.9 Hypothyroidism type: unspecified Dementia F03.90 Dementia type: unspecified type Dementia behavioral disturbance: without behavioral disturbance Atrial fibrillation I48.91 Atrial fibrillation type: unspecified
[2022-09-05] MEDS: cefTRIAXone 1,000 MG in sodium chloride 0.9% (plus) 50 ML 100 MG IV (09:53)
--- NOTE | 2022-09-05 09:55 | ECG_ITS ---
[facility] Test Date: 2022-09-06 Pat Name: Iraida Bay Department: Room: 111 Gender: Female Director Gift: : 1935 Requested By: Grant Duvall Order Number: [id number] Jeancarlos MD: Elidia Del Cid M.D. Interpretive Statements NAME OF STUDY: LEXISCAN SESTAMIBI STRESS TEST INDICATION: REDUCED LV Function PROCEDURE: At the baseline, the blood pressure was 137/64 mm Hg with a heart rate of 86 bpm. The electrocardiogram showed atrial fibrillation, left axis deviation. Non specific ST and T wave changes. ??? The Lexiscan was infused over a period of 20 seconds. A total of 0.4 milligrams of Lexiscan was infused. The stress phase was continued for a total of 5 minutes. Heart rate at the end of the stress phase was 99 bpm with a blood pressure of 143/68 mm Hg. The EKG at the peak infusion revealed no significant ST-T wave changes. ??? Sestamibi was injected 20 seconds after the Lexiscan infusion. ??? Blood pressure at the end of the recovery phase was 147/65 mm Hg with a heart rate of 97 beats per minute. ??? CONCLUSION: 1. No significant EKG changes with the LexiScan infusion. 2. No LexiScan induced chest pain or cardiac arrhythmia. 3. Normal blood pressure and heart rate response. 4. Sestamibi/sestamibi perfusion scan pending; see separate report. Electronically Signed On 09-08-2022 18:24:56 BUS ANALYST by Elidia Del Cid M.D. [email or web address]
[2022-09-05 10:25] LABS: Magnesium 1.5 mg/dL (1.7-2.3)
[2022-09-05] MEDS: acetaminophen 500 mg Tablet PO (14:15)
[2022-09-05 16:19] LABS: Anion Gap 15.6 (5-19); Blood Urea Nitrogen 42 mg/dL (8-23); Calcium 7.7 mg/dL (8.5-10.5); Carbon Dioxide 29 mmol/L (22-29); Chloride 96 mmol/L (98-107); Glucose 129 mg/dL (65-115); Osmolality Calculated 296 mOsm/kg (285-295); Potassium 3.6 mmol/L (3.5-5.1); Sodium 137 mmol/L (136-145)
[2022-09-05] MEDS: FUROsemide 40 mg Tablet PO (17:32)
[2022-09-05] MEDS: sertraline 100 mg Tablet PO (17:32)
[2022-09-06] VITALS (10 sets, daily range): BP systolic 97–147; BP diastolic 56–67; PULSE 83–120; RESP 12–26; TEMP 36.7–36.8; O2SAT 93–99
[2022-09-06 03:44] LABS: Basophils % 0.3 %; Eosinophils # 0.3 10^3/uL (0.0-0.8); Eosinophils % 2.6 %; Hemoglobin 11.4 g/dL (11.5-15.3); Lymphocytes # 1.9 10^3/uL (0.8-4.8); Lymphocytes % 16.7 %; Mean Corpuscular Volume 103.3 fl (81-99); Mean Platelet Volume 9.4 fL (7.4-10.4); Monocytes % 8.6 %; Neutrophils # 8.21 10^3/uL (1.8-7.7); Neutrophils % 71.2 %; Nucleated Red Blood Cells % 0 %; Platelet Count 223 10^3/cmm (130-400); Red Blood Count 3.68 10^6/uL (4.1-5.3); Red Cell Distribution Width 18.1 % (12.1-15.1); White Blood Count 11.5 10^3/uL (4.0-10.0)
[2022-09-06 03:59] LABS: Anion Gap 14.4 (5-19); Blood Urea Nitrogen 42 mg/dL (8-23); Calcium 7.8 mg/dL (8.5-10.5); Carbon Dioxide 28 mmol/L (22-29); Chloride 98 mmol/L (98-107); Glucose 100 mg/dL (65-115); Osmolality Calculated 295 mOsm/kg (285-295); Potassium 3.4 mmol/L (3.5-5.1); Sodium 137 mmol/L (136-145)
[2022-09-06] MEDS: digoxin 250 mcg/ml INJ 2 mL IVP (07:33)
--- NOTE | 2022-09-06 07:33 | PM.PN ---
Subjective Subjective: Patient is tachycardic still. Plan for stress test today Vitals/I&O/Wt Last Vital Signs Temp 98.3 F 09/06/22 04:00 Pulse 116 H 09/06/22 06:00 Resp 17 09/06/22 04:00 BP 117/67 09/06/22 04:00 Pulse Ox 93 09/06/22 04:00 O2 Del Method 09/05/22 20:00 O2 Flow Rate 1.5 09/05/22 09:27 09/05/22 09/06/22 09/06/22 22:59 06:59 14:59 Output Total 500 / 500 1500 / 2000 Balance -500 / 67.167 -1500 / -1432.833 Physical Exam Narrative: GENERAL: Patient is alert and awake NECK: No jugular vein distension. [] HEENT: No cyanosis. No icterus. No pallor. [] HEART: Irregularly irregular, tachycardic. Has grade 3/6 systolic murmur LUNGS: Clear to auscultate bilaterally. [] CENTRAL NERVOUS SYSTEM: Grossly nonfocal. [] EXTREMITIES: Lower extremities with no edema bilaterally. Pulses palpable in the lower extremities, both dorsalis pedis and posterior tibial. [] Data 09/06/22 03:25 09/06/22 03:25 A&P Assessment and plan (1) Acute exacerbation of congestive heart failure: (2) Atrial fibrillation: Qualifiers: Atrial fibrillation type: unspecified Qualified Code(s): I48.91 - Unspecified atrial fibrillation (3) Dementia: Qualifiers: Dementia type: unspecified type Dementia behavioral disturbance: without behavioral disturbance Qualified Code(s): F03.90 - Unspecified dementia without behavioral disturbance (4) Mitral regurgitation: Plan Patient continues to be in A. fib with RVR. Continue amiodarone. Can switch to p.o. today. We will uptitrate to Cardizem to 360 mg daily. Plan for Lexiscan today to rule out ischemia Will hold Lasix today as she has diuresed well. We will restart low-dose oral Lasix tomorrow. Thank you for involving us with care of this patient. We will continue to follow. Please call with questions. Attestations Medical Necessity Statement*: Care expected to cross 2 midnights. Coding Level of Care Code Acute Screw Machine Operator Swiss Type for Juve Fwd Diagnoses Acute exacerbation of congestive heart failure I50.9 Atrial fibrillation I48.91 Atrial fibrillation type: unspecified Dementia F03.90 Dementia type: unspecified type Dementia behavioral disturbance: without behavioral disturbance Mitral regurgitation I34.0
[2022-09-06] MEDS: levothyroxine 137 mcg Tablet PO (08:13)
[2022-09-06] MEDS: amiodarone 200 mg Tablet 400 MG PO ×2 (08:13→18:06)
[2022-09-06] MEDS: azithromycin 250 mg Tablet PO (08:13)
[2022-09-06] MEDS: enoxaparin 30 mg/0.3 mL Syringe SUBCUT (08:13)
[2022-09-06] MEDS: cholecalciferol (vitamin D3) 1,000 unit Tablet 1000 UNIT PO (08:13)
[2022-09-06] MEDS: dilTIAZem ER (24HR) 120 mg Capsule 360 MG PO (08:13)
[2022-09-06] MEDS: cefTRIAXone 1,000 MG in sodium chloride 0.9% (plus) 50 ML 100 MG IV (08:14)
[2022-09-06] MEDS: nitrofurantoin SR (BID) 100 mg Capsule PO (08:14)
--- NOTE | 2022-09-06 09:55 | NMCV_ITS ---
NM quinton perf SPECT r/s* [id number] Iraida Bay Age: 86 Gender: F : 1935 Exam Date: 09/06/2022 09:55 Ordering Phys: Grant Duvall MD Technologist: ISAAC Galeas Exam Location: [facility] Indications: CHEST PAIN STRESS TEST Please see separate stress test report in [facility] for full findings IMAGE PROTOCOL Rest/Stress 1 Lexiscan Day Radiopharmaceutical Dose (mCi) Administration Site Administered by Rest: Tc-99m 10.8 IV Graciela Parrish, HEALTH TEACHER Sestamibi Stress:Tc-99m 32.4 IV Graciela Parrish, HEALTH TEACHER Sestamibi Rest: 06-Sep-2022 60 Discovery 630 Stress: 06-Sep-2022 30 Discovery 630 0.4mg Lexiscan. Supine position only as patient was unable to lay prone. SPECT RESULTS Technical Quality: Excellent Raw Data Analysis: Normal Image Corrections: No attenuation or motion correction applied Summed Stress Score: 8 Summed Rest Score: 7 Summed Difference Score: 2 PERFUSION FINDINGS Medium sized perfusion abnormality of mid to apical inferior, mid inferoseptal and apical septal collier on rest and stress images. FUNCTIONAL RESULTS (calculated via Gated SPECT) Stress Image LV EF (%): 47 Stress EDV (mL):88 TID: 0.8 Stress ESV (mL):47 FUNCTIONAL FINDINGS: The left ventricle is normal in size. Transient Ischemia Dilatation of 0.8. The left ventricular ejection fraction is mildly reduced with a value of 47%. There is mild global hypokinesis. IMPRESSIONS 1. Medium sized predominantly fixed perfusion abnormality of mid to apical inferior, mid inferoseptal and apical septal collier. 2. This may represent old myocardial infarction in right coronary artery or attenuation artifact. 3. The left ventricular ejection fraction is mildly reduced with a value of 47% with mild global hypokinesis. 4. EKG portion of the study will be reported separately. 5. No coronary ischemia based on this study. Elidia Del Cid MD (Electronically Signed) Final Date: 06 September 2022 15:03 S
--- NOTE | 2022-09-06 10:53 | PM.PN ---
Subjective Subjective: Uptitrate AV vidhi blocking agent, she was also given p.o. amiodarone and a dose of digoxin Stress test today Vitals/I&O/Wt Last Vital Signs Temp 98.3 F 09/06/22 04:00 Pulse 120 H 09/06/22 08:00 Resp 18 09/06/22 08:00 BP 117/67 09/06/22 04:00 Pulse Ox 99 09/06/22 08:00 O2 Del Method 09/06/22 08:00 O2 Flow Rate 1.5 09/05/22 09:27 09/05/22 09/06/22 09/06/22 22:59 06:59 14:59 Output Total 500 / 500 1500 / 2000 Balance -500 / 67.167 -1500 / -1432.833 Physical Exam Narrative: Clinically fluid overload state has improved Doing well on room air Awake and alert A. fib RVR Family at the bedside Pleasant cooperative Nonfocal neuro exam No signs of crackles or rhonchi on lung auscultation Patient is in good spirits Data 09/06/22 03:25 09/06/22 03:25 A&P Assessment and plan (1) Mitral regurgitation: (2) Acute exacerbation of congestive heart failure: (3) Neurogenic bladder: (4) Community acquired pneumonia: Qualifiers: Laterality: left Lung location: upper lobe of lung Qualified Code(s): J18.9 - Pneumonia, unspecified organism (5) Dementia: Qualifiers: Dementia type: unspecified type Dementia behavioral disturbance: without behavioral disturbance Qualified Code(s): F03.90 - Unspecified dementia without behavioral disturbance (6) Atrial fibrillation: Qualifiers: Atrial fibrillation type: unspecified Qualified Code(s): I48.91 - Unspecified atrial fibrillation (7) Anemia: Qualifiers: Anemia type: unspecified type Qualified Code(s): D64.9 - Anemia, unspecified (8) UTI (urinary tract infection): Qualifiers: Hematuria presence: without hematuria Urinary tract infection type: acute cystitis Qualified Code(s): N30.00 - Acute cystitis without hematuria Plan Uptitrate AV vidhi blocking agents She was given a dose of amiodarone p.o. regimen along IV digoxin Stress test today We will follow-up with cardiology recommendations Hold Lasix for today A. fib RVR heart rate 120s Patient is doing well on room air UTI switched to oral antibiotics Pneumonia: Switch to oral antibiotics Full code Cardiac diet after stress test DVT prophylaxis covered with Yovana Suarez Medical Necessity Statement*: Continue medical management Time Spent in Patient Care: 30 Coding Level of Care Code Acute Tax Manager Public for Chg Fwd Diagnoses Mitral regurgitation I34.0 Acute exacerbation of congestive heart failure I50.9 Neurogenic bladder N31.9 Community acquired pneumonia J18.9 Laterality: left Lung location: upper lobe of lung Dementia F03.90 Dementia type: unspecified type Dementia behavioral disturbance: without behavioral disturbance Atrial fibrillation I48.91 Atrial fibrillation type: unspecified Anemia D64.9 Anemia type: unspecified type UTI (urinary tract infection) N30.00 Hematuria presence: without hematuria Urinary tract infection type: acute cystitis
--- NOTE | 2022-09-06 11:08 | PC.CHAP ---
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 electronic drafter visit [] Patient/Family/Request visit [] Outpatient visit [] Follow-up visit [] Physician referral [] Code/Alert [x] Routine visit [] Staff referral [] Actively dying [] Patient sleeping [x] Family support [] [] Out of room [] Palliative care [] [] Receiving care in room [] Pre-surgical visit [] Trauma [] Long length of stay [] ICU visit [] Other: Relational/Emotional Strength [x] Patient feels connected with others/family/visitors/staff [] Distress [] Loneliness/isolation [] Abandonment Spirituality of Patient [x] Person of Adele [] Attends Christian of their Adele [x] Believes in Prayer [] Reads Bible or Congregational materials [] There are Spiritual issues to be addressed Game Agent Interventions [x] Prayer [] Active listening [] Non-anxious presence [] Spiritual/emotional support [] Crisis/trauma care [] Spiritual counseling [] Bereavement support [] Provided bereavement packet [] Provided Bible/devotional materials [] Provided toy/stuffed animal, coloring book to patient or family member [] Provided Communion [] Anointing/Bailey [] Salvation [x] Completed spiritual assessment [] Other: Impact on Illness or Injury [] Angry [] Fearful [] Anxious [] Often cries [] Exhaustion [] Unable to work [] Unable to attend evangelical [] Unable to walk/stand [] Unable to read [] Unable to drive [] Unable to eat/drink [] Unable to sleep [] Unable to be with family [] Patient intubated [] Other: Summary Time spent with patient 5 min
--- NOTE | 2022-09-06 13:13 | PC.NURSE ---
to cardiac stress test via w/c at 1300
[2022-09-06] MEDS: regadenoson 0.4 Mg/5 ml Syringe IVP (13:43)
[2022-09-06] MEDS: digoxin 250 mcg/ml INJ 2 mL 125 MCG IVP (14:53)
[2022-09-06] MEDS: sertraline 100 mg Tablet PO (18:06)
[2022-09-06] MEDS: CLONazepam 0.5 mg Tablet PO (20:54)
[2022-09-07] VITALS (10 sets, daily range): BP systolic 108–119; BP diastolic 47–62; PULSE 80–110; RESP 14–22; TEMP 36.6–36.8; O2SAT 95–97
[2022-09-07 06:08] LABS: Anion Gap 16.6 (5-19); Blood Urea Nitrogen 40 mg/dL (8-23); Calcium 8.1 mg/dL (8.5-10.5); Carbon Dioxide 28 mmol/L (22-29); Chloride 99 mmol/L (98-107); Glucose 100 mg/dL (65-115); Magnesium 1.9 mg/dL (1.7-2.3); Osmolality Calculated 300 mOsm/kg (285-295); Potassium 3.6 mmol/L (3.5-5.1); Sodium 140 mmol/L (136-145)
[2022-09-07] MEDS: azithromycin 250 mg Tablet PO (08:41)
[2022-09-07] MEDS: dilTIAZem ER (24HR) 120 mg Capsule 360 MG PO (08:41)
[2022-09-07] MEDS: levothyroxine 137 mcg Tablet PO (08:41)
[2022-09-07] MEDS: digoxin 125 mcg Tablet PO (08:41)
[2022-09-07] MEDS: amiodarone 200 mg Tablet 400 MG PO (08:41)
[2022-09-07] MEDS: cholecalciferol (vitamin D3) 1,000 unit Tablet 1000 UNIT PO (08:42)
[2022-09-07] MEDS: enoxaparin 30 mg/0.3 mL Syringe SUBCUT (08:42)
[2022-09-07] MEDS: nitrofurantoin SR (BID) 100 mg Capsule PO (09:48)
--- NOTE | 2022-09-07 09:55 | PC.SOCIAL ---
IMM update IMM updated with patient. Verbalized an understanding. Initialled, dated ,timed, and placed in chart.
--- NOTE | 2022-09-07 10:01 | PC.SOCIAL ---
IMM update IMM updated with patient and at bedside. Verbalized an understanding. Copy Pg 2 provided. Initialled, dated, timed, and placed in chart.
--- NOTE | 2022-09-07 10:22 | PM.DCS ---
Discharge Providers Date of Admission: 09/02/22 16:49 Date of Discharge: September 07, 2022 Attending Provider at Admission: Grant Duvall MD Attending Provider at Discharge: Grant Duvall MD Primary Care Provider: Scott Lau MD Diagnoses at Discharge Discharge Diagnosis (1) Mitral regurgitation: Status: Acute (2) Acute exacerbation of congestive heart failure: Status: Acute (3) Neurogenic bladder: Status: Acute (4) Community acquired pneumonia: Status: Acute Qualifiers: Laterality: left Lung location: upper lobe of lung Qualified Code(s): J18.9 - Pneumonia, unspecified organism (5) Dementia: Status: Chronic Qualifiers: Dementia behavioral disturbance: without behavioral disturbance Dementia type: unspecified type Qualified Code(s): F03.90 - Unspecified dementia without behavioral disturbance (6) Atrial fibrillation: Status: Acute Qualifiers: Atrial fibrillation type: unspecified Qualified Code(s): I48.91 - Unspecified atrial fibrillation (7) Anemia: Status: Chronic Qualifiers: Anemia type: unspecified type Qualified Code(s): D64.9 - Anemia, unspecified (8) UTI (urinary tract infection): Status: Acute Qualifiers: Hematuria presence: without hematuria Urinary tract infection type: acute cystitis Qualified Code(s): N30.00 - Acute cystitis without hematuria Reason for Visit Reason for Visit: Sob, Leg weakness Hospital Course Hospital Course 86-year female with dementia, history of rectosigmoid cancer status postsurgery, A. fib not a candidate for anticoagulation, neurogenic bladder, recurrent UTIs presented to the hospital with worsening of palpitations. He was diagnosed with CHF exacerbation and A. fib RVR at the time of admission, throughout hospitalization she was diuresed aggressively which improved her signs of fluid overload, she required oxygen intermittently however we were able to wean off to room air, EF showed reduction from previous normal level cardiology was consulted, daughter was concerned that she want you to take her medications and her father does not allow any other family member to get involved with her care he is very private about her. Cardiology recommended stress test which did not show significant signs of coronary ischemia. It was difficult to control her heart rate she was given amiodarone drip and then was transitioned to p.o. amiodarone along with digoxin. Cardizem dose was increased to 360 milligrams as well. Patient was getting ceftriaxone for her UTI. Urine culture came back positive for E. coli pansensitive. She started having diarrhea on 09/07 requested C. difficile panel. Considering dementia, age, lack of compliance cardiology did not recommend coronary angiogram. That was the reason to pursue cardiac stress test during this hospitalization. Check her digoxin level after 7 days For her A. fib she is getting Cardizem 360 mg long-acting daily along digoxin 125 mcg, amiodarone 400 mg twice a day for 7 days, 400 mg daily for 7 days and then transition to 200 mg daily Physical Exam Narrative: Clinical signs of fluid overload improved Finhc cath draining dilute urine A. fib, audible S1-S2 Currently on room air Oriented to herself is at the bedside Blood pressure is stable Carol lethargic Discharge Data Studies Completed and Pending Completed Studies During Hospitalization Category Date Time Status Sestamibi Stress Test Request Routine Exams 09/05/22 09:55 Draft XR chest 1V portable [id number] Stat Exams 09/02/22 13:39 Completed NM quinton perf SPECT r/s* [id number] Routine Nuc Med 09/06/22 09:55 [place] [id number] Routine Ultrasound 09/02/22 17:50 Completed CV. echo complete* [id number] Routine Ultrasound 09/03/22 17:50 Completed Pending at discharge Category Date Time Status CDIFF [Clostridioides Difficile PCR] Routine Lab 09/07/22 10:22 Uncollected Radiology Impressions Chest X-Ray 09/02/22 13:39 IMPRESSION: 1. Left upper lobe pneumonia 2. Otherwise negative chest examination Laboratory Results WBC 11.5 10^3/uL (4.0-10.0) H 09/06/22 03:25 RBC 3.68 10^6/uL (4.1-5.3) L 09/06/22 03:25 Hgb 11.4 g/dL (11.5-15.3) L 09/06/22 03:25 Hct 38.0 % (37.0-47.0) 09/06/22 03:25 MCV 103.3 fl (81-99) H 09/06/22 03:25 MCH 31.0 pg (28.0-34.0) 09/06/22 03:25 MCHC 30.0 g/dL (30.0-36.0) 09/06/22 03:25 RDW 18.1 % (12.1-15.1) H 09/06/22 03:25 Plt Count 223 10^3/cmm (130-400) 09/06/22 03:25 MPV 9.4 fL (7.4-10.4) 09/06/22 03:25 Neut % (Auto) 71.2 % 09/06/22 03:25 Lymph % (Auto) 16.7 % 09/06/22 03:25 [place] % (Auto) 8.6 % 09/06/22 03:25 Eos % (Auto) 2.6 % 09/06/22 03:25 Baso % (Auto) 0.3 % 09/06/22 03:25 Neut # (Auto) 8.21 10^3/uL (1.8-7.7) H 09/06/22 03:25 Lymph # (Auto) 1.9 10^3/uL (0.8-4.8) 09/06/22 03:25 [place] # (Auto) 1.0 10^3/uL (0.2-0.9) H 09/06/22 03:25 Eos # (Auto) 0.3 10^3/uL (0.0-0.8) 09/06/22 03:25 Baso # (Auto) 0.0 10^3/uL (0.0-0.1) 09/06/22 03:25 Nucleated RBC % (auto) 0 % 09/06/22 03:25 Nucleated RBCs # 0.0 /100WBC 09/06/22 03:25 D-Dimer 1.55 ug/mIFEU (0-0.59) H 09/02/22 14:33 Sodium 140 mmol/L (136-145) 09/07/22 03:44 Potassium 3.6 mmol/L (3.5-5.1) 09/07/22 03:44 Chloride 99 mmol/L (98-107) 09/07/22 03:44 Carbon Dioxide 28 mmol/L (22-29) 09/07/22 03:44 Anion Gap 16.6 (5-19) 09/07/22 03:44 BUN 40 mg/dL (8-23) H 09/07/22 03:44 Creatinine 1.3 mg/dL (0.5-0.9) H 09/07/22 03:44 GFR Calculation Not Reportable 09/07/22 03:44 Glucose 100 mg/dL (65-115) 09/07/22 03:44 POC Glucose 156 mg/dL (70-110) H 09/02/22 21:31 Calculated Osmolality 300 mOsm/kg (285-295) H 09/07/22 03:44 Calcium 8.1 mg/dL (8.5-10.5) L 09/07/22 03:44 Phosphorus 4.6 mg/dL (2.5-4.5) H 09/03/22 02:55 Magnesium 1.9 mg/dL (1.7-2.3) 09/07/22 03:44 Total Bilirubin 0.6 mg/dL (0.15-1.2) 09/02/22 14:33 AST 25 U/L (0-32) 09/02/22 14:33 ALT 15 U/L (0-33) 09/02/22 14:33 Alkaline Phosphatase 99 U/L (35-105) 09/02/22 14:33 C-Reactive Protein 25.6 mg/L (0.0-4.9) H 09/03/22 02:55 NT-Pro-B Natriuret Pep 42908 pg/mL (0-450) H 09/02/22 14:33 Total Protein 7.2 g/dL (6.6-8.7) 09/02/22 14:33 Albumin 3.2 g/dL (3.5-5.2) L 09/02/22 14:33 Globulin 4.0 g/dL (1.3-4.6) 09/02/22 14:33 Vitamin B12 > 2000 pg/mL (232-1245) H 09/02/22 14:33 Procalcitonin 0.10 ng/mL (0-0.5) 09/02/22 14:33 TSH 0.32 uIU/mL (0.27-4.20) 09/02/22 14:33 Urine Color Yellow (Yellow) 09/02/22 18:49 Urine Appearance Cloudy (CLEAR) A 09/02/22 18:49 Urine pH 5 (5-7) 09/02/22 18:49 Ur Specific [place] 1.020 (1.005-1.030) 09/02/22 18:49 Urine Protein 2+ (Negative) H 09/02/22 18:49 Urine Glucose (UA) Norm (Normal) 09/02/22 18:49 Urine Ketones Negative (Negative) 09/02/22 18:49 Urine Blood 3+ (Negative) H 09/02/22 18:49 Urine Nitrate Negative (Negative) 09/02/22 18:49 Urine Bilirubin Neg (Negative) 09/02/22 18:49 Urine Urobilinogen Neg mg/dL (Negative) 09/02/22 18:49 Ur Leukocyte Esterase 2+ (Negative) H 09/02/22 18:49 Urine RBC >100 /hpf (0-2) H 09/02/22 18:49 Urine WBC >100 /hpf (0-5) H 09/02/22 18:49 Ur Squamous Epith Cells Rare /hpf (0-5) 09/02/22 18:49 Amorphous Sediment Not Reportable 09/02/22 18:49 Urine Bacteria 3+ /hpf (NONE) H 09/02/22 18:49 Urine Mucus 1+ /hpf 09/02/22 18:49 Vitals Last Vital Signs Temp 98.1 F 09/07/22 07:08 Pulse 110 H 09/07/22 08:41 Resp 16 09/07/22 08:13 BP 108/57 09/07/22 07:08 Pulse Ox 97 09/07/22 08:13 O2 Del Method 09/07/22 08:13 O2 Flow Rate 1.5 09/05/22 09:27 Discharge Plan Discharge Patient Disposition: Home Condition: Stable Prescriptions: New amiodarone [Pacerone] 200 mg Tablet 400 mg PO BID Qty: 90 3RF Rx Instructions: 400 mg twice a day for 7 days and then start taking 400 mg for next 7 days then 200 mg daily potassium chloride 10 mEq tablet extended release 10 meq PO DAILY Qty: 30 3RF digoxin 125 mcg (0.125 mg) Tablet 125 mcg PO DAILY Qty: 60 2RF cefpodoxime 200 mg tablet 200 mg PO BID Qty: 6 0RF Rx Instructions: must administer with a meal/food furosemide [Lasix] 20 mg tablet 20 mg PO DAILY Qty: 60 2RF diltiazem HCl [Cardizem LA] 360 mg tablet extended release 24 hr 360 mg PO DAILY Qty: 60 1RF Continued vitamin B complex [B Complex-Vitamin B12] Tablet 1 tab PO DAILY flaxseed oil 1,000 mg capsule 1,000 mg PO DAILY Restasis MultiDose 0.05 % drops 1 drop ophthalmic (eye) Q12H sertraline 100 mg tablet 100 mg PO Q24H clonazepam 0.5 mg Tablet 0.5 mg PO BID PRN (Reason: Anxiety) primidone 50 mg Tablet 50 mg PO TID PRN (Reason: Tremor(S)) multivitamin [Multiple Vitamins] Tablet 1 tab PO DAILY levothyroxine 137 mcg tablet 137 mcg PO DAILY bisacodyl 5 mg Tablet,Delayed Release (Dr/Ec) 5 mg PO DAILY Qty: 30 0RF Lactobacillus acidophilus Capsule 10,000 mmu cells PO BID Qty: 60 0RF Rx Instructions: administer with a meal nitrofurantoin macrocrystal 100 mg capsule 100 mg PO DAILY Vitamin D3 25 mcg (1,000 unit) Tablet 25 mcg PO DAILY Fish Oil 1,000 mg (120 mg-180 mg) Capsule 1 cap PO DAILY diphenoxylate-atropine 2.5-0.025 mg tablet 1 tab PO DAILY Qty: 10 0RF Discontinued amitriptyline 25 mg Tablet 25 mg PO BEDTIME@2100 diltiazem HCl 240 mg capsule,extended release 24hr 240 mg PO DAILY Discharge Orders: Discharge Order (Routine); Ordered 09/07/22 Ordered By: Grant Duvall Other Ambulatory Orders: Digoxin (Routine) Timeframe: 1 Week Facility: [facility] - Location: Lab - Main Lab Ordered By: Grant Duvall Referrals: Charlie Guardado M.D [Physician] - 1 month Scott Lau MD [Primary Care Provider] - 4-7 days Patient Instructions: Opioid Safety Discharge Attestations Time Spent in Discharge Care*: less than 30 min Quality Metrics Clinical Quality Measures [ No reported AMI, CVA or VTE this stay] Coding Level of Care Code Acute Chg [facility] note Diagnoses Mitral regurgitation I34.0 Acute exacerbation of congestive heart failure I50.9 Neurogenic bladder N31.9 Community acquired pneumonia J18.9 Laterality: left Lung location: upper lobe of lung Dementia F03.90 Dementia behavioral disturbance: without behavioral disturbance Dementia type: unspecified type Atrial fibrillation I48.91 Atrial fibrillation type: unspecified Anemia D64.9 Anemia type: unspecified type UTI (urinary tract infection) N30.00 Hematuria presence: without hematuria Urinary tract infection type: acute cystitis
--- NOTE | 2022-09-07 14:57 | P.PN_ITS ---
Subjective Subjective: Patient continues to have diarrhea but seems to be slowly improving. She denies any chest pain or shortness of breath. Telemetry shows atrial fibrillation with a controlled ventricular response rate. No new symptoms. She had a Myocardial perfusion imaging yesterday and was found no evidence of ischemia. Medications: Medication Review Details: Current Medications Acetaminophen (Acetaminophen 500 Mg Tablet) 500 mg PO Q4H PRN PRN Reason: fever Last Admin: 09/05/22 14:15 Dose: 500 mg Albuterol/Ipratropium (Ipratropium-Albuterol 3 Ml Neb) 3 ml INHALATION Q6H PRN PRN Reason: SHORTNESS OF BREATH Amiodarone HCl (Amiodarone 200 Mg Tablet) 400 mg PO BID [facility] Last Admin: 09/07/22 08:41 Dose: 400 mg Azithromycin (Azithromycin 250 Mg Tablet) 250 mg PO DAILY [facility]; Protocol Last Admin: 09/07/22 08:41 Dose: 250 mg Bisacodyl (Bisacodyl 5 Mg Tablet) 5 mg PO DAILY [facility] Last Admin: 09/07/22 08:42 Dose: Not Given Clonazepam (Clonazepam 0.5 Mg Tablet) 0.5 mg PO BID PRN PRN Reason: ANXIETY Last Admin: 09/06/22 20:54 Dose: 0.5 mg Digoxin (Digoxin 125 Mcg Tablet) 125 mcg PO DAILY [facility] Last Admin: 09/07/22 08:41 Dose: 125 mcg Diltiazem HCl (Diltiazem Er (24hr) 120 Mg Capsule) 360 mg PO DAILY [facility] Last Admin: 09/07/22 08:41 Dose: 360 mg Enoxaparin Sodium (Enoxaparin 30 Mg/0.3 Ml Syringe) 30 mg SUBCUT Q24H [facility] Last Admin: 09/07/22 08:42 Dose: 30 mg Furosemide (Furosemide 40 Mg Tablet) 40 mg PO BID@08,16 [facility] Last Admin: 09/05/22 17:32 Dose: 40 mg Levothyroxine Sodium (Levothyroxine 137 Mcg Tablet) 137 mcg PO DAILY [facility] Last Admin: 09/07/22 08:41 Dose: 137 mcg Nitrofurantoin Macrocrystals (Nitrofurantoin Sr (Bid) 100 Mg Capsule) 100 mg PO DAILY [facility] Last Admin: 09/07/22 09:48 Dose: 100 mg Ondansetron HCl (Ondansetron 2 Mg/Ml Sdv 2 Ml) 4 mg IVP Q6H PRN PRN Reason: NAUSEA AND VOMITING Ondansetron HCl (Ondansetron 2 Mg/Ml Sdv 2 Ml) 4 mg IVP Q2M PRN PRN Reason: NAUSEA Senna/Docusate Sodium (Sennosides-Docusate Tablet) 1 tab PO DAILY [facility] Last Admin: 09/07/22 08:42 Dose: Not Given Sertraline HCl (Sertraline 100 Mg Tablet) 100 mg PO Q24H [facility] Last Admin: 09/06/22 18:06 Dose: 100 mg Vitamin D (Cholecalciferol (Vitamin D3) 1,000 Unit Tablet) 1,000 unit PO DAILY [facility] Last Admin: 09/07/22 08:42 Dose: 1,000 unit Vitals/I&O/Wt Last Vital Signs Temp 98.1 F 09/07/22 07:08 Pulse 102 H 09/07/22 14:42 Resp 14 09/07/22 11:40 BP 113/62 09/07/22 11:40 Pulse Ox 96 09/07/22 11:40 O2 Del Method 09/07/22 08:13 O2 Flow Rate 1.5 09/05/22 09:27 09/06/22 09/07/22 09/07/22 22:59 06:59 14:59 Intake Total 390 / 1298 120 / 120 Output Total 600 / 600 350 / 950 Balance -210 / 698 -350 / 348 120 / 120 Physical Exam Narrative: GENERAL: The patient is alert and oriented times three. Not in any acute distress. Generalized emaciation HEENT: No significant pallor, icterus or lymphadenopathy.Oral cavity: There are no mucous membrane lesions. NECK: Trachea appears to be central. No masses noted. No JVD or thyromegaly appreciated. RESPIRATORY: Chest is symmetrical. No intercostals muscle retraction or any accessory muscle activation. There is no chest wall tenderness. Breath sounds are heard bilaterally. No rales or rhonchi heard. No evidence of any consolidation. BREASTS: Deferred. HEART: The heart sounds are normal. No S3 or S4. Systolic murmur in the left sternal border. No diastolic murmurs.. No pericardial rub ABDOMEN: No vessel pulsations or distention. No tenderness. No organomegaly appr eciated. Bowel sounds are normally heard. : Deferred. RECTAL: Deferred. LYMPHATIC: No lymphadenopathy noted in the neck. EXTREMITIES: No edema or cyanosis. No clubbing. MUSCULOSKELETAL: No acute joint deformities or swelling SKIN: There are no significant rashes or ecchymosis NEUROPSYCHIATRIC: The patient is alert and oriented x3. Appears to be in a good mood. No tremors or rigidity noted. Data 09/06/22 03:25 09/07/22 03:44 Micro: Microbiology 09/07/22 12:45 C.difficile Toxin B Gene (PCR) - Final Stool - Stool Aspirate Other data: MPI 09/06/2022? 1. Medium sized predominantly fixed perfusion abnormality of mid to apical ?inferior, mid inferoseptal and apical septal collier. ?2. This may represent old myocardial infarction in right coronary artery or ?attenuation artifact. ?3. The left ventricular ejection fraction is mildly reduced with a value of 47% ?with mild global hypokinesis. ?4. EKG portion of the study will be reported separately. ?5. No coronary ischemia based on this study. ECHO ?Diffuse hypokinesia of the left ventricle with diminished ?ejection fraction of around 30%( visual). ?Mild concentric left-ventricular hypertrophy ?(Patient was in atrial fibrillation with rapid ventricular rate, ?during the study.? Segmental wall motion analysis and ejection ?fraction estimation could be misleading. ) ?Appears to have severe mitral regurgitation, based on color-flow ?Doppler examination ?Again aortic and mitral valves ? Mild to moderate aortic regurgitation ?Qaub-qu-sifobkzk tricuspid valve regurgitation.? ?Mild pulmonary hypertension.? Estimated pulmonary artery peak ?systolic pressure of 46 mmHg ?Mild pulmonary valve regurgitation. ?Trivial pericardial effusion. ?Possibly large left-sided pleural effusion ?Compared to the study from 01/02/2021, there is worsening of the ?LV systolic function and mitral regurgitation A&P Assessment and plan (1) Atrial fibrillation: Patient is with a controlled ventricular response rate. Vital signs are stable Qualifiers: Atrial fibrillation type: unspecified Qualified Code(s): I48.91 - Unspecified atrial fibrillation (2) Mitral regurgitation: Possibly severe mitral regurgitation. Hemodynamically seems to be stable. She may need further work-up as an outpatient (3) Acute exacerbation of congestive heart failure: The heart failure is compensated. She is currently on p.o. Lasix. (4) Severe protein-calorie malnutrition: Management as per the primary Plan Other problems are Chronic renal insufficiency Diarrhea, etiology? If the patient continues to remain stable, may be discharged home from a cardiac standpoint. [facility]ointment [facility] to be seen by nurse practitioner next week. She needs to have a BMP, BNP and dig level at the time of the office visit. The dose of the amiodarone need to be tapered down as follows Amiodarone 400 mg p.o. twice daily for 1 week Followed by 200 mg p.o. twice daily for 1 week Followed by 200 mg p.o. daily for 1 week Followed by 100 mg p.o. daily Appointment with Dr. Guardado in 3 weeks Attestations Medical Necessity Statement*: Possible discharge home today Coding Level of Care Code Acute Fire Sprinkler Fitter for Juve Goodman Diagnoses Atrial fibrillation I48.91 Atrial fibrillation type: unspecified Mitral regurgitation I34.0 Acute exacerbation of congestive heart failure I50.9 Severe protein-calorie malnutrition E43
--- NOTE | 2022-09-07 15:59 | PC.NURSE ---
discharge instructions given to daughter and explained.she verb understanding of instructions.discharged via w/c to exit.spouse to drive pt home.home health to be arranged on friday.daughter states she will visit pt frequently to assure adequate medication administration and care.
== END 2022-09-07 16:03 | disposition home or self-care (01) | DRG 291 ==
LOC: ER 16:22 → MEDSURG 16:50 → CSU 21:05
PROVIDERS: Admitting Provider Internal Medicine; Emergency Provider Student in an Organized Health Care Education/Training Program; PCP Family Medicine; Visit Provider Internal Medicine
DX: I13.0 Hypertensive heart and chronic kidney disease with heart failure and stage 1 through stage 4 chronic kidney disease, or unspecified chronic kidney disease (principal); E43 Unspecified severe protein-calorie malnutrition; I50.21 Acute systolic (congestive) heart failure; J18.9 Pneumonia, unspecified organism; N30.00 Acute cystitis without hematuria; Z68.1 Body mass index [BMI] 19.9 or less, adult; N18.9 Chronic kidney disease, unspecified; I34.0 Nonrheumatic mitral (valve) insufficiency; N31.9 Neuromuscular dysfunction of bladder, unspecified; F03.90 Unspecified dementia, unspecified severity, without behavioral disturbance, psychotic disturbance, mood disturbance, and anxiety; I48.91 Unspecified atrial fibrillation; D63.1 Anemia in chronic kidney disease; Z85.038 Personal history of other malignant neoplasm of large intestine; B96.20 Unspecified Escherichia coli [E. coli] as the cause of diseases classified elsewhere; Z88.0 Allergy status to penicillin; F41.8 Other specified anxiety disorders; K59.09 Other constipation; E87.6 Hypokalemia; Z87.891 Personal history of nicotine dependence; I73.9 Peripheral vascular disease, unspecified; Z95.820 Peripheral vascular angioplasty status with implants and grafts; E03.9 Hypothyroidism, unspecified; Z85.41 Personal history of malignant neoplasm of cervix uteri
CPT/HCPCS: 36415; 36416; 71045; 78452; 80048; 80053; 81001; 82607; 82962; 83735; 83880; 84100; 84145; 84443; 85025; 85378; 86140; 87077; 87086; 87186; 87493; 93005; 93017; 93306; 93970; 96361; 96372; 96374; 96376; 99285; A9500; J0282; J0696; J1160; J1650; J1940; J2785; J3480; J3490; J7030; J7040; J7060; Q0144

== ENCOUNTER 2022-09-12 17:07 | Inpatient (IN) | payer MEDICARE, OTHER, SELFPAY ==
[2022-09-12] VITALS (61 sets, daily range): BP systolic 122–140; BP diastolic 33–92; PULSE 31–89; RESP 10–26; TEMP 36.7; O2SAT 82–98; BMI 15.2
--- NOTE | 2022-09-12 17:56 | PC.NURSE ---
Pt presents with swelling warm area on R wrist, pt stated it started when they had an IV in that spot.
--- NOTE | 2022-09-12 18:54 | XRR_ITS ---
PROCEDURE INFORMATION: Exam: XR Chest Exam date and time: 09/12/2022 7:01 PM Age: 86 years old Clinical indication: Other: Weakness, magan; Prior surgery; Surgery date: 6+ months; Surgery type: Breast CA; Additional info: Near syncope; Bradycardia TECHNIQUE: Imaging protocol: Radiologic exam of the chest. Views: 1 view. COMPARISON: CR XR chest 1V portable [id number] 09/02/2022 1:51 PM FINDINGS: Tubes, catheters and devices: There is a radiodense right breast implant. Lungs: There is an irregular 10 mm spiculated opacity in the left mid lung. Surrounding ill-defined opacity in the left mid lung is decreased since 09/02/2022. The right lung is clear. Pleural spaces: There is no pleural effusion or pneumothorax. Heart/Mediastinum: There is mild enlargement of the cardiac silhouette. Bones/joints: Bones are unremarkable. XR/XR chest 1V portable [id number] IMPRESSION: 1. Decreased left lung consolidation since 09/02/2022. 2. Residual 10 mm spiculated opacity in the lateral left mid lung. Possible metastatic or primary neoplastic nodule. Recommend nonemergent follow-up chest CT.
--- NOTE | 2022-09-12 18:56 | ECG_ITS ---
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 Measurements Intervals [place] Rate: 37 P: 0 VT: 0 QRS: -54 QRSD: 126 T: 104 QT: 617 QTc: 485 Interpretive Statements ATRIAL FIBRILLATION WITH SLOW VENTRICULAR RESPONSE POSSIBLE RIGHT VENTRICULAR CONDUCTION DELAY [RSR (QR) IN V1/V2] LEFT ANTERIOR FASCICULAR BLOCK [QRS AXIS <= -45, QR IN I, RS IN II] SEPTAL MYOCARDIAL INFARCTION , OF INDETERMINATE AGE [40+ ms Q WAVE IN V1/V2] POSSIBLE LATERAL MYOCARDIAL INFARCTION , OF INDETERMINATE AGE [30 ms Q WAVE IN I/aVL/V5/V6].MODERATE T-WAVE ABNORMALITY, CONSIDER ANTERIOR ISCHEMIA [-0.1+ mV T-WAVE IN V3/V4].MODERATE T-WAVE ABNORMALITY, CONSIDER INFERIOR ISCHEMIA [-0.1+ mV T-WAVE IN II/aVF] PROLONGED QT INTERVAL CRITICAL TEST RESULT Compared to ECG 09/02/2022 15:01:03 Left anterior fascicular block now present.T-wave abnormality now present Possible ischemia now present.Prolonged QT interval now present Myocardial infarct finding still present Electronically Signed On 09-12-2022 20:45:35 LOGISTICS SPECIALIST by Cheikh Holden M.D. [id number]
--- NOTE | 2022-09-12 18:57 | ED_ITS ---
HPI - Seizure General: Chief Complaint: Seizure Stated Complaint: seizure Time Seen by Provider: 09/12/22 17:55 Source: patient and family Limitations: no limitations History of Present Illness: HPI Narrative: See nursing assessment. Patient reportedly had an episode around 1 PM today which she had tensing of her upper extremities and was not acting appropriately for about 3 to 4 seconds. states it quickly resolved. Patient recently discharged from the hospital after acute exacerbation congestive heart failure. Patient was placed on multiple new medications including Cardizem LA, digoxin, Lasix, amiodarone, potassium supplement and an antibiotic. Telemetry shows heart rate in the 30-40 range appears to be atrial fibrillation. She denies any headache or neurological changes. She denies any change in vision or speech. She denies any shortness of breath or chest pain. No previous seizure disorder. Associated symptoms: Deny chest pain, chills or fever(s) Review of Systems Const: Denies: fever(s) or chills Eyes: Denies: change in vision ENMT: Denies: throat pain Card: Denies: chest pain or palpitations Resp: Denies: dyspnea or wheezing GI: Denies: abdominal pain, nausea or vomiting : Denies: flank pain Musc: Denies: neck pain or back pain Skin/Breast: Denies: rash or pruritus Neuro: Reports: dizziness and other (Possible brief seizure); Denies: headache(s) or numbness in extremities Psych: Denies: anxiety Jaswinder/Lymph: Denies: enlarged lymph nodes PFSH ED PFSH: Medical History Acute exacerbation of congestive heart failure Anemia Anemia Anxiety and depression Atrial fibrillation CHF (congestive heart failure) Chronic constipation Community acquired pneumonia Dementia History of cervical cancer Treated with cobalt radiation Hydronephrosis Bilateral hydronephrosis associated with neurogenic bladder Hypertension Hypothyroidism Intrinsic sphincter deficiency Mitral regurgitation Neurogenic bladder Onychodystrophy Peripheral arterial disease Rectosigmoid cancer Recurrent UTI Severe protein-calorie malnutrition UTI (urinary tract infection) Surgical History H/O: hysterectomy (1962) History of colon resection (1995) Low anterior resection History of hemicolectomy S/P angioplasty with stent Status post bilateral iliac stents and angioplasty of the left common femoral artery and superficial femoral artery. 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 Physical Exam Const: COMMON NORMALS: no acute distress, patient oriented x3, no limitations and well nourished GENERAL APPEARANCE: cooperative HENMT: COMMON NORMALS: normocephalic and atraumatic HEAD & SCALP: normocephalic and atraumatic FACE & SINUS: normal facial exam Eye: COMMON NORMALS: EOMs intact bilaterally Neck/C-Spine: COMMON NORMALS: full ROM, no lymphadenopathy, supple and no meningeal signs GENERAL: Yes normal visual inspection Lymph: LYMPHATIC: no lymphadenopathy noted Chest: COMMONS NORMALS: normal inspection of the chest and normal palpation of entire chest wall CHEST: No Ecchymosis present and No rash Resp: COMMON NORMALS: normal respiratory effort, No retractions and clear to auscultation bilaterally EFFORT & INSPECTION: No respiratory distress AUSCULTATION: clear to auscultation bilaterally Cardio: COMMON NORMALS: Peripheral pulses 2+ throughout JUGULAR VENOUS DISTENTION: no JVD RATE: bradycardic RHYTHM: abnormal rhythm irregularly irregular PERIPHERAL PULSES: Peripheral pulses 2+ throughout OTHER: Telemetry shows bradycardia rates in the 30s to 40s GI: COMMON NORMALS: Normal to inspection, nondistended, normoactive bowel sounds present and non-tender : COMMON NORMALS: Yes no CVA tenderness BLADDER/KIDNEY EXAM: Yes no CVA tenderness Back/Pelvis: COMMON NORMALS: no CVA tenderness Extremity: COMMON NORMALS: normal to inspection, full ROM and capillary refill normal Neuro: COMMON NORMALS: patient oriented x3, CN's II-XII intact bilaterally, no focal motor deficits and no sensory deficits noted MENINGEAL SIGNS: Yes no meningeal signs Psych: COMMON NORMALS: mental status grossly normal and Normal thought process present THOUGHT PROCESS: Normal thought process present Skin: COMMON NORMALS: no rashes or lesions noted and no wounds GENERAL SKIN EXAM: no rashes or lesions noted Course Vital Signs: Vital signs: Vital Signs Pulse Rate 47 L 09/12/22 22:30 Respiratory Rate 16 09/12/22 22:30 Blood Pressure 130/37 09/12/22 21:30 Pulse Oximetry 94 09/12/22 22:30 Oxygen Delivery Me thod 09/12/22 17:15 MDM - Seizure MDM Narrative Medical decision making narrative: Patient possibly had a seizure due to profound bradycardia. May be an e lectrolyte problem. May be combination of medication interaction with calcium channel blockers amiodarone and digoxin. 2030: Discussed with skein bleacher Dr. Del Cid. She will see the patient as a cons ultant. She will see the patient in the morning. She has to the patient to the ICU. I discussed case with Dr. Mcknight hospitalist. He will see the patient emergency room and admit the patient. Digoxin level finally returned at 2.7. I discussed case with hospitalist again. We will proceed with Digibind IV. Pharmacist adjusted Digibind dosed to 3 vials equivalent 120 mg. 2148: We will notify hospitalist of difference in EKGs. 2210: Discussed with Dr. Del Cid skein bleacher. She states she believes patient has second-degree AV block 2-1. Continue present therapy. Lab Data 09/12/22 19:17 Labs: Radiology Impressions Chest X-Ray 09/12/22 18:54 IMPRESSION: 1. Decreased left lung consolidation since 09/02/2022. 2. Residual 10 mm spiculated opacity in the lateral left mid lung. Possible metastatic or primary neoplastic nodule. Recommend nonemergent follow-up chest CT. Head CT 09/12/22 18:55 IMPRESSION: No acute intracranial abnormality. Laboratory Results WBC 9.0 10^3/uL (4.0-10.0) 09/12/22 19:17 RBC 3.25 10^6/uL (4.1-5.3) L 09/12/22 19:17 Hgb 10.0 g/dL (11.5-15.3) L 09/12/22 19:17 Hct 33.1 % (37.0-47.0) L 09/12/22 19:17 MCV 101.8 fl (81-99) H 09/12/22 19:17 MCH 30.8 pg (28.0-34.0) 09/12/22 19:17 MCHC 30.2 g/dL (30.0-36.0) 09/12/22 19:17 RDW 16.3 % (12.1-15.1) H 09/12/22 19:17 Plt Count 168 10^3/cmm (130-400) 09/12/22 19:17 MPV 10.0 fL (7.4-10.4) 09/12/22 19:17 Neut % (Auto) 81.1 % 09/12/22 19:17 Lymph % (Auto) 11.0 % 09/12/22 19:17 [place] % (Auto) 6.9 % 09/12/22 19:17 Eos % (Auto) 0.2 % 09/12/22 19:17 Baso % (Auto) 0.2 % 09/12/22 19:17 Neut # (Auto) 7.34 10^3/uL (1.8-7.7) 09/12/22 19:17 Lymph # (Auto) 1.0 10^3/uL (0.8-4.8) 09/12/22 19:17 [place] # (Auto) 0.6 10^3/uL (0.2-0.9) 09/12/22 19:17 Eos # (Auto) 0.0 10^3/uL (0.0-0.8) 09/12/22 19:17 Baso # (Auto) 0.0 10^3/uL (0.0-0.1) 09/12/22 19:17 Nucleated RBC % (auto) 0 % 09/12/22 19:17 Nucleated RBCs # 0.0 /100WBC 09/12/22 19:17 Sodium 137 mmol/L (136-145) 09/12/22 19:17 Potassium 4.6 mmol/L (3.5-5.1) 09/12/22 19:17 Chloride 99 mmol/L (98-107) 09/12/22 19:17 Carbon Dioxide 25 mmol/L (22-29) 09/12/22 19:17 Anion Gap 17.6 (5-19) 09/12/22 19:17 BUN 51 mg/dL (8-23) H 09/12/22 19:17 Creatinine 1.5 mg/dL (0.5-0.9) H 09/12/22 19:17 GFR Calculation Not Reportable 09/12/22 19:17 Glucose 111 mg/dL (65-115) 09/12/22 19:17 Calculated Osmolality 298 mOsm/kg (285-295) H 09/12/22 19:17 Calcium 9.2 mg/dL (8.5-10.5) 09/12/22 19:17 Magnesium 2.0 mg/dL (1.7-2.3) 09/12/22 19:17 Troponin T Baseline 24 ng/L (0-10) H 09/12/22 19:17 NT-Pro-B Natriuret Pep 4587 pg/mL (0-450) H 09/12/22 19:17 Digoxin 2.7 ng/mL (0.6-1.2) H* 09/12/22 19:[address] Head: Radiologist's impression: PROCEDURE INFORMATION: Exam: CT Head Without Contrast Exam date and time: 09/12/2022 7:34 PM Age: 86 years old Clinical indication: Dizziness and other: James; Additional info: Dizzy; Possible seizure TECHNIQUE: Imaging protocol: Computed tomography of the head without contrast. Radiation optimization: All CT scans at this facility use at least one of these dose optimization techniques: automated exposure control; mA and/or kV adjustment per patient size (includes targeted exams where dose is matched to clinical indication); or iterative reconstruction. COMPARISON: CT head wo con* [id number] 06/17/2019 3:41 AM RADIATION DOSE METRICS: Total DLP (mGy-cm): 991.98 FINDINGS: Brain: Moderate diffuse cortical volume loss. Mild hypodensities in supratentorial periventricular and subcortical white matter, consistent with microangiopathy. No intracranial hemorrhage. Tiny chronic lacunar infarct in the right thalamus. Cerebral ventricles: No ventriculomegaly. Paranasal sinuses: Visualized sinuses are unremarkable. No fluid levels. Mastoid air cells: Visualized mastoid air cells are well aerated. Orbital cavities: Prior cataract surgery. Bones/joints: Unremarkable. No acute fracture. Soft tissues: Unremarkable. Vasculature: No hyperdense artery. CT/CT head wo con* [id number] IMPRESSION: No acute intracranial abnormality. ? Dictated By: Demetrius Keys Signed By: Demetrius Keys Signed Date/Time: 09/12/222022 CXR: Radiologist's impression: PROCEDURE INFORMATION: Exam: XR Chest Exam date and time: 09/12/2022 7:01 PM Age: 86 years old Clinical indication: Other: Weakness, james; Prior surgery; Surgery date: 6+ months; Surgery type: Breast CA; Additional info: Near syncope; Bradycardia TECHNIQUE: Imaging protocol: Radiologic exam of the chest. Views: 1 view. COMPARISON: CR XR chest 1V portable [id number] 09/02/2022 1:51 PM FINDINGS: Tubes, catheters and devices: There is a radiodense right breast implant. Lungs: There is an irregular 10 mm spiculated opacity in the left mid lung. Surrounding ill-defined opacity in the left mid lung is decreased since 09/02/2022. The right lung is clear. Pleural spaces: There is no pleural effusion or pneumothorax. Heart/Mediastinum: There is mild enlargement of the cardiac silhouette. Bones/joints: Bones are unremarkable. XR/XR chest 1V portable [id number] IMPRESSION: 1. Decreased left lung consolidation since 09/02/2022. 2. Residual 10 mm spiculated opacity in the lateral left mid lung. Possible metastatic or primary neoplastic nodule. Recommend nonemergent follow-up chest CT. ? Dictated By: Jared Santizo MD Signed By: Jared Santizo MD Signed Date/Time: 09/12/221932 EKG Data EKG 1: Attestation: I personally reviewed and interpreted this EKG as follows: EKG interpretation date: 09/12/22 EKG interpretation time: 19:18 Interpretation: Atrial fibrillation with bradycardia of [address]-T changes. Cannot rule out ischemia. Left anterior fascicular block. Left axis. No VA interval. EKG 2: Attestation: I personally reviewed and interpreted this EKG as follows: EKG interpretation date: 09/12/22 EKG interpretation time: 21:42 Prior EKG tracings: available for review (Rate unchanged from previous EKG. possible development of Mobitz type II block.) Interpretation: Sinus bradycardia with either Mobitz type II block versus third-degree AV block. Nonspecific ST-T changes. LVH. Left axis. Left IVCD Critical Care Time Critical Care Time: Critical Care Time: Yes Total Critical Care Time: 65 Attestation: See orders. Consultation with skein bleacher and hospitalist. Discharge Plan Discharge Patient Disposition: Admitted As Inpatient Admit Provider: Esequiel Robledo Clinical Impression: Bradycardia, drug induced, Bradycardia with 31-40 beats per minute Digoxin toxicity Qualifiers: Encounter type: initial encounter Injury intent: accidental or unintentional Qualified Code(s): T46.0X1A - Poisoning by cardiac-stimulant glycosides and drugs of similar action, accidental (unintentional), initial encounter Condition: Stable Coding Level of Care Code ED Telegraphic Instrument Supervisor for Juve Goodman History Comprehensive Exam Comprehensive Medical Decision Making High Complexity
[2022-09-12 19:25] LABS: Basophils % 0.2 %; Eosinophils % 0.2 %; Hematocrit 33.1 % (37.0-47.0); Mean Corpuscular HGB Conc 30.2 g/dL (30.0-36.0); Mean Corpuscular Hemoglobin 30.8 pg (28.0-34.0); Mean Corpuscular Volume 101.8 fl (81-99); Monocytes # 0.6 10^3/uL (0.2-0.9); Monocytes % 6.9 %; Neutrophils # 7.34 10^3/uL (1.8-7.7); Neutrophils % 81.1 %; Nucleated Red Blood Cells % 0 %; Platelet Count 168 10^3/cmm (130-400); Red Blood Count 3.25 10^6/uL (4.1-5.3); Red Cell Distribution Width 16.3 % (12.1-15.1)
[2022-09-12 19:32] LABS: Slide Review Slide Review Perform
[2022-09-12 19:57] LABS: Troponin(5th) Baseline 24 ng/L (0-10)
[2022-09-12 20:05] LABS: Anion Gap 17.6 (5-19); Blood Urea Nitrogen 51 mg/dL (8-23); Calcium 9.2 mg/dL (8.5-10.5); Carbon Dioxide 25 mmol/L (22-29); Chloride 99 mmol/L (98-107); Glucose 111 mg/dL (65-115); NT Pro B Type Natriuretic Pept 4587 pg/mL (0-450); Osmolality Calculated 298 mOsm/kg (285-295); Potassium 4.6 mmol/L (3.5-5.1); Sodium 137 mmol/L (136-145)
[2022-09-12] MEDS: sodium chloride 0.9% 250 ML IV (20:51)
--- NOTE | 2022-09-12 20:56 | ECG_ITS ---
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 Measurements Intervals [place] Rate: 39 P: 0 NH: 0 QRS: -48 QRSD: 123 T: 74 QT: 525 QTc: 428 Interpretive Statements SINUS BRADYCARDIA WITH 2ND DEGREE AV BLOCK, 2:1 OR MOBITZ TYPE II LEFT AXIS DEVIATION [QRS AXIS < -30] POSSIBLE RIGHT VENTRICULAR CONDUCTION DELAY [RSR (QR) IN V1/V2] ANTEROSEPTAL MYOCARDIAL INFARCTION , PROBABLY RECENT Compared to ECG 09/12/2022 19:16:37 Left-axis deviation now present Atrial fibrillation no longer present Left anterior fascicular block no longer present T-wave abnormality no longer present Possible ischemia no longer present Prolonged QT interval no longer present Myocardial infarct finding still present Electronically Signed On 09-13-2022 17:05:15 CASINO DUTY MANAGER by Elidia Del Cid M.D. [id number]
[2022-09-12 21:02] LABS: Digoxin 2.7 ng/mL (0.6-1.2)
[2022-09-12 22:06] LABS: Troponin 5 2HR 23.61 ng/L (0-10)
[2022-09-12] MEDS: DIGOXIN IMMUNE FAB 40 MG 120 MG IV (22:07)
--- NOTE | 2022-09-12 22:08 | P.HP_ITS ---
Providers/Chief Complaint Admitting Physician: Esequiel Robledo MD Primary Care Provider: Scott Lau MD Chief Complaint: possible seizure History of Present Illness Iraida Bay is a 86 year old female with a past medical history of dementia, history of rectosigmoid cancer status post surgery, atrial fibrillation not a candidate for anticoagulation, neurogenic bladder, recurrent UTIs, recent hospitalization for A. fib with RVR, CHF, was discharged on amiodarone, digoxin, Cardizem. Who presents to [facility] due to syncope and collapse, lightheadedness, dizziness, feeling unwell. Currently patient is seen in the ER, she is in sinus bradycardia, heart rates are in the mid 30s, she is alert oriented follows all commands, she feels a bit weak, she tells me that since leaving the hospital she has felt lightheaded, she is felt dizzy, she has not had any significant falls. However today afternoon, she had an episode of blacking out passing out, her was able to catch her, episode lasted about 20 seconds, no facial droop, no slurring of her words, no seizure-like episodes. Currently denies any chest pain, no palpitations. No fevers, no chills, no nausea, no vomiting. Patient's family was at bedside, I advised him that currently she is in sinus bradycardia, there has not been any hemodynamic compromise while she is here in the emergency room. But given her syncope and collapse episode is quite concerning. Her digoxin levels were found to be 2.7 ER physician has given her Digibind we will have to monitor her serum potassium levels closely. Her EKG does not show any any bundle branch blocks, but we will have to monitor closely in the ICU. She possibly might require a pacemaker placement or even temporary pacing. I think that likely she is developed digoxin toxicity, and likely polypharmacy from Cardizem, and amiodarone. Patient and family voiced understanding, all questions answered, agreed to proceed. Review of Systems Const: Denies: fever(s) Eyes: Denies: change in vision Card: Reports: lightheadedness and syncope; Denies: chest pain or dyspnea on exertion Resp: Denies: dyspnea GI: Denies: abdominal pain : Denies: difficulty voiding Musc: Reports: muscle weakness Skin/Breast: Denies: rash Neuro: Reports: weakness in extremities and dizziness Medications/Allergies Home Medications Medication Instructions Recorded Confirmed Last Taken Type clonazepam 0.5 mg tablet 0.5 mg PO BID PRN Anxiety 09/06/19 09/10/22 02/05/20 History primidone 50 mg tablet 50 mg PO TID PRN Tremor(S) 09/06/19 09/10/22 Unknown History cyclosporine 0.05 % eye drops 1 drop ophthalmic (eye) Q12H 09/13/19 09/10/22 09/02/22 History (Restasis MultiDose) flaxseed oil 1,000 mg capsule 1,000 mg PO DAILY 09/13/19 09/10/22 09/02/22 History sertraline 100 mg tablet 100 mg PO Q24H 09/13/19 09/10/22 09/02/22 History vitamin B complex (B 1 tab PO DAILY 09/13/19 09/10/22 09/02/22 History Complex-Vitamin B12 tablet) levothyroxine 137 mcg tablet 137 mcg PO DAILY 02/06/20 09/10/22 09/02/22 History multivitamin (Multiple Vitamins 1 tab PO DAILY 02/06/20 09/10/22 09/02/22 History tablet) Lactobacillus acidophilus 10,000 mmu cells PO BID #60 caps 02/10/20 09/10/22 09/02/22 Rx bisacodyl 5 mg tablet,delayed 5 mg PO DAILY #30 tabs 02/10/20 09/10/22 09/02/22 Rx release cholecalciferol (vitamin D3) 25 25 mcg PO DAILY 09/02/22 09/10/22 09/02/22 History mcg (1,000 unit) tablet (Vitamin D3) nitrofurantoin macrocrystal 100 mg 100 mg PO DAILY 09/02/22 09/10/22 09/02/22 History capsule omega 6-lmg-wge-fish oil 1,000 mg 1 cap PO DAILY 09/02/22 09/10/22 09/02/22 History (120 mg-180 mg) capsule (Fish Oil) amiodarone 200 mg tablet (Pacerone) 400 mg PO BID #90 tabs 09/07/22 09/10/22 Unknown Rx cefpodoxime 200 mg tablet 200 mg PO BID #6 tabs 09/07/22 09/10/22 Unknown Rx digoxin 125 mcg (0.125 mg) tablet 125 mcg PO DAILY #60 tabs 09/07/22 09/10/22 Unknown Rx diltiazem HCl 360 mg 360 mg PO DAILY #60 tabs 09/07/22 09/10/22 Unknown Rx tablet,extended release 24 hr (Cardizem LA) diphenoxylate-atropine 2.5 1 tab PO DAILY #10 tabs 09/07/22 09/10/22 09/02/22 Rx mg-0.025 mg tablet furosemide 20 mg tablet (Lasix) 20 mg PO DAILY #60 tabs 09/07/22 09/10/22 Unknow n Rx potassium chloride 10 mEq 10 meq PO DAILY #30 tabs 09/07/22 09/10/22 Unknown Rx tablet,extended release Allergies Allergy/AdvReac Type Severity Reaction Status Date / Time Penicillins Allergy ALGY-Hives Verified 09/02/22 15:23 PFSH Acute PFSH: Medical History Acute exacerbation of congestive heart failure Anemia Anemia Anxiety and depression Atrial fibrillation CHF (congestive heart failure) Chronic constipation Community acquired pneumonia Dementia History of cervical cancer Treated with cobalt radiation Hydronephrosis Bilateral hydronephrosis associated with neurogenic bladder Hypertension Hypothyroidism Intrinsic sphincter deficiency Mitral regurgitation Neurogenic bladder Onychodystrophy Peripheral arterial disease Rectosigmoid cancer Recurrent UTI Severe protein-calorie malnutrition UTI (urinary tract infection) Surgical History H/O: hysterectomy (1962) History of colon resection (1995) Low anterior resection History of hemicolectomy S/P angioplasty with stent Status post bilateral iliac stents and angioplasty of the left common femoral artery and superficial femoral artery. S/P bladder repair S/P hernia repair S/P tonsillectomy Family History Mother CAD (coronary artery disease) Son CAD (coronary artery disease) Myocardial infarct, old Father CAD (coronary artery disease) Myocardial infarct, old Denies family history of Anesthesia complication Bleeding disorder Social History Smoking and tobacco status: former smoker Alcohol intake: never Household members: spouse Marital status: Current occupational status: retired History of recent travel: No Current gender identity: Female Adele/Baptist: Mandaeism Vitals/I&O/Wt Last Vital Signs Pulse 42 L 09/12/22 19:10 Resp 19 H 09/12/22 19:10 BP 125/54 09/12/22 19:10 Pulse Ox 88 L 09/12/22 19:00 O2 Del Method 09/12/22 17:15 Weight last 48 hrs Weight 38.555 kg Physical Exam Const: COMMON NORMALS: no acute distress ORIENTATION/CONSCIOUSNESS: Yes awake, Yes oriented to person and Yes oriented to place HENMT: COMMON NORMALS: normocephalic HEAD & SCALP: normocephalic Eye: COMMON NORMALS: Equal, round and reactive pupils present and EOMs intact bilaterally Lymph: LYMPHATIC: no lymphadenopathy noted Resp: COMMON NORMALS: normal respiratory effort, No retractions, No use of accessory muscles and clear to auscultation bilaterally AUSCULTATION: clear to auscultation bilaterally Cardio: COMMON NORMALS: regular rate, regular rhythm, S1 normal heart sound present and S2 normal heart sound present RATE: regular rate RHYTHM: regular rhythm HEART SOUNDS: S1 normal heart sound present and S2 normal heart sound present GI: COMMON NORMALS: Normal to inspection, nondistended, normoactive bowel sounds present, Soft to palpation and non-tender Extremity: COMMON NORMALS: no pedal edema Neuro: COMMON NORMALS: CN's II-XII intact bilaterally, moves all extremities and no focal motor deficits Psych: COMMON NORMALS: mental status grossly normal Data 09/12/22 19:17 09/12/22 19:17 A&P Assessment and plan (1) Bradycardia, drug induced: (2) Bradycardia with 31-40 beats per minute: (3) Digoxin toxicity: Qualifiers: Encounter type: initial encounter Injury intent: accidental or unintentional Qualified Code(s): T46.0X1A - Poisoning by cardiac-stimulant glycosides and drugs of similar action, accidental (unintentional), initial encounter (4) Syncope and collapse: (5) Rectosigmoid cancer: (6) Peripheral arterial disease: (7) Protein calorie malnutrition: (8) Muscular deconditioning: (9) Goals of care, counseling/discussion: Plan Sinus bradycardia -Likely multifactorial -From amiodarone, Cardizem -Digoxin levels 2.7, also digoxin toxicity -Given her syncope and collapse episode, and severe symptomatic bradycardia she was given Digibind in the emergency room, we will have to monitor serum electrolytes her potassium monitor for arrhythmias in the ICU -Atropine as needed as needed -Place pacer pads as needed -Goals of care discussion, she wants to be a full code, she is agreeable for pacemaker placement if required -Full code -Lovenox for DVT prophylaxis Digoxin toxicity as above, levels 2.7 Syncope and collapse -Likely secondary to sinus bradycardia -However she did have a positive stress test during her last hospitalization 1. Medium sized predominantly fixed perfusion abnormality of mid to apical ?inferior, mid inferoseptal and apical septal collier. ?2. This may represent old myocardial infarction in right coronary artery or ?attenuation artifact. ?3. The left ventricular ejection fraction is mildly reduced with a value of 47% ?with mild global hypokinesis. ?4. EKG portion of the study will be reported separately. ?5. No coronary ischemia based on this study. -Decision was made not to pursue coronary angiography, medically manage during last hospitalization -Currently she denies any chest pain -EKG shows no acute ST-T wave changes -Serial EKGs, serial troponins, telemetry monitoring, monitor in ICU A. fib with slow ventricular response, hold all medications, is intolerant to anticoagulation History of recurrent UTIs, will get UA History of systolic CHF, systolic, not in exacerbation, will monitor Attestations Medical Necessity Statement*: Patient requires hospitalization, inpatient, greater than 2 midnights, for sinus bradycardia, syncope and collapse, polypharmacy, digoxin toxicity Coding Level of Care Code Acute Code for Chg Fwd Diagnoses Bradycardia, drug induced R00.1; T50.905A Bradycardia with 31-40 beats per minute R00.1 Digoxin toxicity T46.0X1A Encounter type: initial encounter Injury intent: accidental or unintentional Syncope and collapse R55 Rectosigmoid cancer C19 Peripheral arterial disease I73.9 Protein calorie malnutrition E46 Muscular deconditioning R29.898 Goals of care, counseling/discussion Z71.89
[2022-09-12 22:09] LABS: Troponin 5 2HR Delta -0.39 ABS# (0-10)
[2022-09-12 22:35] LABS: INR 1.08 (0.8-1.2)
--- NOTE | 2022-09-12 22:40 | PC.NURSE ---
Report called to Paula KELLY
[2022-09-12 23:34] LABS: Thyroid Stimulating Hormone 5.88 uIU/mL (0.27-4.20)
[2022-09-12] MEDS: sertraline 100 mg Tablet PO (23:58)
[2022-09-12] MEDS: pantoprazole 40 mg SDV IVP (23:58)
[2022-09-12] MEDS: enoxaparin 40 mg/0.4 mL Syringe SUBCUT (23:58)
[2022-09-13] VITALS (88 sets, daily range): BP systolic 80–169; BP diastolic 39–88; PULSE 29–81; RESP 11–24; TEMP 36.4–37.3; O2SAT 84–99
[2022-09-13] MEDS: CLONazepam 0.5 mg Tablet PO (00:26)
--- NOTE | 2022-09-13 00:56 | ECG_ITS ---
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 Measurements Intervals [place] Rate: 47 P: 68 NV: 213 QRS: -50 QRSD: 118 T: -1 QT: 556 QTc: 494 Interpretive Statements SINUS BRADYCARDIA WITH FIRST DEGREE AV BLOCK WITH FREQUENT VENTRICULAR PREMATURE COMPLEXES LEFT ANTERIOR FASCICULAR BLOCK [QRS AXIS <= -45, QR IN I, RS IN II] SEPTAL MYOCARDIAL INFARCTION , PROBABLY OLD [40+ ms Q WAVE IN V1/V2] PROLONGED QT INTERVAL Compared to ECG 09/12/2022 21:38:44 First degree AV block now present Left anterior fascicular block now present Prolonged QT interval now present Left-axis deviation no longer present Myocardial infarct finding still present Electronically Signed On 09-13-2022 17:00:30 METALLURGICAL ENGINEERING TECHNICIAN by Elidia Del Cid M.D. [id number]
[2022-09-13 01:28] LABS: Basophils % 0.3 %; Eosinophils # 0.1 10^3/uL (0.0-0.8); Hematocrit 32.4 % (37.0-47.0); Hemoglobin 9.7 g/dL (11.5-15.3); Lymphocytes % 14.3 %; Mean Corpuscular HGB Conc 29.9 g/dL (30.0-36.0); Mean Corpuscular Hemoglobin 30.8 pg (28.0-34.0); Mean Corpuscular Volume 102.9 fl (81-99); Mean Platelet Volume 10.3 fL (7.4-10.4); Monocytes # 0.6 10^3/uL (0.2-0.9); Monocytes % 8.4 %; Neutrophils # 5.51 10^3/uL (1.8-7.7); Neutrophils % 75.6 %; Nucleated Red Blood Cells % 0 %; Platelet Count 163 10^3/cmm (130-400); Red Blood Count 3.15 10^6/uL (4.1-5.3); Red Cell Distribution Width 16.4 % (12.1-15.1); White Blood Count 7.3 10^3/uL (4.0-10.0)
[2022-09-13 01:29] LABS: Urine Color Yellow (Yellow)
[2022-09-13 01:30] LABS: Add Urine Microscopic? YES; Bilirubin Urine Neg (Negative); Blood Urine 3+ (Negative); Glucose Urine UA Norm (Normal); Ketones Urine Negative (Negative); Leukocyte Esterase Urine 2+ (Negative); Nitrate Urine Negative (Negative); Protein Urine Trace (Negative); Urine Appearance Clear (CLEAR); Urobilinogen Urine Norm (Negative); pH Urine 5 (5-7)
[2022-09-13 01:31] LABS: Add Urine Culture? Yes; Bacteria Urine 3+ /hpf; RBC Urine TOO NUMEROUS TO CNT /hpf (0-2); Squamous Epithelial Cell Urine 0-4 /hpf (0-5); WBC Urine TOO NUMEROUS TO CNT /hpf (0-5)
[2022-09-13] MEDS: atropine 0.1 mg/mL Syr 10 mL 0.5 MG IVP ×2 (01:47→01:57)
[2022-09-13 02:02] LABS: Troponin 5 6HR 24.91 ng/L (0-10)
[2022-09-13 02:03] LABS: Troponin 5 6HR Delta 0.91 ng/L (0-12)
[2022-09-13] MEDS: DOPamine drip 400 MG/250 ML PREMIX 7.31 MG IV (02:03)
[2022-09-13 02:38] LABS: Anion Gap 14.3 (5-19); Calcium 8.4 mg/dL (8.5-10.5); Carbon Dioxide 25 mmol/L (22-29); Chloride 102 mmol/L (98-107); Glucose 84 mg/dL (65-115); Osmolality Calculated 295 mOsm/kg (285-295); Potassium 4.3 mmol/L (3.5-5.1); Sodium 137 mmol/L (136-145)
[2022-09-13 02:53] LABS: Blood Urea Nitrogen 45 mg/dL (8-23)
[2022-09-13] MEDS: morphine 4 mg/mL SDV 1 mL 1 MG IVP (03:36)
--- NOTE | 2022-09-13 07:05 | PM.CONSULT ---
Providers/Reason For Consult Consulting Physician/Specialty*: Dr. Del Cid, Cardiology Reason for Consult*: Bradycardia, syncopal episode Attending Physician: Esequiel Robledo MD Primary Care Provider: Scott Lau MD History of Present Illness History of Present Illness Iraida Bay is a 86 year old female ?past medical history of dementia, history of rectosigmoid cancer s/p surgery, atrial fibrillation not a candidate for anticoagulation d/t advanced age and bleeding history and multiple other medical problems. She was recently hospitalized for A. fib with RVR, CHF. Echo showed drop in LV function to 30% with possibly severe MR. She underwent stress test that did not show any ischemia. She was treated medically and discharged on amiodarone, digoxin, Cardizem for atrial fibrillation. She presented yesterday with syncopal episode and was noted to be in sinus bradycardia with HR in 30's. She complains of dizziness and weakness since discharge few days back. Dig level was high and she received digiband. Overnight, she received atropine and was also started on dopamine drip. She has maintained her BP and no syncopal episodes. EKG shows sinus bradycardia with junction escape beats. Sunsequent EKG with sinus rhythm with 2:1 AV block and third EKG with sinus bradycardia and frequent PVC's. At the time of exam she is in sinus rhythm at 60's with PAC's and PVC's. Review of Systems General: Reports: 10 or more systems reviewed and unremarkable except in HPI and below Const: Denies: fever(s) Eyes: Denies: change in vision Card: Reports: lightheadedness and syncope; Denies: chest pain or dyspnea on exertion Resp: Denies: dyspnea GI: Denies: abdominal pain : Denies: difficulty voiding Musc: Reports: muscle cramps Skin/Breast: Denies: rash Neuro: Reports: weakness in extremities and dizziness Medications/Allergies Home Medications Medication Instructions Recorded Confirmed Last Taken Type clonazepam 0.5 mg tablet 0.5 mg PO BID PRN Anxiety 09/06/19 09/10/22 02/05/20 History primidone 50 mg tablet 50 mg PO TID PRN Tremor(S) 09/06/19 09/10/22 Unknown History cyclosporine 0.05 % eye drops 1 drop ophthalmic (eye) Q12H 09/13/19 09/10/22 09/02/22 History (Restasis MultiDose) flaxseed oil 1,000 mg capsule 1,000 mg PO DAILY 09/13/19 09/10/22 09/02/22 History sertraline 100 mg tablet 100 mg PO Q24H 09/13/19 09/10/22 09/02/22 History vitamin B complex (B 1 tab PO DAILY 09/13/19 09/10/22 09/02/22 History Complex-Vitamin B12 tablet) levothyroxine 137 mcg tablet 137 mcg PO DAILY 02/06/20 09/10/22 09/02/22 History multivitamin (Multiple Vitamins 1 tab PO DAILY 02/06/20 09/10/22 09/02/22 History tablet) Lactobacillus acidophilus 10,000 mmu cells PO BID #60 caps 02/10/20 09/10/22 09/02/22 Rx bisacodyl 5 mg tablet,delayed 5 mg PO DAILY #30 tabs 02/10/20 09/10/22 09/02/22 Rx release cholecalciferol (vitamin D3) 25 25 mcg PO DAILY 09/02/22 09/10/22 09/02/22 History mcg (1,000 unit) tablet (Vitamin D3) nitrofurantoin macrocrystal 100 mg 100 mg PO DAILY 09/02/22 09/10/22 09/02/22 History capsule omega 0-yug-qln-fish oil 1,000 mg 1 cap PO DAILY 09/02/22 09/10/22 09/02/22 History (120 mg-180 mg) capsule (Fish Oil) amiodarone 200 mg tablet (Pacerone) 400 mg PO BID #90 tabs 09/07/22 09/10/22 Unknown Rx digoxin 125 mcg (0.125 mg) tablet 125 mcg PO DAILY #60 tabs 09/07/22 09/10/22 Unknown Rx diltiazem HCl 360 mg 360 mg PO DAILY #60 tabs 09/07/22 09/10/22 Unknown Rx tablet,extended release 24 hr (Cardizem LA) diphenoxylate-atropine 2.5 1 tab PO DAILY #10 tabs 09/07/22 09/10/22 09/02/22 Rx mg-0.025 mg tablet furosemide 20 mg tablet (Lasix) 20 mg PO DAILY #60 tabs 09/07/22 09/10/22 Unknown Rx potassium chloride 10 mEq 10 meq PO DAILY #30 tabs 09/07/22 09/10/22 Unknown Rx tablet,extended release amitriptyline 25 mg tablet 25 mg PO DAILY 09/13/22 09/13/22 Unknown History suvorexant 10 mg tablet (Belsomra) 10 mg PO BEDTIME 09/13/22 09/13/22 Unknown History verapamil 240 mg 24 hr 240 mg PO DAILY 09/13/22 09/13/22 Unknown History capsule,extended release Allergies Allergy/AdvReac Type Severity Reaction Status Date / Time Penicillins Allergy ALGY-Hives Verified 09/02/22 15:23 Current Medications Generic Name Dose Route Start Last Admin Trade Name Freq PRN Reason Stop Dose Admin Atropine Sulfate 0.5 mg 09/12/22 22:57 09/13/22 01:57 Atropine 0.1 Mg/Ml Syr 10 Ml IVP 0.5 mg Q5MIN PRN Administration FOR HR<40, HD instability, symptomatic, call md before use Clonazepam 0.5 mg 09/12/22 22:57 09/13/22 00:26 Clonazepam 0.5 Mg Tablet PO 0.5 mg BID PRN Administration Anxiety Enoxaparin Sodium 40 mg 09/12/22 23:00 09/12/22 23:58 Enoxaparin 40 Mg/0.4 Ml Syringe SUBCUT 40 mg Q24H LILIYA Administration Dopamine HCl/Dextrose 400 mg in 250 mls @ 7.313 mls/hr 09/13/22 02:00 09/13/22 05:38 Intropin Drip IV 7.5 mcg/kg/min CONT LILIYA 10.97 mls/hr Titration Protocol 5 MCG/KG/MIN Pantoprazole Sodium 40 mg 09/12/22 23:00 09/12/22 23:58 Pantoprazole 40 Mg Sdv IVP 40 mg Q24H LILIYA Administration Sertraline HCl 100 mg 09/12/22 22:57 09/12/22 23:58 Sertraline 100 Mg Tablet PO 100 mg Q24H LILIYA Administration PFSH Acute PFSH: Medical History (Updated 09/13/22 @ 07:22 by Elidia Del Cid MD) Acute exacerbation of congestive heart failure Anemia Anemia Anxiety and depression Atrial fibrillation CHF (congestive heart failure) Chronic constipation Community acquired pneumonia Dementia History of cervical cancer Treated with cobalt radiation Hydronephrosis Bilateral hydronephrosis associated with neurogenic bladder Hypertension Hypothyroidism Intrinsic sphincter deficiency Mitral regurgitation Neurogenic bladder Onychodystrophy Peripheral arterial disease Rectosigmoid cancer Recurrent UTI Severe protein-calorie malnutrition UTI (urinary tract infection) Surgical History H/O: hysterectomy (1962) History of colon resection (1995) Low anterior resection History of hemicolectomy S/P angioplasty with stent Status post bilateral iliac stents and angioplasty of the left common femoral artery and superficial femoral artery. S/P bladder repair S/P hernia repair S/P tonsillectomy Family History Mother CAD (coronary artery disease) Son CAD (coronary artery disease) Myocardial infarct, old Father CAD (coronary artery disease) Myocardial infarct, old Denies family history of Anesthesia complication Bleeding disorder Social History Smoking and tobacco status: former smoker Alcohol intake: never Household members: spouse Marital status: Current occupational status: retired History of recent travel: No Current gender identity: Female Adele/Confucianist: Uatsdin Vitals/I&O/Wt Last Vital Signs Temp 97.9 F 09/13/22 05:36 Pulse 46 L 09/13/22 06:15 Resp 21 H 09/13/22 06:15 BP 141/39 09/13/22 06:15 Pulse Ox 92 09/13/22 06:15 O2 Del Method 09/13/22 02:56 O2 Flow Rate 2 09/13/22 02:56 09/12/22 09/13/22 09/13/22 22:59 06:59 14:59 Intake Total 250 / 250 21.145 / 271.145 Output Total 400 / 400 Balance 250 / 250 -378.855 / -128.855 Weight last 48 hrs Weight 85 lb 15.684 oz Weight 85 lb Physical Exam Narrative: Gen: elderly lady laying in bed HEENT/Neck: EOMI, No carotid bruit RS: CTAB/L, No wheezes or rales heard CVS: S1, S2 regular, systolic murmur in apical area PA: soft, NT, ND CHILDREN'S COUNSELOR: awake, 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 Urinary Catheter Management: Finch: Cath Placed During This Visit: yes Reason for Continuing Indwelling Catheter: Accurate Measurement of Urinary Output in Critically Ill Patients Urinary Catheter Date of Insertion: 09/12/22 Urinary Catheter Time of Insertion: 23:42 Data 09/13/22 01:10 09/13/22 01:10 Other data: TTE (09/03/22) CONCLUSIONS ?Diffuse hypokinesia of the left ventricle with diminished ?ejection fraction of around 30%( visual). ?Mild concentric left-ventricular hypertrophy ?(Patient was in atrial fibrillation with rapid ventricular rate, ?during the study.? Segmental wall motion analysis and ejection ?fraction estimation could be misleading. ) ?Appears to have severe mitral regurgitation, based on color-flow ?Doppler examination ?Again aortic and mitral valves ? Mild to moderate aortic regurgitation ?[id number] tricuspid valve regurgitation.? ?Mild pulmonary hypertension.? Estimated pulmonary artery peak ?systolic pressure of 46 mmHg ?Mild pulmonary valve regurgitation. ?Trivial pericardial effusion. ?Possibly large left-sided pleural effusion ?Compared to the study from 01/02/2021, there is worsening of the ?LV systolic function and mitral regurgitation Lexiscan MPI (09/06/22) IMPRESSIONS ?1. Medium sized predominantly fixed perfusion abnormality of mid to apical ?inferior, mid inferoseptal and apical septal collier. ?2. This may represent old myocardial infarction in right coronary artery or ?attenuation artifact. ?3. The left ventricular ejection fraction is mildly reduced with a value of 47% ?with mild global hypokinesis. ?4. EKG portion of the study will be reported separately. ?5. No coronary ischemia based on this study. A&P Assessment and plan (1) Syncope and collapse: One episode before arrival -none since then (2) Bradycardia with 31-40 beats per minute: Multiple AV vidhi blockers on board on arrival (cardizem, digoxin and amiodarone) -Digifab administered for dig toxicity -HR has improved. -Continue dopamine gtt for now, hemodynamically stable, labs stable -continue to hold AV vidhi blockers. -Based on how she does, will decide on further action. At this time, low likelihood that she will need a pacemaker. This was discussed with patient and her . They are agreeable for PPM if she needs it. (3) Atrial fibrillation: currently in SR. -Not on ac d/t prior bleed Qualifiers: Atrial fibrillation type: unspecified Qualified Code(s): I48.91 - Unspecified atrial fibrillation (4) CHF (congestive heart failure): appears euvolemic on exam. CXR with no acute abnormality. Qualifiers: Heart failure chronicity: unspecified Heart failure type: unspecified Qualified Code(s): I50.9 - Heart failure, unspecified Plan Hypertension Hypothyroidism Recurrent UTI Patient seen today via Telehealth by agreement and consent of patient. Telehealth technology used during the visit include video and audio. Exam was conducted with the help of bedside RN. Time spent in encounter 40 minutes with >50% time spent face to face. Coding Level of Care Code Acute Code for [facility] Fwd Diagnoses Syncope and collapse R55 Bradycardia with 31-40 beats per minute R00.1 Atrial fibrillation I48.91 Atrial fibrillation type: unspecified CHF (congestive heart failure) I50.9 Heart failure chronicity: unspecified Heart failure type: unspecified
[2022-09-13] MEDS: cefTRIAXone 1,000 MG in sodium chloride 0.9% (plus) 50 ML 100 MG IV (08:10)
[2022-09-13] MEDS: b-complex-vitamin c Tablet 1 EACH PO (08:17)
[2022-09-13] MEDS: levothyroxine 137 mcg Tablet PO (08:17)
[2022-09-13] MEDS: ondansetron 4 MG Tablet PO ×2 (08:18→11:39)
--- NOTE | 2022-09-13 08:45 | PC.PHAR ---
MEDICATIONS VERIFIED USING EXTERNAL MED LIST LAST FILLED
[2022-09-13] MEDS: CLONazepam 0.5 mg Tablet 1 MG PO (16:39)
--- NOTE | 2022-09-13 18:08 | PM.PN ---
Subjective Subjective: Overnight labs and H&P reviewed. Patient continues to be on dopamine infusion today. Heart rate is currently ranging 60 to 70 bpm. Attempts at weaning down dopamine infusion this morning were unsuccessful as patient became bradycardic and has restless legs. Her chief concern right now is that she was unable to sleep last night. He denies any chest pain dyspnea or palpitations. Medications: Reviewed: Yes Vitals/I&O/Wt Last Vital Signs Temp 98.8 F 09/13/22 13:15 Pulse 55 L 09/13/22 14:30 Resp 21 H 09/13/22 14:30 BP 163/66 09/13/22 14:30 Pulse Ox 95 09/13/22 14:30 O2 Del Method 09/13/22 09:27 O2 Flow Rate 3 09/13/22 09:27 09/13/22 09/13/22 09/13/22 06:59 14:59 22:59 Intake Total 21.145 / 271.145 97.589 / 97.589 Output Total 400 / 400 250 / 250 Balance -378.855 / -128.855 -152.411 / -152.411 Weight last 48 hrs Weight 39 kg Weight 38.555 kg Physical Exam Narrative: General: No acute distress, AO x 3 HEENT: PERRLA, pupils bilaterally equal and reactive, pallors not present Chest: Normal vesicular breath sounds, no added sounds, equal good air entry bilaterally CVS: S1-S2 regular, no murmurs, no tachycardia, no gallops, no rubs Abdomen: Soft, nontender, no organomegaly, bowel sounds present Neuro: No focal deficits, no facial deformity, AO x3, power 5/5 in all limbs Urinary Catheter Management: Finch: Cath Placed During This Visit: yes Reason for Continuing Indwelling Catheter: Accurate Measurement of Urinary Output in Critically Ill Patients Urinary Catheter Date of Insertion: 09/12/22 Urinary Catheter Time of Insertion: 23:42 Data 09/13/22 01:10 09/13/22 01:10 A&P Assessment and plan (1) Bradycardia, drug induced: (2) Bradycardia with 31-40 beats per minute: (3) Digoxin toxicity: Qualifiers: Encounter type: initial encounter Injury intent: accidental or unintentional Qualified Code(s): T46.0X1A - Poisoning by cardiac-stimulant glycosides and drugs of similar action, accidental (unintentional), initial encounter (4) Syncope and collapse: (5) Rectosigmoid cancer: (6) Peripheral arterial disease: (7) Protein calorie malnutrition: (8) Muscular deconditioning: (9) Goals of care, counseling/discussion: Plan # Sinus bradycardia -Likely multifactorial -From amiodarone, Cardizem, both on hold currently -Digoxin levels 2.7, also digoxin toxicity -Given her syncope and collapse episode, and severe symptomatic bradycardia she was given Digibind in the emergency room, we will have to monitor serum electrolytes her potassium monitor for arrhythmias in the ICU -Atropine as needed as needed -Continue dopamine infusion -Place pacer pads as needed -Cardiology has been consulted. Plan for medical management for now # Digoxin toxicity as above, levels 2.7 status post Digibind today # syncope and collapse -Likely secondary to sinus bradycardia -However she did have a positive stress test during her last hospitalization 1. Medium sized predominantly fixed perfusion abnormality of mid to apical ?inferior, mid inferoseptal and apical septal collier. ?2. This may represent old myocardial infarction in right coronary artery or ?attenuation artifact. ?3. The left ventricular ejection fraction is mildly reduced with a value of 47% ?with mild global hypokinesis. ?4. EKG portion of the study will be reported separately. ?5. No coronary ischemia based on this study. -Decision was made not to pursue coronary angiography, medically manage during last hospitalization -Currently she denies any chest pain -EKG shows no acute ST-T wave changes -Serial EKGs, serial troponins, telemetry monitoring, monitor in ICU A. fib with slow ventricular response, hold all medications, is intolerant to anticoagulation History of recurrent UTIs, will get UA, on ceftriaxone empirically History of systolic CHF, systolic, not in exacerbation, will monitor Increase clonazepam to 1 mg p.o. twice daily. Patient requesting restarting amitriptyline which was discontinued on last admission. It appears amitriptyline was discontinued due to interaction with amiodarone. Counseled her that once her bradycardia settle she may need to go back on the amiodarone and starting amitriptyline for 3 to 4 days would likely not be of any benefit therefore holding off for now. Attestations Medical Necessity Statement*: Needs continued ICU monitoring for dopamine infusion, monitoring heart rate Critical Care Time: The high probability of a clinically significant, sudden or life threatening deterioration of the patient's [cardiac] system(s) required my full and direct attention, intervention and personal management. The critical care time is as shown. This time is in addition to time spent performing any reported procedures but includes the following: [x] Data and vital sign review and interpretation [x] Patient assessment, examination and intervention [x] Documentation [x] Medication orders and management Critical Care Time (min): 40 Coding Level of Care Code Acute Code for [facility]g Fwd Diagnoses Bradycardia, drug induced R00.1; T50.905A Bradycardia with 31-40 beats per minute R00.1 Digoxin toxicity T46.0X1A Encounter type: initial encounter Injury intent: accidental or unintentional Syncope and collapse R55 Rectosigmoid cancer C19 Peripheral arterial disease I73.9 Protein calorie malnutrition E46 Muscular deconditioning R29.898 Goals of care, counseling/discussion Z71.89
--- NOTE | 2022-09-13 18:13 | PC.NURSE ---
SHift SUmmary: Patient has remained on Dopamine throughout shift at a rate of 7.5 mcg/kg/min. Nurse briefly attempted to titrate down to 5 per protocol, but after about 30 minutes the patient became bradycardic into the 40's. Patient has worked with PT and was up to a chair. Started on a diet which she tolerated well.
[2022-09-13] MEDS: sennosides 8.6 mg Tablet PO (20:05)
[2022-09-13] MEDS: primidone 50 mg Tablet PO (20:05)
[2022-09-13] MEDS: pantoprazole 40 mg SDV IVP (23:44)
[2022-09-13] MEDS: sertraline 100 mg Tablet PO (23:44)
[2022-09-13] MEDS: enoxaparin 40 mg/0.4 mL Syringe SUBCUT (23:44)
[2022-09-14] VITALS (66 sets, daily range): BP systolic 66–166; BP diastolic 54–108; PULSE 39–79; RESP 9–32; TEMP 36.8–37.2; O2SAT 83–100
[2022-09-14] MEDS: CLONazepam 0.5 mg Tablet 1 MG PO ×2 (00:39→20:33)
[2022-09-14] MEDS: DOPamine drip 400 MG/250 ML PREMIX 10.97 MG IV (02:25)
[2022-09-14 04:19] LABS: Basophils # 0.1 10^3/uL (0.0-0.1); Basophils % 0.4 %; Eosinophils # 0.2 10^3/uL (0.0-0.8); Eosinophils % 1.5 %; Hematocrit 39.1 % (37.0-47.0); Lymphocytes # 1.2 10^3/uL (0.8-4.8); Lymphocytes % 10.6 %; Mean Corpuscular HGB Conc 30.7 g/dL (30.0-36.0); Mean Corpuscular Hemoglobin 30.9 pg (28.0-34.0); Mean Corpuscular Volume 100.8 fl (81-99); Mean Platelet Volume 10.2 fL (7.4-10.4); Monocytes # 0.7 10^3/uL (0.2-0.9); Monocytes % 5.8 %; Neutrophils # 9.17 10^3/uL (1.8-7.7); Neutrophils % 81.3 %; Nucleated Red Blood Cells % 0 %; Platelet Count 228 10^3/cmm (130-400); Red Blood Count 3.88 10^6/uL (4.1-5.3); Red Cell Distribution Width 15.9 % (12.1-15.1); White Blood Count 11.3 10^3/uL (4.0-10.0)
[2022-09-14 04:51] LABS: Alanine Aminotransferase 22 U/L (0-33); Albumin Level 3.6 g/dL (3.5-5.2); Alkaline Phosphatase 93 U/L (35-105); Anion Gap 13.7 (5-19); Aspartate Amino Transferase 22 U/L (0-32); Blood Urea Nitrogen 34 mg/dL (8-23); Calcium 8.4 mg/dL (8.5-10.5); Carbon Dioxide 28 mmol/L (22-29); Chloride 100 mmol/L (98-107); Globulin 4.1 g/dL (1.3-4.6); Glucose 102 mg/dL (65-115); Osmolality Calculated 292 mOsm/kg (285-295); Potassium 4.7 mmol/L (3.5-5.1); Sodium 137 mmol/L (136-145); Total Bilirubin 0.5 mg/dL (0.15-1.2); Total Protein 7.7 g/dL (6.6-8.7)
[2022-09-14 04:52] LABS: Digoxin 1.3 ng/mL (0.6-1.2)
[2022-09-14] MEDS: cefTRIAXone 1,000 MG in sodium chloride 0.9% (plus) 50 ML 100 MG IV (08:03)
[2022-09-14] MEDS: b-complex-vitamin c Tablet 1 EACH PO (08:49)
[2022-09-14] MEDS: levothyroxine 137 mcg Tablet PO (08:49)
--- NOTE | 2022-09-14 09:31 | P.PN_ITS ---
Subjective Subjective: Iraida is now 86. She is well-known to me from my previous appointment here. I first met her about a decade ago when she presented with peripheral arterial disease. I placed stents in her iliac arteries. She had been doing well from that standpoint. She also has a number of serious other underlying problems. Over the last 3 or 4 years she has become forgetful and somewhat cognitively impaired. Her is closely involved in her care. She has atrial fibrillation, congestive heart failure, peripheral arterial disease, anemia, hypertension, rectosigmoid carcinoma. She is not a candidate for anticoagulants secondary to bleeding. She was admitted here from the second of this month through the seventh of this month with worsening mitral regurgitation, congestive heart failure, pneumonia and rapid atrial fibrillation. There was some difficulty controlling her heart rate and ulti mately she was placed on amiodarone and digoxin which she went home on. Stress testing during that hospitalization did not show any ischemia. Her ejection fraction then was 30% which was less than it had been previously and her mitral regurgitation was worse. She was admitted 5 days later on the because of dig toxicity after a syncopal episode. She received Digibind and has been placed on dopamine to keep her heart rate up. She also had 2-1 AV block at some point. Her initial digoxin level was 2.7. It is now 1.3. Her troponins have been negative. Her BNP is 4600. Her creatinine is 1.1. She remains on dopamine 7.5 mcg/kg/min. Her heart rate is in the mid 40s to 50 bpm. Her rhythm is sinus. This morning she recognized me. I am not seen her in a couple years. She states that she feels better. She is able to eat some this morning. She is still very weak but has not been having any other problems. Vitals/I&O/Wt Last Vital Signs Temp 99.2 F 09/13/22 17:30 Pulse 61 09/14/22 06:00 Resp 21 H 09/14/22 06:00 BP 135/70 09/14/22 06:00 Pulse Ox 98 09/14/22 06:00 O2 Del Method 09/13/22 19:30 O2 Flow Rate 2 09/13/22 19:30 09/13/22 09/14/22 09/14/22 22:59 06:59 14:59 Intake Total 200 / 297.589 170.584 / 468.173 Output Total 175 / 425 1250 / 1675 Balance 25 / -127.411 -1079.416 / -1206.827 Weight last 48 hrs Weight 85 lb 15.684 oz Weight 85 lb Physical Exam Narrative: GENERAL: In general she is awake alert and able to carry on a conversation HEENT: Exam within normal limits. NECK: Supple without jugular vein distention. The carotid upstroke is normal without bruits. BACK: Exam normal. LUNGS: Clear. HEART: Regular rate and rhythm. Grade 1/6 mitral regurgitation murmur. ABDOMEN: Benign without organomegaly or tenderness. EXTREMITIES: No edema. NEUROLOGIC: Exam normal. SKIN: Unremarkable. Urinary Catheter Management: Finch: Cath Placed During This Visit: yes Reason for Continuing Indwelling Catheter: Accurate Measurement of Urinary Output in Critically Ill Patients Urinary Catheter Date of Insertion: 09/12/22 Urinary Catheter Time of Insertion: 23:42 Data 09/14/22 03:35 09/14/22 03:35 A&P Assessment and plan (1) CHF (congestive heart failure): Qualifiers: Heart failure chronicity: unspecified Heart failure type: unspecified Qualified Code(s): I50.9 - Heart failure, unspecified (2) Atrial fibrillation: Qualifiers: Atrial fibrillation type: unspecified Qualified Code(s): I48.91 - Unspecified atrial fibrillation (3) Protein calorie malnutrition: (4) Syncope and collapse: (5) Bradycardia, drug induced: (6) Digoxin toxicity: Qualifiers: Encounter type: initial encounter Injury intent: accidental or unintentional Qualified Code(s): T46.0X1A - Poisoning by cardiac-stimulant glycosides and drugs of similar action, accidental (unintentional), initial encounter (7) Peripheral arterial disease: (8) Cardiomyopathy: Plan We need to wean the dopamine as soon as we can. Her heart rate still running in the 40s. We will leave the dopamine and is and try to wean it slowly. Otherw ise, she seems to be doing okay. Her heart failure seems compensated. No other changes today. Attestations Medical Necessity Statement*: Hospital stay for heart block, dig toxicity, heart failure and atrial fibrillation. Coding Level of Care Code Established Pt Acute Code for Chg Fwd Patient Type Established History Comprehensive Exam Comprehensive Medical Decision Making High Complexity Diagnoses CHF (congestive heart failure) I50.9 Heart failure chronicity: unspecified Heart failure type: unspecified Atrial fibrillation I48.91 Atrial fibrillation type: unspecified Protein calorie malnutrition E46 Syncope and collapse R55 Bradycardia, drug induced R00.1; T50.905A Digoxin toxicity T46.0X1A Encounter type: initial encounter Injury intent: accidental or unintentional Peripheral arterial disease I73.9 Cardiomyopathy I42.9
--- NOTE | 2022-09-14 15:03 | P.PN_ITS ---
Subjective Subjective: Patient states that she feels much better. Reports she slept well. Denies chest pain, fevers, chills, shortness of breath, lightheadedness or dizziness. Plan of care discussed with her and her . Medications: Reviewed: Yes Vitals/I&O/Wt Last Vital Signs Temp 98.4 F 09/14/22 12:00 Pulse 58 L 09/14/22 14:45 Resp 20 H 09/14/22 14:45 BP 123/67 09/14/22 14:45 Pulse Ox 100 09/14/22 14:45 O2 Del Method 09/14/22 12:00 O2 Flow Rate 1 09/14/22 12:00 09/14/22 09/14/22 09/14/22 06:59 14:59 22:59 Intake Total 170.584 / 468.173 360 / 360 Output Total 1250 / 1675 500 / 500 Balance -1079.416 / -1206.827 -140 / -140 Weight last 48 hrs Weight 39 kg Weight 38.555 kg Physical Exam Narrative: General: Patient is awake and alert. Head: Normocephalic. Atraumatic. EOM intact. Neck: No JVD. Cardiovascular: Bradycardic. No gallops. No murmurs. No peripheral edema. Lungs: Breath sounds diminished bilateral bases, no use of accessory muscles, no crackles or wheezes. Skin: No jaundice. No rashes. Abdomen: Normal bowel sounds, abdomen soft and nontender. Genito Urinary: Genital exam not performed since complaints not related. Rectal: Rectal exam not performed since no symptoms indicated blood loss. Extremities: No cyanosis or clubbing. Musculoskeletal: Normal range of motion, no swollen or erythematous joints. Neurological: Moves all 4 extremities. No myoclonus. Urinary Catheter Management: Finch: Cath Placed During This Visit: yes Reason for Continuing Indwelling Catheter: Accurate Measurement of Urinary Output in Critically Ill Patients Urinary Catheter Date of Insertion: 09/12/22 Urinary Catheter Time of Insertion: 23:42 Data 09/14/22 03:35 09/14/22 03:35 A&P Assessment and plan (1) Bradycardia, drug induced: Continue dobutamine drip Cardiology following, appreciate recommendations Now off digoxin and amiodarone Avoid AV vidhi blocking agents Telemetry monitoring (2) Digoxin toxicity: Digoxin levels decreasing Remain off digoxin Qualifiers: Encounter type: initial encounter Injury intent: accidental or unintentional Qualified Code(s): T46.0X1A - Poisoning by cardiac-stimulant glycosides and drugs of similar action, accidental (unintentional), initial encounter (3) Syncope and collapse: Secondary to bradycardia Fall precautions As above (4) Atrial fibrillation: With slow ventricular response Management as above Qualifiers: Atrial fibrillation type: unspecified Qualified Code(s): I48.91 - Unspecified atrial fibrillation (5) Hypothyroidism: Continue Synthroid Qualifiers: Hypothyroidism type: unspecified Qualified Code(s): E03.9 - Hypothyroidism, unspecified (6) Anxiety and depression: Continue sertraline Plan DVT prophylaxis: Lovenox CODE STATUS: Full code Attestations Medical Necessity Statement*: Patient requires ongoing hospitalization for symptomatic bradycardia with syncope requiring dobutamine drip. Coding Level of Care Code Acute Code for [facility] Fwd Diagnoses Bradycardia, drug induced R00.1; T50.905A Digoxin toxicity T46.0X1A Encounter type: initial encounter Injury intent: accidental or unintentional Syncope and collapse R55 Atrial fibrillation I48.91 Atrial fibrillation type: unspecified Hypothyroidism E03.9 Hypothyroidism type: unspecified Anxiety and depression F41.9; F32.A
--- NOTE | 2022-09-14 18:04 | PC.NURSE ---
Shift Summary: Uneventful shift. Patient rested in bed throughout the day. Dopamine still required at a rate of 7.5, patient becomes bradycardic without it.
[2022-09-14] MEDS: sennosides 8.6 mg Tablet PO (20:33)
[2022-09-14] MEDS: sertraline 100 mg Tablet PO (22:27)
[2022-09-14] MEDS: pantoprazole 40 mg SDV IVP (22:28)
[2022-09-14] MEDS: enoxaparin 30 mg/0.3 mL Syringe SUBCUT (22:49)
[2022-09-15] VITALS (57 sets, daily range): BP systolic 63–143; BP diastolic 40–109; PULSE 44–116; RESP 4–43; TEMP 36.8–36.9; O2SAT 89–98
[2022-09-15] MEDS: DOPamine drip 400 MG/250 ML PREMIX 10.97 MG IV (02:15)
[2022-09-15 03:08] LABS: Basophils # 0.1 10^3/uL (0.0-0.1); Basophils % 0.8 %; Eosinophils # 0.2 10^3/uL (0.0-0.8); Eosinophils % 2.9 %; Hematocrit 38.6 % (37.0-47.0); Hemoglobin 11.5 g/dL (11.5-15.3); Lymphocytes # 1.6 10^3/uL (0.8-4.8); Lymphocytes % 19.7 %; Mean Corpuscular HGB Conc 29.8 g/dL (30.0-36.0); Mean Corpuscular Hemoglobin 30.4 pg (28.0-34.0); Mean Corpuscular Volume 102.1 fl (81-99); Mean Platelet Volume 9.6 fL (7.4-10.4); Monocytes # 0.8 10^3/uL (0.2-0.9); Neutrophils # 5.23 10^3/uL (1.8-7.7); Neutrophils % 66.1 %; Nucleated Red Blood Cells % 0 %; Platelet Count 204 10^3/cmm (130-400); Red Blood Count 3.78 10^6/uL (4.1-5.3); Red Cell Distribution Width 15.5 % (12.1-15.1); White Blood Count 7.9 10^3/uL (4.0-10.0)
[2022-09-15 03:31] LABS: Albumin Level 3.4 g/dL (3.5-5.2); Anion Gap 10.5 (5-19); Blood Urea Nitrogen 29 mg/dL (8-23); Calcium 8.4 mg/dL (8.5-10.5); Carbon Dioxide 28 mmol/L (22-29); Chloride 99 mmol/L (98-107); Glucose 97 mg/dL (65-115); Magnesium 2.2 mg/dL (1.7-2.3); Phosphorus 2.3 mg/dL (2.5-4.5); Potassium 4.5 mmol/L (3.5-5.1); Sodium 133 mmol/L (136-145)
--- NOTE | 2022-09-15 08:08 | P.PN_ITS ---
Subjective Subjective: [place] is unchanged today. She remains on 7.5 mcg/kg/min of dopamine. Heart rate is closer to 60 bpm today. No heart block. She complains of sleeplessness. No other complaints. Her rhythm remains sinus rhythm. Vitals/I&O/Wt Last Vital Signs Temp 98.2 F 09/15/22 05:00 Pulse 61 09/15/22 06:00 Resp 20 H 09/15/22 06:00 BP 139/69 09/15/22 06:00 Pulse Ox 98 09/15/22 06:00 O2 Del Method 09/15/22 06:00 O2 Flow Rate 1 09/15/22 03:00 09/14/22 09/15/22 09/15/22 22:59 06:59 14:59 Intake Total 620 / 980 250 / 1230 Output Total 350 / 850 1950 / 2800 Balance 270 / 130 -1700 / -1570 Weight last 48 hrs Weight 92 lb 13.034 oz Physical Exam Narrative: GENERAL: In general she is comfortable at rest. HEENT: Exam within normal limits. NECK: Supple without jugular vein distention. The carotid upstroke is normal without bruits. BACK: Exam normal. LUNGS: Clear. HEART: Regular rate and rhythm. ABDOMEN: Benign without organomegaly or tenderness. EXTREMITIES: No edema. NEUROLOGIC: Exam normal. SKIN: Unremarkable. Urinary Catheter Management: Finch: Cath Placed During This Visit: yes Reason for Continuing Indwelling Catheter: Accurate Measurement of Urinary Output in Critically Ill Patients Urinary Catheter Date of Insertion: 09/12/22 Urinary Catheter Time of Insertion: 23:42 Data 09/15/22 02:52 09/15/22 02:52 A&P Assessment and plan (1) Cardiomyopathy: (2) Dementia: Qualifiers: Dementia type: unspecified type Dementia behavioral disturbance: without behavioral disturbance Qualified Code(s): F03.90 - Unspecified dementia without behavioral disturbance (3) Mitral regurgitation: (4) CHF (congestive heart failure): Qualifiers: Heart failure chronicity: unspecified Heart failure type: unspecified Qualified Code(s): I50.9 - Heart failure, unspecified (5) Atrial fibrillation: Qualifiers: Atrial fibrillation type: unspecified Qualified Code(s): I48.91 - Unspecified atrial fibrillation (6) Protein calorie malnutrition: (7) Syncope and collapse: (8) Bradycardia, drug induced: (9) Digoxin toxicity: Qualifiers: Encounter type: initial encounter Injury intent: accidental or unint entional Qualified Code(s): T46.0X1A - Poisoning by cardiac-stimulant glyc osides and drugs of similar action, accidental (unintentional), initial encounter (10) Peripheral arterial disease: Plan Plan is to wean the dopamine today. Attestations Medical Necessity Statement*: Continued hospitalization required for management of digoxin toxicity. Coding Level of Care Code Established Pt Acute Code for Chg Fwd Patient Type Established History Detailed Exam Detailed Medical Decision Making Moderate Complexity Diagnoses Cardiomyopathy I42.9 Dementia F03.90 Dementia type: unspecified type Dementia behavioral disturbance: without behavioral disturbance Mitral regurgitation I34.0 CHF (congestive heart failure) I50.9 Heart failure chronicity: unspecified Heart failure type: unspecified Atrial fibrillation I48.91 Atrial fibrillation type: unspecified Protein calorie malnutrition E46 Syncope and collapse R55 Bradycardia, drug induced R00.1; T50.905A Digoxin toxicity T46.0X1A Encounter type: initial encounter Injury intent: accidental or unintentional Peripheral arterial disease I73.9
[2022-09-15] MEDS: cefTRIAXone 1,000 MG in sodium chloride 0.9% (plus) 50 ML 100 MG IV (09:13)
[2022-09-15] MEDS: b-complex-vitamin c Tablet 1 EACH PO (09:13)
[2022-09-15] MEDS: levothyroxine 137 mcg Tablet PO (09:13)
--- NOTE | 2022-09-15 10:58 | PC.SOCIAL ---
IMM Update pg 2 of IMM updated and reviewed w/ patients . Copy provided and Copy dated, initialed and placed in chart.
--- NOTE | 2022-09-15 11:46 | P.PN_ITS ---
Subjective Subjective: Patient reports she was unable to sleep last night. She denies any lightheadedness, dizziness, chest pain or palpitations. is bedside and updated. Medications: Reviewed: Yes Vitals/I&O/Wt Last Vital Signs Temp 98.2 F 09/15/22 05:00 Pulse 44 L 09/15/22 10:30 Resp 13 09/15/22 10:30 BP 134/63 09/15/22 10:30 Pulse Ox 91 09/15/22 10:30 O2 Del Method 09/15/22 10:30 O2 Flow Rate 1 09/15/22 08:54 09/14/22 09/15/22 09/15/22 22:59 06:59 14:59 Intake Total 620 / 1030 250 / 1280 487.767 / 487.767 Output Total 350 / 850 1950 / 2800 Balance 270 / 180 -1700 / -1520 487.767 / 487.767 Weight last 48 hrs Weight 42.1 kg Physical Exam Narrative: General: Patient is awake. Laying in bed. Appears fatigued. Head: Normocephalic. Atraumatic. EOM intact. Neck: No JVD. Cardiovascular: Bradycardic. No gallops. No murmurs. No peripheral edema. Lungs: Breath sounds diminished bilateral bases, no use of accessory muscles, no crackles or wheezes. Skin: No jaundice. No rashes. Abdomen: Normal bowel sounds, abdomen soft and nontender. Genito Urinary: Genital exam not performed since complaints not related. Rectal: Rectal exam not performed since no symptoms indicated blood loss. Extremities: No cyanosis or clubbing. Musculoskeletal: Normal range of motion, no swollen or erythematous joints. Neurological: Moves all 4 extremities. No myoclonus. Urinary Catheter Management: Finch: Cath Placed During This Visit: yes Reason for Continuing Indwelling Catheter: Accurate Measurement of Urinary Output in Critically Ill Patients Urinary Catheter Date of Insertion: 09/12/22 Urinary Catheter Time of Insertion: 23:42 Data 09/15/22 02:52 09/15/22 02:52 Micro: Microbiology 09/12/22 23:42 Urine Culture - Preliminary Urine,Clean Catch A&P Assessment and plan (1) Bradycardia, drug induced: Continue dobutamine drip, attempt to decrease from 7.5 to 5 Cardiology following, appreciate recommendations Off digoxin and amiodarone Avoid AV vidhi blocking agents Telemetry monitoring (2) Digoxin toxicity: Digoxin level downtrending Remain off digoxin Qualifiers: Encounter type: initial encounter Injury intent: accidental or unintentional Qualified Code(s): T46.0X1A - Poisoning by cardiac-stimulant glycosides and drugs of similar action, accidental (unintentional), initial enc ounter (3) Syncope and collapse: Secondary to bradycardia Fall precautions As above (4) Atrial fibrillation: With slow ventricular response Management as above Qualifiers: Atrial fibrillation type: unspecified Qualified Code(s): I48.91 - Unspecified atrial fibrillation (5) Hypothyroidism: Continue Synthroid Qualifiers: Hypothyroidism type: unspecified Qualified Code(s): E03.9 - Hypothyroidism, unspecified (6) Anxiety and depression: Continue sertraline Plan DVT prophylaxis: Lovenox CODE STATUS: Full code Attestations Medical Necessity Statement*: Patient requires ongoing hospitalization for symptomatic bradycardia with syncope requiring dobutamine drip. Coding Level of Care Code Acute Code for [facility] Diagnoses Bradycardia, drug induced R00.1; T50.905A Digoxin toxicity T46.0X1A Encounter type: initial encounter Injury intent: accidental or unintentional Syncope and collapse R55 Atrial fibrillation I48.91 Atrial fibrillation type: unspecified Hypothyroidism E03.9 Hypothyroidism type: unspecified Anxiety and depression F41.9; F32.A
--- NOTE | 2022-09-15 19:56 | PC.NURSE ---
Dr. Robledo notified of low BP and high HR, new order for 500ml bolus and to keep dopamine @5.
[2022-09-15] MEDS: sodium chloride 0.9% 500 ML 999 ML IV (20:05)
[2022-09-15] MEDS: sennosides 8.6 mg Tablet PO (20:27)
[2022-09-15] MEDS: sertraline 100 mg Tablet PO (22:13)
[2022-09-15] MEDS: pantoprazole 40 mg SDV IVP (22:13)
[2022-09-15] MEDS: enoxaparin 30 mg/0.3 mL Syringe SUBCUT (22:47)
[2022-09-16] VITALS (69 sets, daily range): BP systolic 76–130; BP diastolic 46–81; PULSE 68–119; RESP 13–38; TEMP 36.7–36.9; O2SAT 90–95
[2022-09-16 05:23] LABS: Basophils % 0.4 %; Eosinophils # 0.2 10^3/uL (0.0-0.8); Hematocrit 37.4 % (37.0-47.0); Hemoglobin 11.4 g/dL (11.5-15.3); Lymphocytes # 1.3 10^3/uL (0.8-4.8); Lymphocytes % 15.7 %; Mean Corpuscular HGB Conc 30.5 g/dL (30.0-36.0); Mean Corpuscular Hemoglobin 30.8 pg (28.0-34.0); Mean Corpuscular Volume 101.1 fl (81-99); Mean Platelet Volume 9.7 fL (7.4-10.4); Monocytes # 0.8 10^3/uL (0.2-0.9); Monocytes % 9.5 %; Neutrophils # 6.05 10^3/uL (1.8-7.7); Nucleated Red Blood Cells % 0 %; Platelet Count 195 10^3/cmm (130-400); Red Cell Distribution Width 15.8 % (12.1-15.1); White Blood Count 8.4 10^3/uL (4.0-10.0)
[2022-09-16 05:41] LABS: Anion Gap 9.2 (5-19); Blood Urea Nitrogen 38 mg/dL (8-23); Calcium 8.6 mg/dL (8.5-10.5); Carbon Dioxide 26 mmol/L (22-29); Chloride 101 mmol/L (98-107); Glucose 83 mg/dL (65-115); Magnesium 2.2 mg/dL (1.7-2.3); Phosphorus 2.5 mg/dL (2.5-4.5); Potassium 4.2 mmol/L (3.5-5.1); Sodium 132 mmol/L (136-145)
--- NOTE | 2022-09-16 08:45 | PM.PN ---
Subjective Subjective: Patient was seen and examined this morning, she was in A. fib with RVR, with heart rate around 100-110 Has been off dopamine, maintaining a decent MAP. Medications: Reviewed: Yes Medication Review Details: Generic Name Dose Route Start Last Admin Trade Name Freq PRN Reason Stop Dose Admin Atropine Sulfate 0.5 mg 09/12/22 22:57 09/13/22 01:57 Atropine 0.1 Mg/ Ml Syr 10 Ml IVP 0.5 mg Q5MIN PRN Administration FOR HR<40, HD ins tability, symptoma tic, call md kellee navarrete use Clonazepam 1 mg 09/13/22 16:22 09/14/22 20:33 Clonazepam 0.5 M g Tablet PO 1 mg BID PRN Administration Anxiety Enoxaparin Sodium 30 mg 09/14/22 23:45 09/15/22 22:47 Enoxaparin 30 Mg /0.3 Ml Syringe SUBCUT 30 mg Q24H LILIYA Administration Dopamine HCl/Dextr ose 400 mg in 250 mls @ 7.313 mls/hr 09/13/22 02:00 09/16/22 06:22 Intropin Drip IV Not Given CONT LILIYA Protocol 5 MCG/KG/MIN Ceftriaxone Sodium 1,000 mg/ 50 mls @ 100 mls/ hr 09/13/22 06:45 09/15/22 10:46 Sodium Chloride IV Infused Q24H LILIYA Infusion Protocol Levothyroxine Sodi um 137 mcg 09/13/22 09:00 09/15/22 09:13 Levothyroxine 13 7 Mcg Tablet PO 137 mcg DAILY LILIYA Administration Multivitamins 1 each 09/13/22 09:00 09/15/22 09:13 E-Mlxlfxf-Fedydw n C Tablet PO 1 each DAILY LILIYA Administration Ondansetron HCl 4 mg 09/12/22 20:38 09/13/22 11:39 Ondansetron 4 Mg Tablet PO 4 mg Q8H PRN Administration NAUSEA AND VOMITI NG Pantoprazole Sodiu m 40 mg 09/12/22 23:00 09/15/22 22:13 Pantoprazole 40 Mg Sdv IVP 40 mg Q24H LILIYA Administration Primidone 50 mg 09/13/22 17:42 09/13/22 20:05 Primidone 50 Mg Tablet PO 50 mg BEDTIME PRN Administration restless legs Senna 8.6 mg 09/13/22 21:00 09/15/22 20:27 Sennosides 8.6 M g Tablet PO 8.6 mg BEDTIME LILIYA Administration Sertraline HCl 100 mg 09/12/22 22:57 09/15/22 22:13 Sertraline 100 M g Tablet PO 100 mg Q24H LILIYA Administration Vitals/I&O/Wt Last Vital Signs Temp 98.1 F 09/16/22 05:29 Pulse 76 09/16/22 06:30 Resp 20 H 09/16/22 06:30 BP 104/59 09/16/22 06:30 Pulse Ox 95 09/16/22 05:45 O2 Del Method 09/15/22 20:00 O2 Flow Rate 1 09/15/22 08:54 09/15/22 09/16/22 09/16/22 22:59 06:59 14:59 Intake Total 967.646 / 1720.048 65.200 / 1785.248 240 / 240 Output Total 700 / 700 500 / 1200 Balance 267.646 / 1020.048 -434.800 / 585.248 240 / 240 Weight last 48 hrs Weight 42.1 kg Physical Exam Const: COMMON NORMALS: patient oriented x3 HENMT: COMMON NORMALS: normocephalic and atraumatic HEAD & SCALP: normocephalic and atraumatic Resp: COMMON NORMALS: normal respiratory effort, No retractions, No use of accessory muscles and clear to auscultation bilaterally EFFORT & INSPECTION: Yes symmetric chest movement AUSCULTATION: clear to auscultation bilaterally Cardio: COMMON NORMALS: No gallops present (Cardio), No murmurs present (Cardio), No rub (Cardio) and Peripheral pulses 2+ throughout PERIPHERAL PULSES: Peripheral pulses 2+ throughout GI: COMMON NORMALS: Normal to inspection, nondistended, normoactive bowel sounds present, Soft to palpation, non-tender, No hepatosplenomegaly present and no masses AUSCULTATION: Yes normoactive bowel sounds PALPATION: Yes Soft to palpation and Yes No hepatosplenomegaly present RECTAL EXAM: deferred Extremity: COMMON NORMALS: no clubbing, cyanosis or edema and no pedal edema Neuro: COMMON NORMALS: patient oriented x3 Urinary Catheter Management: Finch: Cath Placed During This Visit: yes Reason for Continuing Indwelling Catheter: Accurate Measurement of Urinary Output in Critically Ill Patients Urinary Catheter Date of Insertion: 09/12/22 Urinary Catheter Time of Insertion: 23:42 Data 09/16/22 04:56 09/16/22 04:56 Micro: Microbiology 09/12/22 23:42 Urine Culture - Preliminary Urine,Clean Catch A&P Assessment and plan (1) Bradycardia, drug induced: (2) Bradycardia with 31-40 beats per minute: (3) Digoxin toxicity: Qualifiers: Encounter type: initial encounter Injury intent: accidental or unintentional Qualified Code(s): T46.0X1A - Poisoning by cardiac-stimulant glycosides and drugs of similar action, accidental (unintentional), initial encounter (4) Syncope and collapse: (5) Rectosigmoid cancer: (6) Peripheral arterial disease: (7) Protein calorie malnutrition: (8) Muscular deconditioning: (9) Goals of care, counseling/discussion: (10) Atrial fibrillation: Qualifiers: Atrial fibrillation type: unspecified Qualified Code(s): I48.91 - Unspecified atrial fibrillation Plan # Sinus bradycardia -Likely multifactorial -From amiodarone, Cardizem, both on hold currently -Digoxin levels 2.7, also digoxin toxicity -Given her syncope and collapse episode, and severe symptomatic bradycardia she was given Digibind in the emergency room, we will have to monitor serum electrolytes her potassium monitor for arrhythmias in the ICU -Atropine as needed as needed -Continue dopamine infusion -Place pacer pads as needed -Cardiology has been consulted. Plan for medical management for now # Digoxin toxicity as above, levels 2.7 status post Digibind today # syncope and collapse -Likely secondary to sinus bradycardia -However she did have a positive stress test during her last hospitalization 1. Medium sized predominantly fixed perfusion abnormality of mid to apical ?inferior, mid inferoseptal and apical septal collier. ?2. This may represent old myocardial infarction in right coronary artery or ?attenuation artifact. ?3. The left ventricular ejection fraction is mildly reduced with a value of 47% ?with mild global hypokinesis. ?4. EKG portion of the study will be reported separately. ?5. No coronary ischemia based on this study. -Decision was made not to pursue coronary angiography, medically manage during last hospitalization -Currently she denies any chest pain -EKG shows no acute ST-T wave changes -Serial EKGs, serial troponins, telemetry monitoring, monitor in ICU A. fib with slow ventricular response, hold all medications, is intolerant to anticoagulation History of recurrent UTIs: Urine culture Enterococcus faecalis currently on ceftriaxone History of systolic CHF, systolic, not in exacerbation, will monitor Attestations Medical Necessity Statement*: She needs to be in hospital management of Anjelica lozada. Coding Level of Care Code Acute Code for Chg Fwd Exam Detailed Diagnoses Bradycardia, drug induced R00.1; T50.905A Bradycardia with 31-40 beats per minute R00.1 Digoxin toxicity T46.0X1A Encounter type: initial encounter Injury intent: accidental or unintentional Syncope and collapse R55 Rectosigmoid cancer C19 Peripheral arterial disease I73.9 Protein calorie malnutrition E46 Muscular deconditioning R29.898 Goals of care, counseling/discussion Z71.89 Atrial fibrillation I48.91 Atrial fibrillation type: unspecified
[2022-09-16] MEDS: levothyroxine 137 mcg Tablet PO (09:43)
[2022-09-16] MEDS: b-complex-vitamin c Tablet 1 EACH PO (09:43)
[2022-09-16] MEDS: cefTRIAXone 1,000 MG in sodium chloride 0.9% (plus) 50 ML 100 MG IV (09:44)
--- NOTE | 2022-09-16 10:08 | ECG_ITS ---
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 Measurements Intervals [place] Rate: 104 P: 0 [place]: 0 QRS: -42 QRSD: 123 T: 105 QT: 384 QTc: 506 Interpretive Statements ATRIAL FIBRILLATION WITH RAPID VENTRICULAR RESPONSE WITH ABERRANT CONDUCTION OR VENTRICULAR PREMATURE COMPLEXES LEFT AXIS DEVIATION [QRS AXIS < -30] POSSIBLE RIGHT VENTRICULAR CONDUCTION DELAY [RSR (QR) IN V1/V2] ANTEROSEPTAL MYOCARDIAL INFARCTION , OF INDETERMINATE AGE [40+ ms Q WAVE IN V1-V4] Compared to ECG 09/12/2022 23:04:24 Ventricular premature complex(es) now present Aberrant conduction of supraventricular beat(s) now present Left-axis deviation now present Sinus bradycardia no longer present Prolonged QT interval no longer present Myocardial infarct finding still present Electronically Signed On 09-16-2022 11:05:26 [employer]EWABLE [employer] ENGINEER by Charlie Guardado M.D. [id number]
--- NOTE | 2022-09-16 16:11 | P.PN_ITS ---
Subjective Subjective: She went into atrial fibrillation yesterday. HR ranging 90's- 110's. Few episodes of loose stool today. Medications: Reviewed: Yes Vitals/I&O/Wt Last Vital Signs Temp 98.1 F 09/16/22 05:29 Pulse 88 09/16/22 14:00 Resp 27 H 09/16/22 14:00 BP 88/65 09/16/22 14:00 Pulse Ox 92 09/16/22 14:00 O2 Del Method 09/16/22 14:00 O2 Flow Rate 1 09/15/22 08:54 09/16/22 09/16/22 09/16/22 06:59 14:59 22:59 Intake Total 65.200 / 1785.248 655.086 / 655.086 Output Total 500 / 1200 Balance -434.800 / 585.248 655.086 / 655.086 Weight last 48 hrs Weight 92 lb 13.034 oz Physical Exam Narrative: Gen: elderly lady laying in bed HEENT/Neck: EOMI, No carotid bruit RS: CTAB/L, No wheezes or rales heard CVS: S1, S2 irregular, systolic murmur in tricuspid and apical area PA: soft, NT, 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 Urinary Catheter Management: Finch: Cath Placed During This Visit: yes Reason for Continuing Indwelling Catheter: Accurate Measurement of Urinary Output in Critically Ill Patients Urinary Catheter Date of Insertion: 09/12/22 Urinary Catheter Time of Insertion: 23:42 Data 09/16/22 04:56 09/16/22 04:56 Micro: Microbiology 09/12/22 23:42 Urine Culture - Final Urine,Clean Catch Enterococcus faecalis A&P Assessment and plan (1) Bradycardia with 31-40 beats per minute: Multiple AV vidhi blockers on board on arrival (cardizem, digoxin and amiodarone) -Digifab administered for dig toxicity -HR has improved. -Off dopamine gtt -continue to hold AV vidhi blockers. -May need to add low dose beta forrest. (2) Atrial fibrillation: currently in SR. -Not on ac d/t prior bleed Qualifiers: Atrial fibrillation type: unspecified Qualified Code(s): I48.91 - Unspecified atrial fibrillation (3) CHF (congestive heart failure): appears euvolemic on exam. CXR with no acute abnormality. Qualifiers: Heart failure chronicity: unspecified Heart failure type: unspecified Qualified Code(s): I50.9 - Heart failure, unspecified Plan Digoxin toxicity PAD Hypertension Hypothyroidism Recurrent UTI Advanced age Patient seen today via Telehealth by agreement and consent of patient. Telehealth technology used during the visit include video and audio. Exam was conducted with the help of bedside RN. Time spent in encounter 20 minutes with >50% time spent face to face. Attestations Medical Necessity Statement*: needs hospital stay for bradycardia and A. fib Coding Level of Care Code Acute Code for Chg Fwd Diagnoses Bradycardia with 31-40 beats per minute R00.1 Atrial fibrillation I48.91 Atrial fibrillation type: unspecified CHF (congestive heart failure) I50.9 Heart failure chronicity: unspecified Heart failure type: unspecified
[2022-09-16] MEDS: CLONazepam 0.5 mg Tablet 1 MG PO (21:50)
[2022-09-16] MEDS: primidone 50 mg Tablet PO (21:52)
[2022-09-16] MEDS: sertraline 100 mg Tablet PO (21:52)
[2022-09-16] MEDS: pantoprazole 40 mg SDV IVP (23:17)
[2022-09-16] MEDS: enoxaparin 30 mg/0.3 mL Syringe SUBCUT (23:18)
[2022-09-17] VITALS (32 sets, daily range): BP systolic 91–123; BP diastolic 35–71; PULSE 58–115; RESP 16–24; TEMP 36.6–37; O2SAT 91–96
--- NOTE | 2022-09-17 02:54 | PC.NURSE ---
Multiple times throughout the night pt has attempted to get out of bed and has been pulling at lines. Pt is unable to answer all orientation questions and frequently responds w/ I don't fucking know , when asked orientation questions. When this RN questions why pt is getting out of bed the pt responds, to get that baby over there or I'm going home weather you fucking like it or not . Bed alarm on and at this time pt is easy to redirect.
[2022-09-17 04:12] LABS: Basophils % 0.5 %; Eosinophils # 0.2 10^3/uL (0.0-0.8); Eosinophils % 2.6 %; Hematocrit 34.9 % (37.0-47.0); Hemoglobin 10.4 g/dL (11.5-15.3); Lymphocytes # 1.7 10^3/uL (0.8-4.8); Lymphocytes % 23.6 %; Mean Corpuscular HGB Conc 29.8 g/dL (30.0-36.0); Mean Corpuscular Hemoglobin 30.6 pg (28.0-34.0); Mean Corpuscular Volume 102.6 fl (81-99); Monocytes # 0.8 10^3/uL (0.2-0.9); Monocytes % 10.5 %; Neutrophils # 4.56 10^3/uL (1.8-7.7); Neutrophils % 62.5 %; Nucleated Red Blood Cells % 0 %; Platelet Count 179 10^3/cmm (130-400); Red Cell Distribution Width 16.1 % (12.1-15.1); White Blood Count 7.3 10^3/uL (4.0-10.0)
[2022-09-17 04:36] LABS: Alanine Aminotransferase 13 U/L (0-33); Albumin Level 2.9 g/dL (3.5-5.2); Alkaline Phosphatase 62 U/L (35-105); Anion Gap 12.8 (5-19); Aspartate Amino Transferase 15 U/L (0-32); Blood Urea Nitrogen 39 mg/dL (8-23); Calcium 7.7 mg/dL (8.5-10.5); Carbon Dioxide 23 mmol/L (22-29); Chloride 106 mmol/L (98-107); Globulin 3.1 g/dL (1.3-4.6); Glucose 73 mg/dL (65-115); Magnesium 2.2 mg/dL (1.7-2.3); Osmolality Calculated 294 mOsm/kg (285-295); Potassium 3.8 mmol/L (3.5-5.1); Sodium 138 mmol/L (136-145); Total Bilirubin 0.2 mg/dL (0.15-1.2)
--- NOTE | 2022-09-17 06:27 | PC.NURSE ---
Notified Dr. Robledo of soft BP's, new order for 500ml fluid bolus of NS.
[2022-09-17] MEDS: sodium chloride 0.9% 500 ML 999 ML IV (07:14)
[2022-09-17] MEDS: cefTRIAXone 1,000 MG in sodium chloride 0.9% (plus) 50 ML 100 MG IV (08:00)
[2022-09-17] MEDS: levothyroxine 137 mcg Tablet PO (09:42)
[2022-09-17] MEDS: b-complex-vitamin c Tablet 1 EACH PO (09:42)
--- NOTE | 2022-09-17 11:50 | P.PN_ITS ---
Subjective Subjective: Patient's and daughter at bedside. received 500 ml fluid bolus last night. No CP, SOB or dizziness. Medications: Reviewed: Yes Medication Review Details: Current Medications Acetaminophen (Acetaminophen 325 Mg Tablet) 500 mg PO Q6H PRN PRN Reason: Mild/Mod Pain Or Temp >/= 101 Albuterol/Ipratropium (Ipratropium-Albuterol 3 Ml Neb) 3 ml INHALATION Q6H PRN PRN Reason: SHORTNESS OF BREATH Atropine Sulfate (Atropine 0.1 Mg/Ml Syr 10 Ml) 0.5 mg IVP Q5MIN PRN PRN Reason: FOR HR<40, HD instability, symptomatic, call md before use Last Admin: 09/13/22 01:57 Dose: 0.5 mg Clonazepam (Clonazepam 0.5 Mg Tablet) 1 mg PO BID PRN PRN Reason: Anxiety Last Admin: 09/16/22 21:50 Dose: 1 mg Enoxaparin Sodium (Enoxaparin 30 Mg/0.3 Ml Syringe) 30 mg SUBCUT Q24H [facility] Last Admin: 09/16/22 23:18 Dose: 30 mg Ceftriaxone Sodium 1,000 mg/ (Sodium Chloride) 50 mls @ 100 mls/hr IV Q24H [facility]; Protocol Last Infusion: 09/17/22 08:30 Dose: Infused Lanolin (Lanolin Oint 7 Gm) 1 applic TOPICAL PRN PRN PRN Reason: DRYNESS Levothyroxine Sodium (Levothyroxine 137 Mcg Tablet) 137 mcg PO DAILY LILIYA Last Admin: 09/17/22 09:42 Dose: 137 mcg Multivitamins (E-Hmcrfkt-Gzcpbdy C Tablet) 1 each PO DAILY LILIYA Last Admin: 09/17/22 09:42 Dose: 1 each Ondansetron HCl (Ondansetron 4 Mg Tablet) 4 mg PO Q8H PRN PRN Reason: NAUSEA AND VOMITING Last Admin: 09/13/22 11:39 Dose: 4 mg Pantoprazole Sodium (Pantoprazole 40 Mg Sdv) 40 mg IVP Q24H LILIYA Last Admin: 09/16/22 23:17 Dose: 40 mg Primidone (Primidone 50 Mg Tablet) 50 mg PO BEDTIME PRN PRN Reason: restless legs Last Admin: 09/16/22 21:52 Dose: 50 mg Senna (Sennosides 8.6 Mg Tablet) 8.6 mg PO BEDTIME [facility] Last Admin: 09/16/22 21:56 Dose: Not Given Sertraline HCl (Sertraline 100 Mg Tablet) 100 mg PO Q24H [facility] Last Admin: 09/16/22 21:52 Dose: 100 mg Vitals/I&O/Wt Last Vital Signs Temp 98.6 F 09/17/22 08:00 Pulse 76 09/17/22 10:00 Resp 16 09/17/22 10:00 BP 96/71 09/17/22 10:00 Pulse Ox 96 09/17/22 10:00 O2 Del Method 09/17/22 10:00 O2 Flow Rate 1 09/15/22 08:54 09/16/22 09/17/22 09/17/22 22:59 06:59 14:59 Intake Total 480 / 1135.086 750 / 750 Output Total 1150 / 1150 400 / 1550 Balance -670 / -14.914 -400 / -414.914 750 / 750 Weight last 48 hrs Weight 98 lb 8 oz Physical Exam Narrative: Gen: elderly frail lady laying in bed HEENT/Neck: EOMI, No carotid bruit RS: CTAB/L, No wheezes or rales heard CVS: S1, S2 irregular, systolic murmur in tricuspid and apical area PA: soft, NT, 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 Urinary Catheter Management: Finch: Cath Placed During This Visit: yes Reason for Continuing Indwelling Catheter: Accurate Measurement of Urinary Output in Critically Ill Patients Urinary Catheter Date of Insertion: 09/12/22 Urinary Catheter Time of Insertion: 23:42 Data 09/17/22 03:29 09/17/22 03:29 Micro: Microbiology 09/12/22 23:42 Urine Culture - Final Urine,Clean Catch Enterococcus faecalis A&P Assessment and plan (1) Bradycardia with 31-40 beats per minute: Multiple AV vidhi blockers on board on arrival (cardizem, digoxin and amiodarone) -Digifab administered for dig toxicity -HR has improved. -Off dopamine gtt for >24 now -continue to hold AV vidhi blockers. -will add low metoprolol tartrate 12.5 mg BID PRN on discharge -Plan for 21 day event monitor on discharge -follow up with Sharri in 1 week. -Follow up with Dr. Guardado in 6-8 weeks -Advised to keep a log of BP and HR three times/day until follow up in [facility] (2) Atrial fibrillation: back in atrial fibrillation with HR in 90's-110's -Not on ac d/t prior bleed Qualifiers: Atrial fibrillation type: unspecified Qualified Code(s): I48.91 - Unspecified atrial fibrillation (3) CHF (congestive heart failure): appears euvolemic on exam. CXR with no acute abnormality. Qualifiers: Heart failure chronicity: unspecified Heart failure type: unspecified Qualified Code(s): I50.9 - Heart failure, unspecified Plan Digoxin toxicitys PAD Hypertension Hypothyroidism Recurrent UTI Advanced age Patient seen today via Telehealth by agreement and consent of patient. [place] technology used during the visit include video and audio. Exam was conducted with the help of bedside RN. Time spent in encounter 25 minutes with >50% time spent face to face. Attestations Medical Necessity Statement*: stable to be discharged home today. Coding Level of Care Code Acute Code for Chg Fwd Diagnoses Bradycardia with 31-40 beats per minute R00.1 Atrial fibrillation I48.91 Atrial fibrillation type: unspecified CHF (congestive heart failure) I50.9 Heart failure chronicity: unspecified Heart failure type: unspecified
--- NOTE | 2022-09-17 12:09 | PM.DCS ---
Discharge Providers Date of Admission: 09/12/22 21:03 Date of Discharge: September 17, 2022 Attending Provider at Admission: Esequiel Robledo MD Attending Provider at Discharge: Edison Hobbs MD Primary Care Provider: Scott Lau MD Diagnoses at Discharge Discharge Diagnosis (1) Bradycardia with 31-40 beats per minute: Status: Acute (2) Atrial fibrillation: Status: Acute Qualifiers: Atrial fibrillation type: unspecified Qualified Code(s): I48.91 - Unspecified atrial fibrillation (3) CHF (congestive heart failure): Status: Acute Qualifiers: Heart failure chronicity: unspecified Heart failure type: unspecified Qualified Code(s): I50.9 - Heart failure, unspecified Reason for Visit Reason for Visit: possible seizure Hospital Course Hospital Course HPI: Esequeil Robledo MD Iraida Bay is a 86 year old female with a past medical history of dementia, history of rectosigmoid cancer status post surgery, atrial fibrillation not a candidate for anticoagulation, neurogenic bladder, recurrent UTIs, recent hospitalization for A. fib with RVR, CHF, was discharged on amiodarone, digoxin, Cardizem.? Who presents to [facility] due to syncope and collapse, lightheadedness, dizziness, feeling unwell.? Currently patient is seen in the ER, she is in sinus bradycardia, heart rates are in the mid 30s, she is alert oriented follows all commands, she feels a bit weak, she tells me that since leaving the hospital she has felt lightheaded, she is felt dizzy, she has not had any significant falls.? However today afternoon, she had an episode of blacking out passing out, her was able to catch her, episode lasted about 20 seconds, no facial droop, no slurring of her words, no seizure-like episodes.? Currently denies any chest pain, no palpitations.? No fevers, no chills, no nausea, no vomiting.? Patient's family was at bedside, I advised him that currently she is in sinus bradycardia, there has not been any hemodynamic compromise while she is here in the emergency room.? But given her syncope and collapse episode is quite concerning.? Her digoxin levels were found to be 2.7 ER physician has given her Digibind we will have to monitor her serum potassium levels closely.? Her EKG does not show any any bundle branch blocks, but we will have to monitor closely in the ICU.? She possibly might require a pacemaker placement or even temporary pacing.? I think that likely she is developed digoxin toxicity, and likely polypharmacy from Cardizem, and amiodarone.? Patient and family voiced understanding, all questions answered, agreed to proceed. Hospital course: Patient was admitted for the management of symptomatic bradycardia: With syncope and collapse: Likely secondary to: Recent initiation of Cardizem amiodarone digoxin, she was also managed for dig toxicity received Digibind, serum dig level on admission was 2.7, all above-mentioned agents were kept on hold during hospital stay, she was also kept on dopamine, at the time of discharge patient was back in A. fib with heart rate extremely variable, highest noted was around 110, but also evidenced by slow ventricular response, she was discharged on metoprolol 12.5 mg p.o. twice daily as needed for heart rate greater than 120.Patient was also discharged on event monitor. patient also has a recent positive stress test during her last hospital stay, currently she denied any chest pain, SOB, EKG during the hospital stay have not shown any acute ST-T wave changes. She will continue to follow cardiology as outpatient. During the hospital stay she was also managed for UTI: She was kept on ceftriaxone, urine culture grew Enterococcus faecalis: She completed 5-day course, no antibiotic was prescribed on discharge. She responded well to above medical management and was discharged in stable condition to home she will follow cardiology as outpatient. Physical Exam Const: COMMON NORMALS: patient oriented x3 HENMT: COMMON NORMALS: normocephalic and atraumatic HEAD & SCALP: normocephalic and atraumatic Resp: COMMON NORMALS: normal respiratory effort, No retractions, No use of accessory muscles and clear to auscultation bilaterally EFFORT & INSPECTION: Yes symmetric chest movement AUSCULTATION: clear to auscultation bilaterally Cardio: COMMON NORMALS: No gallops present (Cardio), No murmurs present (Cardio), No rub (Cardio) and Peripheral pulses 2+ throughout PERIPHERAL PULSES: Peripheral pulses 2+ throughout GI: COMMON NORMALS: Normal to inspection, nondistended, normoactive bowel sounds present, Soft to palpation, non-tender, No hepatosplenomegaly present and no masses AUSCULTATION: Yes normoactive bowel sounds PALPATION: Yes Soft to palpation and Yes No hepatosplenomegaly present RECTAL EXAM: deferred Extremity: COMMON NORMALS: no clubbing, cyanosis or edema and no pedal edema Neuro: COMMON NORMALS: patient oriented x3 Urinary Catheter Management: Finch: Cath Placed During This Visit: yes Reason for Continuing Indwelling Catheter: Accurate Measurement of Urinary Output in Critically Ill Patients Urinary Catheter Date of Insertion: 09/12/22 Urinary Catheter Time of Insertion: 23:42 Discharge Data Studies Completed and Pending Completed Studies During Hospitalization Category Date Time Status CT head wo con* [id number] Urgent Cat Scan 09/12/22 18:55 Completed XR chest 1V portable [id number] Urgent Exams 09/12/22 18:54 Completed Pending at discharge Category Date Time Status CBC Auto Diff [Complete Blood Count w/Auto] AM LABS Lab 09/18/22 04:00 Ordered CBC Auto Diff [Complete Blood Count w/Auto] AM LABS Lab 09/19/22 04:00 Ordered CMP [Comprehensive Metabolic Panel] AM LABS Lab 09/18/22 04:00 Ordered CMP [Comprehensive Metabolic Panel] AM LABS Lab 09/19/22 04:00 Ordered Clostridioides Difficile PCR Routine Lab 09/16/22 21:29 Received Magnesium AM LABS Lab 09/18/22 04:00 Ordered Magnesium AM LABS Lab 09/19/22 04:00 Ordered Radiology Impressions Chest X-Ray 09/12/22 18:54 IMPRESSION: 1. Decreased left lung consolidation since 09/02/2022. 2. Residual 10 mm spiculated opacity in the lateral left mid lung. Possible metastatic or primary neoplastic nodule. Recommend nonemergent follow-up chest CT. Head CT 09/12/22 18:55 IMPRESSION: No acute intracranial abnormality. Laboratory Results WBC 7.3 10^3/uL (4.0-10.0) 09/17/22 03:29 RBC 3.40 10^6/uL (4.1-5.3) L 09/17/22 03:29 Hgb 10.4 g/dL (11.5-15.3) L 09/17/22 03:29 Hct 34.9 % (37.0-47.0) L 09/17/22 03:29 MCV 102.6 fl (81-99) H 09/17/22 03:29 MCH 30.6 pg (28.0-34.0) 09/17/22 03: MCHC 29.8 g/dL (30.0-36.0) L 09/17/22 03: RDW 16.1 % (12.1-15.1) H 09/17/22 03:29 Plt Count 179 10^3/cmm (130-400) 09/17/22 03:29 MPV 10.0 fL (7.4-10.4) 09/17/22 03:29 Neut % (Auto) 62.5 % 09/17/22 03:29 Lymph % (Auto) 23.6 % 09/17/22 03:29 [facility] % (Auto) 10.5 % 09/17/22 03:29 Eos % (Auto) 2.6 % 09/17/22 03:29 Baso % (Auto) 0.5 % 09/17/22 03:29 Neut # (Auto) 4.56 10^3/uL (1.8-7.7) 09/17/22 03:29 Lymph # (Auto) 1.7 10^3/uL (0.8-4.8) 09/17/22 03:29 [facility] [place] # (Auto) 0.8 10^3/uL (0.2-0.9) 09/17/22 03:29 Eos # (Auto) 0.2 10^3/uL (0.0-0.8) 09/17/22 03:29 Baso # (Auto) 0.0 10^3/uL (0.0-0.1) 09/17/22 03:29 Nucleated RBC % (auto) 0 % 09/17/22 03: Nucleated RBCs # 0.0 /100WBC 09/17/22 03:29 PT 14.40 SECONDS (12.1-14.9) 09/12/22 19:17 INR 1.08 (0.8-1.2) 09/12/22 19:17 Sodium 138 mmol/L (136-145) 09/17/22 03:29 Potassium 3.8 mmol/L (3.5-5.1) 09/17/22 03:29 Chloride 106 mmol/L (98-107) 09/17/22 03:29 Carbon Dioxide 23 mmol/L (22-29) 09/17/22 03:29 Anion Gap 12.8 (5-19) 09/17/22 03:29 BUN 39 mg/dL (8-23) H 09/17/22 03:29 Creatinine 1.1 mg/dL (0.5-0.9) H 09/17/22 03:29 GFR Calculation Not Reportable 09/17/22 03:29 Glucose 73 mg/dL (65-115) 09/17/22 03:29 Calculated Osmolality 294 mOsm/kg (285-295) 09/17/22 03:29 Calcium 7.7 mg/dL (8.5-10.5) L 09/17/22 03:29 Phosphorus 2.5 mg/dL (2.5-4.5) 09/16/22 04:56 Magnesium 2.2 mg/dL (1.7-2.3) 09/17/22 03:29 Total Bilirubin 0.2 mg/dL (0.15-1.2) 09/17/22 03:29 AST 15 U/L (0-32) 09/17/22 03:29 ALT 13 U/L (0-33) 09/17/22 03:29 Alkaline Phosphatase 62 U/L (35-105) 09/17/22 03:29 Troponin T Baseline 24 ng/L (0-10) H 09/12/22 19:17 Troponin T 120 Minute 23.61 ng/L (0-10) H 09/12/22 21:25 Delta Troponin T -0.39 ABS# (0-10) L 09/12/22 21:25 Troponin T Hi Sens 6Hr 24.91 ng/L (0-10) H 09/13/22 01:10 Troponin T Hi Sens 6Hr Delta 0.91 ng/L (0-12) 09/13/22 01:10 NT-Pro-B Natriuret Pep 4587 pg/mL (0-450) H 09/12/22 19:17 Total Protein 6.0 g/dL (6.6-8.7) L 09/17/22 03:29 Albumin 2.9 g/dL (3.5-5.2) L 09/17/22 03:29 Globulin 3.1 g/dL (1.3-4.6) 09/17/22 03:29 TSH 5.88 uIU/mL (0.27-4.20) H 09/12/22 21:25 Urine Color Yellow (Yellow) 09/12/22 23:42 Urine Appearance Clear (CLEAR) 09/12/22 23:42 Urine pH 5 (5-7) 09/12/22 23:42 Ur Specific Pearson 1.020 (1.005-1.030) 09/12/22 23:42 Urine Protein Trace (Negative) 09/12/22 23:42 Urine Glucose (UA) Norm (Normal) 09/12/22 23: Urine Ketones Negative (Negative) 09/12/22 23:42 Urine Blood 3+ (Negative) H 09/12/22 23:42 Urine Nitrate Negative (Negative) 09/12/22 23: Urine Bilirubin Neg (Negative) 09/12/22 23: Urine Urobilinogen Norm mg/dL (Negative) 09/12/22 23:42 Ur Leukocyte Esterase 2+ (Negative) H 09/12/22 23:42 Urine RBC Too numerous to cnt /hpf (0-2) H 09/12/22 23:42 Urine WBC Too numerous to cnt /hpf (0-5) H 09/12/22 23:42 Ur Squamous Epith Cells 0-4 /hpf (0-5) H 09/12/22 23: Amorphous Sediment Not Reportable 09/12/22 23: Urine Bacteria 3+ /hpf (NONE) H 09/12/22 23:42 Digoxin 1.3 ng/mL (0.6-1.2) H 09/14/22 03:35 Vitals Last Vital Signs Temp 98.6 F 09/17/22 08:00 Pulse 76 09/17/22 10:00 Resp 16 09/17/22 10:00 BP 96/71 09/17/22 10:00 Pulse Ox 96 09/17/22 10:00 O2 Del Method 09/17/22 10:00 O2 Flow Rate 1 09/15/22 08:54 Discharge Plan Discharge Patient Disposition: Home Condition: Stable Prescriptions: New metoprolol tartrate 25 mg tablet 12.5 mg PO BID PRN (Reason: tachycardia HR>120) Qty: 30 1RF clonazepam 0.5 mg Tablet 1 mg PO BID PRN (Reason: Anxiety) 14 Days Qty: 25 0RF Continued vitamin B complex [B Complex-Vitamin B12] Tablet 1 tab PO DAILY flaxseed oil 1,000 mg capsule 1,000 mg PO DAILY Restasis MultiDose 0.05 % drops 1 drop ophthalmic (eye) Q12H sertraline 100 mg tablet 100 mg PO Q24H primidone 50 mg Tablet 50 mg PO TID PRN (Reason: Tremor(S)) multivitamin [Multiple Vitamins] Tablet 1 tab PO DAILY levothyroxine 137 mcg tablet 137 mcg PO DAILY bisacodyl 5 mg Tablet,Delayed Release (Dr/Ec) 5 mg PO DAILY Qty: 30 0RF Lactobacillus acidophilus Capsule 10,000 mmu cells PO BID Qty: 60 0RF Rx Instructions: administer with a meal cholecalciferol (vitamin D3) [Vitamin D3] 25 mcg (1,000 unit) Tablet 25 mcg PO DAILY omega 8-bva-uzr-fish oil [Fish Oil] 1,000 mg (120 mg-180 mg) Capsule 1 cap PO DAILY diphenoxylate-atropine 2.5-0.025 mg tablet 1 tab PO DAILY Qty: 10 0RF amitriptyline 25 mg tablet 25 mg PO DAILY Belsomra 10 mg tablet 10 mg PO BEDTIME Discontinued clonazepam 0.5 mg Tablet 0.5 mg PO BID PRN (Reason: Anxiety) nitrofurantoin macrocrystal 100 mg capsule 100 mg PO DAILY amiodarone [Pacerone] 200 mg Tablet 400 mg PO BID Qty: 90 3RF Rx Instructions: 400 mg twice a day for 7 days and then start taking 400 mg for next 7 days then 200 mg daily digoxin 125 mcg (0.125 mg) Tablet 125 mcg PO DAILY Qty: 60 2RF furosemide [Lasix] 20 mg tablet 20 mg PO DAILY Qty: 60 2RF potassium chloride 10 mEq tablet extended release 10 meq PO DAILY Qty: 30 3RF diltiazem HCl [Cardizem LA] 360 mg tablet extended release 24 hr 360 mg PO DAILY Qty: 60 1RF verapamil 240 mg capsule,ext rel. pellets 24 hr 240 mg PO DAILY Discharge Orders: Discharge Order (Routine); Ordered 09/17/22 Ordered By: Edison Hobbs Other Ambulatory Orders: MCT/Event Monitor 21 Days (Routine) Timeframe: 1 Day Facility: [facility] - Location: Radiology Ordered By: Elidia Del Cid Referrals: Scott Lau MD [Primary Care Provider] - Sharri Butts FNP [Nurse Practitioner] - 09/30/22 10:00 am (you also have an appt with Dr Guardado on 10-15-2022 at 2:45) Patient Instructions: Metoprolol (By mouth), Clonazepam (By mouth), Dilated Cardiomyopathy (DC), Opioid Safety Activity Restrictions/Additional Instructions: Advised to keep a log of BP and HR three times/day until follow up in Heart care. Use metoprolol tartrate 12.5 mg as needed for sustained heart rate >120 bpm. Discharge Attestations Time Spent in Discharge Care*: greater than 30 min Quality Metrics Clinical Quality Measures [ No reported AMI, CVA or VTE this stay] Coding Level of Care Code Acute Chg FW DC note Diagnoses Bradycardia with 31-40 beats per minute R00.1 Atrial fibrillation I48.91 Atrial fibrillation type: unspecified CHF (congestive heart failure) I50.9 Heart failure chronicity: unspecified Heart failure type: unspecified
--- NOTE | 2022-09-17 13:04 | PC.SOCIAL ---
IMM Update pg 2 of IMM updated and reviewed w/ patients . Copy provided and Copy dated, initialed and placed in chart
--- NOTE | 2022-09-17 14:47 | PC.NURSE ---
1415 Discontinues right upper arm iv with pressure dressing, no bleeding noted. VSS, No c/o's. Had discontinued staton catheter eariler at 1400. Explained in detail home meds, including new meds, old meds to continue and old meds to stop taking. Follow up appointments listed and given to and spoke with about them. Daughter at bedside and at bedside when DC instructions given. Daughter saying she will go stay with them for a few days to get them settled and take BP and HR and record it 3 times daily. Discharged at 1440 via wheelchair to husbands car with all belongings.
== END 2022-09-17 14:40 | disposition home or self-care (01) | DRG 308 ==
LOC: ER 21:00 → ICU 21:03
PROVIDERS: Internal Medicine; Student in an Organized Health Care Education/Training Program; Admitting Provider Family Medicine; Emergency Provider Family Medicine; PCP Family Medicine; Visit Provider Internal Medicine
DX: R00.1 Bradycardia, unspecified (principal); E43 Unspecified severe protein-calorie malnutrition; N39.0 Urinary tract infection, site not specified; Z68.1 Body mass index [BMI] 19.9 or less, adult; T46.0X5A Adverse effect of cardiac-stimulant glycosides and drugs of similar action, initial encounter; I42.9 Cardiomyopathy, unspecified; I48.91 Unspecified atrial fibrillation; I10 Essential (primary) hypertension; F03.90 Unspecified dementia, unspecified severity, without behavioral disturbance, psychotic disturbance, mood disturbance, and anxiety; Z85.038 Personal history of other malignant neoplasm of large intestine; Z85.41 Personal history of malignant neoplasm of cervix uteri; N31.9 Neuromuscular dysfunction of bladder, unspecified; B95.2 Enterococcus as the cause of diseases classified elsewhere; Z88.0 Allergy status to penicillin; F41.8 Other specified anxiety disorders; K59.09 Other constipation; Z87.01 Personal history of pneumonia (recurrent); Z92.3 Personal history of irradiation; G25.81 Restless legs syndrome; I73.9 Peripheral vascular disease, unspecified; Z95.820 Peripheral vascular angioplasty status with implants and grafts; Z87.891 Personal history of nicotine dependence; I25.10 Atherosclerotic heart disease of native coronary artery without angina pectoris; Z95.5 Presence of coronary angioplasty implant and graft; Z90.49 Acquired absence of other specified parts of digestive tract; I34.0 Nonrheumatic mitral (valve) insufficiency; E03.9 Hypothyroidism, unspecified
CPT/HCPCS: 36415; 51702; 70450; 71045; 80048; 80053; 80069; 80162; 81001; 83735; 83880; 84443; 84484; 85025; 85610; 87077; 87086; 87186; 87493; 93005; 94664; 96361; 96372; 96374; 97110; 97116; 97161; 97166; 97530; 97535; 99285; C9113; J0461; J0696; J1162; J1265; J1650; J2270; J7040; J7050; Q0162

== ENCOUNTER → 2022-10-15 12:36 | Outpatient (BNVA) | payer MEDICARE, OTHER, SELFPAY | PROVIDERS: PCP Family Medicine; Visit Provider Internal Medicine | DX: I50.9 Heart failure, unspecified (principal); F03.90 Unspecified dementia, unspecified severity, without behavioral disturbance, psychotic disturbance, mood disturbance, and anxiety; I48.91 Unspecified atrial fibrillation; Z87.891 Personal history of nicotine dependence | CPT/HCPCS: 99214 ==

== ENCOUNTER 2022-11-10 11:46 | Inpatient (IN) | payer MEDICARE, OTHER, SELFPAY ==
[2022-11-10] VITALS (22 sets, daily range): BP systolic 99–142; BP diastolic 65–106; PULSE 81–136; RESP 14–25; TEMP 36.3–37.2; O2SAT 89–97; BMI 16.8
--- NOTE | 2022-11-10 12:20 | XRR_ITS ---
PROCEDURE INFORMATION: Exam: XR Chest Exam date and time: 11/10/2022 12:40 PM Age: 86 years old Clinical indication: Other: Tachycardia TECHNIQUE: Imaging protocol: Radiologic exam of the chest. Views: 1 view. COMPARISON: CR (CHEST, ) 09/12/2022 7:01 PM and 01/02/2021 FINDINGS: Tubes, catheters and devices: There is a breast implant present on the right side Lungs: Previously noted left perihilar parenchymal density has now resolved. A small spiculated nodule was described on prior study in the left perihilar region . This finding is again seen and now measures 7 mm. This configuration is somewhat different than prior examination. This finding may represent a mass or granuloma. CT chest examination is recommended to allow for clear clarification of this finding Pleural spaces: Unremarkable. No pleural effusion. No pneumothorax. Heart/Mediastinum: Unremarkable. No cardiomegaly. Bones/joints: Unremarkable. XR/XR chest 1V portable [id number] IMPRESSION: 1. No acute findings. 2. Right breast implant 3. Left perihilar pneumonia has now resolved 4. Left perihilar parenchymal density mass or granuloma CT exam suggested
--- NOTE | 2022-11-10 12:22 | ECG_ITS ---
[facility] Test Date: 2022-11-10 Pat Name: Iraida Bay Department: Room: Gender: Female [employer] Representative: : [id number] Requested By: Kirill Gannon Order Number: [id number] Jeancarlos MD: Cheikh Holden M.D. Measurements Intervals [place] Rate: 134 P: 0 ND: 0 QRS: -60 QRSD: 123 T: 87 QT: 304 QTc: 454 Interpretive Statements ATRIAL FIBRILLATION WITH RAPID VENTRICULAR RESPONSE POSSIBLE RIGHT VENTRICULAR CONDUCTION DELAY [RSR (QR) IN V1/V2] LEFT ANTERIOR FASCICULAR BLOCK [QRS AXIS <= -45, QR IN I, RS IN II] ANTERIOR MYOCARDIAL INFARCTION , PROBABLY RECENT [40+ ms Q WAVE AND/OR ST/T ABNORMALITY IN V3/V4] ACUTE ID Compared to ECG 09/16/2022 10:08:49 Left anterior fascicular block now present Aberrant conduction of supraventricular beat(s) no longer present Ventricular premature complex(es) no longer present Left-axis deviation no longer present Myocardial infarct finding still present Electronically Signed On 11-10-2022 19:40:48 CDT by Cheikh Holden M.D. [id number]
--- NOTE | 2022-11-10 12:23 | W.ED.GIBLEED ---
HPI - GI Bleed General: Chief complaint: GI Bleed Stated complaint: n/v/bloody stool Time Seen by Provider: 11/10/22 12:06 History of Present Illness: Patient presents to the ER with complaints of nausea vomiting x4 days and bright red blood per rectum x1 day patient denies being on any type of anticoagulants. Patient does have a history of rectal cancer. Patient has a history of atrial fibrillation with RVR and is on as needed metoprolol. Patient has a ejection fraction of approximately 30% per records Onset (ago): day(s) (Nausea vomiting x4 days bright red blood per rectum x1 day) Relieving factors: none Exacerbating factors: none Associated symptoms: Reports nausea and vomiting; Denies chills, easy bruising, fever(s), headache(s) or rash Treatments Prior to Arrival: none Review of Systems General: Reports: 10 or more systems reviewed and unremarkable except in HPI and below Const: Reports: fatigue; Denies: fever(s), chills or body aches Eyes: Denies: change in vision or blurry vision ENMT: Denies: throat pain or odynophagia Card: Denies: chest pain, palpitations, irregular heart rhythm or edema Resp: Denies: dyspnea, productive cough or non-productive cough GI: Reports: nausea, vomiting and hematochezia : Denies: flank pain, difficulty voiding or dysuria Musc: Denies: neck pain, back pain, extremity pain or extremity swelling Skin/Breast: Denies: rash, pruritus, erythema or photosensitivity Neuro: Denies: headache(s), numbness in extremities or weakness in extremities Psych: Denies: anxiety, depression, mood swings or panic attacks Endo: Denies: polyuria, polydipsia or tired all the time Jaswinder/Lymph: Denies: easy bruising, easy bleeding, petechiae or purpura All/Imm: Denies: urticaria, throat swelling, tongue swelling or facial swelling PFSH ED PFSH: Medical History (Updated 11/10/22 @ 16:55 by Ha Tellez MD) Acute exacerbation of congestive heart failure Anemia Anemia Anxiety and depression Atrial fibrillation Bradycardia with 31-40 beats per minute Bradycardia, drug induced Cardiomyopathy CHF (congestive heart failure) Chronic constipation Community acquired pneumonia Dementia Digoxin toxicity Goals of care, counseling/discussion History of cervical cancer Treated with cobalt radiation Hydronephrosis Bilateral hydronephrosis associated with neurogenic bladder Hypertension Hypothyroidism Intrinsic sphincter deficiency Mitral regurgitation Muscular deconditioning Neurogenic bladder Onychodystrophy Peripheral arterial disease Protein calorie malnutrition Rectosigmoid cancer Recurrent UTI Severe protein-calorie malnutrition Syncope and collapse UTI (urinary tract infection) Surgical History H/O: hysterectomy (1962) History of colon resection (1995) Low anterior resection History of hemicolectomy S/P angioplasty with stent Status post bilateral iliac stents and angioplasty of the left common femoral artery and superficial femoral artery. S/P bladder repair S/P hernia repair S/P tonsillectomy Family History Mother CAD (coronary artery disease) Son CAD (coronary artery disease) Myocardial infarct, old Father CAD (coronary artery disease) Myocardial infarct, old Denies family history of Anesthesia complication Bleeding disorder Social History Smoking and tobacco status: former smoker Alcohol intake: never Household members: spouse Marital status: Current occupational status: retired Current gender identity: Female Adele/Yazdanism: Denominational Physical Exam Const: COMMON NORMALS: no acute distress, average body habitus, patient oriented x3, no limitations, healthy appearing and alert HENMT: COMMON NORMALS: normocephalic, atraumatic and hearing grossly normal bilaterally HEAD & SCALP: normocephalic and atraumatic Eye: COMMON NORMALS: Equal, round and reactive pupils present, EOMs intact bilaterally and conjunctivae normal CONJUNCTIVA: Yes conjunctivae normal PUPIL: Yes Equal, round and reactive pupils present Neck/C-Spine: COMMON NORMALS: full ROM, no lymphadenopathy and supple Lymph: LYMPHATIC: no lymphadenopathy noted Chest: COMMONS NORMALS: normal inspection of the chest Resp: COMMON NORMALS: normal respiratory effort, No retractions, No use of accessory muscles and clear to auscultation bilaterally AUSCULTATION: clear to auscultation bilaterally Cardio: COMMON NORMALS: S1 normal heart sound present and S2 normal heart sound present JUGULAR VENOUS DISTENTION: no JVD RATE: tachycardic RHYTHM: abnormal rhythm HEART SOUNDS: S1 normal heart sound present and S2 normal heart sound present GI: COMMON NORMALS: Normal to inspection, nondistended, normoactive bowel sounds present, Soft to palpation, non-tender, No hepatosplenomegaly present and no masses PALPATION: Yes Soft to palpation and Yes No hepatosplenomegaly present : COMMON NORMALS: Yes no CVA tenderness BLADDER/KIDNEY EXAM: Yes no CVA tenderness Back/Pelvis: COMMON NORMALS: no CVA tenderness Extremity: NARRATIVE EXTREMITY EXAM: Trace edema bilateral lower extremities Neuro: COMMON NORMALS: patient oriented x3, CN's II-XII intact bilaterally, moves all extremities, no focal motor deficits and no sensory deficits noted SENSORIUM/ORIENTATION: Yes alert Psych: COMMON NORMALS: mental status grossly normal, Normal thought process present, cooperative, normal affect and speech normal SPEECH: Yes normal speech THOUGHT PROCESS: Normal thought process present Skin: COMMON NORMALS: no rashes or lesions noted, no wounds, turgor normal, no jaundice and no petechiae GENERAL SKIN EXAM: no rashes or lesions noted and turgor normal Course Vital Signs: Vital signs: Vital Signs Temperature 97.4 F L 11/10/22 16:00 Pulse Rate 135 H 11/10/22 16:00 Respiratory Rate 16 11/10/22 16:00 Blood Pressure 142/87 11/10/22 16:00 Pulse Oximetry 93 11/10/22 16:00 Oxygen Delivery Me thod 11/10/22 16:00 MDM - GI Bleed Medical Decision Making Patient presents to the ER with complaints of nausea vomiting and bright red blood per rectum. Patient has no other complaints at the moment. Patient's heart rate was noted to be in the 130s sometimes all way up to the 160s and irregular. Patient does have a history of of A-fib as well as possible sick sinus syndrome. Patient patient normally takes a beta-forrest as needed. EKG did show A-fib with RVR, laboratory results revealed hemoglobin 12.8 white blood cell count of 14.4 but also sodium of 126 potassium of 5.2 as well as a BUN of 91 and creatinine of 3.2 chest x-ray was was obtained which was essentially benign. Patient was given 500 mL of normal saline as well as 10 mg of Cardizem IV patient's heart rate did improve to the 100s. Dr. Faustin was consulted and agreed to accept the patient in admission and gave us further orders. Patient will go to to the cardiac stepdown unit Differential Diagnosis Likely hemorrhoids, Lower gastrointestinal hemorrhage, hematochezia and melena Lab Data I reviewed the patient's lab results. 11/10/22 12:59 03 12:59 Radiology Impressions Chest X-Ray 11/10/22 12:20 IMPRESSION: 1. No acute findings. 2. Right breast implant 3. Left perihilar pneumonia has now resolved 4. Left perihilar parenchymal density mass or granuloma CT exam suggested Abdomen/Pelvis CT 11/10/22 14:08 IMPRESSION: 1. Bilateral hydronephrosis without evidence of stones 2. Heavily calcified abdominal aorta without aneurysm or dissection. 3. Multiple gallstones and gallbladder sludge 4. Surgical sutures in bowel loops of the pelvis. 5. Chronic fracture right pubic bone 6. Bilateral lower lobe pleural effusion Laboratory Results WBC 14.4 10^3/uL (4.0-10.0) H 11/10/22 12:59 RBC 4.15 10^6/uL (4.1-5.3) 11/10/22 12:59 Hgb 12.8 g/dL (11.5-15.3) 11/10/22 12:59 Hct 40.9 % (37.0-47.0) 11/10/22 12:59 MCV 98.6 fl (81-99) 11/10/22 12:59 MCH 30.8 pg (28.0-34.0) 11/10/22 12:59 MCHC 31.3 g/dL (30.0-36.0) 11/10/22 12:59 RDW 15.4 % (12.1-15.1) H 11/10/22 12:59 Plt Count 273 10^3/cmm (130-400) 11/10/22 12:59 MPV 10.6 fL (7.4-10.4) H 11/10/22 12:59 Neut % (Auto) 86.8 % 11/10/22 12:59 Lymph % (Auto) 6.8 % 11/10/22 12:59 [place] % (Auto) 4.4 % 11/10/22 12:59 Eos % (Auto) 0.0 % 11/10/22 12:59 Baso % (Auto) 0.2 % 11/10/22 12:59 Neut # (Auto) 12.54 10^3/uL (1.8-7.7) H 11/10/22 12:59 Lymph # (Auto) 1.0 10^3/uL (0.8-4.8) 11/10/22 12:59 [place] # (Auto) 0.6 10^3/uL (0.2-0.9) 11/10/22 12:59 Eos # (Auto) 0.0 10^3/uL (0.0-0.8) 11/10/22 12:59 Baso # (Auto) 0.0 10^3/uL (0.0-0.1) 11/10/22 12:59 Nucleated RBC % (auto) 0.9 % 11/10/22 12:59 Nucleated RBCs # 0.1 /100WBC 11/10/22 12:59 PT 17.30 SECONDS (12.1-14.9) H 11/10/22 12:59 INR 1.37 (0.8-1.2) H 11/10/22 12:59 Sodium 126 mmol/L (136-145) L 11/10/22 12:59 Potassium 5.2 mmol/L (3.5-5.1) H 11/10/22 12:59 Chloride 86 mmol/L (98-107) L 11/10/22 12:59 Carbon Dioxide 21 mmol/L (22-29) L 11/10/22 12:59 Anion Gap 24.2 (5-19) H 11/10/22 12:59 BUN 91 mg/dL (8-23) H* D 11/10/22 12:59 Creatinine 3.2 mg/dL (0.5-0.9) H 11/10/22 12:59 GFR Calculation Not Reportable 11/10/22 12:59 Glucose 116 mg/dL (65-115) H 11/10/22 12:59 Calculated Osmolality 291 mOsm/kg (285-295) 11/10/22 12:59 Calcium 8.8 mg/dL (8.5-10.5) 11/10/22 12:59 Magnesium 2.5 mg/dL (1.7-2.3) H 11/10/22 12:59 Total Bilirubin 0.9 mg/dL (0.15-1.2) 11/10/22 12:59 AST 86 U/L (0-32) H 11/10/22 12:59 ALT 53 U/L (0-33) H 11/10/22 12:59 Alkaline Phosphatase 151 U/L (35-105) H 11/10/22 12:59 Troponin T Baseline 41 ng/L (0-10) H 11/10/22 12:59 NT-Pro-B Natriuret Pep > 43751 pg/mL (0-450) H 11/10/22 12:59 Total Protein 7.6 g/dL (6.6-8.7) 11/10/22 12:59 Albumin 3.7 g/dL (3.5-5.2) 11/10/22 12:59 Globulin 3.9 g/dL (1.3-4.6) 11/10/22 12:59 EKG Data EKG 1: I personally reviewed and interpreted this EKG as follows: EKG interpretation date: 11/10/22 EKG interpretation time: 12:32 Prior EKG tracings: available for review Interpretation: EKG showed A-fib with RVR with ventricular rate of 134 beats a minute possible right ventricular conduction delay, left anterior fascicular block, EKG computer read office anterior myocardial infarction probably recent with abnormality in V3 and V4 however I disagree with this I did consult Dr. Zavala and sent him EKG and he disagrees with this also Discharge Plan Discharge Patient Disposition: Admitted As Inpatient Admit Provider: Ha Tellez Clinical Impression: Atrial fibrillation with rapid ventricular response, Acute renal failure, Acute hyponatremia, Acute hyperkalemia Condition: Stable Coding Level of Care Code ED Programming Specialist for Ch[facility] Maxine
[2022-11-10] MEDS: dilTIAZem 5 mg/mL SDV 5 mL 10 MG IVP ×2 (13:21→17:13)
[2022-11-10] MEDS: sodium chloride 0.9% 500 ML 999 ML IV (13:22)
[2022-11-10 13:34] LABS: INR 1.37 (0.8-1.2)
[2022-11-10 13:41] LABS: Basophils % 0.2 %; Hematocrit 40.9 % (37.0-47.0); Hemoglobin 12.8 g/dL (11.5-15.3); Lymphocytes % 6.8 %; Mean Corpuscular HGB Conc 31.3 g/dL (30.0-36.0); Mean Corpuscular Hemoglobin 30.8 pg (28.0-34.0); Mean Corpuscular Volume 98.6 fl (81-99); Mean Platelet Volume 10.6 fL (7.4-10.4); Monocytes # 0.6 10^3/uL (0.2-0.9); Monocytes % 4.4 %; Neutrophils # 12.54 10^3/uL (1.8-7.7); Neutrophils % 86.8 %; Nucleated Red Blood Cells # 0.1 /100WBC; Nucleated Red Blood Cells % 0.9 %; Platelet Count 273 10^3/cmm (130-400); Red Blood Count 4.15 10^6/uL (4.1-5.3); Red Cell Distribution Width 15.4 % (12.1-15.1); White Blood Count 14.4 10^3/uL (4.0-10.0)
--- NOTE | 2022-11-10 13:42 | PC.PHAR ---
PTS VERIFIED PTS MEDICATIONS-STATES DR FRIED RESTARTED THE LASIX 20MG QAM AND KCL 10MEQ DAILY-NOTES ARE MADE IN THE PHARMACY COMMENTS
[2022-11-10 13:44] LABS: Alanine Aminotransferase 53 U/L (0-33); Albumin Level 3.7 g/dL (3.5-5.2); Alkaline Phosphatase 151 U/L (35-105); Anion Gap 24.2 (5-19); Aspartate Amino Transferase 86 U/L (0-32); Calcium 8.8 mg/dL (8.5-10.5); Carbon Dioxide 21 mmol/L (22-29); Chloride 86 mmol/L (98-107); Globulin 3.9 g/dL (1.3-4.6); Glucose 116 mg/dL (65-115); Magnesium 2.5 mg/dL (1.7-2.3); Osmolality Calculated 291 mOsm/kg (285-295); Potassium 5.2 mmol/L (3.5-5.1); Sodium 126 mmol/L (136-145); Total Bilirubin 0.9 mg/dL (0.15-1.2); Total Protein 7.6 g/dL (6.6-8.7)
[2022-11-10 13:45] LABS: Troponin(5th) Baseline 41 ng/L (0-10)
[2022-11-10 13:46] LABS: Blood Urea Nitrogen 91 mg/dL (8-23)
--- NOTE | 2022-11-10 14:08 | CTR_ITS ---
PROCEDURE INFORMATION: Exam: CT Abdomen And Pelvis Without Contrast Exam date and time: 11/10/2022 1:24 PM Age: 86 years old Clinical indication: Nausea and vomiting and other: Bloody stool; Elevated bun/creatinine; Prior surgery; Surgery type: PT reports she had surgeries but cannot remember what was done; Additional info: Elevated bun/cr tachycardia TECHNIQUE: Imaging protocol: Computed tomography of the abdomen and pelvis without contrast. Radiation optimization: All CT scans at this facility use at least one of these dose optimization techniques: automated exposure control; mA and/or kV adjustment per patient size (includes targeted exams where dose is matched to clinical indication); or iterative reconstruction. REPORTING DATA: Count of CT and Cardiac NM exams in prior 12 months: This patient has received 2 known CTs and 0 known cardiac nuclear medicine studies in the 12 months prior to the current study. COMPARISON: CT abdomen pelvis wo con [id number] 12/31/2020 3:39 PM RADIATION DOSE METRICS: Total DLP (mGy-cm): 288.66 FINDINGS: Chest: Bilateral lower lobe pleural effusions. Liver: Normal. No mass. Gallbladder and bile ducts: Multiple calcified stones, and sludge. No ductal dilation. Pancreas: Normal. No ductal dilation. Spleen: Normal. No splenomegaly. Adrenal glands: Normal. No mass. Kidneys and ureters: Bilateral hydronephrosis. There is dilatation of the bilateral ureters throughout their course no clearly obstructing stones are visible. hydronephrosis. Stomach and bowel: Unremarkable. No obstruction. No mucosal thickening. Surgical sutures are seen within the bowel loops in the pelvis Appendix: No evidence of appendicitis. Intraperitoneal space: Unremarkable. No free air. No significant fluid collection. Vasculature: Heavy calcifications abdominal aorta negative for aortic dissection No abdominal aortic aneurysm. Lymph nodes: Unremarkable. No enlarged lymph nodes. Urinary bladder: Unremarkable as visualized. Reproductive: Unremarkable as visualized. Bones/joints: There is chronic fracture involving the right side of the pubic symphysis. 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 No acute fracture. Soft tissues: Unremarkable. CT/CT abdomen pelvis wo con [id number] IMPRESSION: 1. Bilateral hydronephrosis without evidence of stones 2. Heavily calcified abdominal aorta without aneurysm or dissection. 3. Multiple gallstones and gallbladder sludge 4. Surgical sutures in bowel loops of the pelvis. 5. Chronic fracture right pubic bone 6. Bilateral lower lobe pleural effusion
[2022-11-10] MEDS: sodium chloride 0.9% 1,000 ML 30 ML IV (15:35)
[2022-11-10] MEDS: famotidine 20 mg/2 mL INJ IVP (15:36)
[2022-11-10] MEDS: docusate sodium 100 mg Capsule PO (15:36)
[2022-11-10] MEDS: heparin 5,000 unit/mL INJ 1 mL 5000 UNIT SUBCUT (15:37)
[2022-11-10 16:06] LABS: Lactic Sepsis W/Reflex 2.8 mmol/L (0.5-2.2)
[2022-11-10 16:07] LABS: Troponin 5 2HR 36.39 ng/L (0-10)
[2022-11-10 16:11] LABS: Procalcitonin 0.37 ng/mL (0-0.5)
[2022-11-10 16:12] LABS: Thyroid Stimulating Hormone 0.77 uIU/mL (0.27-4.20)
[2022-11-10 16:18] LABS: Iron 32 ug/dL (37-145); Percent Saturation 15.6 % (20-50); Total Iron Binding Capacity 205 mcg/dl; Unsaturated Iron Binding 173 ug/dL (112-347)
[2022-11-10 16:20] LABS: Troponin 5 2HR Delta -4.61 ABS# (0-10)
[2022-11-10 16:24] LABS: NT Pro B Type Natriuretic Pept > 70000 pg/mL (0-450)
[2022-11-10 16:24] LABS: Reflex Lactate Order REFLEX LACTIC ORDERD
[2022-11-10 16:42] LABS: Folate Level > 20.0 ng/mL (4.8-37.3)
[2022-11-10 16:43] LABS: Vitamin B12 > 2000 pg/mL (232-1245)
--- NOTE | 2022-11-10 16:45 | PM.HP ---
Providers/Chief Complaint Admitting Physician: Ha Tellez MD Primary Care Provider: Scott Lau MD Chief Complaint: n/v/bloody stool History of Present Illness Iraida Bay is a 86 year old female with past medical history of dementia, rectosigmoid cancer post surgery, atrial fibrillation who is not a candidate for anticoagulation given recurrent falls, neurogenic bladder, recurrent UTIs, congestive heart failure, digoxin toxicity he was most recently in hospital in September 2022 presented to the hospital today with ongoing nausea and vomiting for last 5 days along with oral intake as per patient's at bedside. Patient has been having occasional abdominal pain. States urine output has decreased. Patient states she is feeling extremely weak. She denies any chest pain but complains of occasional palpitations. Denies any difficulty in breathing, sick contact, fevers, dysuria or diarrhea. As per daughter who is also at bedside she noticed patient having bright blood per rectum today which is new for her. Blood work in the ER showed a white count of 14.4, hemoglobin of 12.8, INR of 1.37, sodium of 126 and potassium of 5.2, BUN of 91, creatinine of 3.2, anion gap of 19, magnesium of 2.5, lactate of 2.8, AST/ALT of 86/53 with alkaline phosphatase of 151, at baseline troponin of 41. In the ER patient was found to have a heart rate of 130s to 150s beats per minute for which she received 10 mg of IV Cardizem. Review of Systems General: Reports: 10 or more systems reviewed and unremarkable except in HPI and below Const: Denies: fever(s), chills, body aches, change in appetite, change in weight, malaise, night sweats, diaphoresis, change in sleep pattern, daytime sleepiness or snoring Eyes: Denies: change in vision, blurry vision, photophobia, eye discomfort or eye discharge ENMT: Denies: throat pain, enlarged tonsils, hoarseness, mouth pain, oral sores, dry mouth, tinnitus, nasal congestion or post nasal drip Card: Denies: chest pain, palpitations, irregular heart rhythm, edema, swelling of feet/ankles, lightheadedness, syncope, pre-syncope, dyspnea on exertion, orthopnea, leg pain with exertion or acrocyanosis Resp: Denies: dyspnea, productive cough, non-productive cough, wheezing, stridor, pain on inspiration, change in phlegm color, hemoptysis or chest congestion GI: Denies: abdominal pain, nausea, vomiting, hematemesis, coffee ground emesis, dysphagia, heartburn, diarrhea, constipation, bloating, GI cramping, change in bowel habits, pain on defecation, hematochezia or melena : Denies: flank pain, dysuria, urinary frequency, urinary urgency, urinary hesitancy, nocturia or hematuria Musc: Denies: neck pain, back pain, extremity pain, joint pain, joint swelling, joint redness, joint stiffness or limited range of motion Neuro: Denies: headache(s), numbness in extremities, weakness in extremities, sensory changes, lack of coordination, difficulty walking, frequent falls, dizziness, vertigo, confusion, Slurred speech present, difficulty communicating thoughts or seizure-like activity Psych: Denies: anxiety, depression, mood swings, panic attacks, hopelessness or irritability Endo: Denies: polyuria, polydipsia, tired all the time, cold intolerance, excessive sweating, flushing or heat intolerance Jaswinder/Lymph: Denies: easy bruising or easy bleeding All/Imm: Denies: tongue swelling, facial swelling or acute wheezing Medications/Allergies Home Medications Medication Instructions Recorded Confirmed Last Taken Type flaxseed oil 1,000 mg capsule 1,000 mg PO [facility] 09/13/19 11/10/22 09/02/22 History sertraline 100 mg tablet 100 mg PO [facility] 09/13/19 11/10/22 09/02/22 History vitamin B complex (B-Complex 1 tab PO [facility] 09/13/19 11/10/22 09/02/22 History tablet) levothyroxine 137 mcg tablet 137 mcg PO [facility] 02/06/20 11/10/22 09/02/22 History multivitamin (Multiple Vitamins 1 tab PO QAM 02/06/20 11/10/22 09/02/22 History tablet) cholecalciferol (vitamin D3) 25 25 mcg PO M 09/02/22 11/10/22 09/02/22 History mcg (1,000 unit) tablet (Vitamin D3) omega 3-jse-rvx-fish oil 1,000 mg 1 cap PO [facility] 09/02/22 11/10/22 09/02/22 History (120 mg-180 mg) capsule (Fish Oil) amitriptyline 25 mg tablet 25 mg PO BEDTIME 09/13/22 11/10/22 Unknown History suvorexant 10 mg tablet (Belsomra) 10 mg PO BEDTIME 09/13/22 11/10/22 2 Weeks Ago History ~10/27/22 clonazepam 0.5 mg tablet (Klonopin) 0.5 mg PO BEDTIME 10/15/22 11/10/22 Unknown History L.acidophil-L.casei-B.bifid-B.longum-FOS 1 cap PO QAM 11/10/22 11/10/22 Unknown History 2 billion cell-50 mg capsule (Probiotic Blend) acetaminophen 500 mg tablet 500 - 1,000 mg PO Q6H PRN Pain 11/10/22 11/10/22 Unknown History cyclosporine 0.05 % eye drops in a 1 drp ophthalmic (eye) DAILY 11/10/22 11/10/22 2 Weeks Ago History dropperette (Restasis) ~10/27/22 diphenoxylate-atropine 2.5 1 tab PO DAILY PRN Diarrhea 11/10/22 11/10/22 Unknown History mg-0.025 mg tablet furosemide 20 mg tablet 20 mg PO QAM 11/10/22 11/10/22 Unknown History metoprolol tartrate 25 mg tablet 12.5 mg PO BID 11/10/22 11/10/22 Unknown History potassium chloride 10 mEq 10 meq PO QAM 11/10/22 11/10/22 Unknown History tablet,extended release(part/cryst) Allergies Allergy/AdvReac Type Severity Reaction Status Date / Time Penicillins Allergy ALGY-Hives Verified 11/10/22 13:31 PFSH Acute PFSH: Medical History (Updated 11/10/22 @ 16:55 by Ha Tellez MD) Acute exacerbation of congestive heart failure Anemia Anemia Anxiety and depression Atrial fibrillation Bradycardia with 31-40 beats per minute Bradycardia, drug induced Cardiomyopathy CHF (congestive heart failure) Chronic constipation Community acquired pneumonia Dementia Digoxin toxicity Goals of care, counseling/discussion History of cervical cancer Treated with cobalt radiation Hydronephrosis Bilateral hydronephrosis associated with neurogenic bladder Hypertension Hypothyroidism Intrinsic sphincter deficiency Mitral regurgitation Muscular deconditioning Neurogenic bladder Onychodystrophy Peripheral arterial disease Protein calorie malnutrition Rectosigmoid cancer Recurrent UTI Severe protein-calorie malnutrition Syncope and collapse UTI (urinary tract infection) Surgical History H/O: hysterectomy (1962) History of colon resection (1995) Low anterior resection History of hemicolectomy S/P angioplasty with stent Status post bilateral iliac stents and angioplasty of the left common femoral artery and superficial femoral artery. S/P bladder repair S/P hernia repair S/P tonsillectomy Family History Mother CAD (coronary artery disease) Son CAD (coronary artery disease) Myocardial infarct, old Father CAD (coronary artery disease) Myocardial infarct, old Denies family history of Anesthesia complication Bleeding disorder Social History Smoking and tobacco status: former smoker Alcohol intake: never Household members: spouse Marital status: Current occupational status: retired Current gender identity: Female Adele/Gnosticist: [employer] Vitals/I&O/Wt Last Vital Signs Temp 97.4 F L 11/10/22 16:00 Pulse 135 H 11/10/22 16:00 Resp 16 11/10/22 16:00 BP 142/87 11/10/22 16:00 Pulse Ox 93 11/10/22 16:00 O2 Del Method 11/10/22 16:00 11/10/22 11/10/22 11/10/22 06:59 14:59 22:59 Intake Total 500 / 500 Balance 500 / 500 Weight last 48 hrs Weight 43.091 kg Physical Exam Narrative: General: No acute distress, AO x 2-3, slightly confused, dehydrated, cachectic HEENT: PERRLA, pupils bilaterally equal and reactive Chest: Normal vesicular breath sounds, occasional rhonchi over the lung espana, equal good air entry bilaterally CVS: S1-S2 irregularly irregular, tachycardia, soft pansystolic murmur present in tricuspid area, no gallops, no rubs Abdomen: Soft, nontender, no organomegaly, bowel sounds present Neuro: No focal deficits, no facial deformity, moving all limbs Data 11/10/22 12:59 11/10/22 12:59 A&P Assessment and plan (1) Acute renal failure: (2) Bilateral hydronephrosis: (3) Acute hyponatremia: (4) Acute hyperkalemia: (5) Atrial fibrillation with rapid ventricular response: (6) CHF (congestive heart failure): Qualifiers: Heart failure chronicity: unspecified Heart failure type: unspecified Qualified Code(s): I50.9 - Heart failure, unspecified (7) Nausea and vomiting: (8) Severe protein-calorie malnutrition: (9) Urinary retention: Plan 86-year-old lady with past medical history of atrial fibrillation not on anticoagulation, urinary retention presented to the hospital with nausea and vomiting found to be in atrial fibrillation with rapid ventricular response along with acute kidney injury, uremia, hyponatremia and hyperkalemia. Acute kidney injury: Hyponatremia: Hyperkalemia: Most likely in setting of poor oral intake because of nausea and vomiting along with concomitant use of Lasix, potassium at home. CT abdomen pelvis showed bilateral hydroureteronephrosis without renal stones. Finch catheterization. Patient does have history of urinary retention in the past. Plan to repeat renal ultrasound in 48 hours. If patient persistently has bilateral hydronephrosis can plan to consult urology for further recommendations. Check urine lites, urine creatinine, urine eosinophils, urine analysis. Strict input output charting. Start on gentle IV hydration at 50 cc/h. Monitor fluid status. D50 along with insulin 10 units, calcium gluconate one-time. Monitor sodium and potassium along with BMP at 8 PM. Leukocytosis: Most likely in setting of dehydration. Given concerns of UTI in the past we will start on IV ceftriaxone for now empirically. Can discontinue antibiotics if UA negative for signs of infection or if patient remains afebrile and leukocytosis resolved. Atrial fibrillation with rapid ventricular response: Most likely in setting of dehydration. Continue IV fluids as above. Start on IV Cardizem drip. Continue home dose of metoprolol 25 mg twice daily. Can transition over to oral Cardizem and wean off Cardizem drip. Not a candidate for anticoagulation in the past given recurrent falls. Last echocardiogram from September 2022 shows EF of 30% with mild LVH, severe MR, mild to moderate AI, mild to moderate TR, mild pulmonary hypertension with RVSP of 46. Patient also had a Lexiscan in September 2022 which showed old myocardial infarction and RCA versus artifact with EF of around 47%. Nausea and vomiting: Most likely in setting of uremia. CT abdomen pelvis negative for any acute abnormality though it was a noncontrast study. Protonix and Zofran. Start on clear liquid diet for now. Protein energy malnutrition CODE STATUS: Discussed in detail with patient's DPOA/ at bedside. Full code. Protonix OPD prophylaxis Heparin 5000 every 12 hourly for DVT prophylaxis. Clear liquid diet with protein shakes with each meal. Discharge planning: Given multiple admissions in the last 1 year, patient having dementia and caregiver also having issues with memory it would be best if we can arrange home health for patient on discharge from medications. is reluctantly agreeable. Daughter who is also her caregiver is agreeable. As per daughter she is concerned if is not able to take care of the patient anymore. Daughter is also concerned about noncompliance to medications. This documentation was created by [employer] underwriting specialist software. Every effort was made to ensure accuracy of underwriting specialist. Any obvious errors or omissions should be clarified with the author of the document. Attestations Medical Necessity Statement*: Admission for more than 2 midnights for management of acute kidney injury leading to hyponatremia, hyperkalemia, uremia along with atrial fibrillation with rapid ventricular response, dehydration from nausea and vomiting. Diagnoses Acute renal failure N17.9 Bilateral hydronephrosis N13.30 Acute hyponatremia E87.1 Acute hyperkalemia E87.5 Atrial fibrillation with rapid ventricular response I48.91 CHF (congestive heart failure) I50.9 Heart failure chronicity: unspecified Heart failure type: unspecified Nausea and vomiting R11.2 Severe protein-calorie malnutrition E43 Urinary retention R33.9
[2022-11-10 16:58] LABS: Add Urine Microscopic? YES; Bilirubin Urine Neg (Negative); Blood Urine 3+ (Negative); Glucose Urine UA Norm (Normal); Ketones Urine Negative (Negative); Leukocyte Esterase Urine 2+ (Negative); Nitrate Urine Negative (Negative); Protein Urine 3+ (Negative); Sulfosalicylic Acid Urine Positive (Negative); Urine Appearance Bloody (CLEAR); Urine Color Red (Yellow); Urobilinogen Urine Norm (Negative); pH Urine 8 (5-7)
[2022-11-10 16:59] LABS: RBC Urine >100 /hpf (0-2); WBC Urine 40-55 /hpf (0-5)
[2022-11-10 17:00] LABS: Add Urine Culture? Yes; Bacteria Urine 2+ /hpf
[2022-11-10] MEDS: metoprolol tartrate 25 mg Tablet PO (17:14)
[2022-11-10] MEDS: ferrous gluconate 324 mg Tablet PO (17:14)
[2022-11-10] MEDS: insulin regular-human 10 UNIT in SYRINGE 1 EACH IVP (17:31)
[2022-11-10] MEDS: dilTIAZem 100 MG in sodium chloride 0.9% (add-van) 100 ML IV (17:51)
--- NOTE | 2022-11-10 18:22 | ECG_ITS ---
[facility] Test Date: 2022-11-10 Pat Name: Iraida Bay Department: Room: Gender: Female Stitcher Feeder: : [id number] Requested By: Kirill Gannon Order Number: [id number] Jeancarlos MD: Cheikh Holden M.D. Measurements Intervals [place] Rate: 115 P: 0 CA: 0 QRS: -42 QRSD: 117 T: 82 QT: 356 QTc: 494 Interpretive Statements ATRIAL FIBRILLATION WITH RAPID VENTRICULAR RESPONSE LEFT AXIS DEVIATION [QRS AXIS < -30] INCOMPLETE RIGHT BUNDLE BRANCH BLOCK [90+ ms QRS DURATION, TERMINAL R IN V1/V2, 40+ ms S IN I/aVL/V4/V5/V6] SEPTAL MYOCARDIAL INFARCTION , OF INDETERMINATE AGE [40+ ms Q WAVE IN V1/V2] Compared to ECG 11/10/2022 12:32:16 Left-axis deviation now present Incomplete right bundle-branch block now present Left anterior fascicular block no longer present Myocardial infarct finding still present Electronically Signed On 11-10-2022 23:22:20 CDT by Cheikh Holden M.D. [id number]
[2022-11-10] MEDS: cefTRIAXone 1,000 MG in sodium chloride 0.9% (plus) 50 ML 100 MG IV (19:40)
[2022-11-10] MEDS: amitriptyline 25 mg Tablet PO (20:25)
[2022-11-10] MEDS: CLONazepam 0.5 mg Tablet PO (20:25)
[2022-11-10 22:24] LABS: Anion Gap 23.3 (5-19); Calcium 8.2 mg/dL (8.5-10.5); Carbon Dioxide 20 mmol/L (22-29); Chloride 89 mmol/L (98-107); Glucose 102 mg/dL (65-115); Lactic Acid level (Lactate) 3.7 mmol/L (0.5-2.2); Osmolality Calculated 294 mOsm/kg (285-295); Potassium 4.3 mmol/L (3.5-5.1); Sodium 128 mmol/L (136-145)
[2022-11-10 22:25] LABS: Troponin 5 6HR 39.37 ng/L (0-10)
[2022-11-10 22:30] LABS: Troponin 5 6HR Delta -1.63 ng/L (0-12)
[2022-11-10 22:37] LABS: Blood Urea Nitrogen 91 mg/dL (8-23)
[2022-11-11] VITALS (51 sets, daily range): BP systolic 91–125; BP diastolic 50–89; PULSE 58–121; RESP 18–33; TEMP 35.9–36.7; O2SAT 81–99
[2022-11-11] MEDS: haloperidol inj 5 mg/mL INJ 1 mL IM ×2 (00:28→18:47)
[2022-11-11 01:55] LABS: Digoxin 0.3 ng/mL (0.6-1.2)
[2022-11-11] MEDS: famotidine 20 mg/2 mL INJ IVP ×2 (02:58→15:22)
[2022-11-11] MEDS: heparin 5,000 unit/mL INJ 1 mL 5000 UNIT SUBCUT ×2 (03:00→15:23)
[2022-11-11 04:20] LABS: Basophils % 0.1 %; Eosinophils % 0.1 %; Hematocrit 39.5 % (37.0-47.0); Hemoglobin 12.2 g/dL (11.5-15.3); Lymphocytes # 1.3 10^3/uL (0.8-4.8); Lymphocytes % 8.9 %; Mean Corpuscular HGB Conc 30.9 g/dL (30.0-36.0); Mean Corpuscular Hemoglobin 30.3 pg (28.0-34.0); Mean Platelet Volume 10.7 fL (7.4-10.4); Monocytes # 1.1 10^3/uL (0.2-0.9); Monocytes % 7.3 %; Neutrophils # 12.19 10^3/uL (1.8-7.7); Neutrophils % 81.8 %; Nucleated Red Blood Cells # 0.2 /100WBC; Nucleated Red Blood Cells % 1.6 %; Platelet Count 229 10^3/cmm (130-400); Red Blood Count 4.03 10^6/uL (4.1-5.3); Red Cell Distribution Width 15.6 % (12.1-15.1); White Blood Count 14.9 10^3/uL (4.0-10.0)
[2022-11-11] MEDS: dilTIAZem 100 MG in sodium chloride 0.9% (add-van) 100 ML 10 MG IV (04:24)
[2022-11-11 04:43] LABS: Procalcitonin 0.55 ng/mL (0-0.5)
[2022-11-11 04:57] LABS: Alanine Aminotransferase 60 U/L (0-33); Albumin Level 3.1 g/dL (3.5-5.2); Alkaline Phosphatase 125 U/L (35-105); Carbon Dioxide 19 mmol/L (22-29); Chloride 89 mmol/L (98-107); Cholesterol 122 mg/dL (0-200); Globulin 3.7 g/dL (1.3-4.6); Glucose 120 mg/dL (65-115); HDL Cholesterol 23 mg/dL (60-100); LDL Cholesterol Calculated 83 mg/dL (50-129); LDL HDL Ratio 3.61 RATIO (0.00-3.22); Magnesium 2.3 mg/dL (1.7-2.3); Osmolality Calculated 290 mOsm/kg (285-295); Phosphorus 5.1 mg/dL (2.5-4.5); Sodium 126 mmol/L (136-145); Total Bilirubin 0.6 mg/dL (0.15-1.2); Total Protein 6.8 g/dL (6.6-8.7); Triglycerides 80 mg/dL (0-150)
[2022-11-11 04:58] LABS: Aspartate Amino Transferase 99 U/L (0-32)
[2022-11-11 04:59] LABS: Blood Urea Nitrogen 89 mg/dL (8-23)
[2022-11-11 05:01] LABS: Estmated Average Glucose 97
[2022-11-11] MEDS: sertraline 100 mg Tablet PO (05:24)
[2022-11-11] MEDS: levothyroxine 137 mcg Tablet PO (05:24)
[2022-11-11 05:48] LABS: Slide Review Slide Review Perform
[2022-11-11] MEDS: sodium chloride 0.9% 1,000 ML 30 ML IV ×2 (06:18→20:36)
[2022-11-11] MEDS: docusate sodium 100 mg Capsule PO ×2 (08:14→17:25)
[2022-11-11] MEDS: metoprolol tartrate 25 mg Tablet PO ×2 (08:14→20:37)
[2022-11-11] MEDS: ferrous gluconate 324 mg Tablet PO ×2 (08:14→17:25)
--- NOTE | 2022-11-11 10:27 | PC.CHAP ---
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 cdl company driver visit [] Patient/Family/Request visit [] Outpatient visit [] Follow-up visit [] Physician referral [] Code/Alert [x] Routine visit [] Staff referral [] Actively dying [] Patient sleeping [x] Family support [] [] Out of room [] Palliative care [] [] Receiving care in room [] Pre-surgical visit [] Trauma [] Long length of stay [] ICU visit [] Other: Relational/Emotional Strength x[] Patient feels connected with others/family/visitors/staff [] Distress [] Loneliness/isolation [] Abandonment Spirituality of Patient [x] Person of Adele [] Attends Anabaptism of their Adele [x] Believes in Prayer [] Reads Bible or Adventism materials [] There are Spiritual issues to be addressed Breast Worker Interventions [x] Prayer [x] Active listening [x] Non-anxious presence [x [] Spiritual counseling [] Bereavement support [] Provided bereavement packet [] Provided Bible/devotional materials [] Provided toy/stuffed animal, coloring book to patient or family member [] Provided Communion [] Anointing/[place] [] Salvation [x] Completed spiritual assessment [] Other: Impact on Illness or Injury [] Angry [] Fearful [] Anxious [] Often cries [] Exhaustion [] Unable to work [] Unable to attend mormon [] Unable to walk/stand [] Unable to read [] Unable to drive [] Unable to eat/drink [] Unable to sleep [] Unable to be with family [] Patient intubated [] Other: Summary patient feeling better Time spent with patient 10 min
--- NOTE | 2022-11-11 11:44 | P.PN_ITS ---
Subjective Subjective: Patient was seen and examined this morning she was complaining of generalized weakness. Continue to be in A-fib with better control of heart rate, BUN is slightly trended down, although serum creatinine has gone up to 3.1. Medications: Medication Review Details: Generic Name Dose Route Start Last Admin Trade Name Freq PRN Reason Stop Dose Admin Amitriptyline HCl 25 mg 11/10/22 21:00 11/10/22 20:25 Amitriptyline 25 Mg Tablet PO 25 mg BEDTIME LILIYA Administration Clonazepam 0.5 mg 11/10/22 21:00 11/10/22 20:25 Clonazepam 0.5 M g Tablet PO 0.5 mg BEDTIME LILIYA Administration Docusate Sodium 100 mg 11/10/22 15:10 11/11/22 08:14 Docusate Sodium 100 Mg Capsule PO 100 mg BID LILIYA Administration Famotidine 20 mg 11/10/22 15:15 11/11/22 02:58 Famotidine 20 Mg /2 Ml Inj IVP 20 mg Q12H LILIYA Administration Ferrous Gluconate 324 mg 11/10/22 18:00 11/11/22 08:14 Ferrous Gluconat e 324 Mg Tablet PO 324 mg BIDWM LILIYA Administration Haloperidol Lactat e 0.5 mg 11/10/22 22:53 11/11/22 00:28 Haloperidol Inj 5 Mg/Ml Inj 1 Ml IM 0.5 mg Q8H PRN Administration AGITATION Heparin Sodium (Po rcine) 5,000 unit 11/10/22 15:15 11/11/22 03:00 Heparin 5,000 Un it/Ml Inj 1 Ml SUBCUT 5,000 unit Q12H LILIYA Administration Sodium Chloride 1,000 mls @ 75 ml s/hr 11/10/22 14:15 11/11/22 06:18 Sodium Chloride 0.9% IV 30 mls/hr .[id number] LILIYA Administration Ceftriaxone Sodium 1,000 mg/ 50 mls @ 100 mls/ hr 11/10/22 17:15 11/10/22 20:47 Sodium Chloride IV Infused Q24H LILIYA Infusion Protocol Diltiazem HCl 100 mg/ Sodium 100 mls @ 0 mls/h r 11/10/22 17:15 11/11/22 06:00 Chloride IV 15 mg/hr .Q0M LILIYA 15 mls/hr Titration Protocol Per Protocol Levothyroxine Sodi um 137 mcg 03/13/23 06:00 11/11/22 05:24 Levothyroxine 13 7 Mcg Tablet PO 137 mcg QAM LILIYA Administration Metoprolol Tartrat e 25 mg 11/10/22 18:00 11/11/22 08:14 Metoprolol Tartr ate 25 Mg Tablet PO 25 mg BID LILIYA Administration Sertraline HCl 100 mg 11/11/22 06:00 11/11/22 05:24 Sertraline 100 M g Tablet PO 100 mg QAM LILIYA Administration Vitals/I&O/Wt Last Vital Signs Temp 98.0 F 11/11/22 11:09 Pulse 80 11/11/22 11:09 Resp 18 11/11/22 11:09 BP 113/67 11/11/22 11:09 Pulse Ox 95 11/11/22 11:09 O2 Del Method 11/11/22 03:51 O2 Flow Rate 2 11/11/22 03:51 11/10/22 11/11/22 11/11/22 22:59 06:59 14:59 Intake Total 138.850 / 638.850 495.792 / 1134.642 250 / 250 Output Total 200 / 200 100 / 300 418 / 418 Balance -61.150 / 438.850 395.792 / 834.642 -168 / -168 Weight last 48 hrs Weight 43.091 kg Weight 43.091 kg Physical Exam Narrative: General: No acute distress, AO x 2-3, slightly confused, dehydrated, cachectic HEENT: PERRLA, pupils bilaterally equal and reactive Chest: Normal vesicular breath sounds, occasional rhonchi over the lung espana, equal good air entry bilaterally CVS: S1-S2 irregularly irregular, tachycardia, soft pansystolic murmur present in tricuspid area, no gallops, no rubs Abdomen: Soft, nontender, no organomegaly, bowel sounds present Neuro: No focal deficits, no facial deformity, moving all limbs Const: COMMON NORMALS: no acute distress, average body habitus, patient oriented x3, no limitations, healthy appearing and alert HENMT: COMMON NORMALS: normocephalic, atraumatic and hearing grossly normal bilaterally HEAD & SCALP: normocephalic and atraumatic Eye: COMMON NORMALS: Equal, round and reactive pupils present, EOMs intact bilaterally and conjunctivae normal CONJUNCTIVA: Yes conjunctivae normal PUPIL: Yes Equal, round and reactive pupils present Neck/C-Spine: COMMON NORMALS: full ROM, no lymphadenopathy and supple Lymph: LYMPHATIC: no lymphadenopathy noted Chest: COMMONS NORMALS: normal inspection of the chest Resp: COMMON NORMALS: normal respiratory effort, No retractions, No use of accessory muscles and clear to auscultation bilaterally AUSCULTATION: clear to auscultation bilaterally Cardio: COMMON NORMALS: S1 normal heart sound present and S2 normal heart sound present JUGULAR VENOUS DISTENTION: no JVD RATE: tachycardic RHYTHM: abnormal rhythm HEART SOUNDS: S1 normal heart sound present and S2 n ormal heart sound present GI: COMMON NORMALS: Normal to inspection, nondistended, normoactive bowel sounds present, Soft to palpation, non-tender, No hepatosplenomegaly present and no masses PALPATION: Yes Soft to palpation and Yes No hepatosplenomegaly present : COMMON NORMALS: Yes no CVA tenderness BLADDER/KIDNEY EXAM: Yes no CVA tenderness Back/Pelvis: COMMON NORMALS: no CVA tenderness Extremity: NARRATIVE EXTREMITY EXAM: Trace edema bilateral lower extremities Neuro: COMMON NORMALS: patient oriented x3, CN's II-XII intact bilaterally, moves all extremities, no focal motor deficits and no sensory deficits noted SENSORIUM/ORIENTATION: Yes alert Psych: COMMON NORMALS: mental status grossly normal, Normal thought process present, cooperative, normal affect and speech normal SPEECH: Yes normal speech THOUGHT PROCESS: Normal thought process present Skin: COMMON NORMALS: no rashes or lesions noted, no wounds, turgor normal, no jaundice and no petechiae GENERAL SKIN EXAM: no rashes or lesions noted and turgor normal Urinary Catheter Management: Finch: Cath Placed During This Visit: yes Reason for Continuing Indwelling Catheter: Accurate Measurement of Urinary Output in Critically Ill Patients Urinary Catheter Date of Insertion: 11/10/22 Urinary Catheter Time of Insertion: 16:00 Data 11/11/22 03:52 11/11/22 03:52 Micro: Microbiology 11/10/22 16:28 MRSA Culture - Final Nose 11/10/22 16:25 Urine Culture - Preliminary Urine,Clean Catch Gram Negative Rods Gram Negative Rods#2 A&P Assessment and plan (1) Acute renal failure: (2) Bilateral hydronephrosis: (3) Acute hyponatremia: (4) Acute hyperkalemia: (5) Atrial fibrillation with rapid ventricular response: (6) CHF (congestive heart failure): Qualifiers: Heart failure chronicity: unspecified Heart failure type: unspecified Qualified Code(s): I50.9 - Heart failure, unspecified (7) Nausea and vomiting: (8) Severe protein-calorie malnutrition: (9) Urinary retention: Plan 86-year-old lady with past medical history of atrial fibrillation not on anticoagulation, urinary retention presented to the hospital with nausea and vo miting found to be in atrial fibrillation with rapid ventricular response along with acute kidney injury, uremia, hyponatremia and hyperkalemia. Acute kidney injury on CKD: Baseline serum creatinine is around: 1-1.5 Admission serum creatinine: 3.2 CT abdomen and pelvis had shown: Bilateral hydroureteronephrosis no renal stone has been noted Patient has known prior history of neurogenic bladder, recurrent UTI. Urine electrolytes: pending Urine culture is growing gram-negative felicity We will plan to follow-up with repeat ultrasound renal Continue gentle IV hydration with NS at 75 cc an hour Monitor and output charting Avoid nephrotoxic's Monitor BMP Hyponatremia: Urine electrolytes TSH Cortisol Urine osmolality Serum osmolality Continue gentle IV hydration with NS Monitor serum sodium Bilateral hydroureteronephrosis: Follow-up with repeat ultrasound renal Possible urology consult Hyperkalemia: Resolved Has received : D50 along with insulin 10 units, calcium gluconate one-time. Leukocytosis: Follow blood culture Urine culture is growing gram-negative felicity Empirically she has been on ceftriaxone Atrial fibrillation with rapid ventricular response: Most likely in setting of dehydration. Currently she is on Cardizem drip and has been started on metoprolol p.o. Plan is to taper off Cardizem drip. Not on anticoagulation because of history of recurrent fall Most recent 2D echo has shown September 2022 shows EF of 30% with mild LVH, severe MR, mild to moderate AI, mild to moderate TR, mild pulmonary hypertension with RVSP of 46. Patient also had a Lexiscan in September 2022 which showed old myocardial infarction and RCA versus artifact with EF of around 47%. Nausea and vomiting: Most likely in setting of uremia. CT abdomen pelvis negative for any acute abnormality though it was a noncontrast study. Protonix and Zofran. Start on clear liquid diet for now. Protein energy malnutrition CODE STATUS: Full code DVT prophylaxis: On subcutaneous heparin Attestations Medical Necessity Statement*: Needs to be in hospital for management of JULIA. Coding Level of Care Code 34360 Diagnoses Acute renal failure N17.9 Bilateral hydronephrosis N13.30 Acute hyponatremia E87.1 Acute hyperkalemia E87.5 Atrial fibrillation with rapid ventricular response I48.91 CHF (congestive heart failure) I50.9 Heart failure chronicity: unspecified Heart failure type: unspecified Nausea and vomiting R11.2 Severe protein-calorie malnutrition E43 Urinary retention R33.9
[2022-11-11] MEDS: dilTIAZem 100 MG in sodium chloride 0.9% (add-van) 100 ML 15 MG IV (11:45)
[2022-11-11] MEDS: acetaminophen 325 mg Tablet 650 MG PO (11:45)
[2022-11-11] MEDS: cefTRIAXone 1,000 MG in sodium chloride 0.9% (plus) 50 ML 100 MG IV (17:24)
[2022-11-11 17:33] LABS: Potassium, Radom Urine 18 mmol/L; Urine Creatinine 13 mg/dL (28-217); Urine Random Chloride 65 mmol/L; Urine Random Sodium 90 mmol/L
[2022-11-11 18:01] LABS: Eosinophil Urine No Eosinophils Seen; Urine Eosinophil Count 0 (0-0)
[2022-11-11] MEDS: amitriptyline 25 mg Tablet PO (20:37)
[2022-11-11] MEDS: CLONazepam 0.5 mg Tablet PO (20:37)
--- NOTE | 2022-11-11 22:00 | PC.NURSE ---
Spoke with regarding patient complaints of fear, feeling like she is going to fall. Patient has been hallucinating, received Haldol at change of shift for aggitation and trying to climb OOB. The patient had received clonozepam at 20:30 with little effect. Patients daughter is at bedside and is unable to calm patient. ordered one time dose of Xanax.
[2022-11-11] MEDS: ALPRAZolam 0.5 mg Tablet PO (22:04)
[2022-11-12] VITALS (25 sets, daily range): BP systolic 101–136; BP diastolic 55–83; PULSE 58–110; RESP 20–28; TEMP 36.2–36.5; O2SAT 2–100
[2022-11-12] MEDS: famotidine 20 mg/2 mL INJ IVP ×2 (04:00→15:00)
[2022-11-12] MEDS: heparin 5,000 unit/mL INJ 1 mL 5000 UNIT SUBCUT ×2 (04:01→14:59)
[2022-11-12] MEDS: levothyroxine 137 mcg Tablet PO (06:09)
[2022-11-12] MEDS: sertraline 100 mg Tablet PO (06:10)
[2022-11-12] MEDS: metoprolol tartrate 25 mg Tablet PO ×2 (08:36→17:19)
[2022-11-12 09:21] LABS: Basophils % 0.2 %; Eosinophils # 0.1 10^3/uL (0.0-0.8); Eosinophils % 0.7 %; Hemoglobin 10.1 g/dL (11.5-15.3); Lymphocytes % 7.9 %; Mean Corpuscular HGB Conc 30.6 g/dL (30.0-36.0); Mean Corpuscular Hemoglobin 31.1 pg (28.0-34.0); Mean Corpuscular Volume 101.5 fl (81-99); Mean Platelet Volume 10.3 fL (7.4-10.4); Monocytes # 0.7 10^3/uL (0.2-0.9); Monocytes % 5.4 %; Neutrophils # 10.63 10^3/uL (1.8-7.7); Neutrophils % 84.1 %; Nucleated Red Blood Cells # 0.1 /100WBC; Nucleated Red Blood Cells % 0.4 %; Platelet Count 172 10^3/cmm (130-400); Red Blood Count 3.25 10^6/uL (4.1-5.3); Red Cell Distribution Width 15.5 % (12.1-15.1); White Blood Count 12.6 10^3/uL (4.0-10.0)
[2022-11-12 09:35] LABS: Anion Gap 17.9 (5-19); Calcium 7.1 mg/dL (8.5-10.5); Carbon Dioxide 18 mmol/L (22-29); Chloride 95 mmol/L (98-107); Glucose 88 mg/dL (65-115); Osmolality Calculated 288 mOsm/kg (285-295); Potassium 3.9 mmol/L (3.5-5.1); Sodium 127 mmol/L (136-145)
[2022-11-12 09:39] LABS: Blood Urea Nitrogen 82 mg/dL (8-23)
--- NOTE | 2022-11-12 10:50 | PM.PN ---
Subjective Subjective: Patient was seen and examined this morning, she was deep asleep, was restless last night, had to be given Xanax. BUN and serum creatinine has slightly improved, currently in sinus rhythm with well-controlled heart rate. Medications: Medication Review Details: Generic Name Dose Route Start Last Admin Trade Name Freq PRN Reason Stop Dose Admin Acetaminophen 650 mg 11/10/22 15:03 11/11/22 11:45 Acetaminophen 32 5 Mg Tablet PO 650 mg Q6H PRN Administration Mild/Mod Pain Or Temp >/= 101 Amitriptyline HCl 25 mg 11/10/22 21:00 11/11/22 20:37 Amitriptyline 25 Mg Tablet PO 25 mg BEDTIME LILIYA Administration Clonazepam 0.5 mg 11/10/22 21:00 11/11/22 20:37 Clonazepam 0.5 M g Tablet PO 0.5 mg BEDTIME LILIYA Administration Docusate Sodium 100 mg 11/10/22 15:10 11/12/22 08:43 Docusate Sodium 100 Mg Capsule PO Not Given BID LILIYA Famotidine 20 mg 11/10/22 15:15 11/12/22 04:00 Famotidine 20 Mg /2 Ml Inj IVP 20 mg Q12H LILIYA Administration Ferrous Gluconate 324 mg 11/10/22 18:00 11/12/22 08:43 Ferrous Gluconat e 324 Mg Tablet PO Not Given BIDWM LILIYA Haloperidol Lactat e 0.5 mg 11/10/22 22:53 11/11/22 18:47 Haloperidol Inj 5 Mg/Ml Inj 1 Ml IM 0.5 mg Q8H PRN Administration AGITATION Heparin Sodium (Po rcine) 5,000 unit 11/10/22 15:15 11/12/22 04:01 Heparin 5,000 Un it/Ml Inj 1 Ml SUBCUT 5,000 unit Q12H LILIYA Administration Sodium Chloride 1,000 mls @ 75 ml s/hr 11/10/22 14:15 11/11/22 20:36 Sodium Chloride 0.9% IV 30 mls/hr .[id number] LILIYA Administration Ceftriaxone Sodium 1,000 mg/ 50 mls @ 100 mls/ hr 11/10/22 17:15 11/11/22 18:26 Sodium Chloride IV Infused Q24H LILIYA Infusion Protocol Diltiazem HCl 100 mg/ Sodium 100 mls @ 0 mls/h r 11/10/22 17:15 11/11/22 21:00 Chloride IV Infused .Q0M LILIYA Titration Protocol Per Protocol Levothyroxine Sodi um 137 mcg 11/11/22 06:00 11/12/22 06:09 Levothyroxine 13 7 Mcg Tablet PO 137 mcg QAM LILIYA Administration Metoprolol Tartrat e 25 mg 11/10/22 18:00 11/12/22 08:36 Metoprolol Tartr ate 25 Mg Tablet PO 25 mg BID LILIYA Administration Sertraline HCl 100 mg 11/11/22 06:00 11/12/22 06:10 Sertraline 100 M g Tablet PO 100 mg QAM LILIYA Administration Vitals/I&O/Wt Last Vital Signs Temp 97.7 F 11/12/22 04:00 Pulse 62 11/12/22 08:00 Resp 24 H 11/12/22 08:00 BP 113/57 11/12/22 08:00 Pulse Ox 98 11/12/22 08:00 O2 Del Method 11/12/22 08:00 O2 Flow Rate 2 11/12/22 08:00 11/11/22 11/12/22 11/12/22 22:59 06:59 14:59 Intake Total 709 / 1060.584 Output Total 150 / 608 275 / 883 150 / 150 Balance 559 / 452.584 -275 / 177.584 -150 / -150 Weight last 48 hrs Weight 48.988 kg Weight 46.856 kg Weight 43.091 kg Weight 43.091 kg Physical Exam Const: COMMON NORMALS: alert HENMT: COMMON NORMALS: normocephalic, atraumatic and hearing grossly normal bilaterally HEAD & SCALP: normocephalic and atraumatic Eye: COMMON NORMALS: Equal, round and reactive pupils present, EOMs intact bilaterally and conjunctivae normal CONJUNCTIVA: Yes conjunctivae normal PUPIL: Yes Equal, round and reactive pupils present Neck/C-Spine: COMMON NORMALS: full ROM, no lymphadenopathy and supple Lymph: LYMPHATIC: no lymphadenopathy noted Chest: COMMONS NORMALS: normal inspection of the chest Resp: COMMON NORMALS: clear to auscultation bilaterally AUSCULTATION: clear to auscultation bilaterally OTHER: diminished air entry b/l Cardio: COMMON NORMALS: S1 normal heart sound present and S2 normal heart sound present JUGULAR VENOUS DISTENTION: no JVD RATE: tachycardic RHYTHM: abnormal rhythm HEART SOUNDS: S1 normal heart sound present and S2 normal heart sound present GI: COMMON NORMALS: Normal to inspection, nondistended, normoactive bowel sounds present, Soft to palpation, non-tender, No hepatosplenomegaly present and no masses PALPATION: Yes Soft to palpation and Yes No hepatosplenomegaly present Extremity: NARRATIVE EXTREMITY EXAM: Trace edema bilateral lower extremities Neuro: COMMON NORMALS: moves all extremities, no focal motor deficits and no sensory deficits noted SENSORIUM/ORIENTATION: Yes alert Psych: COMMON NORMALS: mental status grossly normal, Normal thought process present, cooperative, normal affect and speech normal SPEECH: Yes normal speech THOUGHT PROCESS: Normal thought process present Skin: COMMON NORMALS: no rashes or lesions noted, no wounds, turgor normal, no jaundice and no petechiae GENERAL SKIN EXAM: no rashes or lesions noted and turgor normal Urinary Catheter Management: Finch: Cath Placed During This Visit: yes Reason for Continuing Indwelling Catheter: Acute Urinary Retention or Obstruction Urinary Catheter Date of Insertion: 11/10/22 Urinary Catheter Time of Insertion: 16:00 Data 11/12/22 08:55 11/12/22 08:55 Micro: Microbiology 11/10/22 16:50 Bacterial Antigens - Final Urine Kidney 11/10/22 16:50 Legionella Urinary Antigen - Final Unknown Source 11/10/22 16:28 MRSA Culture - Final Nose 11/10/22 16:25 Urine Culture - Preliminary Urine,Clean Catch Gram Negative Rods Gram Negative Rods#2 A&P Assessment and plan (1) Acute renal failure: (2) Bilateral hydronephrosis: (3) Acute hyponatremia: (4) Acute hyperkalemia: (5) Atrial fibrillation with rapid ventricular response: (6) CHF (congestive heart failure): Qualifiers: Heart failure chronicity: unspecified Heart failure type: unspecified Qualified Code(s): I50.9 - Heart failure, unspecified (7) Nausea and vomiting: (8) Severe protein-calorie malnutrition: (9) Urinary retention: Plan 86-year-old lady with past medical history of atrial fibrillation not on anticoagulation, urinary retention presented to the hospital with nausea and vomiting found to be in atrial fibrillation with rapid ventricular response along with acute kidney injury, uremia, hyponatremia and hyperkalemia. Acute kidney injury on CKD: Baseline serum creatinine is around: 1-1.5 Admission serum creatinine: 3.2 CT abdomen and pelvis had shown: Bilateral hydroureteronephrosis no renal stone has been noted Patient has known prior history of neurogenic bladder, recurrent UTI. Urine electrolytes: Random sodium 90, urine random creatinine 13 FENA: 15 % pointing out in the direction of postobstructive uropathy Urine culture is growing gram-negative felicity We will plan to follow-up with repeat ultrasound renal Continue gentle IV hydration with NS at 100 cc an hour Monitor and output charting Avoid nephrotoxic's Monitor BMP Hyponatremia: Urine electrolytes TSH:0.77 Cortisol: Urine osmolality Serum osmolality Continue gentle IV hydration with NS Monitor serum sodium Bilateral hydroureteronephrosis: Follow-up with repeat ultrasound renal Possible urology consult Hyperkalemia: Resolved Has received : D50 along with insulin 10 units, calcium gluconate one-time. Leukocytosis: Follow blood culture Urine culture is growing gram-negative felicity Empirically she has been on ceftriaxone Atrial fibrillation with rapid ventricular response: Most likely in setting of dehydration. Currently she is on Cardizem drip and has been started on metoprolol p.o. Plan is to taper off Cardizem drip. Not on anticoagulation because of history of recurrent fall Most recent 2D echo has shown September 2022 shows EF of 30% with mild LVH, severe MR, mild to moderate AI, mild to moderate TR, mild pulmonary hypertension with RVSP of 46. Patient also had a Lexiscan in September 2022 which showed old myocardial infarction and RCA versus artifact with EF of around 47%. Nausea and vomiting: Most likely in setting of uremia. CT abdomen pelvis negative for any acute abnormality though it was a noncontrast study. Protonix and Zofran. Start on clear liquid diet for now. Protein energy malnutrition CODE STATUS: Full code DVT prophylaxis: On subcutaneous heparin Attestations Medical Necessity Statement*: Patient is to be in hospital for management of JULIA, UTI, atrial fibrillation. Coding Level of Care Code 57947 Diagnoses Acute renal failure N17.9 Bilateral hydronephrosis N13.30 Acute hyponatremia E87.1 Acute hyperkalemia E87.5 Atrial fibrillation with rapid ventricular response I48.91 CHF (congestive heart failure) I50.9 Heart failure chronicity: unspecified Heart failure type: unspecified Nausea and vomiting R11.2 Severe protein-calorie malnutrition E43 Urinary retention R33.9
[2022-11-12] MEDS: sodium chloride 0.9% 1,000 ML 100 ML IV ×2 (11:41→19:56)
[2022-11-12] MEDS: ferrous gluconate 324 mg Tablet PO (17:21)
[2022-11-12] MEDS: docusate sodium 100 mg Capsule PO (17:21)
[2022-11-12] MEDS: cefTRIAXone 1,000 MG in sodium chloride 0.9% (plus) 50 ML 100 MG IV (17:24)
[2022-11-12] MEDS: CLONazepam 0.5 mg Tablet PO (19:56)
[2022-11-12] MEDS: amitriptyline 25 mg Tablet PO (19:56)
[2022-11-13] VITALS (17 sets, daily range): BP systolic 84–124; BP diastolic 40–80; PULSE 63–130; RESP 20–35; TEMP 36.6–36.7; O2SAT 92–99
[2022-11-13] MEDS: heparin 5,000 unit/mL INJ 1 mL 5000 UNIT SUBCUT ×2 (02:55→14:39)
[2022-11-13] MEDS: famotidine 20 mg/2 mL INJ IVP ×2 (02:55→14:39)
[2022-11-13] MEDS: sertraline 100 mg Tablet PO (02:55)
[2022-11-13] MEDS: levothyroxine 137 mcg Tablet PO (02:56)
[2022-11-13] MEDS: sodium chloride 0.9% 1,000 ML 100 ML IV (02:57)
[2022-11-13 04:37] LABS: Basophils % 0.1 %; Eosinophils # 0.1 10^3/uL (0.0-0.8); Eosinophils % 0.8 %; Hematocrit 32.4 % (37.0-47.0); Hemoglobin 9.8 g/dL (11.5-15.3); Lymphocytes # 0.8 10^3/uL (0.8-4.8); Lymphocytes % 7.1 %; Mean Corpuscular HGB Conc 30.2 g/dL (30.0-36.0); Mean Corpuscular Hemoglobin 30.6 pg (28.0-34.0); Mean Corpuscular Volume 101.3 fl (81-99); Mean Platelet Volume 10.6 fL (7.4-10.4); Monocytes # 0.5 10^3/uL (0.2-0.9); Monocytes % 4.3 %; Neutrophils # 9.99 10^3/uL (1.8-7.7); Neutrophils % 86.1 %; Nucleated Red Blood Cells % 0.3 %; Platelet Count 158 10^3/cmm (130-400); Red Cell Distribution Width 15.7 % (12.1-15.1); White Blood Count 11.6 10^3/uL (4.0-10.0)
[2022-11-13 05:18] LABS: Anion Gap 21.3 (5-19); Calcium 7.6 mg/dL (8.5-10.5); Carbon Dioxide 17 mmol/L (22-29); Chloride 101 mmol/L (98-107); Glucose 70 mg/dL (65-115); Osmolality Calculated 303 mOsm/kg (285-295); Potassium 4.3 mmol/L (3.5-5.1); Sodium 135 mmol/L (136-145)
[2022-11-13 05:23] LABS: Blood Urea Nitrogen 82 mg/dL (8-23)
--- NOTE | 2022-11-13 06:32 | PC.NURSE ---
Patient has been NSR all night. Within the past 30min she have re-developed afib with rate 110s to 140s. Patient is asymptomatic. Informed Dr Pickett . No orders received at this time.
--- NOTE | 2022-11-13 07:45 | US_ITS ---
WS: [id number] RENAL ULTRASOUND HISTORY: JULIA COMPARISON: 01/02/2021, CT 11/10/2022 TECHNIQUE: 2-D and color Doppler imaging of the kidney submitted. Right kidney: 12.1 cm x 7.4 cm x 7.6 cm. Kidneys and large with cortical thinning. Severe hydronephrosis. Left kidney: 11.9 cm x 5.2 cm x 4.9 cm. Mildly prominent kidney secondary to moderate to severe hydronephrosis. Diffuse cortical thinning. Aorta: Not visualized. Completely obscured by bowel gas. Urinary Bladder: Nondistended bladder. US/US renal BI* [id number] IMPRESSION: 1. Severe bilateral hydronephrosis, RIGHT greater than LEFT. 2. Marked diffuse cortical thinning of each kidney, greater on the RIGHT.
[2022-11-13] MEDS: FUROsemide 10 mg/mL SDV 4mL 40 MG IVP (08:17)
[2022-11-13] MEDS: metoprolol tartrate 25 mg Tablet PO ×3 (08:18→17:01)
[2022-11-13] MEDS: docusate sodium 100 mg Capsule PO ×2 (08:18→17:00)
[2022-11-13] MEDS: ferrous gluconate 324 mg Tablet PO ×2 (08:18→17:00)
--- NOTE | 2022-11-13 13:32 | PC.NURSE ---
current staton catheter leaking around meatus.replaced with #16 indwelling urinary catheter
--- NOTE | 2022-11-13 14:03 | P.PN_ITS ---
Subjective Subjective: Patient was seen and examined this morning, patient went into A- fib with RVR earlier this morning, received additional doses of metoprolol p.o. without any significant improvement in hr, had to be restarted back on Cardizem drip. Patient was also slightly tachypneic, was given Lasix 40 IV one-time dose today, with good response in terms of urine output. BUN and serum creatinine has not shown any significant change since yesterday, serum sodium has improved to 135. Medications: Medication Review Details: Generic Name Dose Route Start Last Admin Trade Name Freq PRN Reason Stop Dose Admin Acetaminophen 650 mg 11/10/22 15:03 11/11/22 11:45 Acetaminophen 32 5 Mg Tablet PO 650 mg Q6H PRN Administration Mild/Mod Pain Or Temp >/= 101 Amitriptyline HCl 25 mg 11/10/22 21:00 11/12/22 19:56 Amitriptyline 25 Mg Tablet PO 25 mg BEDTIME LILIYA Administration Clonazepam 0.5 mg 11/10/22 21:00 11/12/22 19:56 Clonazepam 0.5 M g Tablet PO 0.5 mg BEDTIME LILIYA Administration Docusate Sodium 100 mg 11/10/22 15:10 11/13/22 08:18 Docusate Sodium 100 Mg Capsule PO 100 mg BID LILIYA Administration Famotidine 20 mg 11/10/22 15:15 11/13/22 02:55 Famotidine 20 Mg /2 Ml Inj IVP 20 mg Q12H LILIYA Administration Ferrous Gluconate 324 mg 11/10/22 18:00 11/13/22 08:18 Ferrous Gluconat e 324 Mg Tablet PO 324 mg BIDWM LILIYA Administration Haloperidol Lactat e 0.5 mg 11/10/22 22:53 11/11/22 18:47 Haloperidol Inj 5 Mg/Ml Inj 1 Ml IM 0.5 mg Q8H PRN Administration AGITATION Heparin Sodium (Po rcine) 5,000 unit 11/10/22 15:15 11/13/22 02:55 Heparin 5,000 Un it/Ml Inj 1 Ml SUBCUT 5,000 unit Q12H LILIYA Administration Ceftriaxone Sodium 1,000 mg/ 50 mls @ 100 mls/ hr 11/10/22 17:15 11/12/22 18:25 Sodium Chloride IV Infused Q24H LILIYA Infusion Protocol Sodium Chloride 1,000 mls @ 100 m ls/hr 11/12/22 11:00 11/13/22 02:57 Sodium Chloride 0.9% IV 100 mls/hr .Q10H LILIYA Administration Levothyroxine Sodi um 137 mcg 11/11/22 06:00 11/13/22 02:56 Levothyroxine 13 7 Mcg Tablet PO 137 mcg QAM LILIYA Administration Metoprolol Tartrat e 25 mg 11/13/22 09:00 11/13/22 08:18 Metoprolol Tartr ate 25 Mg Tablet PO 25 mg BID LILIYA Administration Sertraline HCl 100 mg 11/11/22 06:00 11/13/22 02:55 Sertraline 100 M g Tablet PO 100 mg QAM LILIYA Administration Vitals/I&O/Wt Last Vital Signs Temp 97.9 F 11/13/22 12:00 Pulse 116 H 11/13/22 12:00 Resp 20 H 11/13/22 12:00 BP 96/66 11/13/22 12:00 Pulse Ox 98 11/13/22 12:00 O2 Del Method 11/13/22 12:00 O2 Flow Rate 2 11/13/22 08:00 11/12/22 11/13/22 11/13/22 22:59 06:59 14:59 Intake Total 995 / 1650.75 960 / 2610.75 360 / 360 Output Total 300 / 725 200 / 925 1000 / 1000 Balance 695 / 925.75 760 / 1685.75 -640 / -640 Weight last 48 hrs Weight 48.988 kg Physical Exam Const: COMMON NORMALS: no acute distress, average body habitus, patient oriented x3, no limitations, healthy appearing and alert HENMT: COMMON NORMALS: normocephalic, atraumatic and hearing grossly normal bilaterally HEAD & SCALP: normocephalic and atraumatic Eye: COMMON NORMALS: Equal, round and reactive pupils present, EOMs intact bilaterally and conjunctivae normal CONJUNCTIVA: Yes conjunctivae normal PUPIL: Yes Equal, round and reactive pupils present Neck/C-Spine: COMMON NORMALS: full ROM, no lymphadenopathy and supple Lymph: LYMPHATIC: no lymphadenopathy noted Chest: COMMONS NORMALS: normal inspection of the chest Resp: COMMON NORMALS: normal respiratory effort, No retractions, No use of accessory muscles and clear to auscultation bilaterally AUSCULTATION: clear to auscultation bilaterally OTHER: diminished air entry b/l Cardio: COMMON NORMALS: S1 normal heart sound present and S2 normal heart sound present JUGULAR VENOUS DISTENTION: no JVD RATE: tachycardic RHYTHM: abnormal rhythm HEART SOUNDS: S1 normal heart sound present and S2 normal heart sound present GI: COMMON NORMALS: Normal to inspection, nondistended, normoactive bowel sounds present, Soft to palpation, non-tender, No hepatosplenomegaly present and no masses PALPATION: Yes Soft to palpation and Yes No hepatosplenomegaly present : COMMON NORMALS: Yes no CVA tenderness BLADDER/KIDNEY EXAM: Yes no CVA tenderness Back/Pelvis: COMMON NORMALS: no CVA tenderness Extremity: NARRATIVE EXTREMITY EXAM: Trace edema bilateral lower extremities Neuro: COMMON NORMALS: patient oriented x3, CN's II-XII intact bilaterally, moves all extremities, no focal motor deficits and no sensory deficits noted SENSORIUM/ORIENTATION: Yes alert Psych: COMMON NORMALS: mental status grossly normal, Normal thought process present, cooperative, normal affect and speech normal SPEECH: Yes normal speech THOUGHT PROCESS: Normal thought process present Skin: COMMON NORMALS: no rashes or lesions noted, no wounds, turgor normal, no jaundice and no petechiae GENERAL SKIN EXAM: no rashes or lesions noted and turgor normal Urinary Catheter Management: Finch: Cath Placed During This Visit: yes Reason for Continuing Indwelling Catheter: Acute Urinary Retention or Obstruction Urinary Catheter Date of Insertion: 11/13/22 Urinary Catheter Time of Insertion: 13:33 Data 11/13/22 03:19 11/13/22 03:19 Micro: Microbiology 11/12/22 11:30 Blood Culture - Preliminary Blood NEGATIVE TO DATE 11/12/22 11:37 Blood Culture - Preliminary Blood NEGATIVE TO DATE 11/10/22 16:25 Urine Culture - Final Urine,Clean Catch Escherichia coli Proteus vulgaris A&P Assessment and plan (1) Acute renal failure: (2) Bilateral hydronephrosis: (3) Acute hyponatremia: (4) Acute hyperkalemia: (5) Atrial fibrillation with rapid ventricular response: (6) CHF (congestive heart failure): Qualifiers: Heart failure chronicity: unspecified Heart failure type: unspecified Qualified Code(s): I50.9 - Heart failure, unspecified (7) Nausea and vomiting: (8) Severe protein-calorie malnutrition: (9) Urinary retention: (10) Severe mitral regurgitation: Plan 86-year-old lady with past medical history of atrial fibrillation not on anticoagulation, urinary retention presented to the hospital with nausea and vomiting found to be in atrial fibrillation with rapid ventricular response along with acute kidney injury, uremia, hyponatremia and hyperkalemia. Acute kidney injury on CKD: Baseline serum creatinine is around: 1-1.5 Admission serum creatinine: 3.2 CT abdomen and pelvis had shown: Bilateral hydroureteronephrosis no renal stone has been noted Patient has known prior history of neurogenic bladder, recurrent UTI. Urine electrolytes: Random sodium 90, urine random creatinine 13 FENA: 15 % pointing out in the direction of postobstructive uropathy Urine culture is growing gram-negative felicity We will plan to follow-up with repeat ultrasound renal Continue gentle IV hydration with NS at 100 cc an hour Monitor and output charting Avoid nephrotoxic's Monitor BMP Hyponatremia: Resolved. Urine electrolytes TSH:0.77 Cortisol: Urine osmolality Serum osmolality Continue gentle IV hydration with NS Monitor serum sodium Bilateral hydroureteronephrosis: Follow-up with repeat ultrasound renal: Severe bilateral hydronephrosis, RIGHT greater than LEFT.Marked diffuse cortical thinning of each kidney, greater on the RIGHT. Urology on board. Hyperkalemia: Resolved Has received : D50 along with insulin 10 units, calcium gluconate one-time. Leukocytosis: Follow blood culture: Negative Urine culture is growing : E. coli as well as Proteus vulgaris. Empirically she has been on ceftriaxone Atrial fibrillation with rapid ventricular response: Most likely in setting of dehydration. Currently she is on Cardizem drip and has been started on metoprolol p.o. Plan is to taper off Cardizem drip. Not on anticoagulation because of history of recurrent fall Most recent 2D echo has shown September 2022 shows EF of 30% with mild LVH, severe MR, mild to moderate AI, mild to moderate TR, mild pulmonary hypertension with RVSP of 46. Patient also had a Lexiscan in September 2022 which showed old myocardial infarction and RCA versus artifact with EF of around 47%. Nausea and vomiting: Most likely in setting of uremia. CT abdomen pelvis negative for any acute abnormality though it was a noncontrast study. Protonix and Zofran. Start on clear liquid diet for now. HFrEF: Monitor intake output charting Monitor daily weight Continue telemetry monitoring Most recent 2D echo result appreciated Severe MR: No acute intervention at this time Continue with cardiology follow-up as outpatient Mild pulmonary hypertension: No acute intervention at this time Protein energy malnutrition CODE STATUS: Full code DVT prophylaxis: On subcutaneous heparin Attestations Medical Necessity Statement*: Needs to be in hospital for management of JULIA , A-fib with RVR. Coding Level of Care Code 49304 Diagnoses Acute renal failure N17.9 Bilateral hydronephrosis N13.30 Acute hyponatremia E87.1 Acute hyperkalemia E87.5 Atrial fibrillation with rapid ventricular response I48.91 CHF (congestive heart failure) I50.9 Heart failure chronicity: unspecified Heart failure type: unspecified Nausea and vomiting R11.2 Severe protein-calorie malnutrition E43 Urinary retention R33.9 Severe mitral regurgitation I34.0
[2022-11-13] MEDS: sodium chloride 0.9% 1,000 ML 50 ML IV (14:37)
[2022-11-13] MEDS: cefTRIAXone 1,000 MG in sodium chloride 0.9% (plus) 50 ML 100 MG IV (16:59)
--- NOTE | 2022-11-13 17:57 | P.CONIM_ITS ---
Providers/Reason For Consult Consulting Physician/Specialty*: Urology/[facility] Reason for Consult*: Bilateral hydronephrosis with renal failure Requesting Physician: Dr. Hobbs Attending Physician: Edison Hobbs MD Primary Care Provider: Scott Lau MD History of Present Illness History of Present Illness Iraida is a 86 year old female well-known to me for longstanding history of severe bladder dysfunction along with bowel dysfunction related to the pelvic radiation for rectal cancer years ago. There has been little benefit to any type of treatment for her incontinence historically. More recently she has been followed for progressive initially unilateral hydronephrosis on the right followed later by increasing hydronephrosis on the left. Some of this could be accounted for by bladder distention at times but there appeared to be over time and increasing soft tissue mass posterior to the bladder around the rectal area that was initially presumed to be related to recurrent rectal cancer. She is also status post remote radiation therapy for cervical cancer back in the 60s. At Dr. 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 Options including urinary diversion and bowel diversion or bilateral percutaneous nephrostomy tubes were discussed but the patient elected to hold on any intervention. At that point her creatinine had been well maintained. Her last visit with me was in January 2020. All of her options as above were discussed and follow-up in short-term was recommended for close monitoring of her creatinine. It does not appear that she kept that appointment. This hospital stay was initiated after evaluation for progressive weakness revealed marked elevation of her creatinine from baseline (3.2 versus 1.1), elevated lactate and atrial fibrillation with rapid ventricular response and congestive heart failure. She was failing and was admitted for further evaluation and treatment. Work-up this hospital stay: * CT scan showed significant soft tissue edema, progressive bilateral hydronephrosis more pronounced than previously on either side, ureter is dilated down to the pelvis where there appears to be significant increase in the thickening of tissues posterior to to the bladder. The bladder is not severely distended. There is also evidence of significant edema anterior to the bladder in the perivesicle tissues. These all represent a fairly significant change from her previous CT scan findings. * Labs:Creatinine is markedly elevated beyond her baseline which range between 0.9 and 1.5 over the last year. Her most recent normal creatinine was on 09/17/2022 at 1.1. Since the Finch catheter was placed that admission her creatinine has stabilized at 3.1. * Urine culture 11/10/2022 grew greater than 100,000 colonies of E. coli res istant only to ampicillin, nitrofurantoin and Bactrim. There is also a lower colony count of Proteus vulgaris resistant to cefuroxime imipenem nitrofurantoin ampicillin and tetracycline. The last CYSTOSCOPY that I can see in my records was in May 2019 and showed changes consistent with radiation cystitis but no other intravesical lesions or significantly pathologic findings Review of Systems Const: Reports: fatigue and malaise; Denies: fever(s) Eyes: Denies: change in vision or eye discharge ENMT: Reports: other (Voice is weak); Denies: hoarseness Card: Reports: palpitations; Denies: chest pain Resp: Denies: productive cough or wheezing GI: Reports: fecal incontinence and other (Chronic fecal incontinence); Denies: vomiting : Reports: other (Chronic urinary incontinence); Denies: flank pain Musc: Denies: joint redness Skin/Breast: Denies: new lesions or jaundice Neuro: Reports: confusion; Denies: Slurred speech present Psych: Reports: memory loss and difficulty concentrating Endo: Denies: flushing Jaswinder/Lymph: Denies: easy bruising or easy bleeding All/Imm: Denies: urticaria or acute wheezing Medications/Allergies Home Medications Medication Instructions Recorded Confirmed Last Taken Type flaxseed oil 1,000 mg capsule 1,000 mg PO QAM 09/13/19 11/10/22 09/02/22 History sertraline 100 mg tablet 100 mg PO QAM 09/13/19 11/10/22 09/02/22 History vitamin B complex (B-Complex 1 tab PO QAM 09/13/19 11/10/22 09/02/22 History tablet) levothyroxine 137 mcg tablet 137 mcg PO QAM 02/06/20 11/10/22 09/02/22 History multivitamin (Multiple Vitamins 1 tab PO QAM 02/06/20 11/10/22 09/02/22 History tablet) cholecalciferol (vitamin D3) 25 25 mcg PO QAM 09/02/22 11/10/22 09/02/22 History mcg (1,000 unit) tablet (Vitamin D3) omega 2-oua-wad-fish oil 1,000 mg 1 cap PO QAM 09/02/22 11/10/22 09/02/22 His tory (120 mg-180 mg) capsule (Fish Oil) amitriptyline 25 mg tablet 25 mg PO BEDTIME 09/13/22 11/10/22 Unknown History suvorexant 10 mg tablet (Belsomra) 10 mg PO BEDTIME 09/13/22 11/10/22 2 Weeks Ago History ~10/27/22 clonazepam 0.5 mg tablet (Klonopin) 0.5 mg PO BEDTIME 10/15/22 11/10/22 Unknown History L.acidophil-L.casei-B.bifid-B.longum-FOS 1 cap PO QAM 11/10/22 11/10/22 Unknown History 2 billion cell-50 mg capsule (Probiotic Blend) acetaminophen 500 mg tablet 500 - 1,000 mg PO Q6H PRN Pain 11/10/22 11/10/22 Unknown History cyclosporine 0.05 % eye drops in a 1 drp ophthalmic (eye) DAILY 11/10/22 11/10/22 2 Weeks Ago History dropperette (Restasis) ~10/27/22 diphenoxylate-atropine 2.5 1 tab PO DAILY PRN Diarrhea 11/10/22 11/10/22 Unknown History mg-0.025 mg tablet furosemide 20 mg tablet 20 mg PO QAM 11/10/22 11/10/22 Unknown History metoprolol tartrate 25 mg tablet 12.5 mg PO BID 11/10/22 11/10/22 Unknown History potassium chloride 10 mEq 10 meq PO QAM 11/10/22 11/10/22 Unknown History tablet,extended release(part/cryst) Allergies Allergy/AdvReac Type Severity Reaction Status Date / Time Penicillins Allergy ALGY-Hives Verified 11/10/22 13:31 Current Medications Generic Name Dose Route Start Last Admin Trade Name Freq PRN Reason Stop Dose Admin Acetaminophen 650 mg 11/10/22 15:03 11/11/22 11:45 Acetaminophen 325 Mg Tablet PO 650 mg Q6H PRN Administration Mild/Mod Pain Or Temp >/= 101 Amitriptyline HCl 25 mg 11/10/22 21:00 11/12/22 19:56 Amitriptyline 25 Mg Tablet PO 25 mg BEDTIME LILIYA Administration Clonazepam 0.5 mg 11/10/22 21:00 11/12/22 19:56 Clonazepam 0.5 Mg Tablet PO 0.5 mg BEDTIME LILIYA Administration Docusate Sodium 100 mg 11/10/22 15:10 11/13/22 17:00 Docusate Sodium 100 Mg Capsule PO 100 mg BID LILIYA Administration Famotidine 20 mg 11/10/22 15:15 11/13/22 14:39 Famotidine 20 Mg/2 Ml Inj IVP 20 mg Q12H LILIYA Administration Ferrous Gluconate 324 mg 11/10/22 18:00 11/13/22 17:00 Ferrous Gluconate 324 Mg Tablet PO 324 mg BIDWM LILIYA Administration Haloperidol Lactate 0.5 mg 11/10/22 22:53 11/11/22 18:47 Haloperidol Inj 5 Mg/Ml Inj 1 Ml IM 0.5 mg Q8H PRN Administration AGITATION Heparin Sodium (Porcine) 5,000 unit 11/10/22 15:15 11/13/22 14:39 Heparin 5,000 Unit/Ml Inj 1 Ml SUBCUT 5,000 unit Q12H LILIYA Administration Ceftriaxone Sodium 1,000 mg/ 50 mls @ 100 mls/hr 11/10/22 17:15 11/13/22 16:59 Sodium Chloride IV 100 mls/hr Q24H LILIYA Administration Protocol Sodium Chloride 1,000 mls @ 50 mls/hr 11/12/22 11:00 11/13/22 14:37 Sodium Chloride 0.9% IV 50 mls/hr .Q20H LILIYA Administration Levothyroxine Sodium 137 mcg 11/11/22 06:00 11/13/22 02:56 Levothyroxine 137 Mcg Tablet PO 137 mcg QAM LILIYA Administration Metoprolol Tartrate 25 mg 11/13/22 09:00 11/13/22 17:01 Metoprolol Tartrate 25 Mg Tablet PO 25 mg BID LILIYA Administration Sertraline HCl 100 mg 11/11/22 06:00 11/13/22 02:55 Sertraline 100 Mg Tablet PO 100 mg QAM LILIYA Administration PFSH Acute PFSH: Medical History (Updated 11/13/22 @ 19:21 by Anthony Hastings MD) Acute exacerbation of congestive heart failure Anemia Anemia Anxiety and depression Atrial fibrillation Bradycardia with 31-40 beats per minute Bradycardia, drug induced Cardiomyopathy CHF (congestive heart failure) Chronic constipation Community acquired pneumonia Dementia Digoxin toxicity Goals of care, counseling/discussion History of cervical cancer Treated with cobalt radiation Hydronephrosis Bilateral hydronephrosis associated with neurogenic bladder Hypertension Hypothyroidism Intrinsic sphincter deficiency Mitral regurgitation Muscular deconditioning Neurogenic bladder Onychodystrophy Peripheral arterial disease Protein calorie malnutrition Rectosigmoid cancer Recurrent UTI Severe protein-calorie malnutrition Syncope and collapse UTI (urinary tract infection) Surgical History H/O: hysterectomy (1962) History of colon resection (1995) Low anterior resection History of hemicolectomy S/P angioplasty with stent Status post bilateral iliac stents and angioplasty of the left common femoral artery and superficial femoral artery. S/P bladder repair S/P hernia repair S/P tonsillectomy Family History Mother CAD (coronary artery disease) Son CAD (coronary artery disease) Myocardial infarct, old Father CAD (coronary artery disease) Myocardial infarct, old Denies family history of Anesthesia complication Bleeding disorder Social History Smoking and tobacco status: former smoker Alcohol intake: never Household members: spouse Marital status: Current occupational status: retired Current gender identity: Female Adele/Mormon: Jew Vitals/I&O/Wt Last Vital Signs Temp 98.0 F 11/13/22 16:00 Pulse 117 H 11/13/22 16:00 Resp 20 H 11/13/22 16:00 BP 124/64 11/13/22 16:00 Pulse Ox 94 11/13/22 16:00 O2 Del Method 11/13/22 16:00 O2 Flow Rate 2 11/13/22 08:00 11/13/22 11/13/22 11/13/22 06:59 14:59 22:59 Intake Total 960 / 2610.75 1360 / 1360 480 / 1840 Output Total 200 / 925 1000 / 1000 Balance 760 / 1685.75 360 / 360 480 / 840 Weight last 48 hrs Weight 108 lb Physical Exam Const: COMMON NORMALS: no acute distress, alert and well nourished GENERAL APPEARANCE: well kempt and well developed HENMT: COMMON NORMALS: normocephalic HEAD & SCALP: normal to inspection and normocephalic Eye: COMMON NORMALS: conjunctivae normal and no scleral icterus CONJUNCTIVA: Yes conjunctivae normal Neck/C-Spine: GENERAL: Yes normal visual inspection Lymph: OTHER: No groin lymphadenopathy Chest: OTHER: Normal chest movements Resp: COMMON NORMALS: normal respiratory effort EFFORT & INSPECTION: Yes able to speak in complete sentences, No labored and No Actively coughing GI: OTHER: No palpable masses. Her abdomen is somewhat firm. No tenderness : OTHER: Bladder nondistended. Catheter draining clear urine Extremity: NARRATIVE EXTREMITY EXAM: She does have bilateral lower extremity mild edema does have more significant edema in her upper thighs and pelvic area onto the abdomen. Neuro: COMMON NORMALS: no focal motor deficits SENSORIUM/ORIENTATION: Yes alert Psych: APPEARANCE: Yes grossly normal and Yes well kempt ATTITUDE: Yes calm and Yes engaged Skin: COMMON NORMALS: no rashes or lesions noted and no jaundice GENERAL SKIN EXAM: no rashes or lesions noted Urinary Catheter Management: Finch: Cath Placed During This Visit: yes Reason for Continuing Indwelling Catheter: Acute Urinary Retention or Obstruction Urinary Catheter Date of Insertion: 11/13/22 Urinary Catheter Time of Insertion: 13:33 Data 11/13/22 03:19 11/13/22 03:19 Micro: Microbiology 11/12/22 11:30 Blood Culture - Preliminary Blood NEGATIVE TO DATE 11/12/22 11:37 Blood Culture - Preliminary Blood NEGATIVE TO DATE 11/10/22 16:25 Urine Culture - Final Urine,Clean Catch Escherichia coli Proteus vulgaris A&P Assessment and plan (1) Bilateral hydronephrosis: (2) Acute renal failure: (3) Atrial fibrillation: Qualifiers: Atrial fibrillation type: unspecified Qualified Code(s): I48.91 - Unspecified atrial fibrillation (4) CHF (congestive heart failure): Qualifiers: Heart failure chronicity: unspecified Heart failure type: unspecified Qualified Code(s): I50.9 - Heart failure, unspecified (5) Dementia: Qualifiers: Dementia type: unspecified type Dementia behavioral disturbance: without behavioral disturbance Qualified Code(s): F03.90 - Unspecified dementia without behavioral disturbance (6) Pelvic mass: (7) Pelvic mass: (8) Bilateral ureteral obstruction: Plan 1. I reviewed the mechanical options for relief of upper urinary tract obstruct ion including bilateral ureteral stenting potentially versus percutaneous nephrostomy tubes. Reviewed the potential good and bad associated with these procedures. As before she and her family are reluctant to consider that right now. 2. Also reviewed that metabolic improvement via medical treatment of her multiple maladies may provide some benefit overall and renal function even in the absence of mechanical drainage of her upper urinary tracts. 3. Spent a lot of time going over this with the patient and her daughter she expressed good understanding. 4. More to follow Consult Attestations Medical Necessity Statement: See attending Time Spent in Patient Care: Greater than 35 minutes >90 minutes total. This included extensive chart review and film review, [id number] interview, documentation. Coding Level of Care Code Acute Code for g Fwd Diagnoses Bilateral hydronephrosis N13.30 Acute renal failure N17.9 Atrial fibrillation I48.91 Atrial fibrillation type: unspecified CHF (congestive heart failure) I50.9 Heart failure chronicity: unspecified Heart failure type: unspecified Dementia F03.90 Dementia type: unspecified type Dementia behavioral disturbance: without behavioral disturbance Pelvic mass R19.00 Pelvic mass R19.00 Bilateral ureteral obstruction N13.5
--- NOTE | 2022-11-13 18:14 | PC.NURSE ---
dr dempsey in to check on pt.will keep overnight for further observation.left upper chest bulky drsg remains intact.he states she does not need to wear 5 lb sandbag any longer.bruising around drsg is soft.pt states pain is much less since evacuation this morning
[2022-11-13] MEDS: CLONazepam 0.5 mg Tablet PO (20:59)
[2022-11-13] MEDS: amitriptyline 25 mg Tablet PO (20:59)
[2022-11-14] VITALS (33 sets, daily range): BP systolic 90–153; BP diastolic 48–84; PULSE 75–120; RESP 16–32; TEMP 36.2–36.7; O2SAT 93–100
[2022-11-14] MEDS: heparin 5,000 unit/mL INJ 1 mL 5000 UNIT SUBCUT ×2 (02:19→15:24)
[2022-11-14] MEDS: famotidine 20 mg/2 mL INJ IVP ×2 (02:19→15:24)
[2022-11-14 04:09] LABS: Basophils % 0.2 %; Eosinophils # 0.1 10^3/uL (0.0-0.8); Eosinophils % 0.7 %; Hematocrit 31.4 % (37.0-47.0); Hemoglobin 9.8 g/dL (11.5-15.3); Lymphocytes # 1.1 10^3/uL (0.8-4.8); Lymphocytes % 9.1 %; Mean Corpuscular HGB Conc 31.2 g/dL (30.0-36.0); Mean Corpuscular Hemoglobin 31.5 pg (28.0-34.0); Mean Platelet Volume 10.2 fL (7.4-10.4); Monocytes # 0.6 10^3/uL (0.2-0.9); Monocytes % 4.6 %; Neutrophils # 10.22 10^3/uL (1.8-7.7); Neutrophils % 83.4 %; Nucleated Red Blood Cells % 0 %; Platelet Count 151 10^3/cmm (130-400); Red Blood Count 3.11 10^6/uL (4.1-5.3); Red Cell Distribution Width 16.5 % (12.1-15.1); White Blood Count 12.3 10^3/uL (4.0-10.0)
[2022-11-14 04:28] LABS: Anion Gap 15.6 (5-19); Blood Urea Nitrogen 72 mg/dL (8-23); Calcium 7.8 mg/dL (8.5-10.5); Carbon Dioxide 20 mmol/L (22-29); Chloride 104 mmol/L (98-107); Glucose 77 mg/dL (65-115); Osmolality Calculated 302 mOsm/kg (285-295); Potassium 3.6 mmol/L (3.5-5.1); Sodium 136 mmol/L (136-145)
[2022-11-14] MEDS: levothyroxine 137 mcg Tablet PO (05:11)
[2022-11-14] MEDS: sertraline 100 mg Tablet PO (05:11)
[2022-11-14] MEDS: ferrous gluconate 324 mg Tablet PO ×2 (09:26→17:23)
[2022-11-14] MEDS: docusate sodium 100 mg Capsule PO ×2 (09:27→17:23)
--- NOTE | 2022-11-14 10:55 | PC.NURSE ---
pt's staton catheter is leaking profusely.unable to obtain accurate urine output.staton catheter removed at this time
--- NOTE | 2022-11-14 11:05 | PM.CONSULT ---
Providers/Reason For Consult Consulting Physician/Specialty*: ana greer md / telenephrology Reason for Consult*: Demian Requesting Physician: Dr Hobbs Attending Physician: Edison Hobbs MD Primary Care Provider: Scott Lau MD History of Present Illness History of Present Illness Iraida Bay is a 86 year old female with past medical history of dementia, recto- sigmoid cancer post surgery, atrial fibrillation, HFrEF (EF 30%), severe ME, pulm htn, who is not a candidate for anticoagulation given recurrent falls, neurogenic bladder, recurrent UTIs, congestive heart failure, digoxin toxicity. The Patient was admitted on 11/10/22 w/ abdominal pain, decreased urine output, weakness. Blood work in the ER showed a sodium of 126 and potassium of 5.2, BUN of 91, creatinine of 3.2, anion gap of 19, magnesium of 2.5, lactate of 2.8, AST/ALT of 86/53 with alkaline phosphatase of 151, at baseline troponin of 41. In the ER patient was found to have a heart rate of 130s to 150s beats per minute - a fib w/ RVR. She was started on IV Cardizem. CT scan revelad b/l hydronephrosis. She was started on emperic abx. Her HR improved, na improved. her cr remained over 3- she was seen by DR Hastings of urology. He has been following her for longstanding history of severe bladder dysfunction along with bowel dysfunction related to the pelvic radiation for rectal cancer years ago.? Her right sided hydronephrosis has slowly progressed followed by left sided hydronephrosis- w/ concern for a bladder mass vs radiation induced disease. urinary diversion and bowel diversion or bilateral percutaneous nephrostomy tubes were offered in the past, the pt did not want them given cr of 1 and her age. On this admission CT scan?showed significant soft tissue edema, progressive bilateral hydronephrosis more pronounced than previously on either side, ureter is dilated down to the pelvis where there appears to be significant increase in the? thickening of tissues posterior to to the bladder.? The bladder is not severely distended.? There is also evidence of significant edema anterior to the bladder in the perivesicle tissues.? These all represent a fairly significant change from her previous CT scan findings. Urine culture?11/10/2022 grew greater than 100,000 colonies of E. coli resistant only to ampicillin, nitrofurantoin and Bactrim.? There is also a lower colony count of Proteus vulgaris resistant to cefuroxime imipenem nitrofurantoin ampicillin and tetracycline. The last CYSTOSCOPY from May 2019 - showed changes consistent with radiation cystitis but no other intravesical lesions or significantly pathologic findings Yesterday, Dr Hastings again offered intervention-pt and family are considering, however, likely do not want intervention. Review of Systems Narrative: weak, sob, polyuria, minimal edema, poor appetite, + palps. no cp, no goodman, + weak, No diarrhea. lethargy Medications/Allergies Home Medications Medication Instructions Recorded Confirmed Last Taken Type flaxseed oil 1,000 mg capsule 1,000 mg PO QAM 09/13/19 11/10/22 09/02/22 History sertraline 100 mg tablet 100 mg PO QAM 09/13/19 11/10/22 09/02/22 History vitamin B complex (B-Complex 1 tab PO QAM 09/13/19 11/10/22 09/02/22 History tablet) levothyroxine 137 mcg tablet 137 mcg PO QAM 02/06/20 11/10/22 09/02/22 History multivitamin (Multiple Vitamins 1 tab PO QAM 02/06/20 11/10/22 09/02/22 History tablet) cholecalciferol (vitamin D3) 25 25 mcg PO QAM 09/02/22 11/10/22 09/02/22 History mcg (1,000 unit) tablet (Vitamin D3) omega 8-bdw-hsn-fish oil 1,000 mg 1 cap PO QAM 09/02/22 11/10/22 09/02/22 History (120 mg-180 mg) capsule (Fish Oil) amitriptyline 25 mg tablet 25 mg PO BEDTIME 09/13/22 11/10/22 Unknown History suvorexant 10 mg tablet (Belsomra) 10 mg PO BEDTIME 09/13/22 11/10/22 2 Weeks Ago History ~10/27/22 clonazepam 0.5 mg tablet (Klonopin) 0.5 mg PO BEDTIME 10/15/22 11/10/22 Unknown History L.acidophil-L.casei-B.bifid-B.longum-FOS 1 cap PO QAM 11/10/22 11/10/22 Unknown History 2 billion cell-50 mg capsule (Probiotic Blend) acetaminophen 500 mg tablet 500 - 1,000 mg PO Q6H PRN Pain 11/10/22 11/10/22 Unknown History cyclosporine 0.05 % eye drops in a 1 drp ophthalmic (eye) DAILY 11/10/22 11/10/22 2 Weeks Ago History dropperette (Restasis) ~10/27/22 diphenoxylate-atropine 2.5 1 tab PO DAILY PRN Diarrhea 11/10/22 11/10/22 Unknown History mg-0.025 mg tablet furosemide 20 mg tablet 20 mg PO QAM 11/10/22 11/10/22 Unknown History metoprolol tartrate 25 mg tablet 12.5 mg PO BID 11/10/22 11/10/22 Unknown History potassium chloride 10 mEq 10 meq PO QAM 11/10/22 11/10/22 Unknown History tablet,extended release(part/cryst) Allergies Allergy/AdvReac Type Severity Reaction Status Date / Time Penicillins Allergy ALGY-Hives Verified 11/10/22 13:31 Current Medications Generic Name Dose Route Start Last Admin Trade Name Freq PRN Reason Stop Dose Admin Acetaminophen 650 mg 11/10/22 15:03 11/11/22 11:45 Acetaminophen 325 Mg Tablet PO 650 mg Q6H PRN Administration Mild/Mod Pain Or Temp >/= 101 Amitriptyline HCl 25 mg 11/10/22 21:00 11/13/22 20:59 Amitriptyline 25 Mg Tablet PO 25 mg BEDTIME LILIYA Administration Clonazepam 0.5 mg 11/10/22 21:00 11/13/22 20:59 Clonazepam 0.5 Mg Tablet PO 0.5 mg BEDTIME LILIYA Administration Docusate Sodium 100 mg 11/10/22 15:10 11/14/22 09:27 Docusate Sodium 100 Mg Capsule PO 100 mg BID LILIYA Administration Famotidine 20 mg 11/10/22 15:15 11/14/22 02:19 Famotidine 20 Mg/2 Ml Inj IVP 20 mg Q12H LILIYA Administration Ferrous Gluconate 324 mg 11/10/22 18:00 11/14/22 09:26 Ferrous Gluconate 324 Mg Tablet PO 324 mg BIDWM LILIYA Administration Haloperidol Lactate 0.5 mg 11/10/22 22:53 11/11/22 18:47 Haloperidol Inj 5 Mg/Ml Inj 1 Ml IM 0.5 mg Q8H PRN Administration AGITATION Heparin Sodium (Porcine) 5,000 unit 11/10/22 15:15 11/14/22 02:19 Heparin 5,000 Unit/Ml Inj 1 Ml SUBCUT 5,000 unit Q12H LILIYA Administration Ceftriaxone Sodium 1,000 mg/ 50 mls @ 100 mls/hr 11/10/22 17:15 11/13/22 17:30 Sodium Chloride IV Infused Q24H LILIYA Infusion Protocol Sodium Chloride 1,000 mls @ 50 mls/hr 11/12/22 11:00 11/13/22 14:37 Sodium Chloride 0.9% IV 50 mls/hr .Q20H LILIYA Administration Diltiazem HCl 50 mg/ Sodium 50 mls @ 0 mls/hr 11/13/22 17:45 11/14/22 06:21 Chloride IV 5 mg/hr .Q0M LILIYA 5 mls/hr Titration Protocol Per Protocol Levothyroxine Sodium 137 mcg 11/11/22 06:00 11/14/22 05:11 Levothyroxine 137 Mcg Tablet PO 137 mcg QAM LILIYA Administration Metoprolol Tartrate 25 mg 11/13/22 09:00 11/13/22 17:01 Metoprolol Tartrate 25 Mg Tablet PO 25 mg BID LILIYA Administration Sertraline HCl 100 mg 11/11/22 06:00 11/14/22 05:11 Sertraline 100 Mg Tablet PO 100 mg QAM LILIYA Administration PFSH Acute PFSH: Medical History (Updated 11/13/22 @ 19:21 by Anthony Hastings MD) Acute exacerbation of congestive heart failure Anemia Anemia Anxiety and depression Atrial fibrillation Bradycardia with 31-40 beats per minute Bradycardia, drug induced Cardiomyopathy CHF (congestive heart failure) Chronic constipation Community acquired pneumonia Dementia Digoxin toxicity Goals of care, counseling/discussion History of cervical cancer Treated with cobalt radiation Hydronephrosis Bilateral hydronephrosis associated with neurogenic bladder Hypertension Hypothyroidism Intrinsic sphincter deficiency Mitral regurgitation Muscular deconditioning Neurogenic bladder Onychodystrophy Peripheral arterial disease Protein calorie malnutrition Rectosigmoid cancer Recurrent UTI Severe protein-calorie malnutrition Syncope and collapse UTI (urinary tract infection) Surgical History H/O: hysterectomy (1962) History of colon resection (1995) Low anterior resection History of hemicolectomy S/P angioplasty with stent Status post bilateral iliac stents and angioplasty of the left common femoral artery and superficial femoral artery. S/P bladder repair S/P hernia repair S/P tonsillectomy Family History Mother CAD (coronary artery disease) Son CAD (coronary artery disease) Myocardial infarct, old Father CAD (coronary artery disease) Myocardial infarct, old Denies family history of Anesthesia complication Bleeding disorder Social History Smoking and tobacco status: former smoker Alcohol intake: never Household members: spouse Marital status: Current occupational status: retired Current gender identity: Female Adele/Presybeterian: Sabianism Vitals/I&O/Wt Last Vital Signs Temp 97.6 F 11/14/22 07:37 Pulse 93 11/14/22 07:36 Resp 17 11/14/22 07:36 BP 92/69 11/14/22 07:36 Pulse Ox 95 11/14/22 07:36 O2 Del Method 11/14/22 07:36 O2 Flow Rate 2 11/14/22 04:00 11/13/22 11/14/22 11/14/22 22:59 06:59 14:59 Intake Total 601.458 / 1961.458 91.750 / 2053.208 480 / 480 Output Total 1400 / 2400 200 / 200 Balance -798.542 / -438.542 91.750 / -346.792 280 / 280 Weight last 48 hrs Weight 49.668 kg Physical Exam Narrative: frail, elderly female in bed- sitting up- winded after PT VS noted- BP low Heent- nc/at, eomi, anicteric neck supple lungs crackles/ dull bases heart irreg irreg abd soft, nt, nd, + bs ext 1+ edema neuro- awake and alert, moving Urinary Catheter Management: Finch: Cath Placed During This Visit: yes, but has since been removed by the nurse Reason for Continuing Indwelling Catheter: Accurate Measurement of Urinary Output in Critically Ill Patients Urinary Catheter Date of Insertion: 11/13/22 Urinary Catheter Time of Insertion: 13:33 Date Urinary Catheter Removed: 11/14/22 Time Urinary Catheter Discontinued: 10:54 Data 11/14/22 03:57 11/14/22 03:57 Micro: Microbiology 11/12/22 11:30 Blood Culture - Preliminary Blood NEGATIVE TO DATE 11/12/22 11:37 Blood Culture - Preliminary Blood NEGATIVE TO DATE A&P Assessment and plan (1) Acute renal failure: 86 yr old female rectal ca s/p XRT and surgery, a fib, dementia, HFrEF (EF 30%), severe MR, pulm htn, who is not a candidate for anticoagulation given recurrent falls, neurogenic bladder, recurrent UTIs, congestive heart failure, digoxin toxicity. Pt here w/ weakness and DEMIAN/ b/l hydronephrosis 1. DEMIAN - from b/l severe / mod-to severe hydronephrosis -u/a bloody, alkalostic- ph8, 3+ prot, 3+ blood 2+ LE, >100 RBC- +UTI -ur na 90, ur k 18, ur cr 13 -agree w/ urology eval. I am concerned for obstruction by bladder. I defer to urology whether to attempts ureter stents or place b/l PCN -also hydronephrosis likely developed over months- will take time for cr to improve -d/c ivf 2. hyponatremia- improving - normal tsh- consider dec levothyroxine 3. Anemia w/ high mcv- can be cancer. B12, and folate levels are high -iron sat 15% -check ferritin 4. CHFrEF and Moderate MR, with elevated bnp- agree w/ diuresis -if Renal fxn improves, her CRS should also improve and better CHF control 5. renal dose meds -Q if should stop amitriptyline when she is on zoloft informed consent obtained seen and examined w/ RN -telehealth visit time spent > 55 min we will follow along with you. Plan see above Consult Attestations Medical Necessity Statement: demian- b/l hydronephrosis Time Spent in Patient Care: Greater than 35 minutes (>than 50% of time spent in counselling and/or direct pt care on unit). Coding Level of Care Code Acute Code for Chg Fwd Diagnoses Acute renal failure N17.9
--- NOTE | 2022-11-14 13:19 | P.PN_ITS ---
Subjective Subjective: Patient was seen and examined this morning, continues to be in A- fib with RVR, currently on Cardizem drip as well as p.o. metoprolol, blood pressure is running slightly soft, good urine output to Lasix, slight elevation in Creatinine. For now we will discontinue IV fluids, as patient appears sligh tly congested. Nephrology and urology has been on board. Medications: Medication Review Details: Generic Name Dose Route Start Last Admin Trade Name Freq PRN Reason Stop Dose Admin Acetaminophen 650 mg 11/10/22 15:03 11/11/22 11:45 Acetaminophen 32 5 Mg Tablet PO 650 mg Q6H PRN Administration Mild/Mod Pain Or Temp >/= 101 Amitriptyline HCl 25 mg 11/10/22 21:00 11/13/22 20:59 Amitriptyline 25 Mg Tablet PO 25 mg BEDTIME LILIYA Administration Clonazepam 0.5 mg 11/10/22 21:00 11/13/22 20:59 Clonazepam 0.5 M g Tablet PO 0.5 mg BEDTIME LILIYA Administration Docusate Sodium 100 mg 11/10/22 15:10 11/14/22 09:27 Docusate Sodium 100 Mg Capsule PO 100 mg BID LILIYA Administration Famotidine 20 mg 11/10/22 15:15 11/14/22 02:19 Famotidine 20 Mg /2 Ml Inj IVP 20 mg Q12H LILIYA Administration Ferrous Gluconate 324 mg 11/10/22 18:00 11/14/22 09:26 Ferrous Gluconat e 324 Mg Tablet PO 324 mg BIDWM LILIYA Administration Haloperidol Lactat e 0.5 mg 11/10/22 22:53 11/11/22 18:47 Haloperidol Inj 5 Mg/Ml Inj 1 Ml IM 0.5 mg Q8H PRN Administration AGITATION Heparin Sodium (Po rcine) 5,000 unit 11/10/22 15:15 11/14/22 02:19 Heparin 5,000 Un it/Ml Inj 1 Ml SUBCUT 5,000 unit Q12H LILIYA Administration Ceftriaxone Sodium 1,000 mg/ 50 mls @ 100 mls/ hr 11/10/22 17:15 11/13/22 17:30 Sodium Chloride IV Infused Q24H LILIYA Infusion Protocol Sodium Chloride 1,000 mls @ 50 ml s/hr 11/12/22 11:00 11/13/22 14:37 Sodium Chloride 0.9% IV 50 mls/hr .Q20H LILIYA Administration Diltiazem HCl 50 m g/ Sodium 50 mls @ 0 mls/hr 11/13/22 17:45 11/14/22 06:21 Chloride IV 5 mg/hr .Q0M LILIYA 5 mls/hr Titration Protocol Per Protocol Levothyroxine Sodi um 137 mcg 11/11/22 06:00 11/14/22 05:11 Levothyroxine 13 7 Mcg Tablet PO 137 mcg QAM LILIYA Administration Metoprolol Tartrat e 25 mg 11/13/22 09:00 11/13/22 17:01 Metoprolol Tartr ate 25 Mg Tablet PO 25 mg BID LILIYA Administration Sertraline HCl 100 mg 11/11/22 06:00 11/14/22 05:11 Sertraline 100 M g Tablet PO 100 mg QAM LILIYA Administration Vitals/I&O/Wt Last Vital Signs Temp 97.6 F 11/14/22 07:37 Pulse 93 11/14/22 07:36 Resp 17 11/14/22 07:36 BP 92/69 11/14/22 07:36 Pulse Ox 95 11/14/22 07:36 O2 Del Method 11/14/22 07:36 O2 Flow Rate 2 11/14/22 04:00 11/13/22 11/14/22 11/14/22 22:59 06:59 14:59 Intake Total 601.458 / 1961.458 91.750 / 2053.208 480 / 480 Output Total 1400 / 2400 200 / 200 Balance -798.542 / -438.542 91.750 / -346.792 280 / 280 Weight last 48 hrs Weight 49.668 kg Physical Exam Const: COMMON NORMALS: no acute distress, average body habitus, patient oriented x3, no limitations, healthy appearing and alert HENMT: COMMON NORMALS: normocephalic, atraumatic and hearing grossly normal bilaterally HEAD & SCALP: normocephalic and atraumatic Eye: COMMON NORMALS: Equal, round and reactive pupils present, EOMs intact bilaterally and conjunctivae normal CONJUNCTIVA: Yes conjunctivae normal PUPIL: Yes Equal, round and reactive pupils present Neck/C-Spine: COMMON NORMALS: full ROM, no lymphadenopathy and supple Lymph: LYMPHATIC: no lymphadenopathy noted Chest: COMMONS NORMALS: normal inspection of the chest Resp: COMMON NORMALS: normal respiratory effort, No retractions, No use of accessory muscles and clear to auscultation bilaterally AUSCULTATION: clear to auscultation bilaterally OTHER: diminished air entry b/l Cardio: COMMON NORMALS: S1 normal heart sound present and S2 normal heart sound present JUGULAR VENOUS DISTENTION: no JVD RATE: tachycardic RHYTHM: abnormal rhythm HEART SOUNDS: S1 normal heart sound present and S2 normal heart sound present GI: COMMON NORMALS: Normal to inspection, nondistended, normoactive bowel sounds present, Soft to palpation, non-tender, No hepatosplenomegaly present and no masses PALPATION: Yes Soft to palpation and Yes No hepatosplenomegaly present : COMMON NORMALS: Yes no CVA tenderness BLADDER/KIDNEY EXAM: Yes no CVA tenderness Back/Pelvis: COMMON NORMALS: no CVA tenderness Extremity: NARRATIVE EXTREMITY EXAM: Trace edema bilateral lower extremities Neuro: COMMON NORMALS: patient oriented x3, CN's II-XII intact bilaterally, moves all extremities, no focal motor deficits and no sensory deficits noted SENSORIUM/ORIENTATION: Yes alert Psych: COMMON NORMALS: mental status grossly normal, Normal thought process present, cooperative, normal affect and speech normal SPEECH: Yes normal speech THOUGHT PROCESS: Normal thought process present Skin: COMMON NORMALS: no rashes or lesions noted, no wounds, turgor normal, no jaundice and no petechiae GENERAL SKIN EXAM: no rashes or lesions noted and turgor normal Urinary Catheter Management: Finch: Cath Placed During This Visit: yes, but has since been removed by the nurse Reason for Continuing Indwelling Catheter: Accurate Measurement of Urinary Output in Critically Ill Patients Urinary Catheter Date of Insertion: 11/13/22 Urinary Catheter Time of Insertion: 13:33 Date Urinary Catheter Removed: 11/14/22 Time Urinary Catheter Discontinued: 10:54 Data 11/14/22 03:57 11/14/22 03:57 Micro: Microbiology 11/12/22 11:30 Blood Culture - Preliminary Blood NEGATIVE TO DATE 11/12/22 11:37 Blood Culture - Preliminary Blood NEGATIVE TO DATE A&P Assessment and plan (1) Acute renal failure: (2) Bilateral hydronephrosis: (3) Acute hyponatremia: (4) Acute hyperkalemia: (5) Atrial fibrillation with rapid ventricular response: (6) CHF (congestive heart failure): Qualifiers: Heart failure chronicity: unspecified Heart failure type: unspecified Qualified Code(s): I50.9 - Heart failure, unspecified (7) Nausea and vomiting: (8) Severe protein-calorie malnutrition: (9) Urinary retention: (10) Severe mitral regurgitation: Plan 86-year-old lady with past medical history of atrial fibrillation not on anticoagulation, urinary retention presented to the hospital with nausea and vomiting found to be in atrial fibrillation with rapid ventricular response along with acute kidney injury, uremia, hyponatremia and hyperkalemia. Acute kidney injury on CKD: Baseline serum creatinine is around: 1-1.5 Admission serum creatinine: 3.2 CT abdomen and pelvis had shown: Bilateral hydroureteronephrosis no renal stone has been noted Patient has known prior history of neurogenic bladder, recurrent UTI. Urine electrolytes: Random sodium 90, urine random creatinine 13 FENA: 15 % pointing out in the direction of postobstructive uropathy Urine culture is growing gram-negative felicity We will plan to follow-up with repeat ultrasound renal Was on gentle IV hydration with NS at 100 cc an hour.Currently has been discontinued Monitor and output charting Avoid nephrotoxic's Nephrology on board Monitor BMP Hyponatremia: Resolved. Urine electrolytes TSH:0.77 Cortisol: Urine osmolality Serum osmolality Continue gentle IV hydration with NS Monitor serum sodium Bilateral hydroureteronephrosis: Follow-up with repeat ultrasound renal: Severe bilateral hydronephrosis, RIGHT greater than LEFT.Marked diffuse cortical thinning of each kidney, greater on the RIGHT. Urology on board. Hyperkalemia: Resolved Has received : D50 along with insulin 10 units, calcium gluconate one-time. Leukocytosis: Follow blood culture: Negative Urine culture is growing : E. coli as well as Proteus vulgaris. Empirically she has been on ceftriaxone Atrial fibrillation with rapid ventricular response: Most likely in setting of dehydration. Currently she is on Cardizem drip and has been started on metoprolol p.o. Plan is to taper off Cardizem drip. Not on anticoagulation because of history of recurrent fall Most recent 2D echo has shown September 2022 shows EF of 30% with mild LVH, severe MR, mild to moderate AI, mild to moderate TR, mild pulmonary hypertension with RVSP of 46. Patient also had a Lexiscan in September 2022 which showed old myocardial infarction and RCA versus artifact with EF of around 47%. Nausea and vomiting: Most likely in setting of uremia. CT abdomen pelvis negative for any acute abnormality though it was a noncontrast study. Protonix and Zofran. Start on clear liquid diet for now. HFrEF: Monitor intake output charting Monitor daily weight Continue telemetry monitoring Most recent 2D echo result appreciated Severe MR: No acute intervention at this time Continue with cardiology follow-up as outpatient Mild pulmonary hypertension: No acute intervention at this time Protein energy malnutrition CODE STATUS: Full code DVT prophylaxis: On subcutaneous heparin Attestations Medical Necessity Statement*: Needs to be in hospital for management of JULIA A- fib with RVR. Coding Level of Care Code 70243 Diagnoses Acute renal failure N17.9 Bilateral hydronephrosis N13.30 Acute hyponatremia E87.1 Acute hyperkalemia E87.5 Atrial fibrillation with rapid ventricular response I48.91 CHF (congestive heart failure) I50.9 Heart failure chronicity: unspecified Heart failure type: unspecified Nausea and vomiting R11.2 Severe protein-calorie malnutrition E43 Urinary retention R33.9 Severe mitral regurgitation I34.0
[2022-11-14] MEDS: dilTIAZem 100 MG in sodium chloride 0.9% (add-van) 100 ML IV (13:37)
[2022-11-14] MEDS: metoprolol tartrate 25 mg Tablet PO ×2 (13:43→20:06)
[2022-11-14 14:18] LABS: Creatine Phosphokinase 23 U/L (26-192); Uric Acid 7.7 mg/dL (2.4-5.7)
[2022-11-14 14:27] LABS: Hepatitis C Virus Antibody Non-Reactive (Nonreactive)
[2022-11-14] MEDS: acetaminophen 325 mg Tablet 650 MG PO (15:25)
[2022-11-14] MEDS: cefTRIAXone 1,000 MG in sodium chloride 0.9% (plus) 50 ML 100 MG IV (16:23)
[2022-11-14] MEDS: FUROsemide 10 mg/mL SDV 2mL 20 MG IVP (17:33)
--- NOTE | 2022-11-14 17:40 | P.PN_ITS ---
Subjective Subjective: Urology follow-up: No significant changes. Creatinine is slightly higher at 3.3. Seems to be having a good appetite. She put out about 2400 cc yesterday. Catheter seems to be functioning fine. Good conversation again with the patient and her daughter. Patient really is not able to add much to the conversation. Unfortunately I missed her today but will try again tomorrow. After our detailed conversation yesterday outlining her options it sounds like the consensus position with the family is to avoid any internal stenting or external drainage. Reviewed that there is still some potential hope for improvement in renal function with metabolic improvement but that if the problem is clearly related to an obstructive phenomenon and is not dealt with mechanically that will continue to be worse. The rapidity of that decline is not clear. There focus seems to be on trying to maintain his good quality of life without trying to necessarily prolong it with multiple interventions such as ureteral stents and required stent changes over time. I do not think that is a bad decision at all especially considering many conversations dating back multiple years and has always been the family's and patient's wishes to be as conservative as possible. So far that seems to have served them well. I will work to be available for Scott her to go over these issues with him [id number]. Vitals/I&O/Wt Last Vital Signs Temp 98.0 F 11/14/22 12:00 Pulse 103 H 11/14/22 14:01 Resp 24 H 11/14/22 12:00 BP 153/84 11/14/22 12:00 Pulse Ox 95 11/14/22 14:01 O2 Del Method 11/14/22 14:01 O2 Flow Rate 2 11/14/22 14:01 11/14/22 11/14/22 11/14/22 06:59 14:59 22:59 Intake Total 91.750 / 2053.208 720 / 720 18.75 / 738.75 Output Total 200 / 200 Balance 91.750 / -346.792 520 / 520 18.75 / 538.75 Weight last 48 hrs Weight 109 lb 8 oz Physical Exam Const: COMMON NORMALS: no acute distress, alert and well nourished GENERAL APPEARANCE: well kempt and well developed Chest: OTHER: Normal chest movements Resp: COMMON NORMALS: normal respiratory effort EFFORT & INSPECTION: Yes able to speak in complete sentences, No labored and No Actively coughing : OTHER: Bladder nondistended. Catheter draining clear urine Neuro: SENSORIUM/ORIENTATION: Yes alert Psych: APPEARANCE: Yes grossly normal and Yes well kempt ATTITUDE: Yes calm and Yes engaged Urinary Catheter Management: Finch: Cath Placed During This Visit: yes, but has since been removed by the nurse Reason for Continuing Indwelling Catheter: Accurate Measurement of Urinary Output in Critically Ill Patients Urinary Catheter Date of Insertion: 11/13/22 Urinary Catheter Time of Insertion: 13:33 Date Urinary Catheter Removed: 11/14/22 Time Urinary Catheter Discontinued: 10:54 Data 11/14/22 03:57 11/14/22 03:57 A&P Assessment and plan (1) Bilateral hydronephrosis: (2) Acute renal failure: (3) Atrial fibrillation: Qualifiers: Atrial fibrillation type: unspecified Qualified Code(s): I48.91 - Unspecified atrial fibrillation (4) CHF (congestive heart failure): Qualifiers: Heart failure chronicity: unspecified Heart failure type: unspecified Qualified Code(s): I50.9 - Heart failure, unspecified (5) Dementia: Qualifiers: Dementia type: unspecified type Dementia behavioral disturbance: without behavioral disturbance Qualified Code(s): F03.90 - Unspecified dementia without behavioral disturbance (6) Pelvic mass: (7) Pelvic mass: (8) Bilateral ureteral obstruction: Plan See HPI. Clearly leaning in a more conservative direction with no desire at this point for percutaneous nephrostomy tubes or stents. Recognition that this may accele rate demise is readily expressed. They are adamantly opposed to a process that would require intermittent anesthetic procedures for stent changes etc. I definitely do not want external drainage as well. Attestations Medical Necessity Statement*: See attending Coding Level of Care Code Acute Code for Chg Fwd Diagnoses Bilateral hydronephrosis N13.30 Acute renal failure N17.9 Atrial fibrillation I48.91 Atrial fibrillation type: unspecified CHF (congestive heart failure) I50.9 Heart failure chronicity: unspecified Heart failure type: unspecified Dementia F03.90 Dementia type: unspecified type Dementia behavioral disturbance: without behavioral disturbance Pelvic mass R19.00 Pelvic mass R19.00 Bilateral ureteral obstruction N13.5
[2022-11-14] MEDS: CLONazepam 0.5 mg Tablet PO (20:06)
[2022-11-14] MEDS: amitriptyline 25 mg Tablet PO (20:06)
[2022-11-14] MEDS: ALPRAZolam 0.5 mg Tablet PO (22:01)
[2022-11-15] VITALS (91 sets, daily range): BP systolic 106–153; BP diastolic 53–99; PULSE 75–142; RESP 14–40; TEMP 36.6–36.9; O2SAT 97–99
[2022-11-15] MEDS: heparin 5,000 unit/mL INJ 1 mL 5000 UNIT SUBCUT ×2 (02:23→18:13)
[2022-11-15] MEDS: famotidine 20 mg/2 mL INJ IVP ×2 (02:24→18:13)
[2022-11-15] MEDS: levothyroxine 137 mcg Tablet PO (04:46)
[2022-11-15] MEDS: sertraline 100 mg Tablet PO (04:46)
[2022-11-15] MEDS: dilTIAZem 100 MG in sodium chloride 0.9% (add-van) 100 ML IV (06:21)
[2022-11-15] MEDS: ferrous gluconate 324 mg Tablet PO ×2 (08:37→18:14)
[2022-11-15] MEDS: docusate sodium 100 mg Capsule PO ×2 (08:37→18:14)
[2022-11-15] MEDS: metoprolol tartrate 50 mg Tablet PO ×3 (08:37→18:14)
--- NOTE | 2022-11-15 10:26 | P.PN_ITS ---
Subjective Subjective: Urology follow-up: Thankfully today I was able to talk to Scott her . We spent about 40 minutes reviewing her overall status, urologic condition, and what was available to them moving forward. Reviewed that her kidney function is significantly diminished compared to require it was as recent as 2 months ago. Etiology of this was explained is probably combination of both progressive obstructive uropathy as well as metabolic impact. From an obstructive uropathy perspective both internal ureteral stents as well as percutaneous nephrostomy tubes were offered as a reasonable approach with the hopes of improving kidney function. Overall improvement in her metabolic function might yield some benefit as well. Discussed the nuances of tube changes, anesthetic required for stent changes, interventional radiology for percutaneous nephrostomy tubes etc. Ultimately after a long [id number] regarding what that would look like he was leaning strongly in the direction of avoiding intervention for obstructive uropathy via internal or external drainage of the kidneys. We discussed the implications of that decision in detail. Reviewed that she could potentially maintain where she is now for some time or if this is in fact an aggressive process leading to extrinsic ureteral obstruction that it might be much more rapid. Currently we just do not know but her creatinine while much more elevated than it had been previously, has been relatively stable since her admission. He expressed good understanding of that and did not affect his decision to sray away from mechanical drainage of the upper tracts. I also mentioned palliative care and hospice care and he expressed some interest in that. I encouraged him to continue the conversation with his daughter who I spent a lot of time with last night and had a level that he thought was appropriate with [place]. At this point I will be available if he changes his mind but otherwise I think the focus shifts to improvements that might be obtained from a medical perspective and also pursuit of palliative or hospice care. Vitals/I&O/Wt Last Vital Signs Temp 98.0 F 11/15/22 07:51 Pulse 99 11/15/22 08:00 Resp 20 H 11/15/22 07:51 BP 118/85 11/15/22 07:51 Pulse Ox 98 11/15/22 08:00 O2 Del Method 11/15/22 08:00 O2 Flow Rate 2 11/15/22 08:00 11/14/22 11/15/22 11/15/22 22:59 06:59 14:59 Intake Total 378.75 / 1098.75 661.250 / 1760.000 161.333 / 161.333 Balance 378.75 / 898.75 661.250 / 1560.000 161.333 / 161.333 Weight last 48 hrs Weight 110 lb 11.2 oz Weight 109 lb 8 oz Physical Exam Narrative: Alert, no acute distress Resting peacefully. No labored respiration or wheezing Abdomen soft unchanged Urinary Catheter Management: Finch: Cath Placed During This Visit: yes, but has since been removed by the nurse Reason for Continuing Indwelling Catheter: Accurate Measurement of Urinary Output in Critically Ill Patients Urinary Catheter Date of Insertion: 11/13/22 Urinary Catheter Time of Insertion: 13:33 Date Urinary Catheter Removed: 11/14/22 Time Urinary Catheter Discontinued: 10:54 Data 11/14/22 03:57 11/14/22 03:57 A&P Assessment and plan (1) Bilateral hydronephrosis: (2) Acute renal failure: (3) Atrial fibrillation: Qualifiers: Atrial fibrillation type: unspecified Qualified Code(s): I48.91 - Unspecified atrial fibrillation (4) CHF (congestive heart failure): Qualifiers: Heart failure chronicity: unspecified Heart failure type: unspecified Qualified Code(s): I50.9 - Heart failure, unspecified (5) Dementia: Qualifiers: Dementia type: unspecified type Dementia behavioral disturbance: without behavioral disturbance Qualified Code(s): F03.90 - Unspecified dementia without behavioral disturbance (6) Pelvic mass: (7) Pelvic mass: (8) Bilateral ureteral obstruction: Plan See HPI. Attestations Medical Necessity Statement*: See attending Coding Level of Care Code Acute Code for g Fwd Diagnoses Bilateral hydronephrosis N13.30 Acute renal failure N17.9 Atrial fibrillation I48.91 Atrial fibrillation type: unspecified CHF (congestive heart failure) I50.9 Heart failure chronicity: unspecified Heart failure type: unspecified Dementia F03.90 Dementia type: unspecified type Dementia behavioral disturbance: without behavioral disturbance Pelvic mass R19.00 Pelvic mass R19.00 Bilateral ureteral obstruction N13.5 Time Spent (min) 55 Comment Chart review, documentation, unit time combined
--- NOTE | 2022-11-15 11:25 | PC.SOCIAL ---
IMM Updated Updated pt & spouse on IMM. No questions voiced. Provided pt a copy. Initialed, dated, & timed copy in chart.
--- NOTE | 2022-11-15 13:17 | P.PN_ITS ---
Subjective Subjective: she removed staton, incontinent urine and stool. Difficult phlebotomy and IV access and daughter spoke with urology. I spoke with them also. They have decided on no invasive procedures including PCN, ureter stents Vitals/I&O/Wt Last Vital Signs Temp 98.0 F 11/15/22 07:51 Pulse 99 11/15/22 08:00 Resp 20 H 11/15/22 07:51 BP 118/85 11/15/22 07:51 Pulse Ox 98 11/15/22 08:00 O2 Del Method 11/15/22 08:00 O2 Flow Rate 2 11/15/22 08:00 11/14/22 11/15/22 11/15/22 22:59 06:59 14:59 Intake Total 378.75 / 1098.75 661.250 / 1760.000 161.333 / 161.333 Balance 378.75 / 898.75 661.250 / 1560.000 161.333 / 161.333 Weight last 48 hrs Weight 50.213 kg Weight 49.668 kg Physical Exam Const: COMMON NORMALS: no acute distress and alert Extremity: NARRATIVE EXTREMITY EXAM: diffuse edema Neuro: SENSORIUM/ORIENTATION: Yes alert Urinary Catheter Management: [place]: Cath Placed During This Visit: yes, but has since been removed by the nurse Reason for Continuing Indwelling Catheter: Accurate Measurement of Urinary Outp ut in Critically Ill Patients Urinary Catheter Date of Insertion: 11/13/22 Urinary Catheter Time of Insertion: 13:33 Date Urinary Catheter Removed: 11/14/22 Time Urinary Catheter Discontinued: 10:54 Data 11/14/22 03:57 11/14/22 03:57 US: Radiologist's impression: severe bilateral hydronephrosis Other data: seen via telemedicine with assistance of RN at bedside A&P Assessment and plan (1) Bilateral hydronephrosis: Plan 1. Acute kidney injury, severe bilateral hydronephrosis, declining intervention 2. UTI with proteus and e.coli, receiving ceftriaxone 3. Cardiomyopathy I spoke with and daughter. She is not a dialysis candidate. Recommend comfort care, DNR, DNI. Hospitalist contacted. Attestations Medical Necessity Statement*: per primary service Time Spent in Patient Care: 16 - 35 minutes Coding Level of Care Code Acute Code for Chg Fwd Diagnoses Bilateral hydronephrosis N13.30
[2022-11-15] MEDS: digoxin 250 mcg/ml INJ 2 mL IVP (13:31)
[2022-11-15] MEDS: dilTIAZem 5 mg/mL SDV 5 mL 10 MG IVP (13:31)
--- NOTE | 2022-11-15 14:22 | P.PN_ITS ---
Subjective Subjective: Patient was seen and examined this morning continued to be in A- fib, with heart rate varying from 90s to 120s, multidisciplinary meeting was done today with the patient family (which included urology, nephrology, and medicine) given the complex nature of the medical illness of the patient, and family's desire, not to continue with any aggressive intervention, currently the best option is either hospice or palliative care, family currently wants to explore more about hospice, social media community manager has been informed and they will discuss more in detail with the family. No labs were done today as patient is difficult stick. Patient has received IV Cardizem 10 mg one-time dose as well as digoxin 250 one- time dose today. Medications: Medication Review Details: Generic Name Dose Route Start Last Admin Trade Name Freq PRN Reason Stop Dose Admin Acetaminophen 650 mg 11/10/22 15:03 11/14/22 15:25 Acetaminophen 32 5 Mg Tablet PO 650 mg Q6H PRN Administration Mild/Mod Pain Or Temp >/= 101 Alprazolam 0.5 mg 11/12/22 18:33 11/14/22 22:01 Alprazolam 0.5 M g Tablet PO 0.5 mg TID PRN Administration ANXIETY Amitriptyline HCl 25 mg 11/10/22 21:00 11/14/22 20:06 Amitriptyline 25 Mg Tablet PO 25 mg BEDTIME LILIYA Administration Docusate Sodium 100 mg 11/10/22 15:10 11/15/22 08:37 Docusate Sodium 100 Mg Capsule PO 100 mg BID LILIYA Administration Famotidine 20 mg 11/10/22 15:15 11/15/22 02:24 Famotidine 20 Mg /2 Ml Inj IVP 20 mg Q12H LILIYA Administration Ferrous Gluconate 324 mg 11/10/22 18:00 11/15/22 08:37 Ferrous Gluconat e 324 Mg Tablet PO 324 mg BIDWM LILIYA Administration Haloperidol Lactat e 0.5 mg 11/10/22 22:53 11/11/22 18:47 Haloperidol Inj 5 Mg/Ml Inj 1 Ml IM 0.5 mg Q8H PRN Administration AGITATION Heparin Sodium (Po rcine) 5,000 unit 11/10/22 15:15 11/15/22 02:23 Heparin 5,000 Un it/Ml Inj 1 Ml SUBCUT 5,000 unit Q12H LILIYA Administration Ceftriaxone Sodium 1,000 mg/ 50 mls @ 100 mls/ hr 11/10/22 17:15 11/15/22 08:37 Sodium Chloride IV Infused Q24H LILIYA Infusion Protocol Diltiazem HCl 50 m g/ Sodium 50 mls @ 0 mls/hr 11/13/22 17:45 11/14/22 06:21 Chloride IV 5 mg/hr .Q0M LILIYA 5 mls/hr Titration Protocol Per Protocol Diltiazem HCl 100 mg/ Sodium 100 mls @ 0 mls/h r 11/14/22 13:45 11/15/22 08:37 Chloride IV 0 mg/hr .Q0M LILIYA 0 mls/hr Titration Protocol Per Protocol Levothyroxine Sodi um 137 mcg 11/11/22 06:00 11/15/22 04:46 Levothyroxine 13 7 Mcg Tablet PO 137 mcg QAM LILIYA Administration Metoprolol Tartrat e 50 mg 11/15/22 09:00 11/15/22 08:37 Metoprolol Tartr ate 50 Mg Tablet PO 50 mg BID LILIYA Administration Sertraline HCl 100 mg 11/11/22 06:00 11/15/22 04:46 Sertraline 100 M g Tablet PO 100 mg QAM LILIYA Administration Vitals/I&O/Wt Last Vital Signs Temp 98.0 F 11/15/22 07:51 Pulse 99 11/15/22 08:00 Resp 20 H 11/15/22 07:51 BP 118/85 11/15/22 07:51 Pulse Ox 98 11/15/22 08:00 O2 Del Method 11/15/22 08:00 O2 Flow Rate 2 11/15/22 08:00 11/14/22 11/15/22 11/15/22 22:59 06:59 14:59 Intake Total 378.75 / 1098.75 661.250 / 1760.000 161.333 / 161.333 Balance 378.75 / 898.75 661.250 / 1560.000 161.333 / 161.333 Weight last 48 hrs Weight 50.213 kg Weight 49.668 kg Physical Exam Const: COMMON NORMALS: no acute distress, average body habitus, patient oriented x3, no limitations, healthy appearing and alert HENMT: COMMON NORMALS: normocephalic, atraumatic and hearing grossly normal bilaterally HEAD & SCALP: normocephalic and atraumatic Eye: COMMON NORMALS: Equal, round and reactive pupils present, EOMs intact bilaterally and conjunctivae normal CONJUNCTIVA: Yes conjunctivae normal PUPIL: Yes Equal, round and reactive pupils present Neck/C-Spine: COMMON NORMALS: full ROM, no lymphadenopathy and supple Lymph: LYMPHATIC: no lymphadenopathy noted Chest: COMMONS NORMALS: normal inspection of the chest Resp: COMMON NORMALS: normal respiratory effort, No retractions, No use of accessory muscles and clear to auscultation bilaterally AUSCULTATION: clear to auscultation bilaterally OTHER: diminished air entry b/l Cardio: COMMON NORMALS: S1 normal heart sound present and S2 normal heart sound present JUGULAR VENOUS DISTENTION: no JVD RATE: tachycardic RHYTHM: abnormal rhythm HEART SOUNDS: S1 normal heart sound present and S2 normal heart sound present GI: COMMON NORMALS: Normal to inspection, nondistended, normoactive bowel sounds present, Soft to palpation, non-tender, No hepatosplenomegaly present and no masses PALPATION: Yes Soft to palpation and Yes No hepatosplenomegaly p resent Extremity: NARRATIVE EXTREMITY EXAM: Trace edema bilateral lower extremities Neuro: COMMON NORMALS: patient oriented x3, CN's II-XII intact bilaterally, moves all extremities, no focal motor deficits and no sensory deficits noted SENSORIUM/ORIENTATION: Yes alert Psych: COMMON NORMALS: mental status grossly normal, Normal thought process present, cooperative, normal affect and speech normal SPEECH: Yes normal speech THOUGHT PROCESS: Normal thought process present Skin: COMMON NORMALS: no rashes or lesions noted, no wounds, turgor normal, no jaundice and no petechiae GENERAL SKIN EXAM: no rashes or lesions noted and turgor normal Urinary Catheter Management: Finch: Cath Placed During This Visit: yes, but has since been removed by the nurse Reason for Continuing Indwelling Catheter: Accurate Measurement of Urinary Output in Critically Ill Patients Urinary Catheter Date of Insertion: 11/13/22 Urinary Catheter Time of Insertion: 13:33 Date Urinary Catheter Removed: 11/14/22 Time Urinary Catheter Discontinued: 10:54 Data 11/14/22 03:57 11/14/22 03:57 A&P Assessment and plan (1) Acute renal failure: (2) Bilateral hydronephrosis: (3) Acute hyponatremia: (4) Acute hyperkalemia: (5) Atrial fibrillation with rapid ventricular response: (6) CHF (congestive heart failure): Qualifiers: Heart failure chronicity: unspecified Heart failure type: unspecified Qualified Code(s): I50.9 - Heart failure, unspecified (7) Nausea and vomiting: (8) Severe protein-calorie malnutrition: (9) Urinary retention: (10) Severe mitral regurgitation: Plan 86-year-old lady with past medical history of atrial fibrillation not on anticoagulation, urinary retention presented to the hospital with nausea and vomiting found to be in atrial fibrillation with rapid ventricular response along with acute kidney injury, uremia, hyponatremia and hyperkalemia. Acute kidney injury on CKD: Baseline serum creatinine is around: 1-1.5 Admission serum creatinine: 3.2 CT abdomen and pelvis had shown: Bilateral hydroureteronephrosis no renal stone has been noted Patient has known prior history of neurogenic bladder, recurrent UTI. Urine electrolytes: Random sodium 90, urine random creatinine 13 FENA: 15 % pointing out in the direction of postobstructive uropathy Urine culture is growing gram-negative felicity We will plan to follow-up with repeat ultrasound renal Was on gentle IV hydration with NS at 100 cc an hour.Currently has been discontinued Monitor and output charting Avoid nephrotoxic's Nephrology on board Monitor BMP Hyponatremia: Resolved. Urine electrolytes TSH:0.77 Cortisol: Urine osmolality Serum osmolality Continue gentle IV hydration with NS Monitor serum sodium Bilateral hydroureteronephrosis: Follow-up with repeat ultrasound renal: Severe bilateral hydronephrosis, RIGHT greater than LEFT.Marked diffuse cortical thinning of each kidney, greater on the RIGHT. Patient and family has denied any urological intervention. Urology on board. Hyperkalemia: Resolved Has received : D50 along with insulin 10 units, calcium gluconate one-time. Leukocytosis: Follow blood culture: Negative Urine culture is growing : E. coli as well as Proteus vulgaris. Empirically she has been on ceftriaxone Atrial fibrillation with rapid ventricular response: Most likely in setting of dehydration. Currently she is on Cardizem drip and has been started on metoprolol p.o. Plan is to taper off Cardizem drip. Not on anticoagulation because of history of recurrent fall Most recent 2D echo has shown September 2022 shows EF of 30% with mild LVH, severe MR, mild to moderate AI, mild to moderate TR, mild pulmonary hypertension with RVSP of 46. Patient also had a Lexiscan in September 2022 which showed old myocardial infarction and RCA versus artifact with EF of around 47%. Nausea and vomiting: Most likely in setting of uremia. CT abdomen pelvis negative for any acute abnormality though it was a noncontrast study. Protonix and Zofran. Start on clear liquid diet for now. HFrEF: Monitor intake output charting Monitor daily weight Continue telemetry monitoring Most recent 2D echo result appreciated Severe MR: No acute intervention at this time Continue with cardiology follow-up as outpatient Mild pulmonary hypertension: No acute intervention at this time Protein energy malnutrition CODE STATUS: Full code DVT prophylaxis: On subcutaneous heparin Attestations Medical Necessity Statement*: In Hospital for management of A-fib and JULIA. Coding Level of Care Code 57865 Diagnoses Acute renal failure N17.9 Bilateral hydronephrosis N13.30 Acute hyponatremia E87.1 Acute hyperkalemia E87.5 Atrial fibrillation with rapid ventricular response I48.91 CHF (congestive heart failure) I50.9 Heart failure chronicity: unspecified Heart failure type: unspecified Nausea and vomiting R11.2 Severe protein-calorie malnutrition E43 Urinary retention R33.9 Severe mitral regurgitation I34.0
[2022-11-15] MEDS: cefTRIAXone 1,000 MG in sodium chloride 0.9% (plus) 50 ML 100 MG IV (17:31)
[2022-11-15] MEDS: ALPRAZolam 0.5 mg Tablet PO (19:35)
[2022-11-15] MEDS: amitriptyline 25 mg Tablet PO (19:35)
[2022-11-16] VITALS (39 sets, daily range): BP systolic 129–166; BP diastolic 75–107; PULSE 89–144; RESP 14–38; TEMP 36.3–36.8; O2SAT 94–99; BMI 19.9
[2022-11-16] MEDS: heparin 5,000 unit/mL INJ 1 mL 5000 UNIT SUBCUT ×2 (03:16→16:38)
[2022-11-16] MEDS: famotidine 20 mg/2 mL INJ IVP ×2 (03:16→16:38)
[2022-11-16] MEDS: ALPRAZolam 0.5 mg Tablet PO (03:38)
[2022-11-16 05:54] LABS: Magnesium 1.8 mg/dL (1.7-2.3); Phosphorus 4.7 mg/dL (2.5-4.5)
[2022-11-16] MEDS: sertraline 100 mg Tablet PO (06:18)
[2022-11-16] MEDS: levothyroxine 137 mcg Tablet PO (06:18)
[2022-11-16] MEDS: metoprolol tartrate 50 mg Tablet PO ×2 (09:47→18:07)
[2022-11-16] MEDS: dilTIAZem 60 mg Tablet PO ×3 (09:47→22:10)
[2022-11-16] MEDS: ferrous gluconate 324 mg Tablet PO ×2 (09:48→18:07)
[2022-11-16] MEDS: docusate sodium 100 mg Capsule PO (09:48)
--- NOTE | 2022-11-16 15:56 | P.PN_ITS ---
Subjective Subjective: Patient was seen and examined this morning continued to be in A- fib, with heart rate varying from 90s to 120s, will add Cardizem. P.o. every 6h. Continue metoprolol tartrate 50 twice daily. Medications: Medication Review Details: Generic Name Dose Route Start Last Admin Trade Name Freq PRN Reason Stop Dose Admin Acetaminophen 650 mg 11/10/22 15:03 11/14/22 15:25 Acetaminophen 32 5 Mg Tablet PO 650 mg Q6H PRN Administration Mild/Mod Pain Or Temp >/= 101 Alprazolam 0.5 mg 11/12/22 18:33 11/14/22 22:01 Alprazolam 0.5 M g Tablet PO 0.5 mg TID PRN Administration ANXIETY Amitriptyline HCl 25 mg 11/10/22 21:00 11/14/22 20:06 Amitriptyline 25 Mg Tablet PO 25 mg BEDTIME LILIYA Administration Docusate Sodium 100 mg 11/10/22 15:10 11/15/22 08:37 Docusate Sodium 100 Mg Capsule PO 100 mg BID LILIYA Administration Famotidine 20 mg 11/10/22 15:15 11/15/22 02:24 Famotidine 20 Mg /2 Ml Inj IVP 20 mg Q12H LILIYA Administration Ferrous Gluconate 324 mg 11/10/22 18:00 11/15/22 08:37 Ferrous Gluconat e 324 Mg Tablet PO 324 mg BIDWM LILIYA Administration Haloperidol Lactat e 0.5 mg 11/10/22 22:53 11/11/22 18:47 Haloperidol Inj 5 Mg/Ml Inj 1 Ml IM 0.5 mg Q8H PRN Administration AGITATION Heparin Sodium (Po rcine) 5,000 unit 11/10/22 15:15 11/15/22 02:23 Heparin 5,000 Un it/Ml Inj 1 Ml SUBCUT 5,000 unit Q12H LILIYA Administration Ceftriaxone Sodium 1,000 mg/ 50 mls @ 100 mls/ hr 11/10/22 17:15 11/15/22 08:37 Sodium Chloride IV Infused Q24H LILIYA Infusion Protocol Diltiazem HCl 50 m g/ Sodium 50 mls @ 0 mls/hr 11/13/22 17:45 11/14/22 06:21 Chloride IV 5 mg/hr .Q0M LILIYA 5 mls/hr Titration Protocol Per Protocol Diltiazem HCl 100 mg/ Sodium 100 mls @ 0 mls/h r 11/14/22 13:45 11/15/22 08:37 Chloride IV 0 mg/hr .Q0M LILIYA 0 mls/hr Titration Protocol Per Protocol Levothyroxine Sodi um 137 mcg 11/11/22 06:00 11/15/22 04:46 Levothyroxine 13 7 Mcg Tablet PO 137 mcg QAM LILIYA Administration Metoprolol Tartrat e 50 mg 11/15/22 09:00 11/15/22 08:37 Metoprolol Tartr ate 50 Mg Tablet PO 50 mg BID LILIYA Administration Sertraline HCl 100 mg 11/11/22 06:00 11/15/22 04:46 Sertraline 100 M g Tablet PO 100 mg QAM LILIYA Administration Vitals/I&O/Wt Last Vital Signs Temp 97.4 F L 11/16/22 08:30 Pulse 109 H 11/16/22 13:00 Resp 26 H 11/16/22 13:00 BP 129/78 11/16/22 13:00 Pulse Ox 95 11/16/22 07:56 O2 Del Method 11/16/22 07:59 O2 Flow Rate 2 11/16/22 07:56 11/16/22 11/16/22 11/16/22 06:59 14:59 22:59 Intake Total 440 / 1123.416 360 / 360 Balance 440 / 1123.416 360 / 360 Weight last 48 hrs Weight 49.804 kg Weight 50.213 kg Physical Exam Narrative: General: No acute distress, AO x 2-3, slightly confused, dehydrated, cachectic HEENT: PERRLA, pupils bilaterally equal and reactive Chest: Normal vesicular breath sounds, occasional rhonchi over the lung espana, equal good air entry bilaterally CVS: S1-S2 irregularly irregular, tachycardia, soft pansystolic murmur present in tricuspid area, no gallops, no rubs Abdomen: Soft, nontender, no organomegaly, bowel sounds present Neuro: No focal deficits, no facial deformity, moving all limbs Const: COMMON NORMALS: no acute distress, average body habitus, patient oriented x3, no limitations, healthy appearing and alert HENMT: COMMON NORMALS: normocephalic, atraumatic and hearing grossly normal b ilaterally HEAD & SCALP: normocephalic and atraumatic Eye: COMMON NORMALS: Equal, round and reactive pupils present, EOMs intact bilaterally and conjunctivae normal CONJUNCTIVA: Yes conjunctivae normal PUPIL: Yes Equal, round and reactive pupils present Neck/C-Spine: COMMON NORMALS: full ROM, no lymphadenopathy and supple Lymph: LYMPHATIC: no lymphadenopathy noted Chest: COMMONS NORMALS: normal inspection of the chest Resp: COMMON NORMALS: normal respiratory effort, No retractions, No use of accessory muscles and clear to auscultation bilaterally AUSCULTATION: clear to auscultation bilaterally OTHER: diminished air entry b/l Cardio: COMMON NORMALS: S1 normal heart sound present and S2 normal heart sound present JUGULAR VENOUS DISTENTION: no JVD RATE: tachycardic RHYTHM: abnormal rhythm HEART SOUNDS: S1 normal heart sound present and S2 normal heart sound present GI: COMMON NORMALS: Normal to inspection, nondistended, normoactive bowel sounds present, Soft to palpation, non-tender, No hepatosplenomegaly present and no masses PALPATION: Yes Soft to palpation and Yes No hepatosplenomegaly present : COMMON NORMALS: Yes no CVA tenderness BLADDER/KIDNEY EXAM: Yes no CVA tenderness Back/Pelvis: COMMON NORMALS: no CVA tenderness Extremity: NARRATIVE EXTREMITY EXAM: Trace edema bilateral lower extremities Neuro: COMMON NORMALS: patient oriented x3, CN's II-XII intact bilaterally, moves all extremities, no focal motor deficits and no sensory deficits noted SENSORIUM/ORIENTATION: Yes alert Psych: COMMON NORMALS: mental status grossly normal, Normal thought process present, cooperative, normal affect and speech normal SPEECH: Yes normal speech THOUGHT PROCESS: Normal thought process present Skin: COMMON NORMALS: no rashes or lesions noted, no wounds, turgor normal, no jaundice and no petechiae GENERAL SKIN EXAM: no rashes or lesions noted and turgor normal Urinary Catheter Management: Finch: Cath Placed During This Visit: yes, but has since been removed by the nurse Reason for Continuing Indwelling Catheter: Accurate Measurement of Urinary Output in Critically Ill Patients Urinary Catheter Date of Insertion: 11/13/22 Urinary Catheter Time of Insertion: 13:33 Date Urinary Catheter Removed: 11/14/22 Time Urinary Catheter Discontinued: 10:54 Data 11/14/22 03:57 11/14/22 03:57 A&P Assessment and plan (1) Acute renal failure: (2) Bilateral hydronephrosis: (3) Acute hyponatremia: (4) Acute hyperkalemia: (5) Atrial fibrillation with rapid ventricular response: (6) CHF (congestive heart failure): Qualifiers: Heart failure chronicity: unspecified Heart failure type: unspecified Qualified Code(s): I50.9 - Heart failure, unspecified (7) Nausea and vomiting: (8) Severe protein-calorie malnutrition: (9) Urinary retention: (10) Severe mitral regurgitation: Plan 86-year-old lady with past medical history of atrial fibrillation not on anticoagulation, urinary retention presented to the hospital with nausea and vomiting found to be in atrial fibrillation with rapid ventricular response along with acute kidney injury, uremia, hyponatremia and hyperkalemia. Acute kidney injury on CKD: Baseline serum creatinine is around: 1-1.5 Admission serum creatinine: 3.2 CT abdomen and pelvis had shown: Bilateral hydroureteronephrosis no renal stone has been noted Patient has known prior history of neurogenic bladder, recurrent UTI. Urine electrolytes: Random sodium 90, urine random creatinine 13 FENA: 15 % pointing out in the direction of postobstructive uropathy Urine culture is growing gram-negative felicity We will plan to follow-up with repeat ultrasound renal Was on gentle IV hydration with NS at 100 cc an hour.Currently has been discontinued Monitor and output charting Avoid nephrotoxic's Nephrology on board Monitor BMP Hyponatremia: Resolved. Urine electrolytes TSH:0.77 Cortisol: Urine osmolality Serum osmolality Continue gentle IV hydration with NS Monitor serum sodium Bilateral hydroureteronephrosis: Follow-up with repeat ultrasound renal: Severe bilateral hydronephrosis, RIGHT greater than LEFT.Marked diffuse cortical thinning of each kidney, greater on the RIGHT. Patient and family has denied any urological intervention. Urology on board. Hyperkalemia: Resolved Has received : D50 along with insulin 10 units, calcium gluconate one-time. Leukocytosis: Follow blood culture: Negative Urine culture is growing : E. coli as well as Proteus vulgaris. Empirically she has been on ceftriaxone Atrial fibrillation with rapid ventricular response: Most likely in setting of dehydration. Currently she is on Cardizem drip and has been started on metoprolol p.o. Plan is to taper off Cardizem drip. Not on anticoagulation because of history of recurrent fall Most recent 2D echo has shown September 2022 shows EF of 30% with mild LVH, severe MR, mild to moderate AI, mild to moderate TR, mild pulmonary hypertension with RVSP of 46. Patient also had a Lexiscan in September 2022 which showed old myocardial infarction and RCA versus artifact with EF of around 47%. Nausea and vomiting: Most likely in setting of uremia. CT abdomen pelvis negative for any acute abnormality though it was a noncontrast study. Protonix and Zofran. Start on clear liquid diet for now. HFrEF: Monitor intake output charting Monitor daily weight Continue telemetry monitoring Most recent 2D echo result appreciated Severe MR: No acute intervention at this time Continue with cardiology follow-up as outpatient Mild pulmonary hypertension: No acute intervention at this time Protein energy malnutrition CODE STATUS: Full code DVT prophylaxis: On subcutaneous heparin Attestations Medical Necessity Statement*: In hospital for management of A-fib Coding Level of Care Code Acute Code for Chg Fwd Diagnoses Acute renal failure N17.9 Bilateral hydronephrosis N13.30 Acute hyponatremia E87.1 Acute hyperkalemia E87.5 Atrial fibrillation with rapid ventricular response I48.91 CHF (congestive heart failure) I50.9 Heart failure chronicity: unspecified Heart failure type: unspecified Nausea and vomiting R11.2 Severe protein-calorie malnutrition E43 Urinary retention R33.9 Severe mitral regurgitation I34.0
[2022-11-16] MEDS: cefTRIAXone 1,000 MG in sodium chloride 0.9% (plus) 50 ML 100 MG IV (17:56)
[2022-11-16] MEDS: ondansetron 2 mg/ML SDV 2 mL 4 MG IVP (19:38)
[2022-11-16] MEDS: amitriptyline 25 mg Tablet PO (22:10)
[2022-11-17] VITALS (7 sets, daily range): BP systolic 122–131; BP diastolic 57–85; PULSE 65–98; RESP 18–24; TEMP 36.6–36.7; O2SAT 94–100
[2022-11-17] MEDS: famotidine 20 mg/2 mL INJ IVP ×2 (02:59→15:20)
[2022-11-17] MEDS: heparin 5,000 unit/mL INJ 1 mL 5000 UNIT SUBCUT ×2 (03:02→15:20)
[2022-11-17] MEDS: dilTIAZem 60 mg Tablet PO ×3 (03:04→15:20)
[2022-11-17] MEDS: sertraline 100 mg Tablet PO (06:06)
[2022-11-17] MEDS: levothyroxine 137 mcg Tablet PO (06:06)
[2022-11-17] MEDS: metoprolol tartrate 50 mg Tablet PO (09:30)
[2022-11-17] MEDS: ferrous gluconate 324 mg Tablet PO (09:30)
[2022-11-17] MEDS: docusate sodium 100 mg Capsule PO (09:30)
[2022-11-17 09:37] LABS: Anion Gap 16.5 (5-19); Blood Urea Nitrogen 74 mg/dL (8-23); Calcium 8.1 mg/dL (8.5-10.5); Carbon Dioxide 16 mmol/L (22-29); Chloride 106 mmol/L (98-107); Glucose 107 mg/dL (65-115); Osmolality Calculated 302 mOsm/kg (285-295); Potassium 3.5 mmol/L (3.5-5.1); Sodium 135 mmol/L (136-145)
--- NOTE | 2022-11-17 10:38 | PC.SOCIAL ---
Imm update Imm updated with patient at bedside. Copy of page 2 provided. Patient and family verbalized understanding. Copy in chart initialed, dated and timed.
--- NOTE | 2022-11-17 11:56 | PM.DCS ---
Discharge Providers Date of Admission: 11/10/22 14:08 Date of Discharge: November 17, 2022 Attending Provider at Admission: Ha Tellez MD Attending Provider at Discharge: Edison Hobbs MD Primary Care Provider: Scott Lau MD Diagnoses at Discharge Discharge Diagnosis (1) Acute renal failure: Status: Acute (2) Bilateral hydronephrosis: Status: Acute (3) Acute hyponatremia: Status: Acute (4) Acute hyperkalemia: Status: Acute (5) Atrial fibrillation with rapid ventricular response: Status: Acute (6) CHF (congestive heart failure): Status: Acute Qualifiers: Heart failure chronicity: unspecified Heart failure type: unspecified Qualified Code(s): I50.9 - Heart failure, unspecified (7) Nausea and vomiting: Status: Acute (8) Severe protein-calorie malnutrition: Status: Acute (9) Urinary retention: Status: Resolved (10) Severe mitral regurgitation: Status: Acute Reason for Visit Reason for Visit: n/v/bloody stool Hospital Course Hospital Course 86-year-old lady with past medical history of atrial fibrillation not on anticoagulation, urinary retention presented to the hospital with nausea and vomiting found to be in atrial fibrillation with rapid ventricular response along with acute kidney injury, uremia, hyponatremia and hyperkalemia. During the hospital stay she was being managed for A-fib with RVR, she was kept on Cardizem drip, metoprolol and p.o. Cardizem, at the time of discharge the heart rate was improving and was getting slowly better controlled, she was being discharged on Cardizem p.o. to 240 daily, as well as metoprolol succinate 100 p.o. daily, she has not been a candidate of anticoagulation. During the hospital stay she was also managed for JULIA on CKD: CT abdomen and pelvis had shown: Bilateral hydroureteronephrosis no renal stone, ultrasound renal:?Severe bilateral hydronephrosis, RIGHT greater than LEFT.Marked diffuse cortical thinning of each kidney, greater on the RIGHT. Both urology as well as nephrology was on board, patient was advised for PCN, or stent placement to relieve the, hydroureteronephrosis, primarily contributing to JULIA, family has decided against it, they have decided against this in the past also, during the hospital stay she was also managed for hyponatremia hyperkalemia, both were resolved with standard conservative medical management,Leukocytosis:?blood culture: Negative Urine culture is growing : E. coli as well as Proteus vulgaris. She was kept on ceftriaxone, no antibiotic was continued on discharge. Given the overall significant comorbid condition, and progressive deterioration in her overall Complex medical condition. Multidisciplinary meeting was conducted, family was advised for hospice, family understood the overall prognosis, decided to go home with hospice. She is being discharged home on hospice Physical Exam Const: COMMON NORMALS: no acute distress, average body habitus, patient oriented x3, no limitations, healthy appearing and alert HENMT: COMMON NORMALS: normocephalic, atraumatic and hearing grossly normal bilaterally HEAD & SCALP: normocephalic and atraumatic Eye: COMMON NORMALS: Equal, round and reactive pupils present, EOMs intact bilaterally and conjunctivae normal CONJUNCTIVA: Yes conjunctivae normal PUPIL: Yes Equal, round and reactive pupils present Neck/C-Spine: COMMON NORMALS: full ROM, no lymphadenopathy and supple Lymph: LYMPHATIC: no lymphadenopathy noted Chest: COMMONS NORMALS: normal inspection of the chest Resp: COMMON NORMALS: normal respiratory effort, No retractions, No use of accessory muscles and clear to auscultation bilaterally AUSCULTATION: clear to auscultation bilaterally OTHER: diminished air entry b/l Cardio: COMMON NORMALS: S1 normal heart sound present and S2 normal heart sound present JUGULAR VENOUS DISTENTION: no JVD RATE: tachycardic RHYTHM: abnormal rhythm HEART SOUNDS: S1 normal heart sound present and S2 normal heart sound present GI: COMMON NORMALS: Normal to inspection, nondistended, normoactive bowel sounds present, Soft to palpation, non-tender, No hepatosplenomegaly present and no masses PALPATION: Yes Soft to palpation and Yes No hepatosplenomegaly present : COMMON NORMALS: Yes no CVA tenderness BLADDER/KIDNEY EXAM: Yes no CVA tenderness Back/Pelvis: COMMON NORMALS: no CVA tenderness Extremity: NARRATIVE EXTREMITY EXAM: Trace edema bilateral lower extremities Neuro: COMMON NORMALS: patient oriented x3, CN's II-XII intact bilaterally, moves all extremities, no focal motor deficits and no sensory deficits noted SENSORIUM/ORIENTATION: Yes alert Psych: COMMON NORMALS: mental status grossly normal, Normal thought process present, cooperative, normal affect and speech normal SPEECH: Yes normal speech THOUGHT PROCESS: Normal thought process present Skin: COMMON NORMALS: no rashes or lesions noted, no wounds, turgor normal, no jaundice and no petechiae GENERAL SKIN EXAM: no rashes or lesions noted and turgor normal Urinary Catheter Management: Finch: Cath Placed During This Visit: yes, but has since been removed by the nurse Reason for Continuing Indwelling Catheter: Accurate Measurement of Urinary Output in Critically Ill Patients Urinary Catheter Date of Insertion: 11/13/22 Urinary Catheter Time of Insertion: 13:33 Date Urinary Catheter Removed: 11/14/22 Time Urinary Catheter Discontinued: 10:54 Discharge Data Studies Completed and Pending Completed Studies During Hospitalization Category Date Time Status CT abdomen pelvis wo con [id number] Stat Cat Scan 11/10/22 14:08 Completed XR chest 1V portable [id number] Stat Exams 11/10/22 12:20 Completed US renal BI* [id number] Routine Ultrasound 11/13/22 07:45 Completed Radiology Impressions Chest X-Ray 11/10/22 12:20 IMPRESSION: 1. No acute findings. 2. Right breast implant 3. Left perihilar pneumonia has now resolved 4. Left perihilar parenchymal density mass or granuloma CT exam suggested Abdomen/Pelvis CT 11/10/22 14:08 IMPRESSION: 1. Bilateral hydronephrosis without evidence of stones 2. Heavily calcified abdominal aorta without aneurysm or dissection. 3. Multiple gallstones and gallbladder sludge 4. Surgical sutures in bowel loops of the pelvis. 5. Chronic fracture right pubic bone 6. Bilateral lower lobe pleural effusion Renal Ultrasound 11/13/22 07:45 IMPRESSION: 1. Severe bilateral hydronephrosis, RIGHT greater than LEFT. 2. Marked diffuse cortical thinning of each kidney, greater on the RIGHT. Laboratory Results WBC 12.3 10^3/uL (4.0-10.0) H 11/14/22 03:57 RBC 3.11 10^6/uL (4.1-5.3) L 11/14/22 03:57 Hgb 9.8 g/dL (11.5-15.3) L 11/14/22 03:57 Hct 31.4 % (37.0-47.0) L 11/14/22 03:57 MCV 101.0 fl (81-99) H 11/14/22 03:57 MCH 31.5 pg (28.0-34.0) 11/14/22 03:57 MCHC 31.2 g/dL (30.0-36.0) 11/14/22 03:57 RDW 16.5 % (12.1-15.1) H 11/14/22 03:57 Plt Count 151 10^3/cmm (130-400) 11/14/22 03:57 MPV 10.2 fL (7.4-10.4) 11/14/22 03:57 Neut % (Auto) 83.4 % 11/14/22 03:57 Lymph % (Auto) 9.1 % 11/14/22 03:57 Alexander % (Auto) 4.6 % 11/14/22 03:57 Eos % (Auto) 0.7 % 11/14/22 03:57 Baso % (Auto) 0.2 % 11/14/22 03:57 Neut # (Auto) 10.22 10^3/uL (1.8-7.7) H 11/14/22 03:57 Lymph # (Auto) 1.1 10^3/uL (0.8-4.8) 11/14/22 03:57 Alexander # (Auto) 0.6 10^3/uL (0.2-0.9) 11/14/22 03:57 Eos # (Auto) 0.1 10^3/uL (0.0-0.8) 11/14/22 03:57 Baso # (Auto) 0.0 10^3/uL (0.0-0.1) 11/14/22 03:57 Nucleated RBC % (auto) 0 % 11/14/22 03:57 Nucleated RBCs # 0.0 /100WBC 11/14/22 03:57 PT 17.30 SECONDS (12.1-14.9) H 11/10/22 12:59 INR 1.37 (0.8-1.2) H 11/10/22 12:59 Sodium 135 mmol/L (136-145) L 11/17/22 08:58 Potassium 3.5 mmol/L (3.5-5.1) 11/17/22 08:58 Chloride 106 mmol/L (98-107) 11/17/22 08:58 Carbon Dioxide 16 mmol/L (22-29) L 11/17/22 08:58 Anion Gap 16.5 (5-19) 11/17/22 08:58 BUN 74 mg/dL (8-23) H 11/17/22 08:58 Creatinine 3.0 mg/dL (0.5-0.9) H 11/17/22 08:58 GFR Calculation Not Reportable 11/17/22 08:58 Glucose 107 mg/dL (65-115) 11/17/22 08:58 Estimat Average Glucose 97 11/11/22 03:52 Hemoglobin A1c 5.0 % (4.0-6.0) 11/11/22 03:52 Calculated Osmolality 302 mOsm/kg (285-295) H 11/17/22 08:58 Lactic Acid 2.8 mmol/L (0.5-2.2) H 11/10/22 15:27 Lactic Acid (Sepsis) 3.7 mmol/L (0.5-2.2) H 11/10/22 20:39 Uric Acid 7.7 mg/dL (2.4-5.7) H 11/14/22 03:57 Calcium 8.1 mg/dL (8.5-10.5) L 11/17/22 08:58 Phosphorus 5.0 mg/dL (2.5-4.5) H 11/17/22 04:27 Magnesium 2.0 mg/dL (1.7-2.3) 11/17/22 04:27 Iron 32 ug/dL (37-145) L 11/10/22 15:27 TIBC 205 mcg/dl 11/10/22 15:27 % Saturation 15.6 % (20-50) L 11/10/22 15:27 Unsat Iron Binding 173 ug/dL (112-347) 11/10/22 15:27 Total Bilirubin 0.6 mg/dL (0.15-1.2) 11/11/22 03:52 AST 99 U/L (0-32) H 11/11/22 03:52 ALT 60 U/L (0-33) H 11/11/22 03:52 Alkaline Phosphatase 125 U/L (35-105) H 11/11/22 03:52 Creatine Kinase 23 U/L (26-192) L 11/14/22 03:57 Troponin T Baseline 41 ng/L (0-10) H 11/10/22 12:59 Troponin T 120 Minute 36.39 ng/L (0-10) H 11/10/22 15:27 Delta Troponin T -4.61 ABS# (0-10) L 11/10/22 15:27 Troponin T Hi Sens 6Hr 39.37 ng/L (0-10) H 11/10/22 20:39 Troponin T Hi Sens 6Hr Delta -1.63 ng/L (0-12) L 11/10/22 20:39 NT-Pro-B Natriuret Pep > 66207 pg/mL (0-450) H 11/10/22 12:59 Total Protein 6.8 g/dL (6.6-8.7) 11/11/22 03:52 Albumin 3.1 g/dL (3.5-5.2) L 11/11/22 03:52 Globulin 3.7 g/dL (1.3-4.6) 11/11/22 03:52 Triglycerides 80 mg/dL (0-150) 11/11/22 03:52 Cholesterol 122 mg/dL (0-200) 11/11/22 03:52 LDL Cholesterol, Calc 83 mg/dL (50-129) 11/11/22 03:52 HDL Cholesterol 23 mg/dL (60-100) L 11/11/22 03:52 LDL/HDL Ratio 3.61 RATIO (0.00-3.22) H 11/11/22 03:52 Cholesterol/HDL Ratio 5.30 mg/dL (0.0-4.40) H 11/11/22 03:52 Vitamin B12 > 2000 pg/mL (232-1245) H 11/10/22 15:27 Folate > 20.0 ng/mL (4.8-37.3) 11/10/22 15:27 Procalcitonin 0.55 ng/mL (0-0.5) H 11/11/22 03:52 TSH 0.77 uIU/mL (0.27-4.20) 11/10/22 15:27 Random Cortisol 16.20 ug/dL (2.47-19.5) 11/13/22 03:19 Urine Color Red (Yellow) 11/10/22 16:25 Urine Appearance Bloody (CLEAR) A 11/10/22 16:25 Urine pH 8 (5-7) H 11/10/22 16:25 Ur Specific [place] 1.010 (1.005-1.030) 11/10/22 16:25 Urine Protein 3+ (Negative) H 11/10/22 16:25 Urine Glucose (UA) Norm (Normal) 11/10/22 16:25 Urine Ketones Negative (Negative) 11/10/22 16:25 Urine Blood 3+ (Negative) H 11/10/22 16:25 Urine Nitrate Negative (Negative) 11/10/22 16:25 Urine Bilirubin Neg (Negative) 11/10/22 16:25 Prot Sulfosalicylic Acd Positive (Negative) 11/10/22 16:25 Urine Urobilinogen Norm mg/dL (Negative) 11/10/22 16:25 Ur Leukocyte Esterase 2+ (Negative) H 11/10/22 16:25 Urine RBC >100 /hpf (0-2) H 11/10/22 16:25 Urine WBC 40-55 /hpf (0-5) H 11/10/22 16:25 Ur Eosinophil Smear 0 (0-0) 11/10/22 16:50 Ur Squamous Epith Cells None /hpf (0-5) 11/10/22 16:25 Amorphous Sediment Not Reportable 11/10/22 16:25 Urine Bacteria 2+ /hpf (NONE) H 11/10/22 16:25 Urine Eosinophils No eosinophils seen 11/10/22 16:50 Ur Random Sodium 90 mmol/L 11/10/22 16:50 Ur Random Potassium 18 mmol/L 11/10/22 16:50 Ur Random Chloride 65 mmol/L 11/10/22 16:50 Urine Creatinine 13 mg/dL (28-217) L 11/10/22 16:50 Digoxin 0.3 ng/mL (0.6-1.2) L 11/10/22 20:39 Hepatitis C Antibody Non-reactive (Nonreactive) 11/14/22 03:57 Vitals Last Vital Signs Temp 98.1 F 11/17/22 07:34 Pulse 65 11/17/22 11:22 Resp 18 11/17/22 11:22 BP 131/57 11/17/22 11:22 Pulse Ox 100 11/17/22 11:22 O2 Del Method 11/17/22 11:22 O2 Flow Rate 2 11/17/22 11:22 Discharge Plan Discharge Patient Disposition: Home Health Service Condition: Stable Prescriptions: New diltiazem HCl [Cardizem CD] 240 mg capsule,extended release 24hr 240 mg PO DAILY Qty: 30 1RF metoprolol succinate 100 mg tablet extended release 24 hr 100 mg PO DAILY 30 Days Qty: 30 1RF Continued vitamin B complex [B-Complex] Tablet 1 tab PO QAM flaxseed oil 1,000 mg capsule 1,000 mg PO QAM sertraline 100 mg tablet 100 mg PO QAM clonazepam [Klonopin] 0.5 mg tablet 0.5 mg PO BEDTIME multivitamin [Multiple Vitamins] Tablet 1 tab PO QAM levothyroxine 137 mcg tablet 137 mcg PO QAM cholecalciferol (vitamin D3) [Vitamin D3] 25 mcg (1,000 unit) Tablet 25 mcg PO QAM omega 0-hmd-ykl-fish oil [Fish Oil] 1,000 mg (120 mg-180 mg) Capsule 1 cap PO QAM amitriptyline 25 mg tablet 25 mg PO BEDTIME Belsomra 10 mg tablet 10 mg PO BEDTIME Tylenol Ex Str Rapid Release 500 mg Tablet 500 - 1,000 mg PO Q6H PRN (Reason: Pain) Probiotic Blend 2 billion cell-50 mg Capsule 1 cap PO QAM Rx Instructions: give with meal/snack diphenoxylate-atropine 2.5-0.025 mg tablet 1 tab PO DAILY PRN (Reason: Diarrhea) Restasis 0.05 % dropperette 1 drp ophthalmic (eye) DAILY Held furosemide 20 mg tablet 20 mg PO QAM Hold Instructions: Resume on 11/24/22. see your pcp before initaiting lasix with repeat BMP Discontinued potassium chloride 10 mEq tablet,ER particles/crystals 10 meq PO QAM metoprolol tartrate 25 mg tablet 12.5 mg PO BID No Action ondansetron 4 mg tablet,disintegrating 4 mg translingual Q4H PRN (Reason: nausea) Qty: 5 0RF Rx Instructions: Dissolve 1 tablet under tongue every 4 hours PRN for nausea lorazepam 2 mg/mL concentrate 2 mg sublingual Q4H PRN (Reason: Anxiety/Seizure) Qty: 30 0RF Rx Instructions: 0.25ml-1ml q4H PRN Anxiety/Seizure Start 0.25ml may increase to 0.5ml-1ml q4H bisacodyl 10 mg suppository 10 mg MS DAILY PRN (Reason: constipation) Qty: 5 0RF Rx Instructions: 1 suppository per rectum every day PRN for constipation. atropine 1 % drops 4 drp sublingual Q4H PRN (Reason: secretions) Qty: 5 0RF Rx Instructions: 4 drops SL q 4 hours PRN for terminal congestion/excessive secretions. morphine concentrate 100 mg/5 mL (20 mg/mL) solution 20 mg sublingual DIRECTED PRN (Reason: Pain/SOB) 14 Days Qty: 30 0RF Rx Instructions: 0.25ml-1ml q1H PRN may increase to 0.5ml-1ml Q1H PRN Discharge Orders: Discharge Order (Routine); Ordered 11/17/22 Ordered By: Edison Hobbs Other Ambulatory Orders: DME: Wheelchair (Order) Location: None Selected Ordered By: Edison Hobbs Ref[facility]: [facility] [place] [facility] [place] [facility] [place]) [Outside] Scott Lau MD [Primary Care Provider] - (Keven Farley will be calling you to schedule an follow-up appintment. If you haven't heard from them by Friday afternoon. PLease call ) Patient Instructions: Metoprolol (By mouth), Diltiazem (By mouth) (Cardizem, Cardizem CD, Cardizem LA, Cardizem SR), A-fib (Atrial Fibrillation) (DC), Acute Kidney Injury (DC), Malnutrition (DC), CHF Stoplight, Opioid Safety Discharge Attestations Time Spent in Discharge Care*: less than 30 min Quality Metrics Clinical Quality Measures [ No reported AMI, CVA or VTE this stay] Coding Level of Care Code Acute Code for Chg Fwd Diagnoses Acute renal failure N17.9 Bilateral hydronephrosis N13.30 Acute hyponatremia E87.1 Acute hyperkalemia E87.5 Atrial fibrillation with rapid ventricular response I48.91 CHF (congestive heart failure) I50.9 Heart failure chronicity: unspecified Heart failure type: unspecified Nausea and vomiting R11.2 Severe protein-calorie malnutrition E43 Urinary retention R33.9 Severe mitral regurgitation I34.0
--- NOTE | 2022-11-17 16:16 | PC.NURSE ---
discharge instructions given to daughter and explained.she verb understanding of instructions.hospice nurse marita phoned and alerted that pt was leaving facility at this time.discharged via stretcher/ambulance at this time
== END 2022-11-17 16:17 | disposition hospice, home (50) | DRG 682 ==
LOC: ER 14:08 → CSU 14:40
PROVIDERS: Internal Medicine Nephrology; Admitting Provider Student in an Organized Health Care Education/Training Program; Emergency Provider Emergency Medicine; PCP Family Medicine; Visit Provider Internal Medicine
DX: N17.9 Acute kidney failure, unspecified (principal); E43 Unspecified severe protein-calorie malnutrition; E87.1 Hypo-osmolality and hyponatremia; I13.0 Hypertensive heart and chronic kidney disease with heart failure and stage 1 through stage 4 chronic kidney disease, or unspecified chronic kidney disease; I50.22 Chronic systolic (congestive) heart failure; N39.0 Urinary tract infection, site not specified; Z68.1 Body mass index [BMI] 19.9 or less, adult; I48.91 Unspecified atrial fibrillation; R33.9 Retention of urine, unspecified; E87.5 Hyperkalemia; N18.9 Chronic kidney disease, unspecified; N13.1 Hydronephrosis with ureteral stricture, not elsewhere classified; B96.20 Unspecified Escherichia coli [E. coli] as the cause of diseases classified elsewhere; B96.4 Proteus (mirabilis) (morganii) as the cause of diseases classified elsewhere; F03.90 Unspecified dementia, unspecified severity, without behavioral disturbance, psychotic disturbance, mood disturbance, and anxiety; Z85.41 Personal history of malignant neoplasm of cervix uteri; Z85.038 Personal history of other malignant neoplasm of large intestine; R29.6 Repeated falls; I34.0 Nonrheumatic mitral (valve) insufficiency; Z90.49 Acquired absence of other specified parts of digestive tract; I27.20 Pulmonary hypertension, unspecified; R19.00 Intra-abdominal and pelvic swelling, mass and lump, unspecified site; Z92.3 Personal history of irradiation; E86.0 Dehydration; Z87.891 Personal history of nicotine dependence; I25.10 Atherosclerotic heart disease of native coronary artery without angina pectoris; Z95.5 Presence of coronary angioplasty implant and graft; I73.9 Peripheral vascular disease, unspecified; E03.9 Hypothyroidism, unspecified; Z87.01 Personal history of pneumonia (recurrent); K59.09 Other constipation; D63.1 Anemia in chronic kidney disease
CPT/HCPCS: 36415; 51702; 71045; 74176; 76770; 80048; 80053; 80061; 80162; 81001; 82436; 82533; 82550; 82570; 82607; 82746; 83036; 83540; 83550; 83605; 83735; 83880; 84100; 84133; 84145; 84300; 84443; 84484; 84550; 85025; 85610; 85999; 86403; 86803; 87040; 87077; 87086; 87186; 87449; 87641; 93005; 94664; 96361; 96372; 96374; 96375; 96376; 97110; 97116; 97162; 97530; 99285; A9270; J0696; J1160; J1630; J1644; J1815; J1940; J2405; J3490; J7030; J7040; Q3014